=== PATIENT | female | born 1935 | race American Indian/Alaskan Native ===

== ENCOUNTER 2017-10-16 15:35 | Inpatient (IN) | payer BC, MEDICARE ==
[2017-10-16 15:46] VITALS: BMI 20.5
[2017-10-16] MEDS ORDERED: Sodium Chloride 0.9% 500 ML IV STA (16:02)
--- NOTE | 2017-10-16 16:08 | ED PDOC ---
Arrival/HPI - General Chief Complaint: GI Problem Time Seen by Provider: 10/16/17 16:02 Historian: Patient, Family (son at bedside) - History of Present Illness Narrative History of Present Illness (Text): 10/16/17 16:05 Pt p/w + 2-3 days onset of abd cramps/fullness, + intermittent nausea, one or 2 episodes of vomiting; pt states abd cramps/pain wax and wanes at most pain is 7/ 10, pt states symptoms actually started 3 weeks ago but the last few days has been the worse; pt states no fever/chills/sweats, no cp/sob/palpitations, no numbness/tingling, no urinary changes, + colostomy bag is filled and changed daily, non-bloody; pt was seen by Dr Guadalupe today and was directed to come to Emergency department for further eval; pt denied LOC, + lightheaded/dizzy, pt states she has no appetite. pt is here for further eval pt's without other complaints. PCP: Dr Rin Guadalupe other physician at [facility] Time/Duration: Other (3 weeks, worse over the last few days) Symptom Onset: Gradual Symptom Course: Worsening Quality: Cramping Severity Level: Moderate Activities at Onset: Rest Context: Home Past Medical History - Provider Review Nursing Documentation Reviewed: Yes - Travel History Have you recently traveled outside [place] w/in the past 3 mons?: No - Past History Past History: No Previous - Infectious Disease Hx of Infectious Diseases: None - Reproductive Menopause: Yes Currently : No - Cardiac Hx Hypertension: Yes - Musculoskeletal/Rheumatological Hx Gout: Yes - Gastrointestinal Other/Comment: Colon CA. H/O Colon resection - Psychiatric Hx Depression: No Hx Emotional Abuse: No Hx Physical Abuse: No Hx Substance Use: No - Surgical History Other/Comment: colon resection. ileostomy. ureteral stent - Anesthesia Hx Anesthesia: Yes Hx Anesthesia Reactions: No Hx Malignant Hyperthermia: No - Suicidal Assessment Feels Threatened In Home Enviroment: No Family/Social History - Physician Review Nursing Documentation Reviewed: Yes Family/Social History: No Known Family HX Smoking Status: Never Smoked Hx Alcohol Use: No Hx Substance Use: No Hx Substance Use Treatment: No Allergies/Home Meds Allergies/Adverse Reactions: Allergies No Known Allergies Allergy (Verified 01/01/12 18:12) Home Medications: Home Meds Medication Instructions Recorded Confirmed Gabapentin [Neurontin] 1 tab PO BID 10/16/17 10/16/17 Losartan/Hydrochlorothiazide 1 tab PO DAILY 10/16/17 10/16/17 [Hyzaar 100-25 Tablet] Metoprolol Tartrate [Lopressor] 1 tab PO DAILY 10/16/17 10/16/17 Rosuvastatin Calcium [Crestor] 10 mg PO DAILY 10/16/17 10/16/17 Warfarin [Coumadin] 6 mg PO DAILY 10/16/17 10/16/17 Review of Systems - Review of Systems Constitutional: Fatigue. absent: Fevers Eyes: Normal ENT: Normal Respiratory: absent: SOB Cardiovascular: absent: Chest Pain Gastrointestinal: Abdominal Pain, Nausea, Vomiting, Appetite Changes Genitourinary Female: Normal Musculoskeletal: Normal Skin: Normal Neurological: Dizziness. absent: Headache Endocrine: Normal Hemo/Lymphatic: Normal Psychiatric: Normal Physical Exam - Physical Exam Narrative Physical Exam (Text): 10/16/17 16:05 General: alert/awake, GCS = 15, oriented x 3, resting in bed, uncomfortable, cooperative, interactive; NAD Head: NC/AT; mild bi-temporal wasting EYE: PERRLA, EOMI, sclera anicteric, no nystagmus, no photophobia; visual field intact b/l Facial: WNL Oral: uvula/tongue are midline, no exudate/lesions, no drooling/stridor, no dysphonia; poor dentitions; mild dry oral mucosa NECK: intact ROM, no midline tenderness, no nuchal rigidity, no meningeal signs ; no step off Chest: CTA b/l, no w/r/r; no tachypenia, no accessory muscle use noted Chest Wall: no focal tenderness, no gross deformities, no crepitus, no lesions/ rashes noted Cardiac: +S1, +S2, no m/r/r, no tachycardia Abdominal: +BS, soft; + diffuse mild mid/lower abd distention, + diffuse mild abd tenderness, well nourished patient; no masses/rebound/guarding/rigidity; no solares's sign, no mcburney's point tenderness; noted mid/lower abd colostomy bag (full, with vanilla colored liquid; non-bloody) Extremities: intact ROM, strength 5/5 grossly intact in all limbs, neurovasc intact b/l; + ambulatory; reflex +2/2; no pitting edema noted, no gross swelling b/l BACK: no step off, no midline tenderness, NO crepitus, no gross deformities noted; Intact ROM SKIN: cap refill ~ 1 sec, no ulcerations, no petechiae, no rashes; no gross pallor, no lesions NEURO: CNII-XII WNL, no facial asymmetries, no slurr speech, oriented x 3 NIH stroke scale ~ 0 Psych: normal insight, normal affect; follows command with ease Vital Signs Reviewed: Yes Vital Signs Temp Pulse Resp BP Pulse Ox 10/16/17 19:54 88 18 112/72 99 10/16/17 18:00 81 18 111/72 97 10/16/17 16:06 98.7 F 100 H 20 103/64 99 Temperature: Afebrile Blood Pressure: Normal Pulse: Tachycardic Respiratory Rate: Normal Appearance: Positive for: Well-Appearing, Non-Toxic, Uncomfortable. No: Comfortable, Ill-Appearing Pain Distress: None Mental Status: Positive for: Alert and Oriented X 3 - Systems Exam Head: Present: Atraumatic, Normocephalic Medical Decision Making ED Course and Treatment: 10/16/17 16:08 Impression: weakness, abd cramps/lack of appetite i have consider all the differential diagnosis regarding pt's chief medical complaints/clinical findings, including but are not limited to: r/o blockage, dehydration, r/o infection A/P: weakness, abd pain/cramps, lack of appetite - labs - iv - xray - ct - ua - supportive care - observe/reevaluation 10/16/17 1830 pt is at baseline pt continues to have nausea pt is awaiting CT results given patients symptoms, will likely recommend patient for admission and continue IVF hydration [address] Guadalupe, Spoke to Dr Travis, made aware, agrees with admission; would like to consult Dr Mcmahan (surg)/Dr Lane (GI) 1909 pt is made aware of her medical results agrees with admission vital signs remained stable pt is endorsed to Dr Kelley Preciado, awaiting CT results, pt is admitted to Dr Guadalupe Re-evaluation Time: 19:00 Reassessment Condition: Improving,but remains with symptoms - Lab Interpretations Lab Results: 10/16/17 16:36 10/16/17 16:36 Lab Results 10/16/17 16:36: Sodium 148, Chloride 105, Potassium 3.3 L, Carbon Dioxide 25, Anion Gap 22 H, BUN 19, Creatinine 1.1, Est GFR ( Amer) 57, Est GFR (Non- Af Amer) 47, Random Glucose 116 H, Calcium 9.7, Magnesium 1.6 L, Total Bilirubin 0.6, AST 30, ALT 27, Alkaline Phosphatase 47, Troponin I 0.04, NT-Pro- B Natriuret Pep 915 H, Total Protein 7.6, Albumin 4.2, Globulin 3.4, Albumin/ Globulin Ratio 1.2, Lipase < 10 L 10/16/17 16:36: pO2 61 H, VBG pH 7.46 H, VBG pCO2 34.0 L, VBG HCO3 24.2, VBG Total CO2 25.2, VBG O2 Sat (Calc) 95.4 H, VBG Base Excess 0.8, VBG Potassium 2.9 L, Sodium 143.0, Chloride 109.0 H, Glucose 121 H, Lactate 1.9, FiO2 21.0, Venous Blood Potassium 2.9 L 10/16/17 16:36: PT 35.6 H, INR 3.05 H, APTT 37.7 H 10/16/17 16:36: WBC 3.7 L, RBC 4.55, Hgb 12.2, Hct 36.7, MCV 80.7, MCH 26.8, MCHC 33.2, RDW 14.7 H, Plt Count 196, MPV 12.0 H, Gran % 54.8, Lymph % (Auto) 36.1 H, [place] % (Auto) 7.7 H, Eos % (Auto) 1.4 L, Baso % (Auto) 0.0, Gran # 2.01 , Lymph # (Auto) 1.3, [place] # (Auto) 0.3, Eos # (Auto) 0.1, Baso # (Auto) 0.00 I have reviewed the lab results: Yes Interpretation: Abnormal lab values (decr K; otherwise WNL) - RAD Interpretation Narrative RAD Interpretations (Text): 10/16/17 19:50 CT Scan ABD PELVIS IV CONTRAST ONLY Exam Date: 10/16/17 This imaging exam was performed at EXAM: CT Abdomen and Pelvis With Intravenous Contrast EXAM DATE/TIME: 10/16/2017 4:03 PM CLINICAL HISTORY: The patient age is 82 years old and is female; Signs and symptoms; Nausea; Prior surgery; Additional info: Colon cancer, colostomy, + 2-3 days of pain, nause Facility exam id and description: Ct abdpelciv abd pelvis iv contrast only TECHNIQUE: Axial computed tomography images of the abdomen and pelvis with intravenous contrast. All CT scans at this facility use one or more dose reduction techniques, viz.: automated exposure control; ma/kV adjustment per patient size (including targeted exams where dose is matched to indication; i.e. head); or iterative reconstruction technique. Coronal and sagittal reformatted images were created and reviewed. CONTRAST: 100 mL of omni administered intravenously. COMPARISON: CT - ABD PELVIS PO CONTRAST ONLY 2015-06-16 12:42 FINDINGS: Limitations: Evaluation of was limited by the absence of oral contrast. Lung bases: Dependent groundglass density/atelectatic changes are identified bilaterally. Heart: There is mild enlargement of the left atrium of heart. ABDOMEN: Liver: No hepatic mass is identified. Gallbladder and bile ducts: No calcified stones. No ductal dilation. Pancreas: There is atrophy of the pancreas. Spleen: No splenomegaly. Adrenals: No mass. Kidneys and ureters: There is lobulation of the bilateral kidneys, with areas of parenchymal scarring. Bilateral extrarenal pelvis sees are identified. Stomach and bowel: Dilated small bowel loops are identified with air fluid levels, concerning for obstruction. There are small bowel loops within the pelvis appear to be normal in caliber. A colostomy is identified within the left ventral abdomen. Partial colectomy is visualized. Postoperative changes are identified involving bowel within the posterior pelvis. PELVIS: Appendix: The appendix is not visualized. Bladder: No mass. Reproductive: The uterus is absent. ABDOMEN and PELVIS: Intraperitoneal space: No free air. Bones/joints: There is grade 2 anterolisthesis of L4 on L5 again visualized. Severe narrowing of the thecal sac is identified at this level. There is swelling posterior to the sacrum with possible ulceration. Presacral swelling is also visualized. A laminectomy defect is identified at the L5 vertebral level. Hypertrophic degenerative changes are noted within the spine. Stable increased concavity of the superior L2 endplate. Mild retrolisthesis is noted of T12 on L1, with grade I anterolisthesis of L5 on S1. Vasculature: There is atherosclerotic calcification of the abdominal aorta and iliac arteries. An IVC filter is visualized. No abdominal aortic aneurysm. Lymph nodes: A few enlarged lymph nodes are identified within the right lower quadrant. One of these lymph nodes measures 1.5 x 1.3 cm. These lymph nodes are new compared to the prior study and therefore suspicious for malignancy. IMPRESSION: 1. Dilated small bowel loops are identified with air fluid levels, concerning for obstruction. 2. A few enlarged lymph nodes are identified within the right lower quadrant. These lymph nodes are new compared to the prior study and therefore suspicious for malignancy. PET/CT is suggested. 3. There is lobulation of the bilateral kidneys, with areas of parenchymal scarring. 4. There is grade 2 anterolisthesis of L4 on L5 again visualized. Severe narrowing of the thecal sac is identified at this level. 5. There is swelling posterior to the sacrum with possible ulceration. Presacral swelling is also visualized. Clinical correlation is recommended. 6. Additional CT findings described above. Dictated By: Fabien Carney MD, MD Dictated Date/Time: 10/16/172006 Signed By: Fabien De Jesus MD Date Signed: 2006 Transcribed By: EDWARD Transcribe Date/Time : 10/16/172006 KIRA/ANA prelim results: Chest X-ray - left port-a cath, NAD noted Radiology Orders: 10/16/17 16:02 CHEST PORTABLE [RAD] Stat 10/16/17 16:03 ABD & PELVIS IV CONTRAST ONLY [CT] Stat Financial Analysis Manager: Radiologist - Medication Orders Current Medication Orders: Atorvastatin Calcium (Lipitor) 10 mg PO DIN ADELINE Gabapentin (Neurontin) 300 mg PO BID ADELINE PRN Reason: Protocol Dextrose/Sodium Chloride (Dextrose 5%/0.9% Ns 1000 Ml) 1,000 mls @ 100 mls/hr IV .Q10H ADELINE Last Admin: 10/16/17 19:40 Dose: 100 mls/hr eMAR Start Stop Document 10/16/17 19:40 BRIDGET (Rec: 10/16/17 20:31 BRIDGET [id number]) Intravenous Solution Start Date 10/16/17 Start Time 19:40 Losartan Potassium (Cozaar) 100 mg PO DAILY ADELINE Metoprolol Tartrate (Lopressor) 25 mg PO DAILY ADELINE Warfarin Sodium (Coumadin) 3 mg PO 1800 ADELINE PRN Reason: Protocol Discontinued Medications Famotidine (Pepcid) 20 mg IVP STAT STA Stop: 10/16/17 16:03 Last Admin: 10/16/17 16:44 Dose: 20 mg IVP Administration Document 10/16/17 16:44 [email or web address] (Rec: 10/16/17 16:45 [email or web address] [id number]) Charges for Administration # of IVP Administrations 1 Sodium Chloride (Sodium Chloride 0.9%) 500 mls @ 1,000 mls/hr IV .Q30M STA Stop: 10/16/17 16:31 Last Admin: 10/16/17 16:45 Dose: 1,000 mls/hr eMAR Start Stop Document 10/16/17 16:45 [email or web address] (Rec: 10/16/17 16:45 [email or web address] [id number]) Intravenous Solution Start Date 10/16/17 Start Time 16:45 End Date 10/16/17 Ondansetron HCl (Zofran Inj) 4 mg IVP STAT STA Stop: 10/16/17 16:03 Last Admin: 10/16/17 16:44 Dose: 4 mg IVP Administration Document 10/16/17 16:44 [email or web address] (Rec: 10/16/17 16:44 [email or web address] [id number]) Charges for Administration # of IVP Administrations 1 Potassium Chloride (Klor-Con 10) 10 meq PO STAT STA Stop: 10/16/17 17:27 Last Admin: 10/16/17 18:23 Dose: 10 meq Disposition/Present on Arrival - Present on Arrival Any Indicators Present on Arrival: No History of DVT/PE: No History of Uncontrolled Diabetes: No Urinary Catheter: No History of Decub. Ulcer: No History Surgical Site Infection Following: None - Disposition Have Diagnosis and Disposition been Completed?: Yes Diagnosis: Bowel obstruction, Colon malignancy, Dehydration, Failure to thrive, Hypokalemia, Nausea Disposition: HOSPITALIZED Disposition Time: 19:00 Patient Plan: Admission, Telemetry Patient Problems: Current Active Problems Problem Status Onset Bowel obstruction Acute Colon malignancy Acute Dehydration Acute Condition: STABLE
[2017-10-16 16:44] LABS: VENOUS BLOOD GAS BASE EXCESS 0.8 mmol/L (0.0-2.0); VENOUS BLOOD GAS PO2 61 mm/Hg (30-55); VENOUS BLOOD PH 7.46 (7.32-7.43)
[2017-10-16 16:56] LABS: EOS # 0.1 (0.0-0.7); EOS % 1.4 % (1.5-5.0); GRAN # 2.01 (1.4-6.5); GRAN % 54.8 % (50.0-68.0); HEMOGLOBIN 12.2 g/dL (12.0-16.0); LYMPH # 1.3 (1.2-3.4); LYMPH % 36.1 % (22.0-35.0); MEAN CELL VOLUME 80.7 fl (80.0-105.0); MEAN CORPUSCULAR HEMOGLOBIN 26.8 pg (25.0-35.0); MEAN CORPUSCULAR HGB CONC 33.2 g/dl (31.0-37.0); MONO # 0.3 (0.1-0.6); MONO % 7.7 % (1.0-6.0); RBC 4.55 10^6/uL (3.5-6.1); RED CELL DISTRIBUTION WIDTH 14.7 % (11.5-14.5); WHITE BLOOD COUNT 3.7 10^3/ul (4.5-11.0)
[2017-10-16 17:03] LABS: ALB/GLOB RATIO 1.2 (1.1-1.8); ALBUMIN 4.2 g/dL (3.0-4.8); ALT/SGPT 27 U/L (7-56); AST/SGOT 30 U/L (14-36); BLOOD UREA NITROGEN 19 mg/dL (7-21); CALCIUM 9.7 mg/dL (8.4-10.5); GFR AFRICAN-AMERICAN 57; GFR NON-AFRICAN AMERICAN 47
[2017-10-16 17:05] LABS: INR 3.05 (0.93-1.08); PARTIAL THROMBOPLASTIN TIME 37.7 Seconds (25.1-36.5); PROTHROMBIN TIME 35.6 SECONDS (9.4-12.5)
[2017-10-16 17:08] LABS: LIPASE < 10 U/L (23-300)
[2017-10-16 17:12] LABS: B-TYPE NATRIURETIC PEPTIDE 915 pg/mL (0-450); TROPONIN I 0.04 ng/mL
[2017-10-16] MEDS ORDERED: Potassium Chloride 10 mEq ER Tab PO STA (17:26)
[2017-10-16] MEDS ORDERED: Iohexol 350 MG/100 ML VIAL ONE (17:30)
[2017-10-16] MEDS: Dextrose 5%/0.9% NS 1,000 ML IV SCH (19:40)
--- NOTE | 2017-10-16 19:45 | CP.PCM.CON ---
History of Present Illness - History of Present Illness History of Present Illness: General Surgery Consult for Dr. Mcmahan Reason for consult: suspected SBO/Obstruction on CT 82F with PMH that includes Colon Ca s/p chemo, radiation and resection with end colostomy [place] [facility] complaint of anorexia, nausea, and malaise for past 2 days. Patient was seen and evaluated in the ED. Patient states that she has not be able to eat much the last few days. She reports that she just has not been feeling well. She reports that she has been changing her colostomy appliance frequently due to loose BMs. She states that she went to her PMD's office today and he sent her into the hospital to be seen. She has had intermittent bouts of nausea. She reports that she has been unable to eat anything substantial but today forced herself to drink ensure which she tolerated but subsequently develop diarrhea. Patient currently denies abdominal pain. She also denies fever/chills and vomiting. Denies sick contacts or recent illness. She reports no aggravating or alleviating factors. Patient admits to bilateral lower leg/foot pain and numbness/tingling which has been present since radiation. Patient has no other complaints at this time. CT abdomen/ pelvis was completed and was read as possible obstruction. Patient is have solid naomi colored stool from colostomy. PMH: Colon Ca s/p chemo, radiation and resection with end colostomy, neuropathy , DVT on coumadin, HLD Meds: Losartan, HCTZ, Metoprolol, Coumadin, Gabapentin, Crestor Allergy: NKDA PSH: colon resection with end colostomy, IVC filter, Port placement FH: cannot recall Social: denies tobacco/EtOH/illicit drug use, son helps take care of her Review of Systems - Review of Systems All systems: reviewed and no additional remarkable complaints except (as per HPI ) Past Patient History - Infectious Disease Hx of Infectious Diseases: None - Past Social History Smoking Status: Never Smoked - CARDIAC Hx Hypertension: Yes - MUSCULOSKELETAL/RHEUMATOLOGICAL Hx Gout: Yes - GASTROINTESTINAL Other/Comment: Colon CA. H/O Colon resection - PSYCHIATRIC Hx Depression: No Hx Emotional Abuse: No Hx Physical Abuse: No Hx Substance Use: No - SURGICAL HISTORY Other/Comment: colon resection. ileostomy. ureteral stent - ANESTHESIA Hx Anesthesia: Yes Hx Anesthesia Reactions: No Hx Malignant Hyperthermia: No Meds Allergies/Adverse Reactions: Allergies Allergy/AdvReac Type Severity Reaction Status Date / Time No Known Allergies Allergy Verified 01/01/12 18:12 - Medications Medications: Current Medications Dextrose/Sodium Chloride (Dextrose 5%/0.9% Ns 1000 Ml) 1,000 mls @ 100 mls/hr IV .Q10H ADELINE Physical Exam - Constitutional Appears: Non-toxic, No Acute Distress - Head Exam Head Exam: ATRAUMATIC, NORMOCEPHALIC - Eye Exam Eye Exam: EOMI, Normal appearance Pupil Exam: PERRL - ENT Exam ENT Exam: Mucous Membranes Moist - Respiratory Exam Respiratory Exam: NORMAL BREATHING PATTERN - Cardiovascular Exam Cardiovascular Exam: REGULAR RHYTHM, +S1, +S2 - GI/Abdominal Exam GI & Abdominal Exam: Normal Bowel Sounds, Soft. absent: Distended, Firm, Guarding, Rebound, Rigid, Tenderness Additional comments: colostomy pink and patent, producing solid naomi colored stool - patient has changed it twice since being in ER - Extremities Exam Extremities exam: Positive for: normal capillary refill, tenderness (bilateral lower extremity), pedal pulses present - Back Exam Back exam: absent: CVA tenderness (L), CVA tenderness (R) Additional comments: scar from stage II sacral decubitus ulcer - Neurological Exam Neurological exam: Alert, CN II-XII Intact, Oriented x3 - Psychiatric Exam Psychiatric exam: Normal Affect, Normal Mood - Skin Skin Exam: Dry, Warm Results - Vital Signs Recent Vital Signs: Last Vital Signs Temp 98.7 F 10/16/17 16:06 Pulse 81 10/16/17 18:00 Resp 18 10/16/17 18:00 BP 111/72 10/16/17 18:00 Pulse Ox 97 10/16/17 18:00 - Labs Result Diagrams: 10/17/17 06:30 10/17/17 06:30 Assessment & Plan - Assessment and Plan (Free Text) Assessment: 82 F who presents with anorexia, nausea, and malaise Plan: -Obstruction unlikely due to patient producing stool and not having pain/nausea/ vomiting -IV fluids -Serial abd exams -Monitor bowel function -May try CLD if patient is willing -Further recommendations as per Dr. Martir Bernal PGY1 - Date & Time Date: 10/16/17 Time: 19:30
--- NOTE | 2017-10-16 20:07 | CT ---
EXAM: CT Abdomen and Pelvis With Intravenous Contrast EXAM DATE/TIME: 10/16/2017 4:03 PM CLINICAL HISTORY: The patient age is 82 years old and is female; Signs and symptoms; Nausea; Prior surgery; Additional info: Colon cancer, colostomy, + 2-3 days of pain, nause Facility exam id and description: Ct abdpelciv abd pelvis iv contrast only TECHNIQUE: Axial computed tomography images of the abdomen and pelvis with intravenous contrast. All CT scans at this facility use one or more dose reduction techniques, viz.: automated exposure control; ma/kV adjustment per patient size (including targeted exams where dose is matched to indication; i.e. head); or iterative reconstruction technique. Coronal and sagittal reformatted images were created and reviewed. CONTRAST: 100 mL of omni administered intravenously. COMPARISON: CT - ABD PELVIS PO CONTRAST ONLY 2015-06-16 12:42 FINDINGS: Limitations: Evaluation of was limited by the absence of oral contrast. Lung bases: Dependent groundglass density/atelectatic changes are identified bilaterally. Heart: There is mild enlargement of the left atrium of heart. ABDOMEN: Liver: No hepatic mass is identified. Gallbladder and bile ducts: No calcified stones. No ductal dilation. Pancreas: There is atrophy of the pancreas. Spleen: No splenomegaly. Adrenals: No mass. Kidneys and ureters: There is lobulation of the bilateral kidneys, with areas of parenchymal scarring. Bilateral extrarenal pelvis sees are identified. Stomach and bowel: Dilated small bowel loops are identified with air fluid levels, concerning for obstruction. There are small bowel loops within the pelvis appear to be normal in caliber. A colostomy is identified within the left ventral abdomen. Partial colectomy is visualized. Postoperative changes are identified involving bowel within the posterior pelvis. PELVIS: Appendix: The appendix is not visualized. Bladder: No mass. Reproductive: The uterus is absent. ABDOMEN and PELVIS: Intraperitoneal space: No free air. Bones/joints: There is grade 2 anterolisthesis of L4 on L5 again visualized. Severe narrowing of the thecal sac is identified at this level. There is swelling posterior to the sacrum with possible ulceration. Presacral swelling is also visualized. A laminectomy defect is identified at the L5 vertebral level. Hypertrophic degenerative changes are noted within the spine. Stable increased concavity of the superior L2 endplate. Mild retrolisthesis is noted of T12 on L1, with grade I anterolisthesis of L5 on S1. Vasculature: There is atherosclerotic calcification of the abdominal aorta and iliac arteries. An IVC filter is visualized. No abdominal aortic aneurysm. Lymph nodes: A few enlarged lymph nodes are identified within the right lower quadrant. One of these lymph nodes measures 1.5 x 1.3 cm. These lymph nodes are new compared to the prior study and therefore suspicious for malignancy. IMPRESSION: 1. Dilated small bowel loops are identified with air fluid levels, concerning for obstruction. 2. A few enlarged lymph nodes are identified within the right lower quadrant. These lymph nodes are new compared to the prior study and therefore suspicious for malignancy. PET/CT is suggested. 3. There is lobulation of the bilateral kidneys, with areas of parenchymal scarring. 4. There is grade 2 anterolisthesis of L4 on L5 again visualized. Severe narrowing of the thecal sac is identified at this level. 5. There is swelling posterior to the sacrum with possible ulceration. Presacral swelling is also visualized. Clinical correlation is recommended. 6. Additional CT findings described above.
[2017-10-17 06:49] LABS: URINE BILIRUBIN NEGATIVE (NEGATIVE); URINE BLOOD NEGATIVE (NEGATIVE); URINE GLUCOSE (UA) NEGATIVE (NEGATIVE); URINE LEUKOCYTE ESTERASE SMALL Leu/uL (NEGATIVE); URINE PROTEIN TRACE mg/dL (<30 mg/dL); URINE UROBILINOGEN 0.2 E.U./dL (<1 E.U./dL)
[2017-10-17 06:50] LABS: URINE APPEARANCE CLEAR (CLEAR); URINE COLOR YELLOW (YELLOW)
[2017-10-17 07:09] LABS: BASO # 0.02 K/mm3 (0.0-2.0); BASO % 0.6 % (0.0-3.0); EOS # 0.1 (0.0-0.7); EOS % 3.4 % (1.5-5.0); GRAN # 1.45 (1.4-6.5); GRAN % 44.9 % (50.0-68.0); HEMOGLOBIN 10.3 g/dL (12.0-16.0); LYMPH # 1.3 (1.2-3.4); LYMPH % 41.5 % (22.0-35.0); MEAN CELL VOLUME 80.2 fl (80.0-105.0); MEAN CORPUSCULAR HEMOGLOBIN 26.2 pg (25.0-35.0); MEAN CORPUSCULAR HGB CONC 32.7 g/dl (31.0-37.0); MEAN PLATELET VOLUME 11.5 fl (7.0-11.0); MONO # 0.3 (0.1-0.6); MONO % 9.6 % (1.0-6.0); RBC 3.93 10^6/uL (3.5-6.1); RED CELL DISTRIBUTION WIDTH 14.7 % (11.5-14.5); WHITE BLOOD COUNT 3.2 10^3/ul (4.5-11.0)
[2017-10-17 07:26] LABS: INR 3.28 (0.93-1.08); PROTHROMBIN TIME 38.6 SECONDS (9.4-12.5)
[2017-10-17 07:38] LABS: ALB/GLOB RATIO 1.1 (1.1-1.8); ALBUMIN 3.1 g/dL (3.0-4.8); ALT/SGPT 22 U/L (7-56); AST/SGOT 26 U/L (14-36); BLOOD UREA NITROGEN 14 mg/dL (7-21); CALCIUM 8.7 mg/dL (8.4-10.5); GFR AFRICAN-AMERICAN > 60; GFR NON-AFRICAN AMERICAN 60
[2017-10-17 07:52] LABS: URINE RBC 0 - 2 /hpf (0-2)
--- NOTE | 2017-10-17 08:12 | CP.PCM.PN ---
Subjective - Date & Time of Evaluation Date of Evaluation: 10/17/17 Time of Evaluation: 08:11 - Subjective Subjective: General surgery progress note for Dr. Meghan Nayak, PGY-1 Pt S & E at bedside at 0710 Pt reports some nausea overnight. Changed her ostomy bag last night due to output, no output as of this AM. No other complaints at this time. Denies F & C. Objective - Vital Signs/Intake and Output Vital Signs (last 24 hours): Temp Pulse Resp BP Pulse Ox 98.7 F 67 18 112/72 99 10/16/17 16:06 10/17/17 05:07 10/16/17 21:37 10/16/17 21:37 10/16/17 19:55 Intake and Output: 10/17/17 10/17/17 06:59 18:59 Intake Total 0 Balance 0 - Medications Medications: Current Medications Atorvastatin Calcium (Lipitor) 10 mg PO DIN [facility] Gabapentin (Neurontin) 300 mg PO BID [facility] PRN Reason: Protocol Dextrose/Sodium Chloride (Dextrose 5%/0.9% Ns 1000 Ml) 1,000 mls @ 100 mls/hr IV .Q10H [facility] Last Admin: 10/16/17 19:40 Dose: 100 mls/hr Losartan Potassium (Cozaar) 100 mg PO DAILY [facility] Metoprolol Tartrate (Lopressor) 25 mg PO DAILY [facility] Ondansetron HCl (Zofran Inj) 4 mg IVP Q6H PRN PRN Reason: Nausea/Vomiting Warfarin Sodium (Coumadin) 3 mg PO 1800 [facility] PRN Reason: Protocol - Labs Labs: 10/17/17 06:30 10/17/17 06:30 PT 38.6 SECONDS (9.4-12.5) H 10/17/17 06:30 INR 3.28 (0.93-1.08) H 10/17/17 06:30 APTT 37.7 Seconds (25.1-36.5) H 10/16/17 16:36 - Constitutional Appears: Non-toxic, No Acute Distress - Head Exam Head Exam: ATRAUMATIC, NORMAL INSPECTION, NORMOCEPHALIC - Eye Exam Eye Exam: EOMI, Normal appearance - ENT Exam ENT Exam: Mucous Membranes Moist, Normal Exam - Neck Exam Neck Exam: Full ROM, Normal Inspection - Respiratory Exam Respiratory Exam: NORMAL BREATHING PATTERN - Cardiovascular Exam Cardiovascular Exam: REGULAR RHYTHM, +S1, +S2 - GI/Abdominal Exam GI & Abdominal Exam: Soft. absent: Distended, Firm, Guarding, Tenderness Additional comments: ostomy pink, bag empty Well healed abdominal scar in RLQ - Extremities Exam Extremities Exam: Normal Inspection - Back Exam Back Exam: NORMAL INSPECTION Additional comments: Well healed scar over sacrum, no erythema noted - Neurological Exam Neurological Exam: Alert, Awake, CN II-XII Intact, Oriented x3 - Psychiatric Exam Psychiatric exam: Normal Affect, Normal Mood - Skin Skin Exam: Dry, Intact, Normal Color, Warm Assessment and Plan - Assessment and Plan (Free Text) Assessment: 82F w/anorexia, nausea, malaise- improving Plan: IVF until tolerating enough liquids Anti-emetic CLD w/supplements Monitor for diet tolerance Monitor bowel function Further mgmt as per primary team SHYANN attending Malini, PGY-1
--- NOTE | 2017-10-17 08:52 | RAD ---
HISTORY: weakness COMPARISON: 02/09/2013 FINDINGS: LUNGS: No active pulmonary disease. PLEURA: No significant pleural effusion identified, no pneumothorax apparent. CARDIOVASCULAR: Normal. OSSEOUS STRUCTURES: No significant abnormalities. VISUALIZED UPPER ABDOMEN: Normal. OTHER FINDINGS: Left internal jugular Port-A-Cath in satisfactory position IMPRESSION: No active disease.
[2017-10-17] MEDS: Dextrose 5%/0.9% NS 1,000 ML IV SCH (09:39)
[2017-10-18] MEDS: Dextrose 5%/0.9% NS 1,000 ML IV SCH (00:05)
[2017-10-18 07:32] LABS: HEMOGLOBIN 11.8 g/dL (12.0-16.0); MEAN CELL VOLUME 80.2 fl (80.0-105.0); MEAN CORPUSCULAR HEMOGLOBIN 26.9 pg (25.0-35.0); MEAN CORPUSCULAR HGB CONC 33.5 g/dl (31.0-37.0); MEAN PLATELET VOLUME 12.9 fl (7.0-11.0); RBC 4.39 10^6/uL (3.5-6.1); RED CELL DISTRIBUTION WIDTH 14.8 % (11.5-14.5); WHITE BLOOD COUNT 5.8 10^3/ul (4.5-11.0)
[2017-10-18 07:38] LABS: INR 2.89 (0.93-1.08)
[2017-10-18 07:39] LABS: PARTIAL THROMBOPLASTIN TIME 44.8 Seconds (25.1-36.5)
[2017-10-18 08:12] LABS: ALB/GLOB RATIO 1.2 (1.1-1.8); ALBUMIN 3.6 g/dL (3.0-4.8); ALT/SGPT 26 U/L (7-56); AST/SGOT 33 U/L (14-36); BLOOD UREA NITROGEN 11 mg/dL (7-21); GFR AFRICAN-AMERICAN > 60; GFR NON-AFRICAN AMERICAN > 60
[2017-10-18] MEDS ORDERED: NS IV SCH (08:24)
[2017-10-18] MEDS ORDERED: DEXTROSE IV SCH (08:24)
[2017-10-18] MEDS ORDERED: D5W IV SCH (08:24)
[2017-10-18] MEDS ORDERED: POTASSIUM CH IV SCH (08:24)
--- NOTE | 2017-10-18 10:01 | CP.PCM.PN ---
Subjective - Date & Time of Evaluation Date of Evaluation: 10/18/17 Time of Evaluation: 08:00 - Subjective Subjective: Patient seen and examined at bedside with Dr. Mcmahan. Patient reports episode of nausea and vomiting early this AM and no output in her ostomy. Objective - Vital Signs/Intake and Output Vital Signs (last 24 hours): Temp Pulse Resp BP Pulse Ox 98.2 F 69 18 153/94 H 96 10/18/17 06:00 10/18/17 06:00 10/18/17 06:00 10/18/17 06:00 10/18/17 06:00 Intake and Output: 10/18/17 10/18/17 06:59 18:59 Intake Total 1560 Balance 1560 - Medications Medications: Current Medications Atorvastatin Calcium (Lipitor) 10 mg PO DIN [facility] Last Admin: 10/17/17 17:51 Dose: 10 mg Gabapentin (Neurontin) 300 mg PO BID [facility] PRN Reason: Protocol Last Admin: 10/18/17 09:35 Dose: Not Given Potassium Chloride (Potassium Chloride 10 Meq/100 Ml) 10 meq in 100 mls @ 50 mls/hr IVPB Q2H [facility] Stop: 10/18/17 12:29 Last Admin: 10/18/17 08:42 Dose: 50 mls/hr Potassium Chloride 20 meq/ (Dextrose/Sodium Chloride) 1,010 mls @ 100 mls/hr IV .Q10H6M [facility] Losartan Potassium (Cozaar) 100 mg PO DAILY [facility] Last Admin: 10/18/17 09:35 Dose: Not Given Metoprolol Tartrate (Lopressor) 25 mg PO DAILY [facility] Last Admin: 10/18/17 09:35 Dose: Not Given Ondansetron HCl (Zofran Inj) 4 mg IVP Q6H PRN PRN Reason: Nausea/Vomiting Last Admin: 10/18/17 08:50 Dose: 4 mg Warfarin Sodium (Coumadin) 3 mg PO 1800 [facility] PRN Reason: Protocol - Labs Labs: 10/18/17 07:00 10/18/17 07:00 PT 34.0 SECONDS (9.4-12.5) H 10/18/17 07:00 INR 2.89 (0.93-1.08) H 10/18/17 07:00 APTT 44.8 Seconds (25.1-36.5) H 10/18/17 07:00 - Constitutional Appears: Well, Non-toxic, No Acute Distress - Head Exam Head Exam: ATRAUMATIC, NORMOCEPHALIC - Eye Exam Eye Exam: Normal appearance. absent: Conjunctival injection, Scleral icterus - ENT Exam ENT Exam: Mucous Membranes Moist, Normal Oropharynx - Respiratory Exam Respiratory Exam: NORMAL BREATHING PATTERN. absent: Accessory Muscle Use, Respiratory Distress - GI/Abdominal Exam GI & Abdominal Exam: Distended (mild), Soft, Tenderness (mild tenderness to palpation), Hernia (parastomal reducible hernia, non-tender) - Extremities Exam Extremities Exam: absent: Calf Tenderness, Tenderness - Neurological Exam Neurological Exam: Alert, Awake, Oriented x3 - Psychiatric Exam Psychiatric exam: Normal Affect, Normal Mood - Skin Skin Exam: Dry, Intact, Normal Color, Warm Assessment and Plan - Assessment and Plan (Free Text) Assessment: 82F with SBO Plan: flat plat abdominal xray--if concerning for persistent or worsening SBO will insert NGT and begin fleet enemas through the stoma NPO Monitor urine and bowel function closely PRN nausea medication and pain medication only as necessary out of bed to chair IVF PT incentive spirometer Seen and discussed with Dr. Martir Emmanuel, PGY2
[2017-10-18] MEDS: Potassium Chloride 20 MEQ in Dextrose 5%/0.9% NS 1,000 ML IV SCH ×2 (11:19→20:39)
--- NOTE | 2017-10-18 11:24 | RAD ---
HISTORY: SBO COMPARISON: 10/16/2017 FINDINGS: BOWEL: There is no significant change in the pattern of severe small bowel obstruction. Multiple dilated loops of small bowel are seen with air-fluid levels. BONES: Normal. OTHER FINDINGS: None. IMPRESSION: There is no significant change in the pattern of severe small bowel obstruction. Multiple dilated loops of small bowel are seen with air-fluid levels.
[2017-10-18] MEDS ORDERED: Lidocaine 2% Jelly (Uro-Jet) TOP ONE (11:44)
[2017-10-18] MEDS ORDERED: Magnesium Sulfate 1 gm in D5W 1 GM/100 ML BAG IVPB ONE (12:53)
--- NOTE | 2017-10-18 14:38 | RAD ---
HISTORY: NGT placement COMPARISON: 10/16/2017 FINDINGS: LUNGS: No active pulmonary disease. PLEURA: No significant pleural effusion identified, no pneumothorax apparent. CARDIOVASCULAR: Normal. OSSEOUS STRUCTURES: No significant abnormalities. VISUALIZED UPPER ABDOMEN: Nasogastric tube in satisfactory position OTHER FINDINGS: Left-sided Port-A-Cath IMPRESSION: NG tube in satisfactory position
--- NOTE | 2017-10-18 19:30 | CP.PCM.CON ---
History of Present Illness - History of Present Illness History of Present Illness: General Surgery consult note for Dr. Irizarry, who has been consulted for a 2nd opinion 82F with PMH that includes Colon Ca s/p resection x2 with end colostomy in 2010 and chemo, radiation, who was referred to [facility] by her PMD for complaint of anorexia, nausea, and malaise for 2 days prior to admission. She reports that she just has not been feeling well, with intermittent bouts of nausea and has been changing her colostomy appliance frequently due to loose BMs. CT abdomen/ pelvis was completed and was read as possible small bowel obstruction, though patient denied any nausea, vomiting, or abdominal pain at the time of admission , and was having naomi colored stool output in her ostomy at that time. Patient was admitted, put on liquid diet, with IVF and PRN nausea medication. Today patient remarks that she has had an intermittent, non-tender bulge around her ostomy for some time, which appears to be a parastomal hernia. She states that she has not had any output from her ostomy, including gas, since day of admission. Abdominal flat plate was ordered this AM and showed persistent air fluid levels in the small bowel and NGT was inserted with approximately 800cc's of dark brown feculent appearing fluid output for past 9 hours. Patient states that she has intermittent cramping abdominal pain, but denies any nausea. Patient has received 2 fleet enemas via her colostomy which has only produce small watery output. Patient reports sore, dry throat PMH: Colon Ca s/p chemo, radiation and resectionx2 with end colostomy, neuropathy, DVT on coumadin, HLD Meds: Losartan, HCTZ, Metoprolol, Coumadin, Gabapentin, Crestor Allergy: NKDA PSH: colon resection with end colostomy, IVC filter, Port placement FH: cannot recall Social: denies tobacco/EtOH/illicit drug use, son helps take care of her Review of Systems - Review of Systems All systems: reviewed and no additional remarkable complaints except (as per HPI ) Past Patient History - Infectious Disease Hx of Infectious Diseases: None - Past Medical History & Family History Past Medical History?: Yes Past Family History: Reviewed and not pertinent - Past Social History Smoking Status: Never Smoked Alcohol: None Drugs: Denies Home Situation {Lives}: With Family - CARDIAC Hx Hypertension: Yes - PULMONARY Hx Respiratory Disorders: No - NEUROLOGICAL Hx Neurological Disorder: No - HEENT Hx HEENT Problems: No - RENAL Hx Chronic Kidney Disease: No - ENDOCRINE/METABOLIC Hx Endocrine Disorders: No - HEMATOLOGICAL/ONCOLOGICAL Hx Blood Disorders: No - INTEGUMENTARY Hx Dermatological Problems: No - MUSCULOSKELETAL/RHEUMATOLOGICAL Hx Gout: Yes - GASTROINTESTINAL Other/Comment: Colon CA. H/O Colon resection - GENITOURINARY/GYNECOLOGICAL Hx Genitourinary Disorders: No - PSYCHIATRIC Hx Depression: No Hx Emotional Abuse: No Hx Physical Abuse: No Hx Substance Use: No - SURGICAL HISTORY Other/Comment: colon resection. ileostomy. ureteral stent - ANESTHESIA Hx Anesthesia: Yes Hx Anesthesia Reactions: No Hx Malignant Hyperthermia: No Meds Allergies/Adverse Reactions: Allergies Allergy/AdvReac Type Severity Reaction Status Date / Time No Known Allergies Allergy Verified 01/01/12 18:12 - Medications Medications: Current Medications Atorvastatin Calcium (Lipitor) 10 mg PO DIN [facility] Last Admin: 10/18/17 17:16 Dose: Not Given Gabapentin (Neurontin) 300 mg PO BID [facility] PRN Reason: Protocol Last Admin: 10/18/17 17:16 Dose: Not Given Potassium Chloride 20 meq/ (Dextrose/Sodium Chloride) 1,010 mls @ 100 mls/hr IV .Q10H6M [facility] Last Admin: 10/18/17 11:19 Dose: 100 mls/hr Losartan Potassium (Cozaar) 100 mg PO DAILY [facility] Last Admin: 10/18/17 09:35 Dose: Not Given Metoprolol Tartrate (Lopressor) 25 mg PO DAILY [facility] Last Admin: 10/18/17 09:35 Dose: Not Given Ondansetron HCl (Zofran Inj) 4 mg IVP Q6H PRN PRN Reason: Nausea/Vomiting Last Admin: 10/18/17 14:11 Dose: 4 mg Sodium Phosphate (Fleet Enema) 135 ml RC ONCE ONE Stop: 10/18/17 20:01 Warfarin Sodium (Coumadin) 3 mg PO 1800 [facility] PRN Reason: Protocol Physical Exam - Constitutional Appears: Well, Non-toxic, No Acute Distress - Head Exam Head Exam: ATRAUMATIC, NORMOCEPHALIC - Eye Exam Eye Exam: Normal appearance. absent: Conjunctival injection, Scleral icterus - ENT Exam ENT Exam: Mucous Membranes Moist, Normal Oropharynx Additional comments: NGT in place in the right nares - Respiratory Exam Respiratory Exam: NORMAL BREATHING PATTERN. absent: Accessory Muscle Use, Respiratory Distress - GI/Abdominal Exam GI & Abdominal Exam: Soft. absent: Distended, Tenderness Additional comments: colostomy pink, patent, and unproductive. Parastomal hernia apparent when patient sitting upright--easily reduced, non-tender, non-erythematous - Extremities Exam Extremities exam: Positive for: pedal pulses present. Negative for: calf tenderness, pedal edema - Neurological Exam Neurological exam: Alert, Oriented x3 - Psychiatric Exam Psychiatric exam: Normal Affect, Normal Mood - Skin Skin Exam: Dry, Intact, Normal Color, Warm Results - Vital Signs Recent Vital Signs: Last Vital Signs Temp 98.0 F 10/18/17 17:42 Pulse 84 10/18/17 17:42 Resp 20 10/18/17 17:42 BP 144/83 10/18/17 17:42 Pulse Ox 98 10/18/17 17:42 - Labs Result Diagrams: 10/18/17 07:00 10/18/17 07:00 Labs: Laboratory Results - last 24 hr 10/18/17 10/18/17 10/18/17 07:00 07:00 07:00 WBC 5.8 D RBC 4.39 Hgb 11.8 L Hct 35.2 L MCV 80.2 MCH 26.9 MCHC 33.5 RDW 14.8 H Plt Count 158 MPV 12.9 H PT 34.0 H INR 2.89 H APTT 44.8 H Sodium 149 H Potassium 2.8 L* Chloride 112 H Carbon Dioxide 24 Anion Gap 16 BUN 11 Creatinine 0.8 Est GFR ( Amer) > 60 Est GFR (Non-Af Amer) > 60 Random Glucose 146 H Calcium 9.0 Phosphorus Magnesium Total Bilirubin 0.5 AST 33 ALT 26 Alkaline Phosphatase 37 L Total Protein 6.6 Albumin 3.6 Globulin 3.1 Albumin/Globulin Ratio 1.2 10/18/17 07:30 WBC RBC Hgb Hct MCV MCH MCHC RDW Plt Count MPV PT INR APTT Sodium Potassium Chloride Carbon Dioxide Anion Gap BUN Creatinine Est GFR ( Amer) Est GFR (Non-Af Amer) Random Glucose Calcium Phosphorus 2.4 L Magnesium 1.5 L Total Bilirubin AST ALT Alkaline Phosphatase Total Protein Albumin Globulin Albumin/Globulin Ratio Assessment & Plan - Assessment and Plan (Free Text) Assessment: 82F with small bowel obstruction vs ileus and parastomal hernia Plan: No immediate surgical intervention necessary at this time. Patient is currently hemodynamically stable, abdomen has no signs of peritonitis, and NGT is draining abdomen effectively Continue regular abdominal exams, monitor NGT output, continue NGT on low intermittent wall suction strict urine output--follow up urine culture as patient's UA was indicative of possible UTI Monitor colostomy function closely PT, Out of bed to chair Discussed with Dr. Irizarry, further recs per him Shawn Emmanuel, PGY2
[2017-10-18] MEDS: Benzocaine/Menthol (Cepacol) Lozenge MT PRN (22:09)
--- NOTE | 2017-10-18 23:45 | PN ---
DATE: 10/18/2017 SUBJECTIVE: This patient was seen and evaluated earlier today. Patient was nauseous; has an abdominal discomfort. NG tube has been placed. significant drainage. Patient is feeling slightly better now. Patient's family was at bedside at the time of examination. PHYSICAL EXAMINATION: VITAL SIGNS: Temperature is 98, pulse 84, blood pressure 144/83, respirations 20, O2 saturation 98%. HEENT: Atraumatic, anicteric. NECK: Supple. HEART: S1 and S2 heard. LUNGS: Bilateral air entry present. ABDOMEN: Soft. Bowel sounds present. EXTREMITIES: No cyanosis. No clubbing. LABORATORY DATA: Hemoglobin 11.8, hematocrit 35.2, WBC is 5.8, platelets 158. Chemistry is essentially unremarkable. Alkaline phosphatase is normal. IMPRESSION: This 82-year-old patient with a history of rectal cancer status post radiation and chemotherapy, had colon resection status post colostomy. Patient is admitted with partial small bowel obstruction. Patient has a significant resection of the small bowel, nausea, and epigastric discomfort, had an nasogastric tube placed. Would recommend followup of the electrolytes and IV fluids. The initial CT scan was done without oral contrast. an abdominal x-ray and clinical followup. Thank you very much for allowing us to participate in the care of the patient. Patient is being followed by an oncologist, Dr. Liriano in [place]. We will discuss with the primary physician, with Dr. Guadalupe, and also with the oncologist in the a.m. Nader Lane MD
--- NOTE | 2017-10-19 07:02 | CP.PCM.PN ---
<Gege Cochran - Last Filed: 10/19/17 11:16> Subjective - Date & Time of Evaluation Date of Evaluation: 10/19/17 Time of Evaluation: 08:00 - Subjective Subjective: GI Progress Note for Karli Guzman PGY2 Patient seen and examined at bedside. As per nursing staff, there were no acute overnight events. Patient's NGT was removed today. She reports feeling better. She states she still has chemotherapy once per month with Dr. Sultana. Patient denies chest pain, shortness of breath, nausea/vomiting/diarrhea, abdominal pain , fever or chills. Objective - Vital Signs/Intake and Output Vital Signs (last 24 hours): Temp Pulse Resp BP Pulse Ox 98.0 F 79 20 144/83 98 10/18/17 17:42 10/19/17 02:00 10/18/17 17:42 10/18/17 17:42 10/18/17 17:42 Intake and Output: 10/19/17 10/19/17 06:59 18:59 Intake Total 0 Output Total 0 Balance 0 - Medications Medications: Current Medications Atorvastatin Calcium (Lipitor) 10 mg PO DIN [facility] Last Admin: 10/18/17 17:16 Dose: Not Given Benzocaine/Menthol (Cepacol Sore Throat) 1 echo MT Q2H PRN PRN Reason: Sore Throat Last Admin: 10/18/17 22:09 Dose: 1 echo Gabapentin (Neurontin) 300 mg PO BID [facility] PRN Reason: Protocol Last Admin: 10/18/17 17:16 Dose: Not Given Potassium Chloride 20 meq/ (Dextrose/Sodium Chloride) 1,010 mls @ 100 mls/hr IV .Q10H6M [facility] Last Admin: 10/18/17 20:39 Dose: 100 mls/hr Losartan Potassium (Cozaar) 100 mg PO DAILY [facility] Last Admin: 10/18/17 09:35 Dose: Not Given Metoprolol Tartrate (Lopressor) 25 mg PO DAILY [facility] Last Admin: 10/18/17 09:35 Dose: Not Given Ondansetron HCl (Zofran Inj) 4 mg IVP Q6H PRN PRN Reason: Nausea/Vomiting Last Admin: 10/18/17 14:11 Dose: 4 mg Warfarin Sodium (Coumadin) 3 mg PO 1800 [facility] PRN Reason: Protocol - Labs Labs: 10/18/17 07:00 10/18/17 07:00 PT 34.0 SECONDS (9.4-12.5) H 10/18/17 07:00 INR 2.89 (0.93-1.08) H 10/18/17 07:00 APTT 44.8 Seconds (25.1-36.5) H 10/18/17 07:00 - Constitutional Appears: No Acute Distress - Head Exam Head Exam: ATRAUMATIC, NORMAL INSPECTION, NORMOCEPHALIC - Eye Exam Eye Exam: Normal appearance Pupil Exam: NORMAL ACCOMODATION - ENT Exam ENT Exam: Mucous Membranes Dry - Respiratory Exam Respiratory Exam: Clear to Ausculation Bilateral, NORMAL BREATHING PATTERN. absent: Rales, Rhonchi, Wheezes - Cardiovascular Exam Cardiovascular Exam: REGULAR RHYTHM, +S1, +S2. absent: Gallop, Rubs, Murmur - GI/Abdominal Exam GI & Abdominal Exam: Soft, Normal Bowel Sounds. absent: Rigid, Tenderness, Mass , Rebound Additional comments: colostomy in place- some liquid in bag. - Extremities Exam Extremities Exam: Normal Inspection. absent: Calf Tenderness, Pedal Edema - Neurological Exam Neurological Exam: Alert, Awake, CN II-XII Intact - Skin Skin Exam: Dry, Warm Assessment and Plan - Assessment and Plan (Free Text) Assessment: This is an 82yo female with past medical history of rectal carcinoma s/p colon resection and colostomy, radiation, (still on chemo), hx of DVT who was admitted for 1. Abdominal pain - secondary to partial SBO 2. Hypokalemia 3. Hypernatremia 4. Hx of DVT on Coumadin Plan: Patient will be advanced to clear liquid diet. K was replaced. Will monitor electrolytes. Patient is on Coumadin. INR therapeutic. Continue IV fluids and Zofran. Case seen, discussed and reviewed with Dr. Lane. Karli Cochran PGY2 <Nader Lane V - Last Filed: 10/20/17 01:15> Objective - Vital Signs/Intake and Output Vital Signs (last 24 hours): Temp Pulse Resp BP Pulse Ox 98.3 F 70 18 130/91 H 95 10/19/17 18:00 10/19/17 18:00 10/19/17 18:00 10/19/17 18:00 10/19/17 18:00 Intake and Output: 10/19/17 10/20/17 18:59 06:59 Intake Total 120 Output Total 2100 Balance -1980 - Medications Medications: Current Medications Atorvastatin Calcium (Lipitor) 10 mg PO DIN [facility] Last Admin: 10/19/17 17:36 Dose: 10 mg Benzocaine/Menthol (Cepacol Sore Throat) 1 echo MT Q2H PRN PRN Reason: Sore Throat Last Admin: 10/19/17 17:37 Dose: 1 echo Gabapentin (Neurontin) 300 mg PO BID [facility] PRN Reason: Protocol Last Admin: 10/19/17 17:36 Dose: 300 mg Potassium Chloride 20 meq/ (Dextrose/Sodium Chloride) 1,010 mls @ 100 mls/hr IV .Q10H6M [facility] Last Admin: 10/19/17 15:50 Dose: 100 mls/hr Losartan Potassium (Cozaar) 100 mg PO DAILY [facility] Last Admin: 10/19/17 10:43 Dose: 100 mg Metoprolol Tartrate (Lopressor) 25 mg PO DAILY [facility] Last Admin: 10/19/17 10:43 Dose: 25 mg Ondansetron HCl (Zofran Inj) 4 mg IVP Q6H PRN PRN Reason: Nausea/Vomiting Last Admin: 10/19/17 17:37 Dose: 4 mg Warfarin Sodium (Coumadin) 3 mg PO 1800 [facility] PRN Reason: Protocol - Labs Labs: 10/19/17 08:49 10/19/17 08:40 PT 35.6 SECONDS (9.4-12.5) H 10/19/17 08:49 INR 3.03 (0.93-1.08) H 10/19/17 08:49 APTT 36.8 Seconds (25.1-36.5) H 10/19/17 08:49 Attending/Attestation - Attestation I have personally seen and examined this patient.: Yes I have fully participated in the care of the patient.: Yes I have reviewed all pertinent clinical information, including history, physical exam and plan: Yes Notes (Text): This is an addendum to GI progress report dictated by the [employer] Worker.The patient was seen and examined earlier. Medical records, lab studies, imagings were reviewed. Last 24 hours events reviewed. Agreed with the above treatment plan as outlined in [employer]er 's notes the with the addition of the following NG tube was removed and started on clear liquids eye surgery Partial small bowel obstruction, history of APR with end colostomy status post chemo RT patient is being closely followed by oncologist on chemotherapy discussed with the patient's son at length Will start advance diet slowly based on the clinical course 10/20/17 00:59
--- NOTE | 2017-10-19 08:43 | CON ---
DATE: 10/17/2017 REASON FOR CONSULTATION: Nausea and abdominal pain. HISTORY OF PRESENT ILLNESS: This is a 82-year-old patient with a past medical history of rectal carcinoma status post chemo and colostomy done in 2010 in [facility], being followed by the oncologist . She had been followed on a regular basis. She had a PET CT done about 6 months ago, and she was told the results were okay. Patient admitted with complaints of intermittent abdominal cramps and also episode of vomiting and complaints of nausea. The symptoms started gradually about 2 to 3 weeks ago, progressively became more intense. In the ER, patient had CT of the abdomen and pelvis done with only IV contrast, no p.o. contrast administered, and was found to have dilated loops of small bowel with air fluid levels. Also patient was found to have a few enlarged lymph nodes in the right lower quadrant area. They are measuring up to 1.5 cm. Patient did have some bowel movement yesterday, twice. No output today. Patient is now tolerating the liquid diet. No further vomiting. Patient had low potassium, getting supplemented. PAST MEDICAL HISTORY: Significant as above. Patient had ALLERGIES: NO KNOWN DRUG ALLERGY. REVIEW OF SYSTEMS: Positive as above. PHYSICAL EXAMINATION: GENERAL: Patient is lying on the bed, not in acute distress. VITAL SIGNS: Pulse 88 per minute, respirations 18, temperature 98.7, blood pressure is 103/54. HEENT: Atraumatic and anicteric. NECK: Supple. HEART: S1 and S2 heard. LUNGS: Bilateral air entry present. ABDOMEN: Soft. There is no mass palpable. There was iliac colostomy present in the left lower quadrant area. No significant output . EXTREMITIES: No cyanosis. No clubbing. NEUROLOGIC: Alert and oriented. Moves all the extremities. LABORATORY DATA: Hemoglobin , WBC 8.7, platelet 196. BUN 19, creatinine 1.1. CT of the abdomen and pelvis was reviewed. IMPRESSION: 1. Rectal carcinoma status post radiation and chemo, status post resection plus colostomy, now admitted with episodes of nausea, vomiting, had some air fluid level. The CT was limited because of the lack of oral contrast. Rule out differential diagnoses include rule out partial obstruction, rule out gastroenteritis. 2. Patient has some enlarged lymph nodes in the right lower quadrant. Patient is being followed by the oncologist on a regular basis in [place]. Had PET scan done about 6 months ago. Patient needs further followup regarding this. Patient does not remember having had any colonoscopy since the surgery. It is reasonable to get more information before embarking any other treatment. RECOMMENDATIONS: 1. Follow up of stool culture. 2. Probiotics. 3. Slowly advance diet. Patient may need oral contrast study if she remains symptomatic. The CT done was without oral contrast. Thank you very much for allowing us to participate in the care of the patient. We will continue to closely follow up with her care and suggest further management based on the clinical course. Nader Lane MD
[2017-10-19 08:55] LABS: HEMOGLOBIN 11.2 g/dL (12.0-16.0); MEAN CELL VOLUME 80.4 fl (80.0-105.0); MEAN CORPUSCULAR HEMOGLOBIN 26.8 pg (25.0-35.0); MEAN CORPUSCULAR HGB CONC 33.3 g/dl (31.0-37.0); MEAN PLATELET VOLUME 11.4 fl (7.0-11.0); RBC 4.18 10^6/uL (3.5-6.1); RED CELL DISTRIBUTION WIDTH 15.1 % (11.5-14.5); WHITE BLOOD COUNT 5.8 10^3/ul (4.5-11.0)
--- NOTE | 2017-10-19 09:09 | CP.PCM.PN ---
Subjective - Date & Time of Evaluation Date of Evaluation: 10/19/17 Time of Evaluation: 07:57 - Subjective Subjective: Win Ying PGY1 Surgery Progress Note for Dr. Mcmahan Patient was seen and examined at bedside. no acute overnight events. she denies nausea/vomiting, abdominal pain fevers/chills. Objective - Vital Signs/Intake and Output Vital Signs (last 24 hours): Temp Pulse Resp BP Pulse Ox 98.0 F 79 20 144/83 98 10/18/17 17:42 10/19/17 02:00 10/18/17 17:42 10/18/17 17:42 10/18/17 17:42 Intake and Output: 10/19/17 10/19/17 06:59 18:59 Intake Total 0 Output Total 0 Balance 0 - Medications Medications: Current Medications Atorvastatin Calcium (Lipitor) 10 mg PO DIN [facility] Last Admin: 10/18/17 17:16 Dose: Not Given Benzocaine/Menthol (Cepacol Sore Throat) 1 echo MT Q2H PRN PRN Reason: Sore Throat Last Admin: 10/18/17 22:09 Dose: 1 echo Gabapentin (Neurontin) 300 mg PO BID [facility] PRN Reason: Protocol Last Admin: 10/18/17 17:16 Dose: Not Given Potassium Chloride 20 meq/ (Dextrose/Sodium Chloride) 1,010 mls @ 100 mls/hr IV .Q10H6M [facility] Last Admin: 10/18/17 20:39 Dose: 100 mls/hr Losartan Potassium (Cozaar) 100 mg PO DAILY [facility] Last Admin: 10/18/17 09:35 Dose: Not Given Metoprolol Tartrate (Lopressor) 25 mg PO DAILY [facility] Last Admin: 10/18/17 09:35 Dose: Not Given Ondansetron HCl (Zofran Inj) 4 mg IVP Q6H PRN PRN Reason: Nausea/Vomiting Last Admin: 10/18/17 14:11 Dose: 4 mg Warfarin Sodium (Coumadin) 3 mg PO 1800 [facility] PRN Reason: Protocol - Labs Labs: 10/19/17 08:49 10/18/17 07:00 PT 34.0 SECONDS (9.4-12.5) H 10/18/17 07:00 INR 2.89 (0.93-1.08) H 10/18/17 07:00 APTT 44.8 Seconds (25.1-36.5) H 10/18/17 07:00 - Constitutional Appears: Well, Non-toxic, No Acute Distress - Head Exam Head Exam: NORMAL INSPECTION - Eye Exam Eye Exam: EOMI, Normal appearance - ENT Exam ENT Exam: Mucous Membranes Moist Additional comments: NGT in place - Neck Exam Neck Exam: Full ROM - Respiratory Exam Respiratory Exam: NORMAL BREATHING PATTERN. absent: Wheezes, Respiratory Distress - Cardiovascular Exam Cardiovascular Exam: RRR - GI/Abdominal Exam GI & Abdominal Exam: Soft. absent: Distended, Guarding, Tenderness Additional comments: colostomy tube draining fluid - Extremities Exam Extremities Exam: Full ROM - Back Exam Back Exam: NORMAL INSPECTION - Neurological Exam Neurological Exam: Alert, Awake - Psychiatric Exam Psychiatric exam: Normal Mood - Skin Skin Exam: Warm Assessment and Plan - Assessment and Plan (Free Text) Assessment: 82yo AAF with SBO vs ileus and parastomal hernia Plan: SBO vs ileus - no abdominal pain, n/v noted - advance patient to [facility] - not a candidate for surgery at this time Hypokalemia and hypomagnesemia noted - replete - f/u labs Case reviewed and discussed with attending Dr. Nation
[2017-10-19 09:14] LABS: INR 3.03 (0.93-1.08); PARTIAL THROMBOPLASTIN TIME 36.8 Seconds (25.1-36.5); PROTHROMBIN TIME 35.6 SECONDS (9.4-12.5)
[2017-10-19 09:25] LABS: ALB/GLOB RATIO 1.1 (1.1-1.8); ALBUMIN 3.2 g/dL (3.0-4.8); ALT/SGPT 29 U/L (7-56); AST/SGOT 22 U/L (14-36); BLOOD UREA NITROGEN 11 mg/dL (7-21); CALCIUM 8.8 mg/dL (8.4-10.5); GFR AFRICAN-AMERICAN > 60; GFR NON-AFRICAN AMERICAN > 60
[2017-10-19] MEDS ORDERED: Potassium Chloride 20 mEq/15 ml LIQ UD NG STA (09:54)
[2017-10-19] MEDS: Benzocaine/Menthol (Cepacol) Lozenge MT PRN ×2 (10:43→17:37)
--- NOTE | 2017-10-19 10:45 | PN ---
DATE: 10/18/2017 DAILY PROGRESS NOTE SUBJECTIVE: The patient is an 82-year-old female with a history of hypertension, colon carcinoma, status post deep vein thrombosis, ureteral stents placement, ileostomy, who is admitted with small bowel obstruction on x-ray. The patient had developed nausea and vomiting at home, was evaluated in the emergency room and admitted. When seen today, she is awake, alert and oriented. Her son is at bedside. The patient feels that the nausea and vomiting have apparently subsided. However, followup KUB shows persistent bowel obstruction with air-fluid levels. Her ostomy bag was recently changed and it is empty. This morning's white blood cell count is 5.8, hemoglobin and hematocrit are 11.8 and 35.2. Potassium is depressed at 2.8. PT/INR is 2.89. We are continuing to hold her Warfarin. BUN and creatinine are 11 and 0.6 respectively. Her blood pressure is 153/94 with a heart rate of 69. So we are supplementing her potassium. We are holding the warfarin because of the elevated INR. Discussion with the patient as well as with the son, if any surgery is to be performed, their wishes are to be transported to her original surgeons at [facility] in [place]. I explained to them this may be relatively mild procedure of simple adhesions to be lysed, at which case they requested another surgeon for a second opinion, therefore Dr. Irizarry is called in to consult for a second opinion at the family's request. We are continuing to follow the patient closely. Saurav Guadalupe MD
[2017-10-19] MEDS: Potassium Chloride 20 MEQ in Dextrose 5%/0.9% NS 1,000 ML IV SCH (15:50)
--- NOTE | 2017-10-19 16:42 | HP ---
HISTORY OF PRESENT ILLNESS: The patient is an 82-year-old female, who presents to the emergency room with 2 to 3-day history of intractable nausea and vomiting. She has abdominal cramps that were waxing and waning over the past few days. She also states that her colostomy bag had been showing nothing, but liquid over the past few days with no solid stools. She denies any change in diet. She does have decreased appetite. PAST MEDICAL HISTORY: The patient is known to have a history of status post colon resection for carcinoma. She also has ureteral stents, which are changed every 3 months. She has a history of DVT, hypertension, gout. SOCIAL HISTORY: She never smoked. She is a nonalcoholic drinker. ALLERGIES: HAS NO KNOWN MEDICAL ALLERGIES. MEDICATIONS: At the time of admission, her medications included Neurontin, Hyzaar, metoprolol, Crestor and warfarin. REVIEW OF SYSTEMS: Otherwise unremarkable. PHYSICAL EXAMINATION: GENERAL: The patient is awake, alert and oriented. HEENT: Examination of the head, eyes, ears, nose and throat and unremarkable. NECK: Supple with no lymphadenopathy. No goiter. LUNGS: Clear to auscultation and percussion. HEART: Regular. No murmurs are appreciated. ABDOMEN: Shows slightly increased bowel sounds. Her colostomy bag is empty. It had been changed approximately 12 hours ago. There is diffuse tenderness on palpation over the abdomen. EXTREMITIES: Free of cyanosis, clubbing or edema. NEUROLOGICAL: She is awake, alert and oriented with no focal neurological signs. VITAL SIGNS: Her blood pressure is 103/64, heart rate is 100 and she is afebrile at 98.7 degrees Fahrenheit. LABORATORY DATA: Abdominal films show severe small bowel obstruction with multiple air-fluid levels in the loops of the small bowel. Her white blood cell count is 3.7, hemoglobin and hematocrit are 12.2 and 36.7, platelet count is 196. Sodium is 148, potassium is mildly depressed at 3.3, blood urea nitrogen 19, creatinine 1.1, glucose is 116. BNP is 915. Liver enzymes are normal. Magnesium level is low at 1.6. IMPRESSION: So the patient is admitted with a small bowel obstruction AND consultation is requested from Dr. Lane, the walnut dehydrator operator as well as Dr. Mcmahan, the surgeon. The patient will be reevaluated in the morning. Saurav Guadalupe MD [facility] # [id number]
[2017-10-20 06:59] LABS: BLOOD UREA NITROGEN 14 mg/dL (7-21)
[2017-10-20 07:00] LABS: ALBUMIN 3.2 g/dL (3.0-4.8); CALCIUM 8.5 mg/dL (8.4-10.5); GFR AFRICAN-AMERICAN > 60; GFR NON-AFRICAN AMERICAN > 60
[2017-10-20 07:01] LABS: ALB/GLOB RATIO 1.1 (1.1-1.8); ALT/SGPT 22 U/L (7-56); AST/SGOT 25 U/L (14-36)
--- NOTE | 2017-10-20 07:03 | CP.PCM.PN ---
Subjective - Date & Time of Evaluation Date of Evaluation: 10/20/17 Time of Evaluation: 07:02 - Subjective Subjective: General surgery progress note for Dr. Meghan Nayak, PGY-1 Pt S & E at bedside at 0645 Pt reports large volume emesis overnight, continues with nausea this AM. Refused NGT placement last night. Denies abdominal pain, other complaints. Objective - Vital Signs/Intake and Output Vital Signs (last 24 hours): Temp Pulse Resp BP Pulse Ox 98.3 F 71 18 130/91 H 95 10/19/17 18:00 10/20/17 02:00 10/19/17 18:00 10/19/17 18:00 10/19/17 18:00 Intake and Output: 10/20/17 10/20/17 06:59 18:59 Intake Total 120 Output Total 2100 Balance -1979 - Medications Medications: Current Medications Atorvastatin Calcium (Lipitor) 10 mg PO DIN [facility] Last Admin: 10/19/17 17:36 Dose: 10 mg Benzocaine/Menthol (Cepacol Sore Throat) 1 echo MT Q2H PRN PRN Reason: Sore Throat Last Admin: 10/19/17 17:37 Dose: 1 echo Gabapentin (Neurontin) 300 mg PO BID [facility] PRN Reason: Protocol Last Admin: 10/19/17 17:36 Dose: 300 mg Potassium Chloride 20 meq/ (Dextrose/Sodium Chloride) 1,010 mls @ 100 mls/hr IV .Q10H6M [facility] Last Admin: 10/19/17 15:50 Dose: 100 mls/hr Losartan Potassium (Cozaar) 100 mg PO DAILY [facility] Last Admin: 10/19/17 10:43 Dose: 100 mg Metoprolol Tartrate (Lopressor) 25 mg PO DAILY [facility] Last Admin: 10/19/17 10:43 Dose: 25 mg Ondansetron HCl (Zofran Inj) 4 mg IVP Q6H PRN PRN Reason: Nausea/Vomiting Last Admin: 10/19/17 17:37 Dose: 4 mg Warfarin Sodium (Coumadin) 3 mg PO 1800 [facility] PRN Reason: Protocol - Labs Labs: 10/19/17 08:49 10/20/17 06:00 PT 35.6 SECONDS (9.4-12.5) H 10/19/17 08:49 INR 3.03 (0.93-1.08) H 10/19/17 08:49 APTT 36.8 Seconds (25.1-36.5) H 10/19/17 08:49 - Constitutional Appears: Non-toxic, No Acute Distress - Head Exam Head Exam: ATRAUMATIC, NORMAL INSPECTION, NORMOCEPHALIC - Eye Exam Eye Exam: EOMI, Normal appearance - ENT Exam ENT Exam: Mucous Membranes Moist, Normal Exam - Neck Exam Neck Exam: Full ROM, Normal Inspection - Respiratory Exam Respiratory Exam: NORMAL BREATHING PATTERN - Cardiovascular Exam Cardiovascular Exam: REGULAR RHYTHM - GI/Abdominal Exam GI & Abdominal Exam: Soft. absent: Distended (obese), Firm, Guarding, Tenderness, Rebound Additional comments: small amount of air and liquid stool output to ostomy - Neurological Exam Neurological Exam: Alert, Awake, CN II-XII Intact, Oriented x3 - Psychiatric Exam Psychiatric exam: Normal Affect, Normal Mood - Skin Skin Exam: Dry, Intact, Normal Color, Warm Assessment and Plan - Assessment and Plan (Free Text) Assessment: 82F w/SBO, parastomal hernia Plan: Monitor bowel function/ostomy output Anti-emetic Replace electrolytes PRN advance to [facility] Fleet enema through ostomy FU CT ab w/PO contrast Consider transfer to [facility] if pt requires surgical intervention- per pt/ family request SHYANN attending Malini, PGY-1
[2017-10-20] MEDS ORDERED: Magnesium Sulfate 1 gm in D5W 1 GM/100 ML BAG IVPB ONE (07:47)
--- NOTE | 2017-10-20 08:05 | CP.PCM.PN ---
<Gege Cochran - Last Filed: 10/20/17 11:23> Subjective - Date & Time of Evaluation Date of Evaluation: 10/20/17 Time of Evaluation: 07:00 - Subjective Subjective: GI Progress Note for Karli Guzman PGY2 Patient seen and examined at bedside. Overnight patient vomited about 1300mL of fluid. She refused to have NG tube put back him. This morning she reports her nausea has improved. She still refused the NG tube. She denies chest pain, shortness of breath, diarrhea, fever/chills, numbness/tingling. Objective - Vital Signs/Intake and Output Vital Signs (last 24 hours): Temp Pulse Resp BP Pulse Ox 98.3 F 71 18 130/91 H 95 10/19/17 18:00 10/20/17 02:00 10/19/17 18:00 10/19/17 18:00 10/19/17 18:00 Intake and Output: 10/20/17 10/20/17 06:59 18:59 Intake Total 120 Output Total 2100 Balance -1979 - Medications Medications: Current Medications Atorvastatin Calcium (Lipitor) 10 mg PO DIN [facility] Last Admin: 10/19/17 17:36 Dose: 10 mg Benzocaine/Menthol (Cepacol Sore Throat) 1 echo MT Q2H PRN PRN Reason: Sore Throat Last Admin: 10/19/17 17:37 Dose: 1 echo Gabapentin (Neurontin) 300 mg PO BID [facility] PRN Reason: Protocol Last Admin: 10/19/17 17:36 Dose: 300 mg Potassium Chloride 20 meq/ (Dextrose/Sodium Chloride) 1,010 mls @ 100 mls/hr IV .Q10H6M [facility] Last Admin: 10/19/17 15:50 Dose: 100 mls/hr Magnesium Sulfate/Dextrose (Magnesium Sulfate 1 Gm/100 Ml D5w) 1 gm in 100 mls @ 100 mls/hr IVPB ONCE ONE Stop: 10/20/17 08:46 Losartan Potassium (Cozaar) 100 mg PO DAILY [facility] Last Admin: 10/19/17 10:43 Dose: 100 mg Metoprolol Tartrate (Lopressor) 25 mg PO DAILY [facility] Last Admin: 10/19/17 10:43 Dose: 25 mg Ondansetron HCl (Zofran Inj) 4 mg IVP Q6H PRN PRN Reason: Nausea/Vomiting Last Admin: 10/19/17 17:37 Dose: 4 mg Warfarin Sodium (Coumadin) 3 mg PO 1800 [facility] PRN Reason: Protocol - Labs Labs: 10/19/17 08:49 10/20/17 06:00 PT 35.6 SECONDS (9.4-12.5) H 10/19/17 08:49 INR 3.03 (0.93-1.08) H 10/19/17 08:49 APTT 36.8 Seconds (25.1-36.5) H 10/19/17 08:49 - Constitutional Appears: No Acute Distress - Head Exam Head Exam: ATRAUMATIC, NORMAL INSPECTION, NORMOCEPHALIC - Eye Exam Eye Exam: Normal appearance, PERRL Pupil Exam: NORMAL ACCOMODATION Assessment and Plan - Assessment and Plan (Free Text) Assessment: This is an 82yo female with past medical history of rectal carcinoma s/p colon resection and colostomy, radiation, (still on chemo), hx of DVT who was admitted for 1. Abdominal pain - secondary to partial SBO 2. Hypernatremia 3. Hx of DVT on Coumadin 4. Hx of rectal carcinoma s/p resection/radiation and still on chemo Plan: Keep patient NPO. Continue anti-emetic and IV fluids. Monitor Input and output from ostomy bag. Surgery is on consult. Patient reports she would like to follow up with her doctors at [place] since she follow up with her oncologist and surgeon closely. Will continue to monitor electrolytes and replace as needed. Would recommend NG tube, but patient is refusing at this time. Patient can have PO meds with sip of water. If she does not tolerate medications, will change to prn IV meds. Case seen, discussed and reviewed with Dr. Lane. Karli Cochran PGY2 <Nader Lane V - Last Filed: 10/20/17 22:26> Objective - Vital Signs/Intake and Output Vital Signs (last 24 hours): Temp Pulse Resp BP Pulse Ox 98 F 78 18 142/80 98 10/20/17 18:00 18 18:00 10/20/17 18:00 10/20/17 18:00 10/20/17 18:00 Intake and Output: 06/12/18 06/13/18 18:59 06:59 Intake Total 60 0 Output Total 100 Balance 60 -100 - Medications Medications: Current Medications Atorvastatin Calcium (Lipitor) 10 mg PO DIN [facility] Last Admin: 10/20/17 17:30 Dose: 10 mg Benzocaine/Menthol (Cepacol Sore Throat) 1 echo MT Q2H PRN PRN Reason: Sore Throat Last Admin: 10/20/17 10:00 Dose: 1 echo Gabapentin (Neurontin) 300 mg PO BID [facility] PRN Reason: Protocol Last Admin: 10/20/17 17:30 Dose: 300 mg Potassium Chloride 20 meq/ (Dextrose/Sodium Chloride) 1,010 mls @ 100 mls/hr IV .Q10H6M [facility] Last Admin: 10/20/17 15:18 Dose: 100 mls/hr Losartan Potassium (Cozaar) 100 mg PO DAILY [facility] Last Admin: 10/20/17 10:01 Dose: 100 mg Metoprolol Tartrate (Lopressor) 25 mg PO DAILY [facility] Last Admin: 10/20/17 10:01 Dose: 25 mg Ondansetron HCl (Zofran Inj) 4 mg IVP Q6H PRN PRN Reason: Nausea/Vomiting Last Admin: 10/20/17 18:09 Dose: 4 mg Warfarin Sodium (Coumadin) 3 mg PO 1800 [facility] PRN Reason: Protocol - Labs Labs: 10/19/17 08:49 10/20/17 06:00 PT 35.6 SECONDS (9.4-12.5) H 10/19/17 08:49 INR 3.03 (0.93-1.08) H 10/19/17 08:49 APTT 36.8 Seconds (25.1-36.5) H 10/19/17 08:49 Attending/Attestation - Attestation I have personally seen and examined this patient.: Yes I have fully participated in the care of the patient.: Yes I have reviewed all pertinent clinical information, including history, physical exam and plan: Yes Notes (Text): This is an addendum to GI progress report dictated by the Whiting Machine Operator.The patient was seen and examined earlier. Medical records, lab studies, imagings were reviewed. Last 24 hours events reviewed. Agreed with the above treatment plan as outlined in Whiting Machine Operator 's notes the with the addition of the following he was also vomiting in the a.m. Patient refused to NG tube On examination abdomen soft bowel sounds active colostomy bag had solid stool Patient would need a NG tube History of rectal CA staost radiation and chem on maintenance chemo Patient's family wants her to be transferred to [place] if surgery is contemplated 10/20/17 22:19
[2017-10-20] MEDS ORDERED: Barium Sulfate Susp 2.1% w/v, 2.0% w/w 450 mL Bottle PO ONE (09:40)
[2017-10-20] MEDS: Benzocaine/Menthol (Cepacol) Lozenge MT PRN (10:00)
--- NOTE | 2017-10-20 11:38 | RAD ---
HISTORY: nausea/vomiting COMPARISON: 10/18/2017 FINDINGS: BOWEL: There is improvement in the pattern of small bowel obstruction BONES: Normal. OTHER FINDINGS: None. IMPRESSION: Improved small bowel obstruction
--- NOTE | 2017-10-20 12:48 | PN ---
DATE: 10/19/2017 DAILY PROGRESS NOTE The patient is an 82-year-old female with a history of hypertension, colon carcinoma, status post deep vein thrombosis, ureteral stent placement, ileostomy who was admitted with a small bowel obstruction. She is being followed by Surgery, Dr. Mcmahan. A second opinion surgical consult is requested at the family's request. This request is made for Dr. Irizarry. To date, the patient has been relatively comfortable. Two day ago, NG tube was passed after which she had a short burst of atrial fibrillation, but this returned to regular sinus rhythm. Decompression of the stomach did well. The NG tube was eventually discontinued and the patient was started on clear liquids. When seen today, the patient is happy to be able to partake clear liquids. Her blood pressure is 144/83, heart rate is 84 and regular. She remains afebrile. Morning labs are pending; however, in the past of concern was her potassium being depressed at 2.8, which was supplemented. Her PT/INR had been running on the high side of 2.89 yesterday. Her warfarin is, therefore, on hold. We are continuing to follow the patient closely. Hopefully, she is turning for the better as the NG tube is discontinued and the patient is taking clear liquids. Also in speaking with the patient as well as the patient's family, if any surgery is to be contemplated, the patient would want to be transferred to her surgeon at [facility] in [place]. She insists that only he can perform any further surgery on her. Saurav Guadalupe MD PAT
--- NOTE | 2017-10-20 13:34 | CT ---
PROCEDURE: CT Abdomen and Pelvis without intravenous contrast HISTORY: eval for SBO COMPARISON: 10/16/2017 CT TECHNIQUE: Without contrast. Contrast dose: Radiation dose: Total exam DLP = 328 mGy-cm. This CT exam was performed using one or more of the following dose reduction techniques: Automated exposure control, adjustment of the mA and/or kV according to patient size, and/or use of iterative reconstruction technique. FINDINGS: LOWER THORAX: Unremarkable. LIVER: Unremarkable. No gross lesion or ductal dilatation. GALLBLADDER AND BILE DUCTS: Unremarkable. PANCREAS: Unremarkable. No gross lesion or ductal dilatation. SPLEEN: Unremarkable. ADRENALS: Unremarkable. No mass. KIDNEYS AND URETERS: Unremarkable. No hydronephrosis. No solid mass. VASCULATURE: Unremarkable. No aortic aneurysm. BOWEL: There is a colostomy in the left lower quadrant. There is a pattern of severe small bowel obstruction with multiple fluid-filled dilated loops of small bowel throughout the abdomen. This has shown progression since the previous exam APPENDIX: Unremarkable. Normal appendix. PERITONEUM: Unremarkable. No free fluid. No free air. LYMPH NODES: Unremarkable. No enlarged lymph nodes. BLADDER: Unremarkable. REPRODUCTIVE: Unremarkable. BONES: No acute fracture. OTHER FINDINGS: None. IMPRESSION: Severe small bowel obstruction showing increase from earlier exam
--- NOTE | 2017-10-20 14:02 | PN ---
DATE: 10/20/2017 SUBJECTIVE: Nevaeh Mott was seen on the floor. She is having increasing nausea, having minimal function from the colostomy even after a Fleet enema. Her abdomen is soft and nontender. X-ray showed gas in the abdomen, not necessarily obstructed. The patient has a partial obstruction of very least. My feeling is if this keep continues, we will need an operation. She and her family are very clear that any operation should be done in [place] as the primary surgeon's institution and this is fine with me. I do not believe that she needs an operation urgently. My plan will be to evaluate her one more time with the CAT scan with oral contrast. If it looks like an operation is possible or planned, we will ask the patient to be transferred. We will discuss with Dr. Guadalupe. Guy Mcmaahn MD
[2017-10-20] MEDS: Potassium Chloride 20 MEQ in Dextrose 5%/0.9% NS 1,000 ML IV SCH (15:18)
--- NOTE | 2017-10-20 18:37 | RAD ---
HISTORY: check for NGT placement COMPARISON: Portable chest 10/18/2017 FINDINGS: LUNGS: No active pulmonary disease. PLEURA: No significant pleural effusion identified, no pneumothorax apparent. CARDIOVASCULAR: Normal. OSSEOUS STRUCTURES: No significant abnormalities. VISUALIZED UPPER ABDOMEN: Normal. OTHER FINDINGS: Left MediPort and nasogastric tube not significantly changed in deployment. Although the NG tube is replacement as is not present on prior abdomen and pelvis CT performed today 10/20/2017. IMPRESSION: No acute cardiopulmonary disease appreciable. NG tube terminates in left upper quadrant abdomen.
[2017-10-20] MEDS ORDERED: DiphenhydrAMINE 50 mg/ml Inj IVP ONE (21:00)
[2017-10-21] MEDS: Potassium Chloride 20 MEQ in Dextrose 5%/0.9% NS 1,000 ML IV SCH (04:36)
[2017-10-21 06:33] LABS: BASO # 0.01 K/mm3 (0.0-2.0); BASO % 0.3 % (0.0-3.0); EOS # 0.1 (0.0-0.7); EOS % 2.9 % (1.5-5.0); GRAN # 2.01 (1.4-6.5); GRAN % 59.4 % (50.0-68.0); HEMOGLOBIN 10.2 g/dL (12.0-16.0); LYMPH # 0.9 (1.2-3.4); LYMPH % 27.7 % (22.0-35.0); MEAN CELL VOLUME 82.1 fl (80.0-105.0); MEAN CORPUSCULAR HEMOGLOBIN 26.5 pg (25.0-35.0); MEAN CORPUSCULAR HGB CONC 32.3 g/dl (31.0-37.0); MEAN PLATELET VOLUME 11.6 fl (7.0-11.0); MONO # 0.3 (0.1-0.6); MONO % 9.7 % (1.0-6.0); RBC 3.85 10^6/uL (3.5-6.1); RED CELL DISTRIBUTION WIDTH 15.5 % (11.5-14.5); WHITE BLOOD COUNT 3.4 10^3/ul (4.5-11.0)
[2017-10-21 06:46] LABS: ALBUMIN 2.9 g/dL (3.0-4.8); ALT/SGPT 26 U/L (7-56); AST/SGOT 27 U/L (14-36); BLOOD UREA NITROGEN 16 mg/dL (7-21); CALCIUM 8.7 mg/dL (8.4-10.5); GFR AFRICAN-AMERICAN > 60; GFR NON-AFRICAN AMERICAN 60
[2017-10-21 07:17] LABS: PROTHROMBIN TIME 45.3 SECONDS (9.4-12.5)
[2017-10-21 07:18] LABS: INR 3.83 (0.93-1.08)
[2017-10-21] MEDS: Benzocaine/Menthol (Cepacol) Lozenge MT PRN (10:07)
--- NOTE | 2017-10-21 10:18 | CP.PCM.PN ---
Subjective - Date & Time of Evaluation Date of Evaluation: 10/21/17 Time of Evaluation: 09:00 - Subjective Subjective: General Surgery Note for Dr. Mcmahan Patient seen and examined at bedside. No acute event overnight. Patient still complains of nausea. Planning to transfer patient to [facility] today. Patient's NGT mysteriously came out this morning. She had 500 cc of output from NGT over last 12 hrs. Objective - Vital Signs/Intake and Output Vital Signs (last 24 hours): Temp Pulse Resp BP Pulse Ox 98.8 F 75 20 127/88 98 10/21/17 06:00 10/21/17 06:00 10/21/17 06:00 10/21/17 06:00 10/21/17 06:00 Intake and Output: 10/21/17 10/21/17 06:59 18:59 Intake Total 0 Output Total 100 Balance -100 - Medications Medications: Current Medications Atorvastatin Calcium (Lipitor) 10 mg PO DIN [facility] Last Admin: 10/20/17 17:30 Dose: 10 mg Benzocaine/Menthol (Cepacol Sore Throat) 1 echo MT Q2H PRN PRN Reason: Sore Throat Last Admin: 10/20/17 10:00 Dose: 1 echo Gabapentin (Neurontin) 300 mg PO BID ADELINE PRN Reason: Protocol Last Admin: 10/20/17 17:30 Dose: 300 mg Dextrose (Dextrose 5% In Water 1000 Ml) 1,000 mls @ 100 mls/hr IV .Q10H ADELINE Losartan Potassium (Cozaar) 100 mg PO DAILY [facility] Last Admin: 10/20/17 10:01 Dose: 100 mg Metoprolol Tartrate (Lopressor) 25 mg PO DAILY [facility] Last Admin: 10/20/17 10:01 Dose: 25 mg Ondansetron HCl (Zofran Inj) 4 mg IVP Q6H PRN PRN Reason: Nausea/Vomiting Last Admin: 10/21/17 04:36 Dose: 4 mg Warfarin Sodium (Coumadin) 3 mg PO 1800 ADELINE PRN Reason: Protocol - Labs Labs: 10/21/17 06:00 10/21/17 06:00 PT 45.3 SECONDS (9.4-12.5) H 10/21/17 06:00 INR 3.83 (0.93-1.08) H* 10/21/17 06:00 APTT 36.8 Seconds (25.1-36.5) H 10/19/17 08:49 - Additional Findings Additional findings: - Constitutional Appears: Non-toxic, No Acute Distress - Head Exam Head Exam: ATRAUMATIC, NORMAL INSPECTION, NORMOCEPHALIC - Eye Exam Eye Exam: EOMI, Normal appearance - ENT Exam ENT Exam: Mucous Membranes Moist, Normal Exam - Neck Exam Neck Exam: Full ROM, Normal Inspection - Respiratory Exam Respiratory Exam: NORMAL BREATHING PATTERN - Cardiovascular Exam Cardiovascular Exam: REGULAR RHYTHM - GI/Abdominal Exam GI & Abdominal Exam: Soft. absent: Distended, Firm, Guarding, Tenderness, Rebound Additional comments: soft stool output from colostomy - Neurological Exam Neurological Exam: Alert, Awake, CN II-XII Intact, Oriented x3 - Psychiatric Exam Psychiatric exam: Normal Affect, Normal Mood - Skin Skin Exam: Dry, Intact, Normal Color, Warm Assessment and Plan - Assessment and Plan (Free Text) Assessment: 82F with SBO, parastomal hernia Plan: Monitor bowel function/colostomy output Anti-emetic PRN Replace electrolytes PRN Will transfer to [facility] today Discussed with Dr. Martir Bernal PGY1
--- NOTE | 2017-10-21 11:11 | CP.PCM.PN ---
<Mable Damian - Last Filed: 10/21/17 11:07> Subjective - Date & Time of Evaluation Date of Evaluation: 10/21/17 Time of Evaluation: 10:40 - Subjective Subjective: Seen and examined at the bedside this morning, chart review. Patient now with NG tube that Tigist 500 cc, patient does report decreased nausea and now passing stool via colostomy it's pasty no blood noted. Patient reports feeling relief, awaiting transfer to [place], [place]. Repeat ct scan A&P noted, severe SBO, worse than before, see full report. Objective - Vital Signs/Intake and Output Vital Signs (last 24 hours): Temp Pulse Resp BP Pulse Ox 98.8 F 75 20 127/88 98 10/21/17 06:00 10/21/17 06:00 10/21/17 06:00 10/21/17 06:00 10/21/17 06:00 Intake and Output: 10/21/17 10/21/17 06:59 18:59 Intake Total 0 Output Total 100 Balance -100 - Medications Medications: Current Medications Atorvastatin Calcium (Lipitor) 10 mg PO DIN [facility] Last Admin: 10/20/17 17:30 Dose: 10 mg Benzocaine/Menthol (Cepacol Sore Throat) 1 echo MT Q2H PRN PRN Reason: Sore Throat Last Admin: 10/20/17 10:00 Dose: 1 echo Gabapentin (Neurontin) 300 mg PO BID ADELINE PRN Reason: Protocol Last Admin: 10/20/17 17:30 Dose: 300 mg Dextrose (Dextrose 5% In Water 1000 Ml) 1,000 mls @ 100 mls/hr IV .Q10H [facility] Losartan Potassium (Cozaar) 100 mg PO DAILY [facility] Last Admin: 10/20/17 10:01 Dose: 100 mg Metoprolol Tartrate (Lopressor) 25 mg PO DAILY [facility] Last Admin: 10/20/17 10:01 Dose: 25 mg Ondansetron HCl (Zofran Inj) 4 mg IVP Q6H PRN PRN Reason: Nausea/Vomiting Last Admin: 10/21/17 04:36 Dose: 4 mg Warfarin Sodium (Coumadin) 3 mg PO 1800 ADELINE PRN Reason: Protocol - Labs Labs: 10/21/17 06:00 10/21/17 06:00 PT 45.3 SECONDS (9.4-12.5) H 10/21/17 06:00 INR 3.83 (0.93-1.08) H* 10/21/17 06:00 APTT 36.8 Seconds (25.1-36.5) H 10/19/17 08:49 - Constitutional Appears: No Acute Distress - Eye Exam Eye Exam: Normal appearance. absent: Scleral icterus - ENT Exam ENT Exam: Mucous Membranes Moist - Respiratory Exam Respiratory Exam: NORMAL BREATHING PATTERN. absent: Respiratory Distress - Cardiovascular Exam Cardiovascular Exam: +S1, +S2 - GI/Abdominal Exam GI & Abdominal Exam: Soft. absent: Guarding, Tenderness, Rebound Additional comments: colostomy (+) pasty stool. No melena/BRBPR. - Extremities Exam Extremities Exam: absent: Calf Tenderness - Neurological Exam Neurological Exam: Alert, Awake, Oriented x3 - Skin Skin Exam: Dry, Warm Assessment and Plan - Assessment and Plan (Free Text) Assessment: Assessment: Abdominal pain,secondary to partial SBO Hypernatremia Hx of DVT on Coumadin Hx of rectal carcinoma s/p resection/radiation and still on chemo Plan: Keep patient NPO Continue anti-emetic and IV fluids Monitor Input and output from ostomy bag Surgical FU monitor electrolytes plans for transfer to [facility], awaiting bed Seen and discussed with Dr. Lane. <Nader Lane V - Last Filed: 10/23/17 01:40> Objective - Vital Signs/Intake and Output Vital Signs (last 24 hours): Temp Pulse Resp BP Pulse Ox 98 F 67 18 141/89 99 10/21/17 18:00 10/21/17 18:00 10/21/17 18:00 10/21/17 18:00 10/21/17 18:00 - Labs Labs: 10/21/17 06:00 10/21/17 06:00 PT 45.3 SECONDS (9.4-12.5) H 10/21/17 06:00 INR 3.83 (0.93-1.08) H* 10/21/17 06:00 APTT 36.8 Seconds (25.1-36.5) H 10/19/17 08:49
--- NOTE | 2017-10-21 11:31 | PN ---
DATE: 10/20/2017 DAILY PROGRESS NOTE SUBJECTIVE: The patient was seen this Thursday evening in room 377, bed 2 with her son, Luis Fernando. at the bedside. Case was discussed with Dr. Mcmahan earlier today as her repeat CT scan showed small bowel obstruction that seems to have worsened and therefore, NG tube was inserted. The patient is awake, alert, clear and appropriate. Mental status at baseline, able to engage in conversation with me in spite of the presence of the NG tube. PHYSICAL EXAMINATION: GENERAL: She is comfortable. ABDOMEN: Was a bit distended and tympanitic. LUNGS: With good breath sounds bilaterally. HEART: Regular, not tachycardic. LABORATORY DATA: Lab abnormalities showed elevated sodium at 153 and chloride of 116. She is currently on IV fluids at 100 mL an hour to correct these abnormalities. Lengthy conversations were had earlier today and since the time of admission by Dr. Xavier Guadalupe. Today, I spoke with this patient and Dr. Mcmahan. Today, I spoke with the patient's son, he has been making arrangements for her transfer to [facility] in [facility] where her surgeon and oncologist are located. They are more comfortable there for the continued care in her complex case. They had been in conversation with Dr. Chay Wells, telephone number [phone] as well as the oncologist Dr. Vanesa Liriano, . Dr. Wells will be the admitting physician physician at [facility] and tomorrow morning, reaching out to his office. Tomorrow morning, I will contact Dr. Wells's office and confirm our plans for transfer. In the meantime, NG tube and suction will stay in place, IV fluids will infuse. Morning labs were ordered and we will continue to follow. Of note, head CT scan was performed only few months ago showing no increased uptake anywhere in the abdomen and essentially unchanged from her prior head CTs. Guy Guadalupe MD
[2017-10-21 18:57] VITALS: BP 141/89; PULSE 67; RESP 18; TEMP 98; O2SAT 99
== END 2017-10-22 00:19 | disposition short-term general hospital (02) | DRG 389 ==
LOC: ED 15:35 → ERH 18:54 → 3RSO 20:27
PROVIDERS: ADMIT Internal Medicine; ATTEND Internal Medicine
PROC: 0D9670Z Drainage of Stomach with Drainage Device, Via Natural or Artificial Opening (ICD-10-PCS; principal; 2017-10-18)
DX: K56.600 Partial intestinal obstruction, unspecified as to cause (principal); E87.0 Hyperosmolality and hypernatremia; E86.0 Dehydration; R62.7 Adult failure to thrive; E87.6 Hypokalemia; K43.5 Parastomal hernia without obstruction or gangrene; I10 Essential (primary) hypertension; E78.5 Hyperlipidemia, unspecified; G62.9 Polyneuropathy, unspecified; L89.152 Pressure ulcer of sacral region, stage 2; I48.91 Unspecified atrial fibrillation; M43.16 Spondylolisthesis, lumbar region; E83.42 Hypomagnesemia; R79.1 Abnormal coagulation profile; Z85.048 Personal history of other malignant neoplasm of rectum, rectosigmoid junction, and anus; Z90.49 Acquired absence of other specified parts of digestive tract; Z79.01 Long term (current) use of anticoagulants; Z86.718 Personal history of other venous thrombosis and embolism; Z93.3 Colostomy status; Z92.21 Personal history of antineoplastic chemotherapy; Z92.3 Personal history of irradiation

== ENCOUNTER 2017-11-10 08:06 | Emergency (ER) | payer MEDICARE, BC ==
[2017-11-10] MEDS ORDERED: Sodium Chloride 0.9% 1,000 ML IV STA (08:34)
[2017-11-10 08:42] VITALS: BMI 21.4
[2017-11-10 09:59] LABS: EOS # 0.1 (0.0-0.7); EOS % 2.6 % (1.5-5.0); GRAN # 2.99 (1.4-6.5); GRAN % 69.8 % (50.0-68.0); HEMOGLOBIN 10.7 g/dL (12.0-16.0); LYMPH # 0.9 (1.2-3.4); LYMPH % 20.8 % (22.0-35.0); MEAN CELL VOLUME 76.3 fl (80.0-105.0); MEAN CORPUSCULAR HEMOGLOBIN 26.7 pg (25.0-35.0); MEAN PLATELET VOLUME 11.6 fl (7.0-11.0); MONO # 0.3 (0.1-0.6); MONO % 6.8 % (1.0-6.0); RBC 4.01 10^6/uL (3.5-6.1); RED CELL DISTRIBUTION WIDTH 15.4 % (11.5-14.5); VENOUS BLOOD GAS BASE EXCESS -1.7 mmol/L (0.0-2.0); VENOUS BLOOD GAS PO2 56 mm/Hg (30-55); VENOUS BLOOD PH 7.39 (7.32-7.43); WHITE BLOOD COUNT 4.3 10^3/ul (4.5-11.0)
[2017-11-10 10:12] LABS: INR 2.05 (0.93-1.08); PROTHROMBIN TIME 23.9 SECONDS (9.4-12.5)
[2017-11-10 10:18] LABS: ALBUMIN 2.8 g/dL (3.0-4.8); ALT/SGPT 90 U/L (7-56); AST/SGOT 65 U/L (14-36); BLOOD UREA NITROGEN 16 mg/dL (7-21); GFR AFRICAN-AMERICAN > 60; GFR NON-AFRICAN AMERICAN 60; LIPASE 25 U/L (23-300)
[2017-11-10] MEDS ORDERED: Iohexol 350 MG/100 ML VIAL ONE (10:24)
[2017-11-10 11:06] LABS: URINE BILIRUBIN NEGATIVE (NEGATIVE); URINE BLOOD NEGATIVE (NEGATIVE); URINE GLUCOSE (UA) NEGATIVE (NEGATIVE); URINE LEUKOCYTE ESTERASE SMALL Leu/uL (NEGATIVE); URINE PROTEIN NEGATIVE mg/dL (<30 mg/dL); URINE UROBILINOGEN 0.2 E.U./dL (<1 E.U./dL)
[2017-11-10 11:07] LABS: URINE APPEARANCE CLEAR (CLEAR); URINE COLOR YELLOW (YELLOW)
[2017-11-10 11:21] LABS: URINE BACTERIA MOD (NEG); URINE WBC 15 - 20 /hpf (0-6)
--- NOTE | 2017-11-10 11:22 | ED PDOC ---
Arrival/HPI - General Chief Complaint: Female Genitourinary Time Seen by Provider: 11/10/17 08:34 Historian: Patient - History of Present Illness Narrative History of Present Illness (Text): 11/10/17 11:19 A 82 year old female, whose past medical history includes colon cancer and multiple bowel obstructions, presents to the emergency department complaining of nausea and episodes of nonbilious nonbloody vomiting for 2 weeks. Patient note associated loss of appetite, but denies any fever, chills, hematochezia, chest pain, shortness of breath or any other complaints. Time/Duration: Other (2 weeks) Symptom Course: Unchanged Context: Home Past Medical History - Provider Review Nursing Documentation Reviewed: Yes - Past History Past History: No Previous - Infectious Disease Hx of Infectious Diseases: None - Reproductive Menopause: No - Cardiac Hx Cardiac Disorders: Yes Hx Hypertension: Yes Hx Peripheral Vascular Disease: Yes - Pulmonary Hx Respiratory Disorders: Yes Hx Asthma: Yes - Neurological Hx Neurological Disorder: No - HEENT Hx HEENT Disorder: No - Renal Hx Renal Disorder: No - Endocrine/Metabolic Hx Endocrine Disorders: No - Hematological/Oncological Hx Blood Disorders: Yes Hx Cancer: Yes (colorectal CA) - Integumentary Hx Dermatological Disorder: No - Musculoskeletal/Rheumatological Hx Gout: Yes Other/Comment: osteoporosis - Gastrointestinal Other/Comment: Colon CA. H/O Colon resection - Genitourinary/Gynecological Hx Genitourinary Disorders: No - Psychiatric Hx Depression: No Hx Emotional Abuse: No Hx Physical Abuse: No Hx Substance Use: No - Surgical History Other/Comment: colon resection. ileostomy. ureteral stent - Anesthesia Hx Anesthesia: Yes Hx Anesthesia Reactions: No Hx Malignant Hyperthermia: No - Suicidal Assessment Feels Threatened In Home Enviroment: No Family/Social History - Physician Review Nursing Documentation Reviewed: Yes Family/Social History: No Known Family HX Smoking Status: Never Smoked Hx Alcohol Use: No Hx Substance Use: No Hx Substance Use Treatment: No Allergies/Home Meds Allergies/Adverse Reactions: Allergies No Known Allergies Allergy (Verified 01/01/12 18:12) Home Medications: Home Meds Medication Instructions Recorded Confirmed Gabapentin [Neurontin] 1 tab PO BID 10/16/17 11/10/17 Losartan/Hydrochlorothiazide 1 tab PO DAILY 10/16/17 11/10/17 [Hyzaar 100-25 Tablet] Metoprolol Tartrate [Lopressor] 1 tab PO DAILY 10/16/17 11/10/17 Rosuvastatin Calcium [Crestor] 10 mg PO DAILY 10/16/17 11/10/17 Warfarin [Coumadin] 1 mg PO DAILY 10/16/17 11/10/17 Ferrous Sulfate [Feosol] 325 mg PO DAILY 11/10/17 11/10/17 Ondansetron [Zofran Inj] 4 mg IVP Q8H 11/10/17 11/10/17 Rosuvastatin Calcium [Crestor] 10 mg PO DAILY 11/10/17 11/10/17 Review of Systems - Physician Review All systems were reviewed & negative as marked: Yes - Review of Systems Constitutional: absent: Fevers, Night Sweats Respiratory: absent: SOB Cardiovascular: absent: Chest Pain Gastrointestinal: Nausea, Vomiting, Appetite Changes. absent: Hematochezia Physical Exam Vital Signs Reviewed: Yes Vital Signs Temp Pulse Resp BP Pulse Ox 11/10/17 19:42 98.2 F 78 17 100/71 99 11/10/17 17:29 70 16 104/76 98 11/10/17 15:20 98.6 F 76 16 99 11/10/17 13:02 76 18 99/69 L 98 11/10/17 09:30 82 17 100/74 99 11/10/17 08:15 98.0 F 92 H 18 100/73 98 Temperature: Afebrile Blood Pressure: Normal Pulse: Tachycardic Respiratory Rate: Normal Appearance: Positive for: Well-Appearing, Non-Toxic, Comfortable, Other (Thin female ) Pain Distress: None Mental Status: Positive for: Alert and Oriented X 3 - Systems Exam Head: Present: Atraumatic, Normocephalic Pupils: Present: PERRL Extroacular Muscles: Present: EOMI Conjunctiva: Present: Normal Mouth: Present: Moist Mucous Membranes Neck: Present: Normal Range of Motion Respiratory/Chest: Present: Clear to Auscultation, Good Air Exchange, Other ( port noted on left side of chest). No: Respiratory Distress, Accessory Muscle Use Cardiovascular: Present: Regular Rate and Rhythm, Normal S1, S2. No: Murmurs Abdomen: Present: Tenderness (minimal tenderness to left side of abdomen), Normal Bowel Sounds, Ostomy Tubes (on right side). No: Distention, Peritoneal Signs Back: Present: Normal Inspection Upper Extremity: Present: Normal Inspection. No: Cyanosis, Edema Lower Extremity: Present: Normal Inspection. No: Edema Neurological: Present: GCS=15, CN II-XII Intact, Speech Normal Skin: Present: Warm, Dry, Normal Color. No: Rashes Psychiatric: Present: Alert, Oriented x 3, Normal Insight, Normal Concentration Medical Decision Making ED Course and Treatment: 11/10/17 11:19 Impression: A 82 year old female with nausea and vomiting Plan: -- Abdomen and pelvis CT -- Labs -- Blood and Urine culture -- Urinalysis -- Zofran and IV fluids -- Reassess and disposition Progress Notes: Report Date : 11/10/2017 11:34:25 PROCEDURE: CT Abdomen and Pelvis with contrast Dictator : oMuna Whitt MD IMPRESSION: Acute small bowel obstruction with the transition zone likely in the right lower quadrant in the distal small bowel loops. The terminal ileum and colon are decompressed. Interval development of moderate left hydronephrosis and moderate to severe dilatation of the left proximal and mid ureter up to the level of the iliac vessel crossing. 11/10/17 13:36 Patient evaluated by PMD Dr. Chava Guadalupe, who is aware of CT showing small bowel obstruction. PMD spoke with patients surgeon Dr. Chay Wells at [facility], who is aware of and in agreement with plan. Patient to be transferred to [facility] for further treatment. Awaiting call back from transfer center at [facility]. - Lab Interpretations Lab Results: 11/10/17 09:00 11/10/17 09:00 Lab Results 11/10/17 10:30: Urine Color Yellow, Urine Appearance Clear, Urine pH 6.0, Ur Specific [place] 1.010, Urine Protein Negative, Urine Glucose (UA) Negative, Urine Ketones Negative, Urine Blood Negative, Urine Nitrate Negative, Urine Bilirubin Negative, Urine Urobilinogen 0.2, Ur Leukocyte Esterase Small H, Urine RBC 1 - 3, Urine WBC 15 - 20, Ur Epithelial Cells 4 - 5, Urine Bacteria Mod 11/10/17 09:00: pO2 56 H, VBG pH 7.39, VBG pCO2 38.0 L, VBG HCO3 23.0, VBG Total CO2 24.2, VBG O2 Sat (Calc) 91.9 H, VBG Base Excess -1.7 L, VBG Potassium 2.9 L, Sodium 139.0, Chloride 110.0 H, Glucose 91, Lactate 1.1, FiO2 21.0, Venous Blood Potassium 2.9 L 11/10/17 09:00: Sodium 140, Chloride 107, Potassium 3.0 L, Carbon Dioxide 22, Anion Gap 14, BUN 16, Creatinine 0.9, Est GFR ( Amer) > 60, Est GFR (Non- Af Amer) 60, Random Glucose 87, Calcium 8.0 L, Magnesium 1.4 L, Total Bilirubin 1.0, AST 65 H D, ALT 90 H, Alkaline Phosphatase 66, Total Protein 5.6 L, Albumin 2.8 L, Globulin 2.8, Albumin/Globulin Ratio 1.0 L, Lipase 25 11/10/17 09:00: PT 23.9 H, INR 2.05 H, APTT 33.0 11/10/17 09:00: WBC 4.3 L D, RBC 4.01, Hgb 10.7 L, Hct 30.6 L, MCV 76.3 L D, MCH 26.7, MCHC 35.0, RDW 15.4 H, Plt Count 236, MPV 11.6 H, Gran % 69.8 H, Lymph % (Auto) 20.8 L, [place] % (Auto) 6.8 H, Eos % (Auto) 2.6, Baso % (Auto) 0.0 , Gran # 2.99, Lymph # (Auto) 0.9 L, [place] # (Auto) 0.3, Eos # (Auto) 0.1, Baso # (Auto) 0.00 I have reviewed the lab results: Yes - RAD Interpretation Radiology Orders: 11/10/17 08:35 ABD & PELVIS IV CONTRAST ONLY [CT] Stat - Medication Orders Current Medication Orders: Discontinued Medications Sodium Chloride (Sodium Chloride 0.9%) 1,000 mls @ 100 mls/hr IV .Q10H STA Stop: 11/10/17 18:33 Last Admin: 11/10/17 09:06 Dose: 100 mls/hr eMAR Start Stop Document 11/10/17 09:06 TA (Rec: 11/10/17 09:06 TA [id number]) Intravenous Solution Start Date 11/10/17 Start Time 09:06 Potassium Chloride (Potassium Chloride 10 Meq/100 Ml) 10 meq in 100 mls @ 50 mls/hr IVPB Q2H ADELINE Stop: 11/10/17 15:44 Last Admin: 11/10/17 13:47 Dose: 50 mls/hr eMAR Start Stop Document 11/10/17 13:47 SF (Rec: 11/10/17 13:47 SF [id number]) Intravenous Solution Start Date 11/10/17 Start Time 13:47 End Date 11/10/17 End time 15:47 Total Infusion Time 120 Piperacillin Sod/Tazobactam Sod (Zosyn 4.5 Gm In Ns 100ml) 4.5 gm in 100 mls @ 200 mls/hr IVPB STAT STA PRN Reason: Protocol Stop: 11/10/17 12:15 Last Admin: 11/10/17 12:00 Dose: 200 mls/hr eMAR Start Stop Document 11/10/17 12:00 SF (Rec: 11/10/17 12:01 SF [id number]) Intravenous Solution Start Date 11/10/17 Start Time 12:00 End Date 11/10/17 End time 12:30 Total Infusion Time 30 Ondansetron HCl (Zofran Inj) 4 mg IVP STAT STA Stop: 11/10/17 08:35 Last Admin: 11/10/17 09:06 Dose: 4 mg IVP Administration Document 11/10/17 09:06 TA (Rec: 11/10/17 09:07 TA [id number]) Charges for Administration # of IVP Administrations 1 Ondansetron HCl (Zofran Inj) 4 mg IVP STAT STA Stop: 11/10/17 15:01 Last Admin: 11/10/17 15:48 Dose: 4 mg IVP Administration Document 11/10/17 15:48 SF (Rec: 11/10/17 15:48 SF [id number]) Charges for Administration # of IVP Administrations 1 - Scribe Statement The provider has reviewed the documentation as recorded by the Piperibmikaela Reyes Provider Scribe Attestation: All medical record entries made by the Scribe were at my direction and personally dictated by me. I have reviewed the chart and agree that the record accurately reflects my personal performance of the history, physical exam, medical decision making, and the department course for this patient. I have also personally directed, reviewed, and agree with the discharge instructions and disposition. Disposition/Present on Arrival - Present on Arrival Any Indicators Present on Arrival: No History of DVT/PE: No History of Uncontrolled Diabetes: No Urinary Catheter: No History of Decub. Ulcer: Yes History Surgical Site Infection Following: None - Disposition Have Diagnosis and Disposition been Completed?: Yes Diagnosis: Bowel obstruction Disposition: Trans to Other Acute Care Hosp Disposition Time: 11:40 Condition: GUARDED Discharge Instructions (ExitCare): Small Bowel Obstruction (DC) Additional Instructions: LORA MCLEOD, thank you for letting us take care of you today. The emergency medical care you received today was directed at your acute symptoms. If you were prescribed any medication, please fill it and take as directed. It may take several days for your symptoms to resolve. Return to the Emergency Department if your symptoms worsen, do not improve, or if you have any other problems. Please contact your doctor or call one of the physicians/clinics you have been referred to that are listed on the Patient Visit Information form that is included in your discharge packet. Bring any paperwork you were given at discharge with you along with any medications you are taking to your follow up visit. Our treatment cannot replace ongoing medical care by a primary care provider outside of the emergency department. Thank you for allowing the [facility] team to be part of your care today. Referrals: Guy Guadalupe MD [Family Provider] - Follow up with primary Forms: [employer] (Italian)
--- NOTE | 2017-11-10 11:36 | CT ---
PROCEDURE: CT Abdomen and Pelvis with contrast HISTORY: h/o colon CA SBO - left-sided abd tenderness COMPARISON: 10/20/2017. TECHNIQUE: CT scan of the abdomen and pelvis was performed after administration of intravenous contrast. Oral contrast was not administered. Coronal and sagittal reformatted images were obtained. Contrast dose: 100 mL Omnipaque 350 Radiation dose: Total exam DLP = 396.47 mGy-cm. This CT exam was performed using one or more of the following dose reduction techniques: Automated exposure control, adjustment of the mA and/or kV according to patient size, and/or use of iterative reconstruction technique. FINDINGS: LOWER THORAX: Unremarkable. LIVER: There is diffuse fatty infiltration in the liver. No gross lesion or ductal dilatation. GALLBLADDER AND BILE DUCTS: The gallbladder is contracted. PANCREAS: Normal in size with homogeneous enhancement. No gross lesion or ductal dilatation. SPLEEN: Normal in size and appearance. ADRENALS: No discrete nodule. KIDNEYS AND URETERS: Both kidneys are normal in size with homogeneous enhancement. There is moderate hydronephrosis in the left kidney with severe dilatation of the left proximal and mid ureter. VASCULATURE: An infrarenal IVC filter remains in place. No aortic aneurysm. BOWEL: The stomach is distended and fluid-filled. There is a left lower quadrant colostomy. There is redemonstration of severe dilatation of fluid-filled small bowel loops measuring up to 6.0 cm. There are postsurgical changes in the right lower quadrant small bowel. The terminal ileum is decompressed. The colon is decompressed. There are postsurgical changes in the rectum. APPENDIX: Normal appendix. PERITONEUM: No free fluid. No free air. LYMPH NODES: No enlarged lymph nodes. BLADDER: Well distended and normal in appearance. REPRODUCTIVE: Unremarkable. BONES: There is an old superior endplate compression fracture deformity in the L2 vertebral body. There is degenerative grade 1 anterior listhesis of L4 on L5. There is diffuse bone demineralization. OTHER FINDINGS: None. IMPRESSION: Acute small bowel obstruction with the transition zone likely in the right lower quadrant in the distal small bowel loops. The terminal ileum and colon are decompressed. Interval development of moderate left hydronephrosis and moderate to severe dilatation of the left proximal and mid ureter up to the level of the iliac vessel crossing.
[2017-11-10] MEDS ORDERED: Piperacill/Tazo 4.5gm in NS 4.5 GM/100 ML BAG IVPB STA (11:46)
[2017-11-10 19:52] VITALS: BP 100/71; PULSE 78; RESP 17; TEMP 98.2; O2SAT 99
== END 2017-11-10 19:48 | disposition short-term general hospital (02) ==
LOC: ED 08:06
DX: K56.609 Unspecified intestinal obstruction, unspecified as to partial versus complete obstruction (principal); I10 Essential (primary) hypertension; I73.9 Peripheral vascular disease, unspecified; Z85.038 Personal history of other malignant neoplasm of large intestine
CPT/HCPCS: 74177; 80053; 81001; 82803; 83690; 83735; 85025; 85610; 85730; 87040; 87086; 96361; 96365; 96375; 96376; 99285; J2405; J2543; J3480; J7030; Q9967

== ENCOUNTER 2017-12-06 11:41 | Inpatient (IN) | payer MEDICARE, BC ==
[2017-12-06 11:58] VITALS: BMI 22.1
--- NOTE | 2017-12-06 12:49 | ED PDOC ---
Arrival/HPI - General Chief Complaint: Abnormal Labs Time Seen by Provider: 12/06/17 11:54 Historian: Patient - History of Present Illness Narrative History of Present Illness (Text): 12/06/17 12:10 A 82 year old female, whose past medical history includes colon cancer and multiple bowel obstructions, who is accompanied by son, presents to the emergency department complaining of weakness and loss of appetite since bowel obstruction surgery and colostomy performed 11/19/17 at [facility]. Per son, patient has been leaking bright red blood into colostomy site recently since surgery. Also notes patient has been going to rehab for physical therapy. Patient reports she has difficulty standing up and is also experiencing lightheadedness and near-syncopal episodes when standing up for the past couple of days. Patient denies fever, calf pain, or any other complaints at this time. PMD: Dr. Tovar and Saurav Souza Past Medical History - Provider Review Nursing Documentation Reviewed: Yes - Past History Past History: No Previous - Infectious Disease Hx of Infectious Diseases: None - Cardiac Hx Cardiac Disorders: Yes Hx Hypertension: Yes Hx Peripheral Vascular Disease: Yes - Pulmonary Hx Respiratory Disorders: Yes Hx Asthma: Yes - Neurological Hx Neurological Disorder: No - HEENT Hx HEENT Disorder: No - Renal Hx Renal Disorder: No - Endocrine/Metabolic Hx Endocrine Disorders: No - Hematological/Oncological Hx Blood Disorders: Yes Hx Cancer: Yes (colorectal CA) - Integumentary Hx Dermatological Disorder: No - Musculoskeletal/Rheumatological Hx Gout: Yes Other/Comment: osteoporosis - Gastrointestinal Other/Comment: Colon CA. H/O Colon resection - Genitourinary/Gynecological Hx Genitourinary Disorders: No - Psychiatric Hx Depression: No Hx Emotional Abuse: No Hx Physical Abuse: No Hx Substance Use: No - Surgical History Other/Comment: colon resection. ileostomy. ureteral stent - Anesthesia Hx Anesthesia: Yes Hx Anesthesia Reactions: No Hx Malignant Hyperthermia: No - Suicidal Assessment Feels Threatened In Home Enviroment: No Family/Social History - Physician Review Nursing Documentation Reviewed: Yes Family/Social History: No Known Family HX Smoking Status: Never Smoked Hx Alcohol Use: No Hx Substance Use: No Hx Substance Use Treatment: No Allergies/Home Meds Allergies/Adverse Reactions: Allergies latex Allergy (Verified 12/06/17 19:16) skin breakdown Home Medications: Home Meds Medication Instructions Recorded Confirmed Losartan/Hydrochlorothiazide 1 tab PO DAILY 10/16/17 12/06/17 [Hyzaar 100-25 Tablet] Metoprolol Tartrate [Lopressor] 1 tab PO DAILY 10/16/17 12/06/17 Warfarin [Coumadin] 1 mg PO DAILY 10/16/17 12/06/17 Ferrous Sulfate [Feosol] 325 mg PO DAILY 11/10/17 12/06/17 Acetaminophen [Tylenol 325mg tab] 650 mg PO Q4 PRN 12/06/17 12/06/17 Acetaminophen [Tylenol 325mg tab] 650 mg PO Q4 PRN 12/06/17 12/06/17 Aluminum Hydroxide/Magnesium H 30 ml PO Q4 PRN 12/06/17 12/06/17 [Maalox 30 ml] Aspirin [Aspirin Chewable] 81 mg PO DAILY 12/06/17 12/06/17 Atorvastatin [Lipitor] 40 mg PO DAILY 12/06/17 12/06/17 Loperamide [Loperamide HCl] 2 mg PO Q6 PRN 12/06/17 12/06/17 Magnesium Hydroxide [Milk Of 30 ml PO PRN PRN 12/06/17 12/06/17 Magnesia] Polyethylene Glycol 3350 [Miralax] 17 gm PO BID PRN 12/06/17 12/06/17 Prochlorperazine [Compazine Rectal 25 mg RC BID PRN 12/06/17 12/06/17 Supp] Sod Phos,M-B/Na Phos,Di-Ba [Fleet 133 ml RC Q8 PRN 12/06/17 12/06/17 Enema] Review of Systems - Physician Review All systems were reviewed & negative as marked: Yes - Review of Systems Constitutional: Fatigue, Other (weakness). absent: Fevers Gastrointestinal: Appetite Changes (loss of appetite) Musculoskeletal: absent: Other (no calf pain) Physical Exam - Physical Exam Narrative Physical Exam (Text): Gen: VS reviewed, alert, well devloped, well nourished, nontoxic, mild distress ENT: normal pharynx, dry mucous membranes Eye: EOMI, PERRL Neck: no JVD, supple, no adenopathy CV: regular rate, regular rhythm, no rubs, no murmur, no gallops, S1, S2, pulses equal and strong, left-upper chest wall port site and central line to right subclavia Pulm: no distress, lear to auscultation, no wheeze, no rhonchi, breath sounds equal, no rales Abd: soft, nontender, no guarding, no rebound, no rigidity, normal bowel sounds , colostomy site appears clean, dry, and intact, surgical armando appear well- healing Ext: pitting edema bilaterally to lower extremities Skin: pale, no rash, no cyanosis Psych: responds appropriately to questions, normal affect Neuro: oriented x 3, CN2-12 intact grossly, motor intact, sensation intact Vital Signs Reviewed: Yes Vital Signs Temp Pulse Resp BP Pulse Ox 12/06/17 14:48 97.9 F 85 17 132/77 12/06/17 14:30 98.2 F 84 17 126/74 96 12/06/17 14:21 98.2 F 84 17 126/74 12/06/17 11:59 97.5 F L 81 17 136/54 L 100 12/06/17 11:50 97.5 F L 83 17 136/54 L 96 Temperature: Afebrile Blood Pressure: Normal Pulse: Regular Respiratory Rate: Normal Appearance: Positive for: Well-Appearing, Non-Toxic, Comfortable Pain Distress: None Mental Status: Positive for: Alert and Oriented X 3 Medical Decision Making ED Course and Treatment: 12/06/17 12:16 Impression: 82 year old female with weakness and loss of appetite. Physical exam shows skin is pale; dry mucous membranes; pitting edema bilaterally to lower extremities; colostomy site appears clean, dry, and intact; armando appear well-healing; left-upper chest wall port site, central line to right subclavia. Plan: -- EKG -- Chest X-ray -- Labs -- Urinalysis -- Reassess and disposition Prior Visits: Notes and results from previous visits were reviewed. Patient last seen here in the emergency room on 11/10/2017 for nausea and episodes of nonbilious/ nonbloody vomiting. Patient was transferred to another hospital. Progress Notes: EKG: Ordered, reviewed, and independently interpreted the EKG. Rate : 83 BPM Rhythm : NSR Interpretation : Normal access, non-specific T-wave abnormality, prolonged QT. Comparison : No previous EKG for comparison. 12/06/17 13:[address] Souza, who accepts to admit patient under service to telemetry, requesting to transfuse 2 units of blood and replete potassium. 12/06/17 13:42 Chest X-ray shows no focal infiltrate, no cardiomegaly, no active disease. 12/06/17 21:49 - Lab Interpretations Lab Results: 12/06/17 12:50 12/06/17 12:50 Lab Results 12/06/17 13:14: Blood Type Confirm O POSITIVE 12/06/17 12:50: PT 14.3 H, INR 1.25 H, APTT 28.7 12/06/17 12:50: Blood Type O POSITIVE, Antibody Screen Negative, Crossmatch See Detail, BBK History Checked No verified bt 12/06/17 12:50: Sodium 145, Potassium 2.7 L*, Chloride 114 H, Carbon Dioxide 21 , Anion Gap 13, BUN 17, Creatinine 0.8, Est GFR ( Amer) > 60, Est GFR ( Non-Af Amer) > 60, Random Glucose 90, Calcium 8.0 L, Magnesium 1.7, Total Bilirubin 0.9, AST 42 H D, ALT 53, Alkaline Phosphatase 178 H D, NT-Pro-B Natriuret Pep 3430 H, Total Protein 5.6 L, Albumin 2.5 L, Globulin 3.1, Albumin/ Globulin Ratio 0.8 L 12/06/17 12:50: WBC 8.1 D, RBC 2.74 L, Hgb 8.1 L D, Hct 24.2 L, MCV 88.3 D, MCH 29.6, MCHC 33.5, RDW 16.8 H, Plt Count 386, MPV 11.0, Gran % 86.7 H, Lymph % (Auto) 6.3 L, [place] % (Auto) 5.3, Eos % (Auto) 1.6, Baso % (Auto) 0.1, Gran # 7.05 H, Lymph # (Auto) 0.5 L, [place] # (Auto) 0.4, Eos # (Auto) 0.1, Baso # (Auto ) 0.01 I have reviewed the lab results: Yes - RAD Interpretation Radiology Orders: 12/06/17 12:15 CHEST PORTABLE [RAD] Stat - Medication Orders Current Medication Orders: Acetaminophen (Tylenol 325mg Tab) 650 mg PO Q4 PRN PRN Reason: Fever >100.4 F Al Hydrox/Mg Hydrox/Simethicone (Maalox Plus 30 Ml) 30 ml PO Q4 PRN PRN Reason: Heartburn Aspirin (Aspirin Chewable) 81 mg PO DAILY [facility] Atorvastatin Calcium (Lipitor) 40 mg PO HS [facility] Ferrous Sulfate (Feosol) 324 mg PO DAILY [facility] Hydrochlorothiazide (Hydrodiuril) 25 mg PO DAILY [facility] Losartan Potassium (Cozaar) 100 mg PO DAILY [facility] Metoprolol Tartrate (Lopressor) 25 mg PO DAILY [facility] Prochlorperazine (Compazine Rectal Supp) 25 mg RC BID PRN PRN Reason: Nausea/Vomiting Warfarin Sodium (Coumadin) 1 mg PO 1800 [facility] PRN Reason: Protocol Discontinued Medications Potassium Chloride (Potassium Chloride 10 Meq/100 Ml) 10 meq in 100 mls @ 50 mls/hr IVPB Q2H A[facility] Stop: 12/06/17 17:44 Last Admin: 12/06/17 18:40 Dose: 50 mls/hr eMAR Start Stop Document 12/06/17 18:40 KL (Rec: 12/06/17 18:40 KL [id number]) Intravenous Solution Start Date 12/06/17 Start Time 18:40 Potassium Chloride (K-Dur 20 Meq Er Tab) 40 meq PO STAT STA Stop: 12/06/17 13:34 Last Admin: 12/06/17 14:07 Dose: 40 meq - Scribe Statement The provider has reviewed the documentation as recorded by the Cookie Womack Provider Scribe Provider Scribe Attestation: All medical record entries made by the Cookie were at my direction and personally dictated by me. I have reviewed the chart and agree that the record accurately reflects my personal performance of the history, physical exam, medical decision making, and the department course for this patient. I have also personally directed, reviewed, and agree with the discharge instructions and disposition. Disposition/Present on Arrival - Present on Arrival Any Indicators Present on Arrival: No History of DVT/PE: No History of Uncontrolled Diabetes: No Urinary Catheter: No History of Decub. Ulcer: No History Surgical Site Infection Following: None - Disposition Have Diagnosis and Disposition been Completed?: Yes Diagnosis: Anemia, Hypokalemia Disposition: HOSPITALIZED Disposition Time: 21:12 Patient Plan: Admission Patient Problems: Current Active Problems Problem Status Onset Anemia Acute Hypokalemia Acute Condition: GOOD
[2017-12-06 12:59] LABS: BASO # 0.01 K/mm3 (0.0-2.0); BASO % 0.1 % (0.0-3.0); EOS # 0.1 (0.0-0.7); EOS % 1.6 % (1.5-5.0); GRAN # 7.05 (1.4-6.5); GRAN % 86.7 % (50.0-68.0); HEMOGLOBIN 8.1 g/dL (12.0-16.0); LYMPH # 0.5 (1.2-3.4); LYMPH % 6.3 % (22.0-35.0); MEAN CELL VOLUME 88.3 fl (80.0-105.0); MEAN CORPUSCULAR HEMOGLOBIN 29.6 pg (25.0-35.0); MEAN CORPUSCULAR HGB CONC 33.5 g/dl (31.0-37.0); MONO # 0.4 (0.1-0.6); MONO % 5.3 % (1.0-6.0); RBC 2.74 10^6/uL (3.5-6.1); RED CELL DISTRIBUTION WIDTH 16.8 % (11.5-14.5); WHITE BLOOD COUNT 8.1 10^3/ul (4.5-11.0)
[2017-12-06 13:14] LABS: INR 1.25 (0.93-1.08); PARTIAL THROMBOPLASTIN TIME 28.7 Seconds (25.1-36.5); PROTHROMBIN TIME 14.3 SECONDS (9.4-12.5)
[2017-12-06 13:22] LABS: B-TYPE NATRIURETIC PEPTIDE 3430 pg/mL (0-450)
[2017-12-06 13:27] LABS: ALB/GLOB RATIO 0.8 (1.1-1.8); ALBUMIN 2.5 g/dL (3.0-4.8); ALT/SGPT 53 U/L (7-56); AST/SGOT 42 U/L (14-36); BLOOD UREA NITROGEN 17 mg/dL (7-21); GFR AFRICAN-AMERICAN > 60; GFR NON-AFRICAN AMERICAN > 60
[2017-12-06] MEDS ORDERED: Potassium Chloride 20 mEq ER Tab PO STA (13:33)
--- NOTE | 2017-12-06 15:36 | RAD ---
Date of service: 12/06/2017 HISTORY: CHF COMPARISON: 10/20/2017. FINDINGS: LUNGS: No active pulmonary disease. PLEURA: No significant pleural effusion identified, no pneumothorax apparent. CARDIOVASCULAR: No radiographic findings to suggest acute or significant cardiovascular disease. [id number] catheter in stable, satisfactory position. Additional venous access catheter noted also in satisfactory position. OSSEOUS STRUCTURES: No significant abnormalities. VISUALIZED UPPER ABDOMEN: Normal. OTHER FINDINGS: None. IMPRESSION: No active disease.
[2017-12-06] MEDS ORDERED: Alum-Mag Hydrox-Simethicone Susp (30 mL) PO PRN (20:00)
--- NOTE | 2017-12-06 20:11 | CARD ---
APPROVED REPORT Date of service: 12/06/2017 EKG Measurement Heart [id number] <Conclusion> Normal sinus rhythm Nonspecific T wave abnormality Prolonged QT Abnormal ECG
[2017-12-07 06:39] LABS: MEAN CELL VOLUME 86.9 fl (80.0-105.0); MEAN CORPUSCULAR HEMOGLOBIN 29.5 pg (25.0-35.0); RBC 3.52 10^6/uL (3.5-6.1); RED CELL DISTRIBUTION WIDTH 16.6 % (11.5-14.5); WHITE BLOOD COUNT 8.1 10^3/ul (4.5-11.0)
[2017-12-07 07:22] LABS: HEMOGLOBIN 10.4 g/dL (12.0-16.0)
[2017-12-07 07:28] LABS: ALB/GLOB RATIO 0.8 (1.1-1.8); ALBUMIN 2.4 g/dL (3.0-4.8); ALT/SGPT 40 U/L (7-56); AST/SGOT 34 U/L (14-36); BLOOD UREA NITROGEN 15 mg/dL (7-21); CALCIUM 6.4 mg/dL (8.4-10.5); GFR AFRICAN-AMERICAN > 60; GFR NON-AFRICAN AMERICAN 60
[2017-12-07] MEDS: Calcium-Vit D 250 mg-125 Units Tab UD PO SCH (10:14)
--- NOTE | 2017-12-07 11:10 | CARD ---
APPROVED REPORT Date of service: 12/07/2017 EKG Measurement Heart [id number] <Conclusion> Normal sinus rhythm Nonspecific T wave abnormality Abnormal ECG
[2017-12-07 11:49] LABS: IRON 32 ug/dL (45-180)
[2017-12-07 11:58] LABS: % IRON SATURATION 17 % (20-55); TOTAL IRON BINDING CAPACITY 191 ug/dL (265-497)
[2017-12-07 12:08] LABS: FREE T4 1.44 ng/dL (0.78-2.19)
--- NOTE | 2017-12-07 15:24 | CP.PCM.CON ---
History of Present Illness - History of Present Illness History of Present Illness: General Surgery Consult Note for Dr. Mcmahan; Consulted for partial dehiscence of surgical wound 82 year old F with PMHx of colon cancer s/p colonic resection x2 with end colostomy in 2010 and chemo, radiation as well as multiple bowel obstructions admitted for weakness and loss of appetite in the setting of anemia and hypokalemia. Pt complained of weakness and loss of appetite since bowel obstruction surgery and colostomy performed at [place] on 11/19/17. As per patient, she has been leaking bright red blood near colostomy site intermittently since surgery last week. Patient does not complain of any pain at the surgical site, no nausea or vomiting, no spiked fevers. Patient also notes she has been bedridden since last admission and has developed bed sores that worsen s/p chemo treatment. PMHx: colon cancer s/p resection x2 with end colostomy in 2010, chemo and radiation, neuropathy, DVT on warfarin, HTN, HLD PSHx: colectomy with end colostomy, IVC filter, port placement Medications: Coumadin, HCTZ, Lipitor, Losartan, Metoprolol Allergies: NKDA Family Hx: unknown Social: No drug, alcohol, tobacco use. Son helps take care of her. Review of Systems - Review of Systems All systems: reviewed and no additional remarkable complaints except (as per HPI ) - Constitutional Constitutional: Fatigue, Weakness. absent: Chills, Fever, Increased Appetite - Respiratory Respiratory: absent: Cough, Dyspnea - Gastrointestinal Gastrointestinal: absent: Abdominal Pain, Nausea, Vomiting Additional comments: Loss of appetite - Musculoskeletal Musculoskeletal: Other Additional comments: no calf pain - Integumentary Integumentary: Skin Ulcer Additional comments: Stage 2 sacral ulcer noted, dressings changed. Pt has been bedridden since last admission and develops bedsores s/p chemo therapy. - Neurological Additional comments: Neuropathy noted to feet b/l Past Patient History - Infectious Disease Hx of Infectious Diseases: None - Past Medical History & Family History Past Medical History?: Yes - Past Social History Smoking Status: Never Smoked - CARDIAC Hx Cardiac Disorders: Yes Hx Hypertension: Yes Hx Peripheral Vascular Disease: Yes - PULMONARY Hx Respiratory Disorders: Yes Hx Asthma: Yes - NEUROLOGICAL Hx Neurological Disorder: No - HEENT Hx HEENT Problems: No - RENAL Hx Chronic Kidney Disease: No - ENDOCRINE/METABOLIC Hx Endocrine Disorders: No - HEMATOLOGICAL/ONCOLOGICAL Hx Blood Disorders: Yes Hx Cancer: Yes (colorectal CA) - INTEGUMENTARY Hx Dermatological Problems: No - MUSCULOSKELETAL/RHEUMATOLOGICAL Hx Gout: Yes Other/Comment: osteoporosis - GASTROINTESTINAL Other/Comment: Colon CA. H/O Colon resection - GENITOURINARY/GYNECOLOGICAL Hx Genitourinary Disorders: No - PSYCHIATRIC Hx Depression: No Hx Emotional Abuse: No Hx Physical Abuse: No Hx Substance Use: No - SURGICAL HISTORY Other/Comment: colon resection. ileostomy. ureteral stent - ANESTHESIA Hx Anesthesia: Yes Hx Anesthesia Reactions: No Hx Malignant Hyperthermia: No Meds Allergies/Adverse Reactions: Allergies Allergy/AdvReac Type Severity Reaction Status Date / Time latex Allergy skin Verified 12/06/17 19:16 breakdown - Medications Medications: Current Medications Acetaminophen (Tylenol 325mg Tab) 650 mg PO Q4 PRN PRN Reason: Fever >100.4 F Al Hydrox/Mg Hydrox/Simethicone (Maalox Plus 30 Ml) 30 ml PO Q4 PRN PRN Reason: Heartburn Aspirin (Aspirin Chewable) 81 mg PO DAILY [facility] Last Admin: 12/07/17 09:44 Dose: Not Given Atorvastatin Calcium (Lipitor) 40 mg PO [facility] Calcium/Vitamin D (Oscal-D 250 Mg-125 Units Tab) 2 tab PO DAILY [facility] Last Admin: 12/07/17 10:14 Dose: 2 tab Ferrous Sulfate (Feosol) 324 mg PO DAILY [facility] Last Admin: 12/07/17 09:41 Dose: 324 mg Hydrochlorothiazide (Hydrodiuril) 25 mg PO DAILY [facility] Last Admin: 12/07/17 09:40 Dose: 25 mg Ampicillin Sodium/Sulbactam Sodium (Unasyn) 1 gm in 100 mls @ 100 mls/hr IVPB Q6H [facility] PRN Reason: Protocol Ampicillin Sodium/Sulbactam (Sodium 3 gm/ Sodium Chloride) 100 mls @ 100 mls/ hr IVPB STAT STA PRN Reason: Protocol Stop: 12/07/17 15:09 Losartan Potassium (Cozaar) 100 mg PO DAILY [facility] Last Admin: 12/07/17 09:41 Dose: 100 mg Metoprolol Tartrate (Lopressor) 25 mg PO DAILY [facility] Last Admin: 12/07/17 09:40 Dose: 25 mg Prochlorperazine (Compazine Rectal Supp) 25 mg RC BID PRN PRN Reason: Nausea/Vomiting Silver Sulfadiazine (Silvadene 1% 25 Gm) 1 gm TP BID [facility] Warfarin Sodium (Coumadin) 1 mg PO 1800 [facility] PRN Reason: Protocol Physical Exam - Constitutional Appears: Non-toxic, Chronically Ill Additional comments: Mild distress - Head Exam Head Exam: ATRAUMATIC, NORMAL INSPECTION, NORMOCEPHALIC - Eye Exam Eye Exam: Normal appearance - ENT Exam ENT Exam: Mucous Membranes Moist - Neck Exam Neck exam: Positive for: Normal Inspection - Respiratory Exam Respiratory Exam: NORMAL BREATHING PATTERN - Cardiovascular Exam Cardiovascular Exam: REGULAR RHYTHM, +S1, +S2 - GI/Abdominal Exam GI & Abdominal Exam: Soft. absent: Distended, Guarding, Rebound, Tenderness Additional comments: surgical armando are apart at 3 sites, surgical site wound not approximated with ~30 cc of old hematoma expressed from the wound. - Extremities Exam Extremities exam: Negative for: calf tenderness - Back Exam Back exam: NORMAL INSPECTION - Neurological Exam Neurological exam: Alert, Altered, Oriented x3 Additional comments: peripheral neuropathy to feet b/l - Psychiatric Exam Psychiatric exam: Normal Affect, Normal Mood - Skin Skin Exam: Dry, Warm Additional comments: 3 Stage 2 sacral ulcers noted: ~2 cm, 1 cm, 0.5 cm in size; dressing changed Results - Vital Signs Recent Vital Signs: Last Vital Signs Temp 99.4 F 12/07/17 12:00 Pulse 74 12/07/17 12:00 Resp 20 12/07/17 12:00 BP 132/81 12/07/17 12:00 Pulse Ox 98 12/07/17 06:00 - Labs Result Diagrams: 12/07/17 06:00 12/07/17 06:00 Labs: Laboratory Results - last 24 hr 12/07/17 12/07/17 12/07/17 06:00 06:00 11:10 WBC 8.1 RBC 3.52 Hgb 10.4 L D Hct 30.6 L MCV 86.9 MCH 29.5 MCHC 34.0 RDW 16.6 H Plt Count 320 MPV 11.0 Sodium 147 Potassium 3.9 Chloride 115 H Carbon Dioxide 23 Anion Gap 12 BUN 15 Creatinine 0.9 Est GFR ( Amer) > 60 Est GFR (Non-Af Amer) 60 Random Glucose 88 Calcium 6.4 L* Iron 32 L TIBC 191 L % Saturation 17 L Total Bilirubin 1.2 AST 34 ALT 40 Alkaline Phosphatase 152 H Total Protein 5.4 L Albumin 2.4 L Globulin 3.0 Albumin/Globulin Ratio 0.8 L Free T4 TSH 3rd Generation 12/07/17 11:10 WBC RBC Hgb Hct MCV MCH MCHC RDW Plt Count MPV Sodium Potassium Chloride Carbon Dioxide Anion Gap BUN Creatinine Est GFR ( Amer) Est GFR (Non-Af Amer) Random Glucose Calcium Iron TIBC % Saturation Total Bilirubin AST ALT Alkaline Phosphatase Total Protein Albumin Globulin Albumin/Globulin Ratio Free T4 1.44 TSH 3rd Generation 4.56 Assessment & Plan - Assessment and Plan (Free Text) Assessment: 82 year old F with PMHx of colon cancer s/p colonic resection x2 with end colostomy in 2010 and chemo, POD#1 s/p surgery for bowel obstruction at [facility] with hematoma and partial dehiscence of abdominal surgical wound Plan: --No surgical intervention indicated at this time--appears to be a superficial skin dehiscence with hematoma --CT abd/pelvis with IV contrast to evaluate for fascial integrity --Trend CBC with differential --wound care: clean with peroxide, daily iodoform packing changes --f/u wound cx --empiric Abx therapy: unasyn 3g x1 STAT, then 1.5g q6h pending wound cultures --physician/nurse communication for silvadene and optifoam on sacral ulcers, wound care consult placed -- obtain and set up air mattress for pt, turn reposition order q2h Patient was seen and examined by Dr. Mcmahan, who agrees with management as per above Cr Buchanan PGY-1
[2017-12-07 16:58] LABS: FOLATE > 20.0 ng/mL
[2017-12-07] MEDS: Silver Sulfadiazine 1% Cream (25 gm) TP SCH (17:23)
[2017-12-07] MEDS ORDERED: Iohexol 350 MG/100 ML VIAL ONE (19:03)
[2017-12-07] MEDS ORDERED: AMPicillin/Sulbactam 1.5gm 1 GM/100 ML BAG IVPB SCH (20:00)
[2017-12-08] MEDS: AMPicillin/Sulbactam 1.5gm 1 GM/100 ML BAG IVPB SCH ×4 (00:45→18:50)
[2017-12-08 07:51] LABS: BASO # 0.04 K/mm3 (0.0-2.0); BASO % 0.5 % (0.0-3.0); EOS # 0.3 (0.0-0.7); EOS % 3.9 % (1.5-5.0); GRAN # 5.57 (1.4-6.5); GRAN % 75.4 % (50.0-68.0); HEMOGLOBIN 9.8 g/dL (12.0-16.0); LYMPH # 0.9 (1.2-3.4); MEAN CELL VOLUME 87.2 fl (80.0-105.0); MEAN CORPUSCULAR HEMOGLOBIN 29.2 pg (25.0-35.0); MEAN CORPUSCULAR HGB CONC 33.4 g/dl (31.0-37.0); MEAN PLATELET VOLUME 10.9 fl (7.0-11.0); MONO # 0.6 (0.1-0.6); MONO % 8.2 % (1.0-6.0); RBC 3.36 10^6/uL (3.5-6.1); RED CELL DISTRIBUTION WIDTH 16.8 % (11.5-14.5); WHITE BLOOD COUNT 7.4 10^3/ul (4.5-11.0)
--- NOTE | 2017-12-08 08:29 | CP.PCM.PN ---
Subjective - Date & Time of Evaluation Date of Evaluation: 12/08/17 Time of Evaluation: 07:30 - Subjective Subjective: General Surgery Progress Note for Dr. Mcmahan Pt was seen and examined at bedside this AM. No acute events reported overnight. Patient is producing adequate urine. Does not complain of any pain at the midline surgical site, no nausea or vomiting, no fevers. Midline surgical site incision cleaned with peroxide and repacked. Soft yellow stool leaking from the colostomy bag this AM was cleaned off and bag was changed. Objective - Vital Signs/Intake and Output Vital Signs (last 24 hours): Temp Pulse Resp BP Pulse Ox 98.6 F 77 19 114/64 99 12/08/17 05:44 12/08/17 05:44 12/08/17 05:44 12/08/17 05:44 12/08/17 05:44 Intake and Output: 12/08/17 12/08/17 06:59 18:59 Intake Total 1520 Output Total 1000 Balance 520 - Medications Medications: Current Medications Acetaminophen (Tylenol 325mg Tab) 650 mg PO Q4 PRN PRN Reason: Fever >100.4 F Al Hydrox/Mg Hydrox/Simethicone (Maalox Plus 30 Ml) 30 ml PO Q4 PRN PRN Reason: Heartburn Aspirin (Aspirin Chewable) 81 mg PO DAILY [facility] Last Admin: 12/07/17 09:44 Dose: Not Given Atorvastatin Calcium (Lipitor) 40 mg PO HS [facility] Last Admin: 12/07/17 22:21 Dose: 40 mg Calcium/Vitamin D (Oscal-D 250 Mg-125 Units Tab) 2 tab PO DAILY [facility] Last Admin: 12/07/17 10:14 Dose: 2 tab Ferrous Sulfate (Feosol) 324 mg PO DAILY [facility] Last Admin: 12/07/17 09:41 Dose: 324 mg Hydrochlorothiazide (Hydrodiuril) 25 mg PO DAILY [facility] Last Admin: 12/07/17 09:40 Dose: 25 mg Ampicillin Sodium/Sulbactam Sodium (Unasyn) 1 gm in 100 mls @ 100 mls/hr IVPB Q6 [facility] PRN Reason: Protocol Last Admin: 12/08/17 06:08 Dose: 100 mls/hr Losartan Potassium (Cozaar) 100 mg PO DAILY [facility] Last Admin: 12/07/17 09:41 Dose: 100 mg Metoprolol Tartrate (Lopressor) 25 mg PO DAILY [facility] Last Admin: 12/07/17 09:40 Dose: 25 mg Prochlorperazine (Compazine Rectal Supp) 25 mg RC BID PRN PRN Reason: Nausea/Vomiting Silver Sulfadiazine (Silvadene 1% 25 Gm) 1 gm TP BID [facility] Last Admin: 12/07/17 17:23 Dose: 1 gm Warfarin Sodium (Coumadin) 1 mg PO 1800 [facility] PRN Reason: Protocol Last Admin: 12/07/17 17:23 Dose: 1 mg - Labs Labs: 12/08/17 07:30 12/07/17 06:00 PT 14.3 SECONDS (9.4-12.5) H 12/06/17 12:50 INR 1.25 (0.93-1.08) H 12/06/17 12:50 APTT 28.7 Seconds (25.1-36.5) 12/06/17 12:50 - Constitutional Appears: No Acute Distress - Head Exam Head Exam: NORMAL INSPECTION - Respiratory Exam Respiratory Exam: NORMAL BREATHING PATTERN - Cardiovascular Exam Cardiovascular Exam: REGULAR RHYTHM - GI/Abdominal Exam GI & Abdominal Exam: Soft. absent: Distended, Guarding, Rebound Additional comments: Midline surgical site wound not approximated, partial dehiscence at 3 staple sites, no new hematomas expressed. - Extremities Exam Extremities Exam: Normal Inspection - Neurological Exam Neurological Exam: Alert, Awake, Oriented x3 - Psychiatric Exam Psychiatric exam: Normal Affect, Normal Mood - Skin Skin Exam: Dry, Normal Color, Warm Assessment and Plan - Assessment and Plan (Free Text) Assessment: 82 year old F POD#12 s/p surgery for bowel obstruction at [facility] with hematoma and partial dehiscence of midline abdominal surgical wound. Plan: --No surgical intervention indicated at this time--appears to be a superficial skin dehiscence with hematoma --Trend CBC with differential --CT abd/pelvis with IV contrast: wound dehiscence in the subQ tissues of the anterior abdominal wall adjacent to ostomy; fasial integrity intact; air and fluid collection from surgical packing measuring 11x 2.5 x 3 cm deep to the surgical clips. --wound care: clean with peroxide, daily iodoform packing changes --wound gram stain: (+) for moderate PMNs, moderate gram neg rods, few gram pos. cocci in pairs --prelim wound cx: heavy growth gram neg. evans, gram pos cocci --f/u wound care nursing re: alternate, more adhesive ostomy bag options --empiric Abx therapy: unasyn 3g x1 STAT, then 1.5g q6h pending wound cultures --f/u K in PM --f/u urology consult for hydronephrosis R > L Patient was seen and examined by Dr. Mcmahan, who agrees with management as per above Cr Buchanan, PGY-1
--- NOTE | 2017-12-08 09:06 | CT ---
Date of service: 12/07/2017 PROCEDURE: CT Abdomen and Pelvis with contrast HISTORY: possible wound dehiscence, hematoma COMPARISON: 11/10/2017 TECHNIQUE: Contrast dose: 100 cc of Omni 350 Radiation dose: Total exam DLP = 516 mGy-cm. This CT exam was performed using one or more of the following dose reduction techniques: Automated exposure control, adjustment of the mA and/or kV according to patient size, and/or use of iterative reconstruction technique. FINDINGS: LOWER THORAX: Unremarkable. LIVER: Severe fatty infiltration of the liver GALLBLADDER AND BILE DUCTS: Unremarkable. PANCREAS: Unremarkable. No gross lesion or ductal dilatation. SPLEEN: Unremarkable. ADRENALS: Unremarkable. No mass. KIDNEYS AND URETERS: Bilateral hydronephrosis VASCULATURE: Unremarkable. No aortic aneurysm. Caval filter BOWEL: There is an ostomy in the left lower quadrant. Fluid-filled loops of bowel are seen throughout the abdomen. There is mural thickening of small bowel loops on the left side of the abdomen. There is wound dehiscence in the subcutaneous tissues of the anterior abdominal wall adjacent to the ostomy. There is an air and fluid collection measuring 11 cm in length by 2.5 cm AP by 3 cm wide. This is deep to the surgical clips. APPENDIX: Normal appendix. PERITONEUM: Unremarkable. No free fluid. No free air. LYMPH NODES: Unremarkable. No enlarged lymph nodes. BLADDER: Unremarkable. REPRODUCTIVE: Unremarkable. BONES: No acute fracture. OTHER FINDINGS: None. IMPRESSION: There is wound dehiscence in the subcutaneous tissues of the anterior abdominal wall adjacent to the ostomy. There is an air and fluid collection measuring 11 cm in length by 2.5 cm AP by 3 cm wide. This is deep to the surgical clips.
[2017-12-08] MEDS: Calcium-Vit D 250 mg-125 Units Tab UD PO SCH (09:23)
[2017-12-08] MEDS: Silver Sulfadiazine 1% Cream (25 gm) TP SCH ×2 (09:33→17:30)
[2017-12-08 09:56] LABS: ALB/GLOB RATIO 0.8 (1.1-1.8); ALBUMIN 2.5 g/dL (3.0-4.8); ALT/SGPT 37 U/L (7-56); AST/SGOT 32 U/L (14-36); BLOOD UREA NITROGEN 13 mg/dL (7-21); CALCIUM 7.9 mg/dL (8.4-10.5); GFR AFRICAN-AMERICAN > 60; GFR NON-AFRICAN AMERICAN 60
[2017-12-08] MEDS ORDERED: Potassium Chloride 20 mEq ER Tab PO ONE ×2 (09:58→17:16)
[2017-12-08] MEDS: Magnesium Oxide 400 mg Tab UD PO SCH ×2 (10:20→17:29)
--- NOTE | 2017-12-08 19:02 | CP.PCM.CON ---
History of Present Illness - History of Present Illness History of Present Illness: General Surgery Consult Note for Dr. Mcmahan; Reason for Consult: dehiscence of surgical wound 82 F with PMHx of colon cancer, s/p colonic resection x2 with end colostomy in 2010 and chemorads, multiple bowel obstructions admitted for weakness and loss of appetite in the setting of anemia and hypokalemia. General Surgery was consulted for abdominal wound dehiscence. Patient has not been feeling well since her surgery at [place] on 11/19/17. She has had inadequate oral intake and general malaise. At [facility], they noticed her wound has some drainage and sent her to the ED. Patient is unsure for how long wound had been draining. She denies any pain. CT abd/pelvis with contrast was done which did not show any fitulas or violation of fascial integrity (see full report). Patient also notes she has been bedridden since last admission and has developed bed sores that worsen s/p chemo treatment. Patient has no other complaints at this time. PMH: colon cancer s/p resection x2 with end colostomy in 2010, chemo and radiation, neuropathy, DVT on warfarin, HTN, HLD PSH: colectomy with end colostomy, IVC filter, port placement Medications: Coumadin, HCTZ, Lipitor, Losartan, Metoprolol Allergies: NKDA Family Hx: unknown Social: denies tobacco/EtOH/illicit drug use. Son is her special agent. Review of Systems - Constitutional Constitutional: Weakness. absent: Chills, Fever, Increased Appetite - EENT Eyes: absent: Blurred Vision, Pain Ears: absent: Ear Pain, Dizziness Nose/Mouth/Throat: absent: Nasal Congestion, Nasal Discharge - Breasts Breasts: absent: Pain, Nipple Discharge - Cardiovascular Cardiovascular: absent: Chest Pain at Rest, Dyspnea - Respiratory Respiratory: absent: Wheezing, Chest Congestion - Gastrointestinal Gastrointestinal: absent: Abdominal Pain, Diarrhea, Nausea, Vomiting - Genitourinary Genitourinary: absent: Difficulty Urinating, Dysuria - Musculoskeletal Musculoskeletal: As Per HPI - Integumentary Integumentary: As Per HPI, Wounds - Neurological Neurological: Numbness, Tingling, Weakness. absent: Dizziness, Syncope - Psychiatric Psychiatric: absent: Anxiety, Depression - Endocrine Endocrine: absent: Polydipsia, Polyphagia, Polyuria - Hematologic/Lymphatic Hematologic: absent: Easy Bleeding, Easy Bruising, Lymphadenopathy Past Patient History - Infectious Disease Hx of Infectious Diseases: None - Past Medical History & Family History Past Medical History?: Yes - Past Social History Smoking Status: Never Smoked - CARDIAC Hx Cardiac Disorders: Yes Hx Hypertension: Yes Hx Peripheral Vascular Disease: Yes - PULMONARY Hx Respiratory Disorders: Yes Hx Asthma: Yes - NEUROLOGICAL Hx Neurological Disorder: No - HEENT Hx HEENT Problems: No - RENAL Hx Chronic Kidney Disease: No - ENDOCRINE/METABOLIC Hx Endocrine Disorders: No - HEMATOLOGICAL/ONCOLOGICAL Hx Blood Disorders: Yes Hx Cancer: Yes (colorectal CA) - INTEGUMENTARY Hx Dermatological Problems: No - MUSCULOSKELETAL/RHEUMATOLOGICAL Hx Gout: Yes Other/Comment: osteoporosis - GASTROINTESTINAL Other/Comment: Colon CA. H/O Colon resection - GENITOURINARY/GYNECOLOGICAL Hx Genitourinary Disorders: No - PSYCHIATRIC Hx Depression: No Hx Emotional Abuse: No Hx Physical Abuse: No Hx Substance Use: No - SURGICAL HISTORY Other/Comment: colon resection. ileostomy. ureteral stent - ANESTHESIA Hx Anesthesia: Yes Hx Anesthesia Reactions: No Hx Malignant Hyperthermia: No Meds Allergies/Adverse Reactions: Allergies Allergy/AdvReac Type Severity Reaction Status Date / Time latex Allergy skin Verified 12/06/17 19:16 breakdown - Medications Medications: Current Medications Acetaminophen (Tylenol 325mg Tab) 650 mg PO Q4 PRN PRN Reason: Fever >100.4 F Al Hydrox/Mg Hydrox/Simethicone (Maalox Plus 30 Ml) 30 ml PO Q4 PRN PRN Reason: Heartburn Aspirin (Aspirin Chewable) 81 mg PO DAILY [facility] Last Admin: 12/08/17 09:24 Dose: Not Given Atorvastatin Calcium (Lipitor) 40 mg PO HS [facility] Last Admin: 12/07/17 22:21 Dose: 40 mg Calcium/Vitamin D (Oscal-D 250 Mg-125 Units Tab) 2 tab PO DAILY [facility] Last Admin: 12/08/17 09:23 Dose: 2 tab Ferrous Sulfate (Feosol) 324 mg PO DAILY [facility] Last Admin: 12/08/17 09:24 Dose: 324 mg Hydrochlorothiazide (Hydrodiuril) 25 mg PO DAILY [facility] Last Admin: 12/08/17 09:23 Dose: 25 mg Ampicillin Sodium/Sulbactam Sodium (Unasyn) 1 gm in 100 mls @ 100 mls/hr IVPB Q6 [facility] PRN Reason: Protocol Last Admin: 12/08/17 18:50 Dose: 100 mls/hr Losartan Potassium (Cozaar) 100 mg PO DAILY [facility] Last Admin: 12/08/17 09:23 Dose: 100 mg Magnesium Oxide (Mag-Ox) 400 mg PO BID [facility] Last Admin: 12/08/17 17:29 Dose: 400 mg Metoprolol Tartrate (Lopressor) 25 mg PO DAILY [facility] Last Admin: 12/08/17 09:23 Dose: 25 mg Prochlorperazine (Compazine Rectal Supp) 25 mg RC BID PRN PRN Reason: Nausea/Vomiting Silver Sulfadiazine (Silvadene 1% 25 Gm) 1 gm TP BID [facility] Last Admin: 12/08/17 17:30 Dose: 1 gm Warfarin Sodium (Coumadin) 1 mg PO 1800 [facility] PRN Reason: Protocol Last Admin: 12/08/17 17:29 Dose: 1 mg Physical Exam - Constitutional Appears: Non-toxic, No Acute Distress - Head Exam Head Exam: ATRAUMATIC, NORMOCEPHALIC - Eye Exam Eye Exam: Normal appearance - ENT Exam ENT Exam: Mucous Membranes Moist - Respiratory Exam Respiratory Exam: NORMAL BREATHING PATTERN - Cardiovascular Exam Cardiovascular Exam: REGULAR RHYTHM - GI/Abdominal Exam GI & Abdominal Exam: Normal Bowel Sounds, Soft. absent: Distended, Firm, Guarding, Rebound, Tenderness Additional comments: colostomy pink and patent functioning properly surgical wound infraumbilical and midline, separation of wound at 3 locations, depth is ~1cm wound with packing and dressing in place - Extremities Exam Extremities exam: Positive for: normal capillary refill - Back Exam Back exam: absent: CVA tenderness (L), CVA tenderness (R) - Neurological Exam Neurological exam: Alert - Psychiatric Exam Psychiatric exam: Normal Affect, Normal Mood - Skin Skin Exam: Dry, Warm Additional comments: Three Stage 2 sacral ulcers noted: ~2 cm, 1 cm, 0.5 cm in size respectively midline surgical wound with dehiscence Results - Vital Signs Recent Vital Signs: Last Vital Signs Temp 98.4 F 12/08/17 18:00 Pulse 73 12/08/17 18:00 Resp 17 12/08/17 18:00 BP 134/82 12/08/17 18:00 Pulse Ox 99 12/08/17 05:44 - Labs Result Diagrams: 12/08/17 07:30 12/08/17 16:45 Labs: Laboratory Results - last 24 hr 12/07/17 12/08/17 12/08/17 11:10 07:30 09:30 WBC 7.4 RBC 3.36 L Hgb 9.8 L Hct 29.3 L MCV 87.2 MCH 29.2 MCHC 33.4 RDW 16.8 H Plt Count 276 MPV 10.9 Gran % 75.4 H Lymph % (Auto) 12.0 L Bradford % (Auto) 8.2 H Eos % (Auto) 3.9 Baso % (Auto) 0.5 Gran # 5.57 Lymph # (Auto) 0.9 L Bradford # (Auto) 0.6 Eos # (Auto) 0.3 Baso # (Auto) 0.04 Sodium 146 Potassium 2.8 L* D Chloride 114 H Carbon Dioxide 21 Anion Gap 13 BUN 13 Creatinine 0.9 Est GFR ( Amer) > 60 Est GFR (Non-Af Amer) 60 Random Glucose 86 Calcium 7.9 L Phosphorus 2.5 Magnesium 1.6 L Total Bilirubin 1.0 AST 32 ALT 37 Alkaline Phosphatase 146 H Total Protein 5.5 L Albumin 2.5 L Globulin 3.1 Albumin/Globulin Ratio 0.8 L PTH Intact Whole Molec 183 H 12/08/17 16:45 WBC RBC Hgb Hct MCV MCH MCHC RDW Plt Count MPV Gran % Lymph % (Auto) Bradford % (Auto) Eos % (Auto) Baso % (Auto) Gran # Lymph # (Auto) Bradford # (Auto) Eos # (Auto) Baso # (Auto) Sodium Potassium 3.2 L Chloride Carbon Dioxide Anion Gap BUN Creatinine Est GFR ( Amer) Est GFR (Non-Af Amer) Random Glucose Calcium Phosphorus Magnesium Total Bilirubin AST ALT Alkaline Phosphatase Total Protein Albumin Globulin Albumin/Globulin Ratio PTH Intact Whole Molec Assessment & Plan - Assessment and Plan (Free Text) Assessment: 82 F s/p procedure for bowel obstruction at [facility] on 11/19/17 now presents with dehiscence of surgical wound Plan: -Plan for wound vac application - clean with peroxide, daily iodoform packing until then -Drain colostomy frequently and Change appliance PRN, Wound care nurse will bring appliances -Continue IV antibiotics -silvadene and optiform on sacral ulcers -Wound care referral -air mattress, repositioning q2h -No surgical intervention indicated at this time -Discussed with Dr. Edie Bernal PGY2 - Date & Time Date: 12/08/17 Time: 19:00
[2017-12-08 23:33] LABS: PH,URINE 6.5 (4.7-8.0); URINE BILIRUBIN NEGATIVE (NEGATIVE); URINE BLOOD NEGATIVE (NEGATIVE); URINE GLUCOSE (UA) NEGATIVE (NEGATIVE); URINE LEUKOCYTE ESTERASE TRACE Leu/uL (NEGATIVE); URINE PROTEIN TRACE mg/dL (<30 mg/dL); URINE UROBILINOGEN 0.2 E.U./dL (<1 E.U./dL)
[2017-12-08 23:35] LABS: URINE APPEARANCE CLEAR (CLEAR); URINE COLOR YELLOW (YELLOW)
[2017-12-08 23:58] LABS: URINE BACTERIA RARE (NEG); URINE RBC 0 - 2 /hpf (0-2)
[2017-12-09] MEDS: AMPicillin/Sulbactam 1.5gm 1 GM/100 ML BAG IVPB SCH ×3 (00:19→12:33)
[2017-12-09 06:35] LABS: BASO # 0.03 K/mm3 (0.0-2.0); BASO % 0.4 % (0.0-3.0); EOS # 0.4 (0.0-0.7); EOS % 5.4 % (1.5-5.0); GRAN # 5.42 (1.4-6.5); GRAN % 74.5 % (50.0-68.0); HEMOGLOBIN 9.9 g/dL (12.0-16.0); LYMPH # 0.9 (1.2-3.4); LYMPH % 12.7 % (22.0-35.0); MEAN CELL VOLUME 87.1 fl (80.0-105.0); MEAN CORPUSCULAR HGB CONC 33.3 g/dl (31.0-37.0); MEAN PLATELET VOLUME 10.7 fl (7.0-11.0); MONO # 0.5 (0.1-0.6); RBC 3.41 10^6/uL (3.5-6.1); RED CELL DISTRIBUTION WIDTH 16.9 % (11.5-14.5); WHITE BLOOD COUNT 7.3 10^3/ul (4.5-11.0)
[2017-12-09 07:57] LABS: ALB/GLOB RATIO 0.7 (1.1-1.8); ALBUMIN 2.2 g/dL (3.0-4.8); ALT/SGPT 36 U/L (7-56); AST/SGOT 27 U/L (14-36); BLOOD UREA NITROGEN 10 mg/dL (7-21); CALCIUM 7.8 mg/dL (8.4-10.5); GFR AFRICAN-AMERICAN > 60; GFR NON-AFRICAN AMERICAN 60
--- NOTE | 2017-12-09 08:26 | PN ---
Copied To: Guy Guadalupe MD Attending MD: Guy Guadalupe MD. DATE: 12/08/2017 SUBJECTIVE: The patient was seen this Thursday morning in room 275, bed 1, who was sitting comfortably in bed with a visitor at her side. She is awake, alert, clear and in good spirits. Recognizes me, talking nicely. Mental status is sharp at baseline. PHYSICAL EXAMINATION: HEAD AND NECK: Unremarkable. LUNGS: Show good aeration, right and left. HEART: Regular. Not tachycardic. ABDOMEN: Abdominal wound is dressed and being managed by surgical team. ASSESSMENT AND PLAN: Apparently, there has been a mix up with the surgical consult. The family had requested Dr. Irizarry to see the patient. I will pass this word on to the nurse practitioner on the floor and make that correction. We will continue to follow postoperative and follow the lead of the surgical consultants. Guy Guadalupe MD
--- NOTE | 2017-12-09 08:58 | CON ---
Copied To: Romeo Mckeon MD Attending MD: Romeo Mckeon MD DATE: 12/08/2017 GENITOURINARY CONSULTATION CHIEF COMPLAINT: Abdominal pain. HISTORY OF PRESENT ILLNESS: This is an 82-year-old female who had recent surgery for apparent bowel obstruction in [facility]. The patient has had multiple surgeries abdominally and multiple bouts of bowel obstruction. Her underlying diagnosis was colon cancer. She had recent surgery in [place] and is now brought in by her son complaining of bright red blood leaking into the colostomy. There is also question of a wound infection. The patient was feeling lightheaded, had a near-syncopal episode. She was brought in by her family for evaluation and treatment. During the hospitalization, the patient was found to have hydronephrosis and a consultation was requested. The patient reports she has been voiding well. She denies any dysuria, urinary frequency, urgency or gross hematuria. She denies any flank pain or history of kidney stones. consultation was requested regarding hydronephrosis. PAST MEDICAL HISTORY: Significant for colon cancer, multiple small-bowel obstructions and multiple abdominal surgeries, history of asthma, anemia, osteoporosis. MEDICATIONS: Include aspirin, Compazine, Coumadin, Cozaar, iron, HydroDIURIL, Lipitor, Lopressor, Maalox, magnesium oxide, Os-Arron, Silvadene, Tylenol, and Unasyn. ALLERGIES: ALLERGIC TO LATEX. FAMILY HISTORY: Noncontributory for this admission. SOCIAL HISTORY: Denies smoking and denies EtOH use. REVIEW OF SYSTEMS: A 12-point review of systems was obtained. Positive as per the HPI. Other positives include weakness and dizziness, difficulty ambulating. Other systems are negative. PHYSICAL EXAMINATION: GENERAL: The patient is seen in her room. She is awake and alert. She is answering questions. She is in no acute distress. VITAL SIGNS: She is afebrile. Temp was 98.6, pulse of 77, blood pressure 114/64, respirations 19. NECK: Supple. There is no adenopathy. CHEST: Normal inspiratory effort. CARDIAC: Positive S1, S2. There is some trace peripheral edema. ABDOMEN: The patient has an open abdominal wound and has a colostomy which is viable and functioning. There is no apparent tenderness. There is no rebound or guarding. There is no CVA tenderness. EXTREMITIES: There is no cyanosis. There is trace peripheral edema noted. LABORATORY DATA: On laboratory exam, WBC count 7.4, BUN 13, creatinine 0.9 with a GFR of greater than 60. The patient did have a low calcium level yesterday, elevated BNP on 12/06. On radiologic exam, the patient had a CT scan of the abdomen and pelvis which showed there is mural thickening of the small bowel loops on the left side of the abdomen. There is a wound dehiscence and the subcutaneous tissues of the anterior abdominal wall adjacent to the ostomy. There is air fluid collection measuring 11 cm in length x 2.5 cm x 3 cm wide deep to the surgical clips. Bladder was unremarkable, but kidneys and ureters had bilateral hydronephrosis. IMPRESSION AND PLAN: This is an 82-year-old female with recent abdominal surgery for recurrent bowel obstruction. Urologically, the patient has no voiding complaints. Her kidney function is normal with a normal GFR. From the CAT scan report, the patient has bilateral hydronephrosis; however, there is no mention of any obstructing lesion. Although, there is a question of an abdominal abscess cavity noted. Plan for now would be wound care and treatment of any intra-abdominal abscess from General Surgery. It is possible if there is a large abscess cavity, this is pressing on the patient's ureters causing the hydronephrosis and if there is an abscess cavity present, this should be drained. Clinically, the patient is afebrile with normal white count. The wound culture did grow gram-negative rods and gram-positive cocci. I will review the CT results with Radiology regarding the hydronephrosis; however, at this time I would observe this as her kidney function is normal. If there is no obstructing lesion noted, I would plan on repeating a renal ultrasound in a few days to see if the hydronephrosis has resolved. I will discuss possible cystoscopy with retrograde pyelograms and stents if the hydronephrosis progresses or if her renal function is deteriorating. Thank you for allowing me to participate in the care of this patient. We will follow her with you. Romeo Mckeon MD [facility] # [id number]
[2017-12-09] MEDS ORDERED: Magnesium Sulfate 2 gm/50 ml 2 GM/50 ML BAG IVPB ONE (09:15)
[2017-12-09] MEDS: Calcium-Vit D 250 mg-125 Units Tab UD PO SCH (09:34)
[2017-12-09] MEDS: Silver Sulfadiazine 1% Cream (25 gm) TP SCH ×2 (09:36→17:53)
--- NOTE | 2017-12-09 11:03 | CP.PCM.PN ---
Subjective - Date & Time of Evaluation Date of Evaluation: 12/09/17 Time of Evaluation: 09:30 - Subjective Subjective: General Surgery Progress Note for Dr. Irizarry Pt was seen and examined at bedside this AM. No acute events reported overnight. Continues to deny any pain at the midline surgical site, no nausea or vomiting, no fevers. Objective - Vital Signs/Intake and Output Vital Signs (last 24 hours): Temp Pulse Resp BP Pulse Ox 98.5 F 84 18 124/78 100 12/09/17 06:00 12/09/17 09:35 12/09/17 06:00 12/09/17 09:35 12/09/17 00:01 Intake and Output: 12/09/17 12/09/17 06:59 18:59 Intake Total 1340 Output Total 500 Balance 840 - Medications Medications: Current Medications Acetaminophen (Tylenol 325mg Tab) 650 mg PO Q4 PRN PRN Reason: Fever >100.4 F Al Hydrox/Mg Hydrox/Simethicone (Maalox Plus 30 Ml) 30 ml PO Q4 PRN PRN Reason: Heartburn Aspirin (Aspirin Chewable) 81 mg PO DAILY [facility] Last Admin: 12/09/17 09:40 Dose: 81 mg Atorvastatin Calcium (Lipitor) 40 mg PO HS [facility] Last Admin: 12/08/17 22:26 Dose: 40 mg Calcium/Vitamin D (Oscal-D 250 Mg-125 Units Tab) 2 tab PO DAILY [facility] Last Admin: 12/09/17 09:34 Dose: 2 tab Ferrous Sulfate (Feosol) 324 mg PO DAILY [facility] Last Admin: 12/09/17 09:34 Dose: 324 mg Hydrochlorothiazide (Hydrodiuril) 25 mg PO DAILY [facility] Last Admin: 12/09/17 09:34 Dose: 25 mg Ampicillin Sodium/Sulbactam Sodium (Unasyn) 1 gm in 100 mls @ 100 mls/hr IVPB Q6 [facility] PRN Reason: Protocol Last Admin: 12/09/17 05:43 Dose: 100 mls/hr Losartan Potassium (Cozaar) 100 mg PO DAILY [facility] Last Admin: 12/09/17 09:35 Dose: 100 mg Metoprolol Tartrate (Lopressor) 25 mg PO DAILY [facility] Last Admin: 12/09/17 09:35 Dose: 25 mg Prochlorperazine (Compazine Rectal Supp) 25 mg RC BID PRN PRN Reason: Nausea/Vomiting Silver Sulfadiazine (Silvadene 1% 25 Gm) 1 gm TP BID [facility] Last Admin: 12/09/17 09:36 Dose: 1 gm Warfarin Sodium (Coumadin) 1 mg PO 1800 [facility] PRN Reason: Protocol Last Admin: 12/08/17 17:29 Dose: 1 mg - Labs Labs: 12/09/17 06:00 12/09/17 06:45 PT 14.3 SECONDS (9.4-12.5) H 12/06/17 12:50 INR 1.25 (0.93-1.08) H 12/06/17 12:50 APTT 28.7 Seconds (25.1-36.5) 12/06/17 12:50 - Constitutional Appears: Well, No Acute Distress - Head Exam Head Exam: NORMAL INSPECTION - Eye Exam Eye Exam: Normal appearance - Neck Exam Neck Exam: Normal Inspection - Respiratory Exam Respiratory Exam: NORMAL BREATHING PATTERN - Cardiovascular Exam Cardiovascular Exam: RRR - GI/Abdominal Exam GI & Abdominal Exam: Soft, Normal Bowel Sounds. absent: Distended, Firm, Guarding, Tenderness, Rebound Additional comments: colostomy pink and patent functioning properly surgical wound infraumbilical and midline, separation of wound at 3 locations, depth is ~1cm wound with packing and dressing in place; clean, dry, intact - Extremities Exam Extremities Exam: Normal Capillary Refill - Neurological Exam Neurological Exam: Alert, Awake, Oriented x3 - Psychiatric Exam Psychiatric exam: Normal Affect, Normal Mood - Skin Skin Exam: Dry, Warm Additional comments: Three Stage 2 sacral ulcers noted: ~2 cm, 1 cm, 0.5 cm in size respectively Assessment and Plan - Assessment and Plan (Free Text) Assessment: 82 F s/p procedure for bowel obstruction at [facility] on 11/19/17 presenting with dehiscence of midline abdominal surgical wound Plan: -Continue daily iodoform packing; plan for wound vac to midline wound once available -Continue IV antibiotics; ID on board. Will f/u recs -Continue with silvadene and optifoam application on sacral ulcers -Wound care nurse to provide different ostomy appliance for better adhesion to the skin and prevention of spillage into midline wound - d/w Dr. Irizarry, who agrees with management as per above Cr [place]anan, PGY-1
[2017-12-09] MEDS: Magnesium Oxide 400 mg Tab UD PO SCH ×2 (14:53→17:53)
[2017-12-09 17:19] VITALS: RESP 19
[2017-12-09] MEDS: Piperacillin/Tazobact 3.375 gm 100 ML IVPB SCH ×2 (17:54→23:44)
[2017-12-09] MEDS: Linezolid 600 mg in D5W 300 ml 600 MG/300 ML BAG IVPB SCH (21:47)
--- NOTE | 2017-12-09 23:43 | CON ---
Copied To: Jose Packer MD Attending MD: Jose Packer MD. DATE: 12/09/2017 LOCATION: Patient seen right now in 362, bed 1. Patient was in 275, bed 1 and moved to 362. CHIEF COMPLAINT: Abdominal wound infection. HISTORY OF PRESENT ILLNESS: This is an 82-year-old female with history of colon cancer for several years, peripheral vascular disease, and hypertension, multiple bowel obstructions, and coronary artery disease, who had surgery in [place] on 11/19/2017 and now she is presented with abdominal wall dehiscence and cultures were done. Patient has drainage. REVIEW OF SYSTEMS: Reveals patient denies any fevers, any chills, any headaches, or blurred vision. No nausea or vomiting. A 12-point review of systems is performed. PAST MEDICAL HISTORY: Significant for colon cancer, peripheral vascular disease, hypertension, coronary artery disease, bowel obstruction. PAST SURGICAL HISTORY: Significant for Port-A-Cath placement in the left chest. Patient had colon resection and ureteral stent placement, IVC filter placement. ALLERGIES: PATIENT IS ALLERGIC TO LATEX. MEDICATIONS: Reviewed. PHYSICAL EXAMINATION: VITAL SIGNS: Temperature is 98, blood pressure 112/70, respiratory rate 16. HEENT: Unremarkable. NECK: Supple. LUNGS: Decreased breath sounds. HEART: Normal S1, S2. ABDOMEN: Soft, nontender. No rebound or guarding. No masses. The abdominal wound has purulent discharge. It is erythematous and has erythema. LABORATORY DATA: Reveals the patient has white count of 7.3, hemoglobin of 9, platelets of . Coagulation is noted. Chemistries reveals BUN of 10, creatinine of 0.9. Urinalysis is noted. Microbiology is noted. CAT scan is reviewed. ASSESSMENT AND PLAN: This is an 82-year-old female with colon cancer, has had chemotherapy and radiation. Patient is #1 with abdominal wound infection with Escherichia coli and Enterococcus, which is resistant to ampicillin. We will discontinue Unasyn and treat the patient with Zyvox and Zosyn, and local wound care. We will discuss with you. Jose Packer MD
[2017-12-10] MEDS: Piperacillin/Tazobact 3.375 gm 100 ML IVPB SCH ×2 (05:19→11:48)
[2017-12-10 07:28] LABS: ALB/GLOB RATIO 0.7 (1.1-1.8); ALBUMIN 2.2 g/dL (3.0-4.8); ALT/SGPT 31 U/L (7-56); AST/SGOT 31 U/L (14-36); BLOOD UREA NITROGEN 9 mg/dL (7-21); CALCIUM 7.8 mg/dL (8.4-10.5); GFR AFRICAN-AMERICAN > 60; GFR NON-AFRICAN AMERICAN > 60
--- NOTE | 2017-12-10 07:43 | CP.PCM.PN ---
Subjective - Date & Time of Evaluation Date of Evaluation: 12/10/17 Time of Evaluation: 07:00 - Subjective Subjective: General Surgery Progress Note for Dr. Irizarry Patient was seen and examined at bedside this AM. No acute events reported overnight. Patient continues to deny any pain at midline surgical abdominal site , no nausea or vomiting, no fevers. Objective - Vital Signs/Intake and Output Vital Signs (last 24 hours): Temp Pulse Resp BP Pulse Ox 98.1 F 77 19 116/72 98 12/09/17 17:18 12/09/17 17:18 12/09/17 17:18 12/09/17 17:18 12/09/17 17:18 Intake and Output: 12/10/17 12/10/17 06:59 18:59 Intake Total 200 Output Total 300 Balance -100 - Medications Medications: Current Medications Acetaminophen (Tylenol 325mg Tab) 650 mg PO Q4 PRN PRN Reason: Fever >100.4 F Al Hydrox/Mg Hydrox/Simethicone (Maalox Plus 30 Ml) 30 ml PO Q4 PRN PRN Reason: Heartburn Aspirin (Aspirin Chewable) 81 mg PO DAILY [facility] Last Admin: 12/09/17 09:40 Dose: 81 mg Atorvastatin Calcium (Lipitor) 40 mg PO HS [facility] Last Admin: 12/09/17 21:46 Dose: 40 mg Calcium/Vitamin D (Oscal-D 250 Mg-125 Units Tab) 2 tab PO DAILY [facility] Last Admin: 12/09/17 09:34 Dose: 2 tab Ferrous Sulfate (Feosol) 324 mg PO DAILY [facility] Last Admin: 12/09/17 09:34 Dose: 324 mg Hydrochlorothiazide (Hydrodiuril) 25 mg PO DAILY [facility] Last Admin: 12/09/17 09:34 Dose: 25 mg Piperacillin Sod/Tazobactam Sod (Zosyn 3.375 In Ns 100ml) 100 mls @ 200 mls/hr IVPB Q6 ADELINE PRN Reason: Protocol Stop: 12/18/17 18:01 Last Admin: 12/10/17 05:19 Dose: 200 mls/hr Linezolid (Zyvox 600mg/300ml D5w) 600 mg in 300 mls @ 200 mls/hr IVPB Q12 ADELINE PRN Reason: Protocol Stop: 12/18/17 22:01 Last Admin: 12/09/17 21:47 Dose: 200 mls/hr Losartan Potassium (Cozaar) 100 mg PO DAILY [facility] Last Admin: 12/09/17 09:35 Dose: 100 mg Magnesium Oxide (Mag-Ox) 400 mg PO TID [facility] Last Admin: 12/09/17 17:53 Dose: 400 mg Metoprolol Tartrate (Lopressor) 25 mg PO DAILY [facility] Last Admin: 12/09/17 09:35 Dose: 25 mg Prochlorperazine (Compazine Rectal Supp) 25 mg RC BID PRN PRN Reason: Nausea/Vomiting Silver Sulfadiazine (Silvadene 1% 25 Gm) 1 gm TP BID [facility] Last Admin: 12/09/17 17:53 Dose: 1 gm Warfarin Sodium (Coumadin) 1 mg PO 1800 [facility] PRN Reason: Protocol Last Admin: 12/09/17 17:52 Dose: 1 mg - Labs Labs: 12/09/17 06:00 12/10/17 06:00 PT 14.3 SECONDS (9.4-12.5) H 12/06/17 12:50 INR 1.25 (0.93-1.08) H 12/06/17 12:50 APTT 28.7 Seconds (25.1-36.5) 12/06/17 12:50 - Constitutional Appears: Well, No Acute Distress - Head Exam Head Exam: NORMAL INSPECTION - Eye Exam Eye Exam: Normal appearance - Neck Exam Neck Exam: Normal Inspection - Respiratory Exam Respiratory Exam: NORMAL BREATHING PATTERN - Cardiovascular Exam Cardiovascular Exam: RRR - GI/Abdominal Exam GI & Abdominal Exam: Soft, Normal Bowel Sounds. absent: Distended, Firm, Guarding, Tenderness, Rebound Additional comments: colostomy pink and patent functioning properly surgical wound infraumbilical and midline, separation of wound at 3 locations, depth is ~1cm wound with packing and new dressing in place; clean, dry, intact - Extremities Exam Extremities Exam: Normal Capillary Refill - Neurological Exam Neurological Exam: Alert, Awake, Oriented x3 - Psychiatric Exam Psychiatric exam: Normal Affect, Normal Mood - Skin Skin Exam: Dry, Warm Additional comments: Three Stage 2 sacral ulcers noted: ~2 cm, 1 cm, 0.5 cm in size respectively Assessment and Plan - Assessment and Plan (Free Text) Assessment: 82 F s/p procedure for bowel obstruction at [facility] on 11/19/17 presenting with dehiscence of midline abdominal surgical wound Plan: -wound vac applied today - 2 openings 1.5cm x 1cm connected by a bridge adjacent to colostomy. -If changing out the colostomy/wafer, it is ok to place over the wound vac, however, if colostomy leaks or needs change, then wound vac must also be reapplied. -change wound vac in 3 days -f/u with PMD for further wound care -D/C unasyn, start on Zosyn 3.375 gm in NS 100 mL as per ID recs -Continue with silvadene and optifoam application on sacral ulcers -F/U w/ wound care nurse to provide different ostomy appliance for better adhesion to the skin and prevention of spillage into midline wound Case discussed with Dr. Irizarry, who agrees with management as per above Cr Buchanan, PGY-1
[2017-12-10] MEDS: Linezolid 600 mg in D5W 300 ml 600 MG/300 ML BAG IVPB SCH (10:07)
[2017-12-10] MEDS: Magnesium Oxide 400 mg Tab UD PO SCH ×3 (10:07→18:00)
[2017-12-10] MEDS: Calcium-Vit D 250 mg-125 Units Tab UD PO SCH (10:07)
[2017-12-10] MEDS: Silver Sulfadiazine 1% Cream (25 gm) TP SCH (10:10)
--- NOTE | 2017-12-10 10:35 | PN ---
Copied To: Jose Packer MD Attending MD: Jose Packer MD DATE: 12/10/2017 SUBJECTIVE: The patient is in bed in no acute distress, nontoxic. No fevers and chills. OBJECTIVE: VITAL SIGNS: On exam, temperature is 98, blood pressure is 130/70, respiratory rate of 18. HEENT: Examination is unremarkable. NECK: Supple. LUNGS: Have decreased breath sounds. HEART: Normal S1, S2. ABDOMEN: Soft, nontender. DATA: Laboratory examination reveals a white count of 7.3, hemoglobin of 9, platelets of 299. Chemistries are noted. Urinalysis is noted. Microbiology is noted. Abdominal culture is E. coli Enterococcus. Review of orders reveal the patient to be on the linezolid and Zosyn. ASSESSMENT AND PLAN: This is an 82-year-old female with colon cancer, on chemotherapy, radiation and abdominal surgery admitted with abdominal wound dehiscence secondary to Escherichia coli Enterococcus abdominal wall infection and cellulitis and status post debridement, currently on day #2 of Zyvox and Zosyn. Continue with wound care and we will follow with you. Jose Packer MD
--- NOTE | 2017-12-10 14:19 | PN ---
Copied To: Saurav Guadalupe MD Attending MD: Saurav Guadalupe MD DATE: 12/09/2017 DAILY PROGRESS NOTE SUBJECTIVE: The patient is an 82-year-old female with a history of small bowel obstruction. She also has a history of hypertension, colon carcinoma, DVT, ureteral stent placement and ileostomy who was transferred from [facility] in October to her surgeon in [facility] for release of the small bowel obstruction. Afterwards she was in a subacute care facility where she developed anemia, abdominal pain, blood was leaking from area of the ostomy and was transferred to [facility] for further treatment. Here in [facility], the patient underwent transfusion of 1 unit of packed red blood cells. She is O positive type blood and did well. She is being evaluated by Dr. Irizarry for wound care. There is dehiscence of the abdominal wound. She is receiving Unasyn intravenously. The wound culture today has grow out E. coli and enterococcus species. We will be asking Dr. Packer the Infectious Disease specialist keep consult on the case. She has some sacral ulcers that are being treated topically and air mattress has been ordered by the surgical team. Also, they are preparing to place a wound VAC over the abdominal wound. PHYSICAL EXAMINATION: GENERAL: When seen today, she is lying in bed. She is awake, alert and oriented. She is in good spirits. VITAL SIGNS: Her blood pressure is 124/78 and heart rate is 84. LUNGS: Clear anteriorly. HEART: Regular. LABORATORY DATA: Shows white blood cell count to be 7.3, hemoglobin and hematocrit were 9.9 and 29.7. Blood urea nitrogen is 10, creatinine is 0.9, sodium is 147, potassium is 4. Her PT/INR is 1.25. Magnesium is slightly depressed at 1.5 and that is being replaced. ASSESSMENT AND PLAN: So, we are continuing to follow the patient as per Surgery for wound care and IV antibiotics as per ID. Saurav Guadalupe MD
--- NOTE | 2017-12-10 17:48 | HP ---
Copied To: Saurav Guadalupe MD Attending MD: Saurav Guadalupe MD ADMITTING HISTORY AND PHYSICAL HISTORY OF PRESENT ILLNESS: The patient is an 86-year-old female, who was admitted to [facility] in 10/2017 with a small bowel obstruction. She is known to have a history of hypertension, colon carcinoma, status post deep vein thrombosis, ureteral stent placement, ileostomy. She required surgery, but preferred her physician at [facility] in [place], therefore was discharged from [facility], transported over there, underwent surgery. Postoperatively, she was transferred to a subacute rehab facility. At the rehab facility, the patient was informed that she was anemic and needed treatment, therefore the patient's son brought her to [facility] where she is evaluated and admitted. She had complained of weakness, loss of appetite since the surgery and complained of bright red blood leaking from around her ostomy site. ALLERGIES: THE PATIENT IS KNOWN TO HAVE AN ALLERGY TO LATEX. SOCIAL HISTORY: She never smoked. She is a nonalcoholic drinker. MEDICATIONS AT THE TIME OF ADMISSION: Included Hyzaar, metoprolol, warfarin, ferrous sulfate, aspirin, Lipitor, loperamide, MiraLax or milk of magnesia as needed, Compazine rectal suppository as needed, Fleet Enema as needed. Review of systems was otherwise unremarkable. PHYSICAL EXAMINATION: GENERAL: The patient is awake, alert and oriented and pleasant. HEENT: Examination of the Head, eyes, ears, nose and throat is unremarkable. NECK: Supple with no lymphadenopathy. No goiter. LUNGS: Clear to auscultation and percussion. HEART: Regular. ABDOMEN: Shows dehiscence of the abdominal surgical wound. There is bright red blood in the area of the ostomy. Bowel sounds are normal. EXTREMITIES: Free of cyanosis, clubbing or edema. NEUROLOGICAL: She is intact. IMPRESSION AND PLAN: So the patient is admitted, transfusion of packed red blood cells is ordered and evaluation of her wound care by the surgeon, Dr. Irizarry is requested. The patient will be reevaluated in the morning. This concludes the admitting history and physical for Nevaeh Mott. Saurav Guadalupe MD [facility] # [id number]
[2017-12-10] MEDS ORDERED: Piperacillin/Tazobact 3.375 gm 100 ML IVPB SCH (18:00)
[2017-12-10 18:40] VITALS: BP 126/77; PULSE 71; TEMP 98; O2SAT 97
[2017-12-10] MEDS ORDERED: Linezolid 600 mg in D5W 300 ml 600 MG/300 ML BAG IVPB SCH (22:00)
== END 2017-12-10 18:48 | DRG 863 ==
LOC: ED 11:41 → ERH 13:39 → 2RSO 15:39 → 3RNO 12-09 14:48
PROVIDERS: ADMIT Internal Medicine; ATTEND Internal Medicine
PROC: 30233N1 Transfusion of Nonautologous Red Blood Cells into Peripheral Vein, Percutaneous Approach (ICD-10-PCS; 2017-12-06)
PROC: 3E03328 Introduction of Oxazolidinones into Peripheral Vein, Percutaneous Approach (ICD-10-PCS; principal; 2017-12-09)
DX: T81.4XXA Infection following a procedure, initial encounter (principal); T81.31XA Disruption of external operation (surgical) wound, not elsewhere classified, initial encounter; L03.311 Cellulitis of abdominal wall; N13.30 Unspecified hydronephrosis; D64.9 Anemia, unspecified; Z85.048 Personal history of other malignant neoplasm of rectum, rectosigmoid junction, and anus; L89.152 Pressure ulcer of sacral region, stage 2; E87.6 Hypokalemia; B96.20 Unspecified Escherichia coli [E. coli] as the cause of diseases classified elsewhere; B95.2 Enterococcus as the cause of diseases classified elsewhere; I25.10 Atherosclerotic heart disease of native coronary artery without angina pectoris; E78.5 Hyperlipidemia, unspecified; I10 Essential (primary) hypertension; J45.909 Unspecified asthma, uncomplicated; I73.9 Peripheral vascular disease, unspecified; M81.0 Age-related osteoporosis without current pathological fracture; Y83.6 Removal of other organ (partial) (total) as the cause of abnormal reaction of the patient, or of later complication, without mention of misadventure at the time of the procedure; Z74.01 Bed confinement status; Z79.01 Long term (current) use of anticoagulants; Z16.11 Resistance to penicillins; Z93.3 Colostomy status; Z92.21 Personal history of antineoplastic chemotherapy; Z92.3 Personal history of irradiation; Z86.718 Personal history of other venous thrombosis and embolism

== ENCOUNTER 2018-05-06 14:48 | Inpatient (IN) | payer MEDICARE, BC ==
--- NOTE | 2018-05-06 15:24 | ED PDOC ---
Arrival/HPI - General Chief Complaint: Lower Extremity Problem/Injury Time Seen by Provider: 05/06/18 15:12 Historian: Patient - History of Present Illness Narrative History of Present Illness (Text): 05/06/18 15:21 82yo female with pmhx of Anemia, DVT present with complaint of right leg pain and swelling x 5days. Describes pain as soreness. States she was taken off Coumadin 7days ago because it was affecting her breathing. Denies trauma, chest pain, SOB, diaphoresis, focal weakness, recent travel, nausea, vomiting, abdominal pain, any other complaint. Past Medical History - Provider Review Nursing Documentation Reviewed: Yes - Past History Past History: No Previous - Infectious Disease Hx of Infectious Diseases: None - Reproductive Menopause: Yes - Cardiac Hx Cardiac Disorders: Yes Hx Hypertension: Yes Hx Peripheral Vascular Disease: Yes - Pulmonary Hx Respiratory Disorders: Yes Hx Asthma: Yes - Neurological Hx Neurological Disorder: No - HEENT Hx HEENT Disorder: No - Renal Hx Renal Disorder: No - Endocrine/Metabolic Hx Endocrine Disorders: No - Hematological/Oncological Hx Blood Disorders: Yes Hx Cancer: Yes (colorectal CA) - Integumentary Hx Dermatological Disorder: No - Musculoskeletal/Rheumatological Hx Gout: Yes Other/Comment: osteoporosis - Gastrointestinal Other/Comment: Colon CA. H/O Colon resection - Genitourinary/Gynecological Hx Genitourinary Disorders: No - Psychiatric Hx Depression: No Hx Emotional Abuse: No Hx Physical Abuse: No Hx Substance Use: No - Surgical History Other/Comment: colon resection. ileostomy. ureteral stent - Anesthesia Hx Anesthesia: Yes Hx Anesthesia Reactions: No Hx Malignant Hyperthermia: No - Suicidal Assessment Feels Threatened In Home Enviroment: No Family/Social History - Physician Review Nursing Documentation Reviewed: Yes Family/Social History: Unknown Family HX Smoking Status: Never Smoked Hx Alcohol Use: No Hx Substance Use: No Hx Substance Use Treatment: No Allergies/Home Meds Allergies/Adverse Reactions: Allergies latex Allergy (Verified 12/06/17 19:16) skin breakdown Home Medications: Home Meds Medication Instructions Recorded Confirmed Acetaminophen [Tylenol 325mg tab] 650 mg PO Q4 PRN 12/06/17 03/17/18 Losartan/Hydrochlorothiazide 1 tab PO DAILY 03/17/18 03/17/18 [Hyzaar 100-25 Tablet] Oxycodone HCl/Acetaminophen 1 tab PO Q4H PRN 03/17/18 03/17/18 [Percocet 10-325 mg Tablet] Pravastatin Sodium [Pravachol] 10 mg PO DAILY 03/17/18 03/17/18 RX: Fentanyl [Duragesic Patch] 100 mcg TD Q72H PRN 03/17/18 03/17/18 RX: Warfarin [Coumadin] 3 mg PO 1800 03/17/18 03/17/18 Warfarin Sodium [Jantoven] 6 mg PO SUN 03/17/18 03/17/18 Review of Systems - Physician Review All systems were reviewed & negative as marked: Yes - Review of Systems Constitutional: Normal Eyes: Normal ENT: Normal Respiratory: Normal Cardiovascular: Normal Gastrointestinal: Normal Genitourinary Female: Normal Skin: Normal, Other (Right leg pain/swelling) Neurological: Normal Endocrine: Normal Hemo/Lymphatic: Normal Psychiatric: Normal Physical Exam Vital Signs Reviewed: Yes Vital Signs Temp Pulse Resp BP Pulse Ox 05/06/18 15:08 99.3 F 81 18 110/70 98 Temperature: Afebrile Blood Pressure: Normal Pulse: Regular Respiratory Rate: Normal Appearance: Positive for: Well-Appearing, Non-Toxic, Comfortable Pain Distress: None Mental Status: Positive for: Alert and Oriented X 3 - Systems Exam Head: Present: Atraumatic, Normocephalic Pupils: Present: PERRL Extroacular Muscles: Present: EOMI Conjunctiva: Present: Normal Mouth: Present: Moist Mucous Membranes Neck: Present: Normal Range of Motion Respiratory/Chest: Present: Clear to Auscultation, Good Air Exchange. No: Respiratory Distress, Accessory Muscle Use Cardiovascular: Present: Regular Rate and Rhythm, Normal S1, S2. No: Murmurs Abdomen: No: Tenderness, Distention, Peritoneal Signs Back: Present: Normal Inspection Upper Extremity: Present: Normal Inspection. No: Cyanosis, Edema Lower Extremity: Present: Normal Inspection, Edema (3+ from mid thigh to foot), NORMAL PULSES, Normal ROM, Neurovascularly Intact. No: CALF TENDERNESS, Tenderness, Temperature Abnormalties Neurological: Present: GCS=15, CN II-XII Intact, Speech Normal Skin: Present: Warm, Dry, Normal Color, Other (Ulcer wound with clear margin noted on the sacrum). No: Rashes Psychiatric: Present: Alert, Oriented x 3, Normal Insight, Normal Concentration Medical Decision Making ED Course and Treatment: 05/06/18 18:34 82yo female present with complaint of right leg pain/swelling x 5days and nonhealing buttock ulcer. Lab EKG Doppler US Chest xray Reassess Lab was reviewed and INR of 1.26 noted. No leukocytosis. Elevated BUN/Cr was noted, which is new compared to her previous labs. She is anemic and at her baseline. Case was DW Dr. Hernandez and he states he will review pt's chart and order anticoagulant for the pt - RAD Interpretation Radiology Orders: 05/06/18 15:19 DUPLEX LOWER EXTRM VEIN BILAT [US] Stat Disposition/Present on Arrival - Present on Arrival Any Indicators Present on Arrival: No History of DVT/PE: No History of Uncontrolled Diabetes: No Urinary Catheter: No History of Decub. Ulcer: No History Surgical Site Infection Following: None - Disposition Have Diagnosis and Disposition been Completed?: Yes Diagnosis: DVT (deep venous thrombosis), Ulcer, Renal insufficiency, Dehydration Disposition: HOSPITALIZED Disposition Time: 17:20 Patient Plan: Admission Patient Problems: Current Active Problems Problem Status Onset DVT (deep venous thrombosis) Acute Dehydration Acute Renal insufficiency Acute Ulcer Acute Condition: FAIR
[2018-05-06 17:19] LABS: BASO # 0.03 K/mm3 (0.0-2.0); BASO % 0.3 % (0.0-3.0); EOS # 0.2 (0.0-0.7); EOS % 1.8 % (1.5-5.0); GRAN # 7.2 (1.4-6.5); GRAN % 79.1 % (50.0-68.0); HEMOGLOBIN 8.8 g/dL (12.0-16.0); LYMPH % 11.3 % (22.0-35.0); MEAN CELL VOLUME 82.3 fl (80.0-105.0); MEAN CORPUSCULAR HGB CONC 31.5 g/dl (31.0-37.0); MEAN PLATELET VOLUME 11.1 fl (7.0-11.0); MONO # 0.7 (0.1-0.6); MONO % 7.5 % (1.0-6.0); RBC 3.39 10^6/uL (3.5-6.1); RED CELL DISTRIBUTION WIDTH 15.9 % (11.5-14.5); WHITE BLOOD COUNT 9.1 10^3/uL (4.5-11.0)
[2018-05-06 17:28] LABS: INR 1.24; PARTIAL THROMBOPLASTIN TIME 31.3 Seconds (25.1-36.5); PROTHROMBIN TIME 14.2 SECONDS (9.4-12.5)
[2018-05-06 17:30] LABS: ALB/GLOB RATIO 0.8 (1.1-1.8); ALBUMIN 3.3 g/dL (3.0-4.8)
[2018-05-06] MEDS ORDERED: Sodium Chloride 0.9% 1,000 ML IV STA (17:38)
--- NOTE | 2018-05-06 18:30 | RAD ---
Date of service: 05/06/2018 HISTORY: admission COMPARISON: 12/06/2017 FINDINGS: LUNGS: No active pulmonary disease. PLEURA: No significant pleural effusion identified, no pneumothorax apparent. CARDIOVASCULAR: Atherosclerotic calcifications identified primarily aortic arch. Venous access catheter in stable, satisfactory position. No radiographic findings to suggest acute or significant cardiovascular disease. OSSEOUS STRUCTURES: No significant abnormalities. VISUALIZED UPPER ABDOMEN: Normal. OTHER FINDINGS: None. IMPRESSION: No active disease. No significant interval change compared to the prior examination(s).
--- NOTE | 2018-05-06 19:02 | CARD ---
APPROVED REPORT Date of service: 05/06/2018 EKG Measurement Heart [id number] <Conclusion> Normal sinus rhythm Possible lateral infarct, age undetermined Abnormal ECG
[2018-05-07 09:37] VITALS: BMI 19.5
[2018-05-07] MEDS: Oxycodone/Acetaminophen 10/325 mg Tab PO PRN ×2 (09:52→16:28)
[2018-05-07] MEDS: Sodium Chloride 0.9% 1,000 ML IV SCH (09:55)
--- NOTE | 2018-05-07 10:55 | CP.PCM.APN ---
Subjective - Date & Time of Evaluation Date of Evaluation: 05/07/18 Time of Evaluation: 09:55 - Subjective Subjective: Pt seen and examined at bedside. She is in no acute distress. C/O R leg pain. Objective - Vital Signs/Intake and Output Vital Signs (last 24 hours): Temp Pulse Resp BP Pulse Ox 98.6 F 68 20 169/56 H 97 05/07/18 06:00 05/07/18 09:54 05/07/18 06:00 05/07/18 09:54 05/07/18 06:00 - Medications Medications: Current Medications Acetaminophen (Tylenol 325mg Tab) 650 mg PO Q4 PRN PRN Reason: Pain, moderate (4-7) Atorvastatin Calcium (Lipitor) 10 mg PO DAILY [facility] Last Admin: 05/07/18 09:53 Dose: 10 mg Fentanyl (Duragesic) 1 patch TD Q72H [facility] Last Admin: 05/07/18 09:50 Dose: 1 patch Hydrochlorothiazide (Hydrodiuril) 25 mg PO DAILY [facility] Last Admin: 05/07/18 09:54 Dose: 25 mg Sodium Chloride (Sodium Chloride 0.9%) 1,000 mls @ 100 mls/hr IV .Q10H [facility] Last Admin: 05/07/18 09:55 Dose: 100 mls/hr Losartan Potassium (Cozaar) 100 mg PO DAILY [facility] Last Admin: 05/07/18 09:53 Dose: 100 mg Metoprolol Tartrate (Lopressor) 25 mg PO DAILY [facility] Last Admin: 05/07/18 09:54 Dose: 25 mg Oxycodone/Acetaminophen (Percocet 10/325 Mg Tab) 1 tab PO Q4H PRN PRN Reason: Pain, moderate (4-7) Last Admin: 05/07/18 09:52 Dose: 1 tab Warfarin Sodium (Coumadin) 3 mg PO 1800 ADELINE; Protocol Warfarin Sodium (Coumadin) 6 mg PO SUN@1800 ADELINE - Labs Labs: 05/06/18 17:12 05/06/18 17:12 PT 14.2 SECONDS (9.4-12.5) H 05/06/18 17:12 INR 1.24 05/06/18 17:12 APTT 31.3 Seconds (25.1-36.5) 05/06/18 17:12 - Constitutional Appears: Well, No Acute Distress - Head Exam Head Exam: ATRAUMATIC - Eye Exam Eye Exam: Normal appearance - ENT Exam ENT Exam: Normal Exam - Neck Exam Neck Exam: Full ROM - Respiratory Exam Respiratory Exam: Clear to Ausculation Bilateral, NORMAL BREATHING PATTERN - Cardiovascular Exam Cardiovascular Exam: REGULAR RHYTHM, +S1, +S2 - GI/Abdominal Exam GI & Abdominal Exam: Soft, Normal Bowel Sounds Additional comments: +ileostomy - Rectal Exam Rectal Exam: Deferred - Extremities Exam Additional comments: Right lower ext w/ swelling - Neurological Exam Neurological Exam: Alert, Awake, Oriented x3 Assessment and Plan - Assessment and Plan (Free Text) Assessment: pt is an 82 y.o. female with pmhx of Anemia, DVT presented to ED with c/o right leg pain and swelling x 5days. States that she has not been taking her Coumadin for about a week due to hematuria which resolved after she was taken off the Coumadin. She is currently admitted and being evaluated for R leg DVT. Her bun/cr was also found to be elevated compared to prior admission. Plan: On Coumadin Monitor INR Pending venous doppler of gilmar lower ext Started on IVF Trend bun/cr Monitor urine output - per RN, bladder scan is 600ml. Will insert mo and order UA/UCx. strict i/o Pending renal ultrasound Renal and Uro on consult Meds per MAR Physical therapy pending Will continue to follow
--- NOTE | 2018-05-07 12:30 | US ---
Date of service: 05/07/2018 PROCEDURE: Ultrasound of the Kidneys HISTORY: elevated bun/cr COMPARISON: 03/25/2018 CT abdomen and pelvis.. TECHNIQUE: Sonogram of the kidneys. FINDINGS: RIGHT KIDNEY: Measures: 6.4 x 6.5 x 10.9 cm. Normal in size, contour and echogenicity. Moderate-severe hydronephrosis. LEFT KIDNEY: Measures: 6.6 x 8 x 10.7 cm. Normal in size, contour and echogenicity. Severe hydronephrosis. Dilatation of the proximal left ureter also identified. OTHER FINDINGS: None. IMPRESSION: Bilateral hydronephrosis left greater than right (severe). Similar findings identified on recent CT scan.
--- NOTE | 2018-05-07 19:27 | CON ---
DATE OF CONSULTATION: 05/07/2018 The patient is admitted for Dr. Guy Guadalupe. REFERRING PHYSICIAN: Guy Guadalupe MD REASON FOR CONSULTATION: Evaluation of a patient unknown to me, who presents with acute renal failure in the setting of dehydration and possible obstructive uropathy. HISTORY OF PRESENT ILLNESS: The patient is an 82-year-old black female with a long history of hypertension, history of colon cancer, history of multiple small bowel obstructions, status post multiple small bowel surgeries. The patient has a right-sided colostomy, history of ASHD, history of a DVT, status post IVC filter, on chronic anticoagulation, history of anemia, history of left-sided hydronephrosis, evaluated by Dr. Mckeon in the past, status post a left ureteral stent. The patient presents to the emergency room with increasing pain and discomfort in her right leg and in the right buttock area over her developing sacral decubitus. The patient is also complaining of having gross hematuria. Her Coumadin had been stopped by her. The patient presented to the emergency room and the emergency room laboratory work showed a BUN of 75 with a creatinine of 6.7. The patient's baseline back in the summer of this year was a BUN of less than 20 with a creatinine of less than 1. The patient's potassium was 5.4 with a CO2 of 20. Her renal ultrasound showed a severe chronic left-sided hydronephrosis with right-sided hydronephrosis. We are asked to evaluate the patient for her acute renal failure. Pending consults at this time include that of a consult for Dr. Mckeon for her hydronephrosis. PAST MEDICAL HISTORY: Significant for hypertension, history of colon cancer, history of multiple bowel obstructions with abdominal surgery with abdominal wall infection secondary to surgery, history of colostomy. History of ASHD. Past history of atrial fibrillation. History of a DVT with chronic anticoagulation, status post IVC filter. History of anemia. History of right leg edema. History of severe left-sided hydronephrosis, status post left ureteral stent. History of hyperlipidemia. FAMILY HISTORY: Mother and father of reasons unknown to the patient. SOCIAL HISTORY: No history of cigarette smoking. No history of alcohol use. The patient lives at home with her son, who takes care of her. MEDICATIONS AT HOME: Coumadin, Pravachol, Percocet, Lopressor, Hyzaar, Duragesic patch, Tylenol, and Silvadene cream. CURRENT MEDICATIONS IN HOSPITAL: Coumadin, losartan is on hold, Duragesic, HydroDIURIL is on hold, Lipitor, Lopressor, Percocet, normal saline 100 mL an hour, Tylenol p.r.n. ALLERGIES: THE PATIENT IS ALLERGIC TO LATEX. REVIEW OF SYSTEMS: Ten plus systems reviewed with the patient. GENERAL: The patient states decreased appetite with continued weight loss. ENT: Denies any hearing or visual problems. PULMONARY: No shortness of breath. No COPD. No emphysema, bronchitis, or pneumonia. CARDIAC: Past history of atrial fibrillation, history of coronary artery disease remotely. GI: History of rectal pain in the area of her decubitus. No constipation, no diarrhea. No anterior abdominal pain. No nausea or vomiting. : History of hydronephrosis. History of hematuria. UNLOAD ASSOCIATE: Postmenopausal. ENDOCRINE: No history of diabetes. MUSCULOSKELETAL: No complaints. NEURO: No past history of CVA, TIA, seizures, or syncope. HEME/ONC: History of anemia. Onc positive for colon cancer. PSYCHIATRIC: History is negative. PHYSICAL EXAMINATION: GENERAL: The patient is currently seen on 5R. She is comfortable in bed and was complaining of rectal pain and discomfort in her right leg secondary to right leg edema. VITAL SIGNS: Blood pressure 169/56, earlier it was 109/56. Pulse rate 68 and regular. Temperature 98.6. Respiratory rate of 20 with an oxygen saturation of 97% on room air. HEENT: Exam shows her to be normocephalic and atraumatic. Conjunctivae are pale. Sclerae nonicteric. Pupils are equal and reactive to light and accommodation. Extraocular muscles are intact. Posterior pharynx is normal. NECK: Supple. No neck vein distention or thyromegaly. No lymphadenopathy. No bruits. CHEST: Clear to auscultation and percussion. No rales, rhonchi, or wheezing. CARDIOVASCULAR: Regular rate and rhythm with no audible murmurs, rubs, or gallops. ABDOMEN: Positive colostomy. No masses. No tenderness on palpation. No rebound or guarding. BACK: No CVAT. No spinal tenderness. EXTREMITIES: No cyanosis or clubbing. The patient has edema of her right lower extremity. Diminished lower extremity pulses bilaterally. NEURO: Alert and oriented x3 with no gross focal motor or sensory deficits. LABORATORY DATA AND IMAGING: Renal ultrasound done shows bilateral hydronephrosis, left side being severe. This appears to be chronic in nature and unchanged from her past CT scan. EKG shows normal sinus rhythm. Labs: CBC: White blood cell count is 9.1, hemoglobin is 8.8, platelet count is 189,000. Coags showed a PT of 14.2 with an INR of 1.24. Chemistries: On admission, sodium 145, potassium 5.4, chloride 114 with a CO2 of 20, BUN up to 75 with a creatinine of 6.7. Her baseline BUN in the summer was less than 20 with a baseline creatinine of less than 1. Glucose is 134 with a calcium of 9. Liver enzymes are normal. Albumin is 3.3. No urine is available for comment. Microbiology: Cultures of the buttock wound area showed a gram-negative evans. ASSESSMENT: 1. Acute renal failure in a patient with no past history of chronic kidney disease. This is in the setting of bilateral hydronephrosis, left being severe. The patient has a history of a left ureteral stent in the past placed by Dr. Mckeon. The patient, by history, has had decreased oral fluid intake over the last several days, so there is some component of dehydration. The patient is currently receiving IV fluid hydration. Diuretic therapy had been discontinued and her angiotensin receptor florencio had been discontinued. I will check a urine sodium, urine creatinine, urine Lio stain. We will obtain a urinalysis, urine C and S. I am awaiting evaluation by in light of her bilateral hydronephrosis. We will need to monitor urine output carefully. Presently, there is no urine output recorded. 2. History of hypertension. Monitor blood pressure closely. We should use calcium channel blockers if necessary for blood pressure control. The patient can remain on her beta-florencio therapy. We will avoid diuretic therapy and we will avoid angiotensin receptor florencio therapy. 3. History of colon cancer. 4. History of multiple bowel surgeries secondary to obstruction with abdominal wall infections and abscesses. The patient is status post colostomy. This appears to be stable at this point in time. 5. History of arteriosclerotic heart disease with history of paroxysmal atrial fibrillation. The patient is currently in normal sinus rhythm. 6. History of a deep vein thrombosis with an IVC filter, on chronic anticoagulation. Repeat Doppler study of the lower extremities report is pending. 7. History of anemia in part secondary to chronic kidney disease, in part secondary to malignancy. We will check her iron, TIBC, ferritin and supplement accordingly. The patient may be started on Aranesp once cleared by Oncology. 8. Sacral decubitus. Cultures are positive for gram-negative rods. Wound care evaluation and possible antibiotic therapy. PLAN: 1. As discussed with staff on 5R. We will need to restart her IV fluid hydration. 2. Urine sodium, urine creatinine, urine Lio stain, urinalysis, and urine C and S to be sent. 3. Await evaluation for her hydronephrosis. 4. Avoid all nephrotoxic agents. 5. We will temporarily discontinue angiotensin receptor florencio therapy and diuretic therapy. 6. Daily labs. 7. Check magnesium and phosphorus levels. 8. Renal diet until BUN and creatinine return to normal once the patient starts oral intake. Thank you for letting me partake and share in the care of your patient. Nikunj Soliman MD
--- NOTE | 2018-05-07 22:59 | CP.PCM.CON ---
History of Present Illness - History of Present Illness History of Present Illness: General surgery consult note for Dr. Mcmahan Consulted for Decubitus ulcer Patient is a 82 yrold female with PMH afib, HTN, HLD, DVT on Warfarin, Colon canc er s/p colectomy and end colostomy, sacral decubitus ulcer and neuropathy admitted to [facility] for RLE DVT. Surgery was consulted for evaluation of sacral decubitus ulcer. Patient and family states ulcer has been present for some time and has been better as well as worse in the past. Patient endorses pain with movement. Patient and family confirm that patient is largely bedbound due to neuropathy and generalized weakness in her legs. Patient otherwise denies any ALVAREZ, f/c, CP, SOB, abdominal pain, n/v, stool changes, ostomy pain/bleeding and dysuria. PMH: colon cancer s/p resection x2 with end colostomy in 2010, chemo and radiation, neuropathy, DVT on warfarin, HTN, HLD PSH: colectomy with end colostomy, IVC filter, port placement Medications: Coumadin, HCTZ, Lipitor, Losartan, Metoprolol Allergies: NKDA Family Hx: unknown Social: denies tobacco/EtOH/illicit drug use. Son is her tube sorter. Review of Systems - Review of Systems All systems: reviewed and no additional remarkable complaints except (as per HPI) Past Patient History - Infectious Disease Hx of Infectious Diseases: None - Past Medical History & Family History Past Medical History?: Yes - Past Social History Smoking Status: Never Smoked - CARDIAC Hx Cardiac Disorders: Yes Hx Hypertension: Yes Hx Peripheral Vascular Disease: Yes - PULMONARY Hx Respiratory Disorders: Yes Hx Asthma: Yes - NEUROLOGICAL Hx Neurological Disorder: No - HEENT Hx HEENT Problems: No - RENAL Hx Chronic Kidney Disease: No - ENDOCRINE/METABOLIC Hx Endocrine Disorders: No - HEMATOLOGICAL/ONCOLOGICAL Hx Blood Disorders: Yes Hx Cancer: Yes (colorectal CA) - INTEGUMENTARY Hx Dermatological Problems: No - MUSCULOSKELETAL/RHEUMATOLOGICAL Hx Falls: No Hx Gout: Yes Other/Comment: osteoporosis - GASTROINTESTINAL Other/Comment: Colon CA. H/O Colon resection - GENITOURINARY/GYNECOLOGICAL Hx Genitourinary Disorders: No - PSYCHIATRIC Hx Depression: No Hx Emotional Abuse: No Hx Physical Abuse: No Hx Substance Use: No - SURGICAL HISTORY Other/Comment: colon resection. ileostomy. ureteral stent - ANESTHESIA Hx Anesthesia: Yes Hx Anesthesia Reactions: No Hx Malignant Hyperthermia: No Meds Allergies/Adverse Reactions: Allergies Allergy/AdvReac Type Severity Reaction Status Date / Time latex Allergy skin Verified 12/06/17 19:16 breakdown - Medications Medications: Current Medications Acetaminophen (Tylenol 325mg Tab) 650 mg PO Q4 PRN PRN Reason: Pain, moderate (4-7) Atorvastatin Calcium (Lipitor) 10 mg PO DAILY [facility] Last Admin: 05/07/18 09:53 Dose: 10 mg Fentanyl (Duragesic) 1 patch TD Q72H [facility] Last Admin: 05/07/18 09:50 Dose: 1 patch Hydrochlorothiazide (Hydrodiuril) 25 mg PO DAILY [facility] Last Admin: 05/07/18 09:54 Dose: 25 mg Sodium Chloride (Sodium Chloride 0.9%) 1,000 mls @ 100 mls/hr IV .Q10H [facility] Last Admin: 05/07/18 09:55 Dose: 100 mls/hr Losartan Potassium (Cozaar) 100 mg PO DAILY [facility] Last Admin: 05/07/18 09:53 Dose: 100 mg Metoprolol Tartrate (Lopressor) 25 mg PO DAILY [facility] Last Admin: 05/07/18 09:54 Dose: 25 mg Oxycodone/Acetaminophen (Percocet 10/325 Mg Tab) 1 tab PO Q4H PRN PRN Reason: Pain, moderate (4-7) Last Admin: 05/07/18 16:28 Dose: 1 tab Silver Sulfadiazine (Silvadene 1% 25 Gm) 1 gm TP DAILY [facility] Warfarin Sodium (Coumadin) 3 mg PO 1800 [facility]; Protocol Last Admin: 05/07/18 17:39 Dose: 3 mg Warfarin Sodium (Coumadin) 6 mg PO SUN@1800 [facility] Physical Exam - Constitutional Appears: Well, Non-toxic, No Acute Distress, Cachectic, Chronically Ill - Head Exam Head Exam: ATRAUMATIC, NORMOCEPHALIC - Eye Exam Eye Exam: EOMI - ENT Exam ENT Exam: Mucous Membranes Moist - Respiratory Exam Respiratory Exam: NORMAL BREATHING PATTERN - Cardiovascular Exam Cardiovascular Exam: REGULAR RHYTHM - GI/Abdominal Exam GI & Abdominal Exam: Soft. absent: Distended, Guarding, Tenderness Additional comments: ostomy site pink patent and productive with no signs of ischemia, infection or bleeding. Ostomy appliance is in position without any leaks, large midline incisional scare noted, well healed. - Extremities Exam Extremities exam: Positive for: calf tenderness (right), pedal edema (right), tenderness (right), pedal pulses present - Neurological Exam Neurological exam: Alert, Oriented x3 - Psychiatric Exam Psychiatric exam: Normal Affect, Normal Mood - Skin Skin Exam: Warm Additional comments: stage 3 sacral ulcer measuring approximately 4 cm x3 cm with surrounding area of darkening skin changes 12 cm x 11cm, no purulent drainage foul smell or crepitus on exam Results - Vital Signs Recent Vital Signs: Last Vital Signs Temp 98.1 F 05/07/18 22:00 Pulse 60 05/07/18 22:00 Resp 15 05/07/18 22:00 BP 124/76 05/07/18 22:00 Pulse Ox 97 05/07/18 22:00 - Labs Result Diagrams: 05/06/18 17:12 05/06/18 17:12 Assessment & Plan - Assessment and Plan (Free Text) Assessment: 82 F with Chronic stage 3 sacral ulcer Plan: pain control per primary team air mattress to be obtained by nurse please optifoam dressing change daily silvidene cream BID turn patient q2 hours offloading wedge agree with wound care nurse consult DVT treatment per primary team MARINA and hydronephrosis treatment per nephrology and urology recs no surgical intervention at this time will discuss with Dr. Mcmahan, further recs per him Tamanna Salinas, PGY 1 - Date & Time Date: 05/07/18 Time: 21:10
--- NOTE | 2018-05-07 22:59 | US ---
HISTORY: Leg pain and swelling. Evaluate for DVT PHYSICIAN(S): Hilario Anand MD. TECHNIQUE: Duplex sonography and color-flow Doppler with graded compression were used to evaluate the deep venous systems of both lower extremities. FINDINGS: There is echogenic occlusive thrombus in the right mid to distal femoral vein. The right popliteal vein and right common femoral vein are patent and compressible. There is no sonographic evidence for deep venous thrombosis in the visualized segments of left lower extremity IMPRESSION: Subacute/chronic thrombus in the right mid to distal femoral vein
[2018-05-08 00:39] LABS: URINE BILIRUBIN NEGATIVE (NEGATIVE); URINE BLOOD LARGE (NEGATIVE); URINE GLUCOSE (UA) NEGATIVE (NEGATIVE); URINE LEUKOCYTE ESTERASE MODERATE Leu/uL (NEGATIVE); URINE PROTEIN 100 mg/dL (<30 mg/dL); URINE UROBILINOGEN 0.2 E.U./dL (<1 E.U./dL)
[2018-05-08 00:51] LABS: URINE APPEARANCE CLOUDY (CLEAR); URINE COLOR YELLOW (YELLOW)
[2018-05-08 00:53] LABS: URINE RBC 25 - 30 /hpf (0-2)
[2018-05-08 00:54] LABS: URINE AMORPHOUS SEDIMENT MANY /hpf; URINE BACTERIA MOD /hpf
--- NOTE | 2018-05-08 01:41 | CP.PCM.PN ---
Subjective - Date & Time of Evaluation Date of Evaluation: 05/08/18 Time of Evaluation: 01:40 - Subjective Subjective: It was requested to insert a heparn lock. # 22 angiocath was inserted in left forearm distal posterior aspect. Objective - Vital Signs/Intake and Output Vital Signs (last 24 hours): Temp Pulse Resp BP Pulse Ox 98.1 F 60 15 124/76 97 05/07/18 22:00 05/07/18 22:00 05/07/18 22:00 05/07/18 22:00 05/07/18 22:00 Intake and Output: 05/07/18 05/08/18 18:59 06:59 Output Total 0 Balance 0 - Medications Medications: Current Medications Acetaminophen (Tylenol 325mg Tab) 650 mg PO Q4 PRN PRN Reason: Pain, moderate (4-7) Atorvastatin Calcium (Lipitor) 10 mg PO DAILY [facility] Last Admin: 05/07/18 09:53 Dose: 10 mg Fentanyl (Duragesic) 1 patch TD Q72H [facility] Last Admin: 05/07/18 09:50 Dose: 1 patch Hydrochlorothiazide (Hydrodiuril) 25 mg PO DAILY [facility] Last Admin: 05/07/18 09:54 Dose: 25 mg Sodium Chloride (Sodium Chloride 0.9%) 1,000 mls @ 100 mls/hr IV .Q10H [facility] Last Admin: 05/07/18 09:55 Dose: 100 mls/hr Losartan Potassium (Cozaar) 100 mg PO DAILY [facility] Last Admin: 05/07/18 09:53 Dose: 100 mg Metoprolol Tartrate (Lopressor) 25 mg PO DAILY [facility] Last Admin: 05/07/18 09:54 Dose: 25 mg Oxycodone/Acetaminophen (Percocet 10/325 Mg Tab) 1 tab PO Q4H PRN PRN Reason: Pain, moderate (4-7) Last Admin: 05/07/18 16:28 Dose: 1 tab Silver Sulfadiazine (Silvadene 1% 25 Gm) 1 gm TP DAILY [facility] Warfarin Sodium (Coumadin) 3 mg PO 1800 [facility]; Protocol Last Admin: 05/07/18 17:39 Dose: 3 mg Warfarin Sodium (Coumadin) 6 mg PO SUN@1800 [facility] - Labs Labs: 05/06/18 17:12 05/06/18 17:12 PT 14.2 SECONDS (9.4-12.5) H 05/06/18 17:12 INR 1.24 05/06/18 17:12 APTT 31.3 Seconds (25.1-36.5) 05/06/18 17:12
[2018-05-08] MEDS: Silver Sulfadiazine 1% Cream (25 gm) TP SCH (10:00)
[2018-05-08 11:36] LABS: BASO # 0.03 K/mm3 (0.0-2.0); BASO % 0.3 % (0.0-3.0); EOS # 0.7 (0.0-0.7); EOS % 7.2 % (1.5-5.0); GRAN # 6.1 (1.4-6.5); GRAN % 66.8 % (50.0-68.0); HEMOGLOBIN 8.7 g/dL (12.0-16.0); LYMPH # 1.7 (1.2-3.4); MEAN CELL VOLUME 81.9 fl (80.0-105.0); MEAN CORPUSCULAR HEMOGLOBIN 26.2 pg (25.0-35.0); MEAN PLATELET VOLUME 11.1 fl (7.0-11.0); MONO # 0.6 (0.1-0.6); MONO % 6.7 % (1.0-6.0); RBC 3.32 10^6/uL (3.5-6.1); RED CELL DISTRIBUTION WIDTH 15.8 % (11.5-14.5); WHITE BLOOD COUNT 9.1 10^3/uL (4.5-11.0)
[2018-05-08 11:37] LABS: IRON 63 ug/dL (45-180)
[2018-05-08 11:47] LABS: % IRON SATURATION 33 % (20-55); TOTAL IRON BINDING CAPACITY 191 ug/dL (265-497)
[2018-05-08 11:58] LABS: ALB/GLOB RATIO 0.8 (1.1-1.8); ALBUMIN 3.1 g/dL (3.0-4.8); CALCIUM 8.1 mg/dL (8.4-10.5)
--- NOTE | 2018-05-08 13:46 | PN ---
DATE: 05/08/2018 SUBJECTIVE: Patient was seen this Thursday morning in 578, bed 1. She was getting washed , so she was turned and I was able to see her sacral decubitus, which is an opened inverted U shaped wound area with a flap in her tract with some surrounding erythema. Wound care management was discussed with Dr. Mcmahan, covering for Dr. Irizarry. PHYSICAL EXAMINATION GENERAL: Patient is awake, alert, clear. LUNGS: Shows good aeration right and left. HEART: Regular, not tachycardiac. EXTREMITIES: Right leg was markedly edematous. IMPRESSION: 1. Deep venous thrombosis. 2. Elevated BUN and creatinine (chronic) with a history of dilated hydroureter and some urinary retention followed by local urologist as well as her main physicians in [place]. PLAN: Labs are still pending. His morning labs were not drawn yesterday and today because of difficulty with ruby-puncture. I asked the nurses to call the surgical coder or surgeons on the case to better access venous route for phlebotomy and testing. Patient remains on p.o. Coumadin. We will follow closely and will talk with her son later today. Guy Guadalupe MD MTDD
--- NOTE | 2018-05-08 14:37 | HP ---
DATE OF EXAM: 05/08/2018 HISTORY OF PRESENT ILLNESS: The patient is an 82-year-old female who presents to the emergency room with swelling of the right lower extremity. There she was found to have a DVT in the right lower extremity. She is therefore admitted. The patient is known to have a history of DVT, was supposed to have been taking Coumadin; however, on her own discontinued this medications several days ago. She felt that it was causing some adverse side effect. Few days after doing that she noticed the leg to begin to swell. She also has a history of hypertension, colon carcinoma, she had a ureteral stent placement for hydronephrosis. She is status post ileostomy placement for her colon carcinoma. She is a nonsmoker, nonalcoholic drinker and KNOWN TO BE ALLERGIC TO LATEX. MEDICATIONS: At the time of admission included warfarin 3 mg daily, but 6 mg to be taken on Thursday with which the patient has been noncompliant as mentioned above. She is also on Pravachol 10 mg daily, Percocet 10/325 every 4 hours as needed, metoprolol 25 mg daily, losartan/hydrochlorothiazide 100/25 daily and Duragesic patches 100 mcg every 3 days. She also has Silvadene dressing on a sacral decubitus. PHYSICAL EXAMINATION: GENERAL: The patient is awake, alert and oriented and she is in good spirits. HEAD, EYES, EARS, NOSE AND THROAT: Unremarkable. NECK: Supple with no lymphadenopathy. No goiter. LUNGS: Clear to auscultation and percussion. HEART: Regular. No murmurs appreciated. ABDOMEN: Soft and nontender. Ileostomy is in place. EXTREMITIES: Show swelling of the right lower extremity as described above. NEUROLOGICALLY: She is awake, alert and oriented with no focal neurological signs. LABORATORY DATA: Show the white blood cell count to be normal at 9.1, hemoglobin and hematocrit are 8.8 and 27.9 respectively and platelet count is 189. Sodium is 145, potassium 5.4, chloride is 114, blood urea nitrogen is elevated at 75, and creatinine is 6.7. This is higher than usual baseline for this patient. Glucose is 134. The patient is admitted with acute renal failure, hydronephrosis, decubitus ulcer and deep vein thrombosis. Consultation is requested of Dr. Soliman, the vaccines solutions specialist; Dr. Mckeon, the urologist; Dr. Irizarry, the surgeon for her decubitus ulcer. The patient will be reevaluated in the morning. Saurav Guadalupe MD
--- NOTE | 2018-05-08 21:19 | CP.PCM.PN ---
Subjective - Date & Time of Evaluation Date of Evaluation: 05/08/18 Time of Evaluation: 11:00 - Subjective Subjective: Patient w/ pmh of afib, HTN, HLD, DVT on Warfarin, Colon canc er s/p colectomy and end colostomy, sacral decubitus ulcer, chronic L hydronephrosis s/p stent, admitted w/ R DVT and acute renal failure; Patient refusing labs earlier today; counseled at length about urgency to assess her renal function and electrolytes; nursing staff having difficulty placing mo despite multiple attempts; Objective - Vital Signs/Intake and Output Vital Signs (last 24 hours): Temp Pulse Resp BP Pulse Ox 98.2 F 65 16 108/61 100 05/08/18 17:01 05/08/18 17:01 05/08/18 17:01 05/08/18 17:01 05/08/18 17:01 Intake and Output: 05/08/18 05/09/18 18:59 06:59 Intake Total 480 Output Total 400 Balance 80 - Medications Medications: Current Medications Acetaminophen (Tylenol 325mg Tab) 650 mg PO Q4 PRN PRN Reason: Pain, moderate (4-7) Atorvastatin Calcium (Lipitor) 10 mg PO DAILY [facility] Last Admin: 05/08/18 10:20 Dose: 10 mg Fentanyl (Duragesic) 1 patch TD Q72H [facility] Last Admin: 05/07/18 09:50 Dose: 1 patch Hydrochlorothiazide (Hydrodiuril) 25 mg PO DAILY [facility] Last Admin: 05/07/18 09:54 Dose: 25 mg Sodium Chloride (Sodium Chloride 0.9%) 1,000 mls @ 100 mls/hr IV .Q10H [facility] Last Admin: 05/07/18 09:55 Dose: 100 mls/hr Losartan Potassium (Cozaar) 100 mg PO DAILY [facility] Last Admin: 05/07/18 09:53 Dose: 100 mg Metoprolol Tartrate (Lopressor) 25 mg PO DAILY [facility] Last Admin: 05/08/18 10:20 Dose: 25 mg Oxycodone/Acetaminophen (Percocet 10/325 Mg Tab) 1 tab PO Q4H PRN PRN Reason: Pain, moderate (4-7) Last Admin: 05/07/18 16:28 Dose: 1 tab Silver Sulfadiazine (Silvadene 1% 25 Gm) 1 gm TP DAILY [facility] Last Admin: 12/29/18 10:00 Dose: 1 gm Warfarin Sodium (Coumadin) 3 mg PO 1800 [facility]; Protocol Last Admin: 05/08/18 17:53 Dose: 3 mg Warfarin Sodium (Coumadin) 6 mg PO SUN@1800 [facility] - Labs Labs: 05/08/18 11:00 05/08/18 11:00 PT 14.2 SECONDS (9.4-12.5) H 05/06/18 17:12 INR 1.24 05/06/18 17:12 APTT 31.3 Seconds (25.1-36.5) 05/06/18 17:12 - Constitutional Appears: Non-toxic, No Acute Distress - Eye Exam Eye Exam: Normal appearance - Respiratory Exam Respiratory Exam: Clear to Ausculation Bilateral. absent: Respiratory Distress - Cardiovascular Exam Cardiovascular Exam: RRR, +S1, +S2. absent: Gallop, Rubs - GI/Abdominal Exam GI & Abdominal Exam: Soft. absent: Distended, Tenderness - Extremities Exam Additional comments: mild lower leg edema; - Neurological Exam Neurological Exam: Alert, Awake - Psychiatric Exam Psychiatric exam: Normal Mood. absent: Agitated - Skin Skin Exam: Warm. absent: Cyanosis Assessment and Plan (1) Acute renal failure Assessment & Plan: With bilateral severe hydronephrosis; L hydronephrosis/hyroureter chronic at this point; now appears to have bladder outlet obstruction; mo finally placed this evening, will monitor urine output closely; otherwise, repeat labs today shows hyperkalemia resolved; still moderate metabolic acidosis; stable volume/respiratory status; no urgent indication for initiating dialysis at this time; -starting IVF w/ NS at 100 cc/hr; -avoid nephrotoxic agents; -low K diet; -labs in am; -will discuss with urology if no improvement in renal function; Status: Acute (2) HTN (hypertension) Assessment & Plan: Currently normotensive; agree with holding diuretics and ARB; Status: Chronic (3) Bilateral hydronephrosis Status: Acute (4) Hyperkalemia Status: Acute
[2018-05-09] MEDS ORDERED: Lidocaine/Prilocaine 2.5%-2.5% Cream (5 gm) TOP ONE (03:22)
[2018-05-09] MEDS: Sodium Chloride 0.9% 1,000 ML IV SCH (03:25)
[2018-05-09] MEDS: Oxycodone/Acetaminophen 10/325 mg Tab PO PRN ×2 (05:22→13:47)
--- NOTE | 2018-05-09 08:01 | CP.PCM.PN ---
Subjective - Date & Time of Evaluation Date of Evaluation: 05/09/18 Time of Evaluation: 06:30 - Subjective Subjective: Patient seen and examined. No acute events over night. Denies fever/chills. Objective - Vital Signs/Intake and Output Vital Signs (last 24 hours): Temp Pulse Resp BP Pulse Ox 98.3 F 76 20 116/68 93 L 05/08/18 22:53 05/08/18 22:53 05/08/18 22:53 05/08/18 22:53 05/08/18 22:53 Intake and Output: 05/09/18 05/09/18 06:59 18:59 Output Total 400 Balance -400 - Medications Medications: Current Medications Acetaminophen (Tylenol 325mg Tab) 650 mg PO Q4 PRN PRN Reason: Pain, moderate (4-7) Atorvastatin Calcium (Lipitor) 10 mg PO DAILY [facility] Last Admin: 05/08/18 10:20 Dose: 10 mg Fentanyl (Duragesic) 1 patch TD Q72H [facility] Last Admin: 05/07/18 09:50 Dose: 1 patch Hydrochlorothiazide (Hydrodiuril) 25 mg PO DAILY [facility] Last Admin: 05/07/18 09:54 Dose: 25 mg Sodium Chloride (Sodium Chloride 0.9%) 1,000 mls @ 100 mls/hr IV .Q10H [facility] Last Admin: 05/09/18 03:25 Dose: 100 mls/hr Losartan Potassium (Cozaar) 100 mg PO DAILY [facility] Last Admin: 05/07/18 09:53 Dose: 100 mg Metoprolol Tartrate (Lopressor) 25 mg PO DAILY [facility] Last Admin: 05/08/18 10:20 Dose: 25 mg Oxycodone/Acetaminophen (Percocet 10/325 Mg Tab) 1 tab PO Q4H PRN PRN Reason: Pain, moderate (4-7) Last Admin: 05/09/18 05:22 Dose: 1 tab Silver Sulfadiazine (Silvadene 1% 25 Gm) 1 gm TP DAILY [facility] Last Admin: 05/08/18 10:00 Dose: 1 gm Warfarin Sodium (Coumadin) 3 mg PO 1800 [facility]; Protocol Last Admin: 05/08/18 17:53 Dose: 3 mg Warfarin Sodium (Coumadin) 6 mg PO SUN@1800 [facility] - Labs Labs: 05/08/18 11:00 05/08/18 11:00 PT 14.2 SECONDS (9.4-12.5) H 05/06/18 17:12 INR 1.24 05/06/18 17:12 APTT 31.3 Seconds (25.1-36.5) 05/06/18 17:12 - Constitutional Appears: No Acute Distress - Head Exam Head Exam: NORMOCEPHALIC - Eye Exam Eye Exam: EOMI, Normal appearance - ENT Exam ENT Exam: Mucous Membranes Moist - Respiratory Exam Respiratory Exam: NORMAL BREATHING PATTERN - GI/Abdominal Exam GI & Abdominal Exam: Soft Additional comments: Working ostomy - Neurological Exam Neurological Exam: Alert, Awake, Oriented x3 - Psychiatric Exam Psychiatric exam: Normal Mood - Skin Skin Exam: Dry, Intact, Warm Assessment and Plan - Assessment and Plan (Free Text) Assessment: 82F with sacral decubitus ulcer Plan: -C/w local wound care, daily dressing changes -F/u CT Abd & Pelvis for evaluation of ulcer -Further recs based on imaging findings D/w Dr. Martir Corral PGY3
[2018-05-09 09:02] LABS: HEMOGLOBIN 8.2 g/dL (12.0-16.0); MEAN CORPUSCULAR HEMOGLOBIN 26.8 pg (25.0-35.0); MEAN CORPUSCULAR HGB CONC 32.7 g/dl (31.0-37.0); MEAN PLATELET VOLUME 11.3 fl (7.0-11.0); RBC 3.06 10^6/uL (3.5-6.1); RED CELL DISTRIBUTION WIDTH 15.8 % (11.5-14.5); WHITE BLOOD COUNT 8.3 10^3/uL (4.5-11.0)
[2018-05-09 09:44] LABS: ALB/GLOB RATIO 0.7 (1.1-1.8); ALBUMIN 2.8 g/dL (3.0-4.8); CALCIUM 7.8 mg/dL (8.4-10.5)
[2018-05-09] MEDS: Silver Sulfadiazine 1% Cream (25 gm) TP SCH (10:27)
[2018-05-09] MEDS ORDERED: Iohexol 240 (50 ml) ONE (11:06)
[2018-05-09] MEDS ORDERED: Iohexol 350 MG/100 ML VIAL ONE (11:06)
[2018-05-09 11:40] LABS: INR 1.67; PROTHROMBIN TIME 19.4 SECONDS (9.4-12.5)
--- NOTE | 2018-05-09 14:42 | CT ---
Date of service: 05/09/2018 PROCEDURE: CT Abdomen and Pelvis without intravenous contrast HISTORY: sacral decubitus assessment COMPARISON: CT scan of the abdomen pelvis dated 03/25/2018. TECHNIQUE: Contiguous images were obtained from the domes of the diaphragms to the upper thighs without the administration of intravenous contrast. Oral contrast was administered. Radiation dose: Total exam DLP = 529.79 mGy-cm. This CT exam was performed using one or more of the following dose reduction techniques: Automated exposure control, adjustment of the mA and/or kV according to patient size, and/or use of iterative reconstruction technique. FINDINGS: LOWER THORAX: Cardiomegaly. Coronary arterial and valvular calcifications. No focal consolidation or pleural effusion. LIVER: Unremarkable. No gross lesion or ductal dilatation. GALLBLADDER AND BILE DUCTS: Unremarkable. PANCREAS: Unremarkable. No gross lesion or ductal dilatation. SPLEEN: Unremarkable. ADRENALS: Unremarkable. No mass. KIDNEYS AND URETERS: Severe bilateral hydroureteronephrosis. No solid mass. VASCULATURE: Aortic atherosclerotic calcifications. Inferior vena cava filter present. BOWEL: Left lower quadrant colostomy. No obstruction. No gross mural thickening. APPENDIX: No findings to suggest acute appendicitis. PERITONEUM: Unremarkable. No free fluid. No free air. LYMPH NODES: Unremarkable. No enlarged lymph nodes. BLADDER: Distended with air around a [facility] catheter. REPRODUCTIVE: Limited assessment. BONES: Heterogeneous bones. Chronic compression deformity of L2. Grade 2 anterolisthesis of L4 on L5. OTHER FINDINGS: Small sacral decubitus ulcer without extension to underlying bone. Anasarca. IMPRESSION: Markedly limited examination in the absence of intravenous contrast. Severe bilateral hydroureteronephrosis, new on the right. No obstructive uropathy identified. Small sacral decubitus ulcer without extension turned line bone. Anasarca. Additional stable findings as above.
[2018-05-09] MEDS ORDERED: Magnesium Sulfate 1 gm in D5W 1 GM/100 ML BAG IVPB ONE (15:44)
--- NOTE | 2018-05-09 19:54 | PN ---
DATE: 05/09/2018 SUBJECTIVE: The patient was seen this Thursday morning in room 578, bed 1. Resting comfortably in bed. She is in good spirits. Awake, alert and clear. PHYSICAL EXAMINATION HEAD AND NECK: Essentially unremarkable except for chronic changes related to advanced age with some temporal muscle wasting. Mucous membranes are moist. NECK: Supple without masses. LUNGS: Showed good aeration, right and left. HEART: Regular. Not tachycardic. ABDOMEN: Soft. Colostomy in place. EXTREMITIES: Right leg was still edematous, but has decreased substantially. Portion of the blood was able to been drawn today through the port. LABORATORY DATA: Her INR was approaching therapeutic range at 1.67. Chemistry showed a BUN and creatinine of 77 and 7.2 respectively. H and H had dropped a little bit to 8.2 and 25.1. IMPRESSION AND PLAN: Later on the day, I spoke with the sewer maintenance supervisor. The patient is being considered for stent placement in the ureter tomorrow with an urologist, Dr. Mckeon and view the bilateral hydronephrosis. I will talk to the patient's son later today and we will go from there. We will continue Coumadin in the meantime for deep venous thrombosis. Monitor her H and H and she has a history of anemia in the past. Guy Guadalupe MD
--- NOTE | 2018-05-09 22:29 | CP.PCM.PN ---
Subjective - Date & Time of Evaluation Date of Evaluation: 05/09/18 Time of Evaluation: 10:00 - Subjective Subjective: Providing nephrology coverage for Dr. Soliman: Patient w/ pmh of afib, HTN, HLD, DVT on Warfarin, Colon canc er s/p colectomy and end colostomy, sacral decubitus ulcer, chronic L hydronephrosis s/p stent, admitted w/ R DVT and acute renal failure; Tolerating diet; denies any shortness of breath; no vomiting/diarrhea; port-a-cath now being accessed, IVF only started early this morning; mo placed yesterday evening by urology, some blood clots present; Objective - Vital Signs/Intake and Output Vital Signs (last 24 hours): Temp Pulse Resp BP Pulse Ox 98.5 F 64 20 90/52 L 100 05/09/18 21:39 05/09/18 21:39 05/09/18 21:39 05/09/18 21:39 05/09/18 21:39 Intake and Output: 05/09/18 05/10/18 18:59 06:59 Intake Total 540 Output Total 600 Balance -60 - Medications Medications: Current Medications Acetaminophen (Tylenol 325mg Tab) 650 mg PO Q4 PRN PRN Reason: Pain, moderate (4-7) Atorvastatin Calcium (Lipitor) 10 mg PO DAILY [facility] Last Admin: 05/09/18 10:28 Dose: 10 mg Calcium Acetate (Phoslo) 1,334 mg PO WM [facility] Last Admin: 05/09/18 18:23 Dose: 1,334 mg Fentanyl (Duragesic) 1 patch TD Q72H [facility] Last Admin: 05/07/18 09:50 Dose: 1 patch Hydrochlorothiazide (Hydrodiuril) 25 mg PO DAILY [facility] Last Admin: 05/07/18 09:54 Dose: 25 mg Sodium Bicarbonate 50 meq/ (Sodium Chloride) 1,050 mls @ 60 mls/hr IV .[id number] [facility] Last Admin: 05/09/18 19:00 Dose: 60 mls/hr Losartan Potassium (Cozaar) 100 mg PO DAILY [facility] Last Admin: 05/07/18 09:53 Dose: 100 mg Metoprolol Tartrate (Lopressor) 25 mg PO DAILY [facility] Last Admin: 05/09/18 10:28 Dose: 25 mg Oxycodone/Acetaminophen (Percocet 10/325 Mg Tab) 1 tab PO Q4H PRN PRN Reason: Pain, moderate (4-7) Last Admin: 05/09/18 13:47 Dose: 1 tab Silver Sulfadiazine (Silvadene 1% 25 Gm) 1 gm TP DAILY [facility] Last Admin: 05/09/18 10:27 Dose: 1 gm Warfarin Sodium (Coumadin) 3 mg PO 1800 [facility]; Protocol Last Admin: 05/08/18 17:53 Dose: 3 mg - Labs Labs: 05/09/18 08:30 05/09/18 08:30 PT 19.4 SECONDS (9.4-12.5) H 05/09/18 11:25 INR 1.67 05/09/18 11:25 APTT 31.3 Seconds (25.1-36.5) 05/06/18 17:12 - Constitutional Appears: Non-toxic, No Acute Distress - Eye Exam Eye Exam: Normal appearance. absent: Scleral icterus - ENT Exam ENT Exam: Mucous Membranes Moist - Respiratory Exam Respiratory Exam: Clear to Ausculation Bilateral. absent: Respiratory Distress - Cardiovascular Exam Cardiovascular Exam: RRR, +S1, +S2 - GI/Abdominal Exam GI & Abdominal Exam: Soft. absent: Distended, Tenderness - Exam Exam: absent: Bladder Distension - Extremities Exam Additional comments: 1+ bilateral lower leg edema; - Neurological Exam Neurological Exam: Alert, Awake - Psychiatric Exam Psychiatric exam: Normal Affect, Normal Mood. absent: Agitated - Skin Skin Exam: Warm. absent: Cyanosis Assessment and Plan (1) Acute renal failure Assessment & Plan: Renal function continues to worsen with serum creat 7.2 today despite having placed mo last night; CT abd/pelvis confirms mo in place, still with severe bilateral hydronephrosis; oliguric renal failure with ~200 cc UO during day today; moderate metabolic acidosis noted, hyperkalemia resolved; Discussed with covering urologist, will attempt cystoscopy/ureteral stenting tomorrow with IR backup for percutaneous nephrostomy if needed; No urgent indication for initiating dialysis at this time but will need to follow closely; -changing IVF to 1/2NS w/ 50 meq sodium bicarb at 60 cc/hr; -low K diet; -avoid nephrotoxic agents (NSAIDS, etc); Status: Acute (2) HTN (hypertension) Assessment & Plan: Normotensive on metoprolol only; continuing to hold rest of meds; Status: Chronic (3) Bilateral hydronephrosis Status: Acute (4) Hyperkalemia Status: Acute (5) Metabolic acidosis Status: Acute
[2018-05-10 06:45] LABS: INR 1.83; PROTHROMBIN TIME 21.3 SECONDS (9.4-12.5)
[2018-05-10 06:46] LABS: MEAN CELL VOLUME 81.9 fl (80.0-105.0); MEAN CORPUSCULAR HEMOGLOBIN 26.5 pg (25.0-35.0); MEAN CORPUSCULAR HGB CONC 32.4 g/dl (31.0-37.0); MEAN PLATELET VOLUME 11.2 fl (7.0-11.0); RBC 2.6 10^6/uL (3.5-6.1); RED CELL DISTRIBUTION WIDTH 15.9 % (11.5-14.5); WHITE BLOOD COUNT 7.5 10^3/uL (4.5-11.0)
[2018-05-10 07:05] LABS: HEMOGLOBIN 6.9 g/dL (12.0-16.0)
[2018-05-10] MEDS ORDERED: cefTRIAXone (Rocephin) 1 gm Inj ONE (07:15)
[2018-05-10] MEDS ORDERED: Iohexol 240 (50 ml) ONE (07:15)
[2018-05-10 07:32] LABS: ALB/GLOB RATIO 0.7 (1.1-1.8); ALBUMIN 2.3 g/dL (3.0-4.8); CALCIUM 6.9 mg/dL (8.4-10.5)
--- NOTE | 2018-05-10 07:51 | CP.PCM.PN ---
Subjective - Date & Time of Evaluation Date of Evaluation: 05/10/18 Time of Evaluation: 07:47 - Subjective Subjective: Surgery Progress note- Dr. Mcmahan Patient seen and examined at bedside. No acute events. Continue with local wound care dressing. Afebrile overnight. Objective - Vital Signs/Intake and Output Vital Signs (last 24 hours): Temp Pulse Resp BP Pulse Ox 98.5 F 64 20 90/52 L 100 05/09/18 21:39 05/09/18 21:39 05/09/18 21:39 05/09/18 21:39 05/09/18 21:39 Intake and Output: 05/10/18 05/10/18 06:59 18:59 Output Total 200 Balance -200 - Medications Medications: Current Medications Acetaminophen (Tylenol 325mg Tab) 650 mg PO Q4 PRN PRN Reason: Pain, moderate (4-7) Atorvastatin Calcium (Lipitor) 10 mg PO DAILY [facility] Last Admin: 05/09/18 10:28 Dose: 10 mg Calcium Acetate (Phoslo) 1,334 mg PO WM [facility] Last Admin: 05/09/18 18:23 Dose: 1,334 mg Fentanyl (Duragesic) 1 patch TD Q72H [facility] Last Admin: 05/07/18 09:50 Dose: 1 patch Hydrochlorothiazide (Hydrodiuril) 25 mg PO DAILY [facility] Last Admin: 05/07/18 09:54 Dose: 25 mg Sodium Bicarbonate 50 meq/ (Sodium Chloride) 1,050 mls @ 60 mls/hr IV .[id number] [facility] Last Admin: 05/09/18 19:00 Dose: 60 mls/hr Losartan Potassium (Cozaar) 100 mg PO DAILY [facility] Last Admin: 05/07/18 09:53 Dose: 100 mg Metoprolol Tartrate (Lopressor) 25 mg PO DAILY [facility] Last Admin: 05/09/18 10:28 Dose: 25 mg Oxycodone/Acetaminophen (Percocet 10/325 Mg Tab) 1 tab PO Q4H PRN PRN Reason: Pain, moderate (4-7) Last Admin: 05/09/18 13:47 Dose: 1 tab Silver Sulfadiazine (Silvadene 1% 25 Gm) 1 gm TP DAILY [facility] Last Admin: 05/09/18 10:27 Dose: 1 gm Warfarin Sodium (Coumadin) 3 mg PO 1800 [facility]; Protocol Last Admin: 05/08/18 17:53 Dose: 3 mg - Labs Labs: 05/10/18 06:15 05/10/18 06:15 PT 21.3 SECONDS (9.4-12.5) H 05/10/18 06:15 INR 1.83 05/10/18 06:15 APTT 31.3 Seconds (25.1-36.5) 05/06/18 17:12 - Constitutional Appears: Non-toxic, No Acute Distress - Head Exam Head Exam: ATRAUMATIC - ENT Exam ENT Exam: Mucous Membranes Moist - Respiratory Exam Respiratory Exam: NORMAL BREATHING PATTERN. absent: Accessory Muscle Use, Re spiratory Distress - Cardiovascular Exam Cardiovascular Exam: +S1, +S2. absent: Bradycardia, Tachycardia - GI/Abdominal Exam GI & Abdominal Exam: Soft. absent: Distended, Firm, Guarding, Rigid, Tenderness - Extremities Exam Extremities Exam: absent: Calf Tenderness - Skin Skin Exam: Warm Additional comments: Stage 3 sacral ulcer Assessment and Plan - Assessment and Plan (Free Text) Assessment: 82F w/ Stage 3 sacral decub ulcer Plan: - consulted service wound care - local wound care with silvadene and optifoam - no acute surgical intervention at this time - further recs per Dr[facility] Mcmahan [facility]
[2018-05-10] MEDS: Oxycodone/Acetaminophen 10/325 mg Tab PO PRN (09:03)
[2018-05-10] MEDS ORDERED: Magnesium Sulfate 1 gm in D5W 1 GM/100 ML BAG IVPB ONE (10:12)
--- NOTE | 2018-05-10 10:25 | CP.PCM.APN ---
Subjective - Date & Time of Evaluation Date of Evaluation: 05/10/18 Time of Evaluation: 10:00 - Subjective Subjective: Pt seen and examined at bedside. In no acute distress. Denies chest pain or shortness of breath. Objective - Vital Signs/Intake and Output Vital Signs (last 24 hours): Temp Pulse Resp BP Pulse Ox 99.2 F 55 L 18 111/71 95 05/10/18 07:49 05/10/18 09:08 05/10/18 07:49 05/10/18 09:08 05/10/18 07:49 Intake and Output: 05/10/18 05/10/18 06:59 18:59 Output Total 200 Balance -200 - Medications Medications: Current Medications Acetaminophen (Tylenol 325mg Tab) 650 mg PO Q4 PRN PRN Reason: Pain, moderate (4-7) Atorvastatin Calcium (Lipitor) 10 mg PO DAILY [facility] Last Admin: 05/10/18 09:08 Dose: 10 mg Calcium Acetate (Phoslo) 1,334 mg PO WM [facility] Last Admin: 05/10/18 09:03 Dose: 1,334 mg Fentanyl (Duragesic) 1 patch TD Q72H [facility] Last Admin: 05/10/18 09:07 Dose: 1 patch Hydrochlorothiazide (Hydrodiuril) 25 mg PO DAILY [facility] Last Admin: 05/07/18 09:54 Dose: 25 mg Sodium Bicarbonate 50 meq/ (Sodium Chloride) 1,050 mls @ 60 mls/hr IV .[id number] [facility] Last Admin: 05/09/18 19:00 Dose: 60 mls/hr Magnesium Sulfate/Dextrose (Magnesium Sulfate 1 Gm/100 Ml D5w) 1 gm in 100 mls @ 100 mls/hr IVPB ONCE ONE Stop: 05/10/18 11:11 Losartan Potassium (Cozaar) 100 mg PO DAILY [facility] Last Admin: 05/07/18 09:53 Dose: 100 mg Metoprolol Tartrate (Lopressor) 25 mg PO DAILY [facility] Last Admin: 05/10/18 09:08 Dose: 25 mg Oxycodone/Acetaminophen (Percocet 10/325 Mg Tab) 1 tab PO Q4H PRN PRN Reason: Pain, moderate (4-7) Last Admin: 05/10/18 09:03 Dose: 1 tab Silver Sulfadiazine (Silvadene 1% 25 Gm) 1 gm TP DAILY [facility] Last Admin: 05/09/18 10:27 Dose: 1 gm Warfarin Sodium (Coumadin) 3 mg PO 1800 [facility]; Protocol Last Admin: 05/08/18 17:53 Dose: 3 mg - Labs Labs: 05/10/18 06:15 05/10/18 06:15 PT 21.3 SECONDS (9.4-12.5) H 05/10/18 06:15 INR 1.83 05/10/18 06:15 APTT 31.3 Seconds (25.1-36.5) 05/06/18 17:12 - Constitutional Appears: Well, No Acute Distress - Head Exam Head Exam: ATRAUMATIC - Eye Exam Eye Exam: Normal appearance - ENT Exam ENT Exam: Normal Exam - Neck Exam Neck Exam: Full ROM - Respiratory Exam Respiratory Exam: Clear to Ausculation Bilateral, NORMAL BREATHING PATTERN - Cardiovascular Exam Cardiovascular Exam: REGULAR RHYTHM, +S1, +S2 - GI/Abdominal Exam GI & Abdominal Exam: Soft, Normal Bowel Sounds Additional comments: +colostomy w/ brown stool - Rectal Exam Rectal Exam: Deferred - Exam Additional comments: blood tinged urine output from mo - Neurological Exam Neurological Exam: Alert, Awake, Oriented x3 - Skin Additional comments: +sacral decubitus ulcer Assessment and Plan - Assessment and Plan (Free Text) Assessment: Pt is an 82 y.o. female who is admitted for R leg DVT. She was found to be on acute renal failure w/ severe b/l hydroureteronephrosis. Pt was supposed to go for ureteral stent placement today but was cancelled 2/2 Hgb of 6.9. D/W PMD and will need to transfuse 2 units of PRBCs today. Impressions Abdomen/Pelvis CT 05/09/18 09:00 IMPRESSION: Markedly limited examination in the absence of intravenous contrast. Severe bilateral hydroureteronephrosis, new on the right. No obstructive uropathy identified. Small sacral decubitus ulcer without extension turned line bone. Anasarca. Additional stable findings as above. Plan: Transfuse 2 units of PRBCs, consent obtained Monitor H/H Continue w/ IVFs per Renal recs Monitor urine output and bun/cr Replaced Magnesium Renal, Uro, and Surgery on consult Meds per MAR Will continue to follow
[2018-05-10] MEDS ORDERED: Magnesium Sulfate 2 gm/50 ml 2 GM/50 ML BAG IV ONE (13:23)
--- NOTE | 2018-05-10 18:54 | PN ---
DATE: 05/10/2018 SUBJECTIVE: The patient is currently seen lying comfortable in bed. She continues on IV fluid hydration with sodium bicarbonate. She is scheduled for transfusion of 2 units of packed red blood cells, her hemoglobin had dropped down to 6.9. She did go down for stent placement for her bilateral hydronephrosis, but this was canceled because of the drop in her hemoglobin. The plan is for the patient to be transfused back to an acceptable hemoglobin and then to return for the stent placement. MEDICATIONS: Medication list reviewed. The patient is currently on Coumadin on hold, losartan on hold, Duragesic, hydrochlorothiazide on hold, Lipitor, Lopressor, Percocet, PhosLo, Silvadene cream, IV fluid with sodium bicarbonate, Tylenol p.r.n. OBJECTIVE: INTAKE/OUTPUT: Intake is 540, output is 800. VITAL SIGNS: Blood pressure is 111/71, temperature 99.2, respiratory rate is 18, with a pulse of 55. HEENT: Shows her to be normocephalic, atraumatic. Conjunctivae are pale. Sclerae are nonicteric. NECK: Supple. No neck vein distention. CHEST: Clear to auscultation and percussion. No rales, no rhonchi. No wheezing. CARDIOVASCULAR: Regular rate and rhythm without audible murmurs, rubs, or gallops. ABDOMEN: Positive colostomy. No masses. No tenderness on palpation. No rebound or guarding. EXTREMITIES: Show trace to 1+ pitting edema bilaterally. Diminished lower extremity pulses. No cyanosis or clubbing. LABORATORY DATA AND IMAGING STUDIES: CBC today, white blood cell count 7.5, stable. Hemoglobin is down from the mid 8 range to 6.9. Platelet count is 174,000. Coags: PT of 21.3, with an INR of 1.83. Coumadin is on hold. Chemistries: Sodium 140, potassium 4.1, chloride 114, with a CO2 of 18. BUN is 75, with a creatinine of 6.8 which remains elevated, but stable. Calcium is 6.9 with an albumin of 2.3, corrects to normal. Phosphorus was mildly elevated at 6.3, but falling. Magnesium level was low at 1.2. Microbiology: Sacral decubitus cultures are positive for Citrobacter, Pseudomonas, Enterococcus, Klebsiella. Urine culture showed multiple species. Blood cultures are negative at [address] scan done on 05/09/2018 showed severe bilateral hydronephrosis, new on the right, chronic on the left. Small sacral decubitus ulcer. Anasarca. ASSESSMENT: 1. Acute renal failure in a patient with no significant past history of chronic kidney disease. This is in the setting of bilateral hydronephrosis. The patient was scheduled for ureteral stent placement today with Dr. Johnson covering for Dr. Mckeon. However, this was canceled because of the hemoglobin of 6.9. Agree with transfusing the patient up to a hemoglobin of 8 to 9 and trying to repeat the procedure. The patient does remain on intravenous fluid hydration with increasing edema. 2. History of hypertension. Blood pressure control is acceptable. The patient will continue on beta-florencio therapy. She will remain off hydrochlorothiazide and angiotensin receptor florencio therapy. 3. Past history of colon cancer. 4. History of multiple bowel surgeries secondary to obstruction with abdominal wall infections and abscess. The patient is status post a colostomy. This appears to be stable. 5. History of arteriosclerotic heart disease with a history of paroxysmal atrial fibrillation. The patient appears to be in normal sinus rhythm. 6. 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 Repeat Doppler study of her lower extremity done on admission showed subacute thrombus in the right mid to distal femoral vein. 7. History of anemia. No evidence for any bleeding. The patient's iron saturations were 33%. Agree with transfusing the patient. We will hold on Aranesp in light of her past history of colon cancer until cleared by Oncology. 8. History of sacral decubitus with positive cultures. The patient is receiving local wound care at this point in time. Silvadene is being applied to the wound site. 9. Mild hypomagnesemia. We will give the patient magnesium supplements today. 10. History of secondary hyperparathyroidism, this is secondary to acute renal failure. The patient will be started on binder therapy in light of her elevated phosphorus level of 6.3. Her calcium corrects to normal. PLAN: 1. Agree with plan to transfuse the patient prior to placement of stents. 2. Perhaps try and repeat a urine C and S and get a clean catch. 3. Await evaluation for placement of stents in light of her bilateral hydronephrosis. Stent on the right side is likely more important as she has had chronic left-sided hydronephrosis with normal BUN and creatinine in the past. 4. Continue to keep the patient off angiotensin receptor florencio therapy and diuretic therapy. 5. Supplement magnesium. 6. Start binder therapy in light of her elevated phosphorus level. 7. In light of her [id number] metabolic acidosis, we will continue sodium bicarbonate therapy until stents were placed and her renal function returns back to baseline. 8. Try and minimize IV fluid hydration in light of her progressive edema. Nikunj Soliman MD
[2018-05-11 06:51] LABS: ALB/GLOB RATIO 0.7 (1.1-1.8); ALBUMIN 2.3 g/dL (3.0-4.8); CALCIUM 7.7 mg/dL (8.4-10.5)
[2018-05-11 06:56] LABS: HEMOGLOBIN 9.1 g/dL (12.0-16.0); MEAN CORPUSCULAR HGB CONC 33.3 g/dl (31.0-37.0); MEAN PLATELET VOLUME 12.2 fl (7.0-11.0); RBC 3.37 10^6/uL (3.5-6.1); RED CELL DISTRIBUTION WIDTH 15.2 % (11.5-14.5); WHITE BLOOD COUNT 8.4 10^3/uL (4.5-11.0)
[2018-05-11 07:10] LABS: INR 1.88; PROTHROMBIN TIME 21.9 SECONDS (9.4-12.5)
[2018-05-11] MEDS ORDERED: Dextrose 50% SYRINGE Inj (50 ml) ONE (07:53)
[2018-05-11] MEDS ORDERED: Magnesium Sulfate 1 gm in D5W 1 GM/100 ML BAG IVPB ONE (10:21)
--- NOTE | 2018-05-11 10:44 | PN ---
DATE: 05/11/2018 SUBJECTIVE The patient remains comfortable lying in bed. She remains on maintenance IV fluid hydration. The patient received 2 units of packed red blood cells and her hemoglobin is now 9.1. The patient is now medically able to have her cystoscopy with possible stent placement. Hopefully, this will take place tomorrow. MEDICATIONS: Medication list reviewed. The patient is currently on Coumadin, losartan is on hold, Duragesic, hydrochlorothiazide is on hold, Lipitor, Lopressor, Percocet, PhosLo, Silvadene, IV fluid with sodium bicarbonate, and Tylenol p.r.n. OBJECTIVE: INTAKE/OUTPUT: Intake is 657, output is charted as 100 mL of urine only. VITAL SIGNS: Blood pressure 90/50, temperature 97.8, respiratory rate 18, pulse of 60. Pulse ox is 98%. HEENT: Normocephalic, atraumatic. Conjunctivae pale. Sclerae nonicteric. NECK: Supple. No neck vein distention. CHEST: Clear to auscultation and percussion. No rales, rhonchi or wheezing. CARDIOVASCULAR: Regular rate and rhythm without audible murmurs, rubs or gallops. ABDOMEN: Positive colostomy. No masses. No tenderness on palpation. No rebound or guarding. EXTREMITIES: Show 1+ pitting edema of her legs bilaterally. Diminished lower extremity pulses. No cyanosis or clubbing noted. LABORATORY DATA AND IMAGING STUDIES: CBC today, white blood cell count stable 8.4, hemoglobin is up to 9.1 post transfusions. Platelet count is 165,000. Coags, INR 1.88 with a PT of 21.9. Chemistries show a CO2 of 18. The patient does remain on sodium bicarbonate and her IV fluids. BUN is 78, stable. Creatinine 7.0, stable. Glucose is 7.7, corrects to normal for an albumin of 2.3. Phosphorus is 6.7. The patient remains on a renal diet and binder therapy. Magnesium level is improved to 1.5 post mag rider, it is up from 1.2. Microbiology; urine showed multiple specimens, was contaminated specimen. Sacral wound decubitus showed Citrobacter, Pseudomonas, Enterococcus and Klebsiella. Blood cultures are negative in 4 days. Abdominal and pelvic CT scan showed severe bilateral hydronephrosis noted on the right and chronic on the left and a small sacral decubitus ulcer. ASSESSMENT: 1. Acute renal failure in a patient with no significant past history of chronic kidney disease. This is in the setting of bilateral hydronephrosis. The patient will likely go for a stent placement tomorrow with Dr. Johnson. This was canceled previously because of a low hemoglobin of 6.9. Now, that patient has been transfused, she has a medically acceptable risk for the cystoscopy with the stent placement. 2. History of hypertension. Blood pressure remains in the low normal range. She remains on beta-florencio therapy with parameters. She is off hydrochlorothiazide and off angiotensin receptor florencio therapy. 3. History of colon cancer, stable. 4. History of multiple bowel surgeries secondary to obstruction with abdominal wall infections and naps disease. The patient is status post colostomy. This appears to be stable. 5. History of atherosclerotic heart disease with paroxysmal atrial fibrillation. The patient is currently in sinus rhythm. 6. 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 The patient remains on chronic anticoagulation. Repeat Doppler study of her lower extremity on admission showed a subacute thrombus of the right mid to distal femoral vein. 7. History of anemia. No bleeding. Iron saturations were acceptable at 33%. The patient received 2 units of packed red blood cells yesterday with a rise in hemoglobin from 6.9-9.1. 8. History of sacral decubitus with positive cultures. The patient is receiving local antibiotic therapy only. No systemic antibiotics. 9. Mild hypomagnesemia. I will place the patient on magnesium supplements orally. The patient received a mag rider yesterday. Magnesium is up to 1.5. 10. History of secondary hyperparathyroidism secondary to acute renal failure. Phosphorus level remains elevated, it is 6.7. She will continue binder therapy and a renal diet. Her calcium does correct to normal. PLAN: 1. Agree with tentative plans for cysto with stent placement for tomorrow. 2. Consider antibiotic therapy for sacral decubitus other than topical Silvadene cream. 3. The patient should remain off angiotensin receptor florencio therapy and diuretic therapy. 4. Supplement magnesium orally. 5. Continue all dietary restrictions. 6. I will start the patient on oral sodium bicarbonate therapy and discontinue IV fluid hydration as her BUN and creatinine remain stable and she is developing more lower extremity edema. Nikunj Soliman MD
--- NOTE | 2018-05-11 10:54 | PN ---
DATE: 05/10/2018 SUBJECTIVE: The patient was seen this Thursday morning, , in room 578, bed 1. She was scheduled for a cystoscopy and ureteral stent placement with Dr. Johnson. Unfortunately, this morning, lab shows a drop in hemoglobin from 8 to 6.9 and the case was canceled. We will transfuse her with two units of packed red cells and reschedule a cystoscopy at some point in the near future. Of course, of concern, with this drop in hemoglobin and a history of anemia and colon cancer, angiodysplasia and suspected GI bleed, concern about anticoagulation in presence of DVT is real. Fortunately, the patient has IVC filter in place. Nonetheless, this will not help with the DVT and we would like to anticoagulant, but recurrent anemia would be an issue. Perhaps, we will check her stools to see if there is any heme positive, although the stools were quite brown color. Guy Guadalupe MD
[2018-05-11] MEDS: Silver Sulfadiazine 1% Cream (25 gm) TP SCH (11:34)
[2018-05-11] MEDS: Oxycodone/Acetaminophen 10/325 mg Tab PO PRN (15:20)
[2018-05-11] MEDS: Magnesium Oxide 400 mg Tab UD PO SCH (18:08)
[2018-05-11] MEDS ORDERED: Dextrose 5%/0.45% NS 1,000 ML IV SCH (18:30)
--- NOTE | 2018-05-11 23:52 | PN ---
DATE: 05/11/2018 SUBJECTIVE: The patient was seen this Thursday, , in room 570, bed 1. She was resting comfortably in bed, having received 2 units of packed red cells yesterday. Her hemoglobin is up to 9.1. PHYSICAL EXAMINATION GENERAL: She is awake and alert but complaining of feeling cold. VITAL SIGNS: Her blood pressure is a bit low today. She had received some fluids as well. LABORATORY DATA: Remainder of labs are holding steady. PLAN: Hopefully within the next day or so, we will proceed with bilateral ureteral stent placement by Dr. Johnson. Guy Guadalupe MD
[2018-05-12] MEDS ORDERED: Dextrose 5%/0.45% NS 1,000 ML IV SCH (06:00)
[2018-05-12] MEDS: Oxycodone/Acetaminophen 10/325 mg Tab PO PRN ×2 (06:12→17:10)
[2018-05-12] MEDS ORDERED: Iohexol 240 (50 ml) ONE ×2 (07:47→08:56)
[2018-05-12] MEDS ORDERED: cefTRIAXone (Rocephin) 1 gm Inj ONE (07:47)
[2018-05-12] MEDS ORDERED: Etomidate 20 mg/10ml Inj IV ONE (08:11)
[2018-05-12] MEDS ORDERED: cefTRIAXone (Rocephin) 1 gm Inj IVPB ONE (08:30)
[2018-05-12] MEDS ORDERED: Sodium Chloride 0.9% 1,000 ML IV SCH (09:30)
--- NOTE | 2018-05-12 11:52 | RAD ---
Date of service: 05/12/2018 PROCEDURE: Fluoroscopy up to 1 hr. HISTORY: RT STENT PLACEMENT ATTPT ON LT COMPARISON: None TECHNIQUE: Standard protocol for this study/examination. FINDINGS: Total fluoroscopic time (continuous mode) utilized during the procedure 62.4 seconds. Total exam DLP: 12.39 (mGy). IMPRESSION: Less than 1 hr fluoroscopic assistance provided during performance of the procedure.
[2018-05-12] MEDS: Magnesium Oxide 400 mg Tab UD PO SCH ×2 (12:00→17:11)
[2018-05-12] MEDS: Silver Sulfadiazine 1% Cream (25 gm) TP SCH (13:35)
--- NOTE | 2018-05-12 14:13 | PN ---
DATE: 05/12/2018 PERIOPERATIVE NOTE: We did a cysto-retrograde and stent on the right side and on the left. Vital signs remain stable. DIAGNOSES: Hydronephrosis, renal failure, anemia and advanced cancer. The patient remains stable. PLAN: As follows: 1. [facility] to straight drainage. 2. Follow the BUN and creatinine. Follow the CBC and then further plans will follow. The patient is stable. We discussed our results with the patient's family . Radames Johnson MD
[2018-05-12 14:16] LABS: HEMOGLOBIN 10.1 g/dL (12.0-16.0); MEAN CELL VOLUME 81.9 fl (80.0-105.0); MEAN CORPUSCULAR HEMOGLOBIN 27.2 pg (25.0-35.0); MEAN CORPUSCULAR HGB CONC 33.2 g/dl (31.0-37.0); RBC 3.71 10^6/uL (3.5-6.1); RED CELL DISTRIBUTION WIDTH 15.7 % (11.5-14.5); WHITE BLOOD COUNT 10.7 10^3/uL (4.5-11.0)
[2018-05-12 14:22] LABS: INR 2.01; PROTHROMBIN TIME 23.4 SECONDS (9.4-12.5)
[2018-05-12 14:25] LABS: ALB/GLOB RATIO 0.7 (1.1-1.8); ALBUMIN 2.5 g/dL (3.0-4.8); CALCIUM 8.4 mg/dL (8.4-10.5)
--- NOTE | 2018-05-12 15:06 | PN ---
DATE: 05/12/2018 SUBJECTIVE: The patient has just come back from having a cystoscopy with placement of a right ureteral stent. She has a Duke bag in place draining blood-tinged urine. Her last creatinine was 7. MEDICATIONS Medication list reviewed. The patient is currently on Coumadin, valsartan and hydrochlorothiazide are on hold, D5 half-normal saline 50 mL an hour, Duragesic, Lipitor, Lopressor, mag oxide, Percocet, PhosLo, Silvadene, sodium bicarbonate and Tylenol p.r.n. OBJECTIVE Intake/output. Intake is 480, output is 275. PHYSICAL EXAMINATION: VITAL SIGNS: Blood pressure 134/77, temperature 98.1, respiratory rate of 12 with a pulse of 67, pulse ox 98%. HEENT: Normocephalic, atraumatic. Conjunctivae are pale. Sclerae are nonicteric. NECK: Supple. No neck vein distention. CHEST: Clear to auscultation and percussion. No rales, rhonchi or wheezing. CARDIOVASCULAR: Regular rate and rhythm without audible murmurs, rubs or gallops. ABDOMEN: Positive colostomy. No masses. No tenderness on palpation. No rebound or guarding. EXTREMITIES: Show 1+ pitting edema of her legs bilaterally with diminished lower extremity pulses. No cyanosis or clubbing. LABORATORY DATA AND IMAGING: CBC from yesterday, hemoglobin 9.1 with a white blood cell count of 8.4, platelet count is 165,000. Chemistries from yesterday, BUN 78 with a creatinine of 7. Elevated phosphorus is 6.7. Magnesium borderline low at 1.5. Albumin was 2.3 with a calcium of 7.7. Microbiology, wound cultures from the sacral decubitus were positive for Citrobacter, Pseudomonas, Enterococcus, and Klebsiella. ASSESSMENT: 1. Acute renal failure in a patient with no significant past history of chronic kidney disease. This is in the setting of bilateral hydronephrosis. The patient is status post placement of a right ureteral stent. The patient does have longstanding left-sided hydronephrosis. 2. History of hypertension. Blood pressure remains in the normal range. The patient remains on beta-florencio therapy alone. She is currently off ARB therapy and hydrochlorothiazide. 3. History of colon cancer, stable. 4. History of multiple bowel surgeries secondary to obstruction with abdominal wall infections status post colostomy. This appears to be stable. 5. 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 The patient is currently in sinus rhythm. 6. 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 The patient is on chronic anticoagulation. Repeat Doppler study of the lower extremity on admission showed a subacute thrombus of the right mid to distal femoral vein. 7. History of anemia. Hemoglobin is stable presently at 9.1. She is status post transfusion of 2 units of packed red blood cells. No evidence for any bleeding. 8. History of sacral decubitus with positive cultures. The patient was receiving topical antibiotic therapy. No systemic antibiotics. 9. Mild hypomagnesemia. The patient remains on magnesium supplements. 10. History of secondary hyperparathyroidism. This likely secondary to acute renal failure. The hope is that her BUN and creatinine improve with resolution of her obstructive uropathy. For right now, the patient will remain on binder therapy. PLAN: 1. Discussed with the patient and her family. Hoping that she has a significant improvement in her BUN and creatinine and develops a postobstructive diuresis. We will adjust her IV fluids pending her urine output. 2. Continue to follow labs on a daily basis at least for the next several days. 3. Continue D5 half-normal saline at 50 mL an hour with the possibility of increasing the IV fluid flow rate significantly if she starts making a large amount of urine. 4. Close renal followup. Nikunj Soliman MD
--- NOTE | 2018-05-12 16:04 | PN ---
DATE: 05/10/2018 See the consult note dictated from 05/08/2018 and the procedure note from 05/08/2018. The patient is now resting comfortably reasonable state. So at this point, we are not going to do any further procedure today. We are going to transfuse the patient. I discussed these findings with the patient and the family at this time, particularly and the patient. I do want to state that the patient looks much better, then when I initially saw her at more alert, oriented, etc. So initially we are going to delay the procedure today. Today we are going to postponed it until further plan. We are going to plan for doing it for 05/12/2018 and we are going to watch the patient. We discussed with the Renal in terms of dialysis, etc. Radames Johnson MD
[2018-05-13 07:06] LABS: INR 2.45; PROTHROMBIN TIME 28.7 SECONDS (9.4-12.5)
[2018-05-13 07:08] LABS: HEMOGLOBIN 9.8 g/dL (12.0-16.0); MEAN CELL VOLUME 81.7 fl (80.0-105.0); MEAN CORPUSCULAR HEMOGLOBIN 26.7 pg (25.0-35.0); MEAN CORPUSCULAR HGB CONC 32.7 g/dl (31.0-37.0); MEAN PLATELET VOLUME 11.6 fl (7.0-11.0); RBC 3.67 10^6/uL (3.5-6.1); RED CELL DISTRIBUTION WIDTH 15.8 % (11.5-14.5); WHITE BLOOD COUNT 11.1 10^3/uL (4.5-11.0)
[2018-05-13 07:24] LABS: ALB/GLOB RATIO 0.7 (1.1-1.8); ALBUMIN 2.5 g/dL (3.0-4.8); CALCIUM 8.3 mg/dL (8.4-10.5)
--- NOTE | 2018-05-13 08:57 | OP ---
PROCEDURE DATE: 05/12/2018 Please see previously dictated consultation note from 05/08/2018 and see separately dictated note on 05/08/2018. Also see the progress note dated 05/10/2018. PREOPERATIVE DIAGNOSES: 1. Bilateral hydronephrosis, renal failure with worsening creatinine, creatinine is now up to 7. 2. Anemia. The hemoglobin is now 9.5, previously it was down to 7 or even lower than 7. 3. Bilateral hydronephrosis, advanced stage underlying gastrointestinal malignancy. POSTOPERATIVE DIAGNOSES: 1. Bilateral hydronephrosis, renal failure with worsening creatinine, creatinine is now up to 7. 2. Anemia. The hemoglobin is now 9.5, previously it was down to 7 or even lower than 7. 3. Bilateral hydronephrosis, advanced stage underlying gastrointestinal malignancy. 4. Bladder cancer. Whether this represents a separate primary or whether or not this represents a metastatic disease is difficult to know; biopsies were taken today. TODAY'S PROCEDURES: Cystoscopy, bilateral retrograde pyelograms, insertion of a right double J-stent, and attempted insertion of a left double J-stent. On left retrograde pyelogram, on exam under anesthesia, there were no complications. BLOOD LOSS: Less than 10 mL. FINDINGS: 1. There is no direct pelvic mass but definitely the bladder is not as mobile as we would expect. The whole area feels a little bit abnormal. 2. Within the urinary bladder, the ureteral orifices were seen. On the left side, we cannot get a . The procedure continued with a cystoscope introduced via the urethra. 3. There are at least 2 or 3 separate lesions, I took pictures. There is one along the right lateral posterior wall. It does not look like a classic papillary transitional cell carcinoma. It looks either like a more aggressive cancer. Whether it is invading from behind is difficult to tell in these pictures or whether it is a separate primary in the bladder, but no biopsy was taken. 4. Both ureters are obstructed. We were able to on the right side get a wire up and then put it open-ended over that wire but each time we could feel the pull as we went through that area, both putting the open ended through it, putting the wire through it, putting, see my report and then on the left side we even could not do it. At the termination of procedure, the patient has a new double-J stent on the right side and a new Duke catheter. There were no complications of procedure itself. INDICATIONS: See history and physical for the details and consultation note. The patient with advanced cancer, bilateral hydronephrosis and worsening renal failure. We had to come in on Thursday night to put in a Duke. We then arranged for a bilateral stent insertion, Both were carried out at [place] in [facility] but they have met with the urologist, they are planning something in May. At this point, the patient is either going to get dialyzed or get the above listed procedure after discussing options with the patient. We also discussed the possibility for an immediate transfer, but the patient's family, the son, the daughter and the patient preferred to stay here. So, we are going to do this part and then after this procedure through the addendum we are going to recommend followup there. DESCRIPTION OF PROCEDURE: After obtaining informed consent, the patient was placed on the table. Routine monitor was placed. Time-out was called to confirm the patient and positioning. We removed the old Duke catheter. Under sterile technique, we prepped the patient in sterile fashion. We introduced the cystoscope via urethra. I do want to mention that there is just a foul odor and most likely it is secondary to the decubitus, but it is noteworthy that when everybody walked in the room it was noteworthy. Anyway the procedure continued with the cystoscope via urethra. We identified the ureteral orifice. Pictures were taken and saved. On inspecting the bladder further, there were multiple bladder lesions. There were no other complications. The procedure continued. Cystoscope introduced via urethra. We identified the ureteral orifices. The bladder lesions were noted. Pictures were taken, but no biopsies today. I now started working on the right side, contrast barely goes up. I continued DVT filter. At this point, I put a wire, but the wire with some difficulty was able to go up. Then we put in open-ended, right where it keeps getting stuck is right around the iliac vessel level. I do not know whether this represents lymph nodes or whether there are any other nonvisible clips or something. But either way, at this point, we were able to get an open-ended through there, put the wire up to the kidney. We confirmed our positioning with a contrast study, put the wire back in and put a double J-stent in. We used a 5 [place]. I would have liked to have put a little larger, but I was not sure I would be able to get it through and I just wanted to be able to drain the kidney. We now attempted the same thing on the left side. Again the contrast does not go up. We tried a wire; it did not go up. I tried the open-ended technique. Nothing would go up. We tried gently, carefully. But at this point I have a good working right double J-stent. I put a Duke catheter via the urethra. I just want to mention on examination under anesthesia is just not normal. The patient tolerated the procedure without complication. ADDENDUM TO THIS NOTE: My recommendations to the family, I spoke to them afterwards is to see what happens with the BUN and creatinine at this point with the Duke and a drain from the right kidney. We will see how the patient does before we recommend anything like a perc on the left side, and then the other issue will be the chemotherapy and the like from the other doctors. But most likely most of her care should followup once we have stabilized the patient in terms of BUN and creatinine and not needing dialysis. If we are able to stabilize the patient, then she will return to [facility]. Radames Johnson MD
[2018-05-13] MEDS: Magnesium Oxide 400 mg Tab UD PO SCH (10:02)
[2018-05-13] MEDS: Oxycodone/Acetaminophen 10/325 mg Tab PO PRN (10:03)
--- NOTE | 2018-05-13 10:50 | CP.PCM.APN ---
Subjective - Date & Time of Evaluation Date of Evaluation: 05/13/18 Time of Evaluation: 10:30 - Subjective Subjective: Pt seen and examined at bedside. In no acute distress. Objective - Vital Signs/Intake and Output Vital Signs (last 24 hours): Temp Pulse Resp BP Pulse Ox 98.4 F 67 18 105/65 96 05/13/18 06:00 05/13/18 06:00 05/13/18 06:00 05/13/18 06:00 05/13/18 06:00 Intake and Output: 05/13/18 05/13/18 06:59 18:59 Intake Total 300 Output Total 500 Balance -200 - Medications Medications: Current Medications Acetaminophen (Tylenol 325mg Tab) 650 mg PO Q4 PRN PRN Reason: Pain, moderate (4-7) Last Admin: 05/11/18 11:33 Dose: 650 mg Atorvastatin Calcium (Lipitor) 10 mg PO DAILY [facility] Last Admin: 05/13/18 10:02 Dose: 10 mg Calcium Acetate (Phoslo) 667 mg PO WM [facility] Last Admin: 05/13/18 10:02 Dose: 667 mg Fentanyl (Duragesic) 1 patch TD Q72H [facility] Last Admin: 05/10/18 09:07 Dose: 1 patch Hydrochlorothiazide (Hydrodiuril) 25 mg PO DAILY [facility] Last Admin: 05/07/18 09:54 Dose: 25 mg Losartan Potassium (Cozaar) 100 mg PO DAILY [facility] Last Admin: 05/07/18 09:53 Dose: 100 mg Magnesium Oxide (Mag-Ox) 400 mg PO DAILY [facility] Metoprolol Tartrate (Lopressor) 12.5 mg PO DAILY [facility] Last Admin: 05/13/18 10:02 Dose: 12.5 mg Oxycodone/Acetaminophen (Percocet 10/325 Mg Tab) 1 tab PO Q4H PRN PRN Reason: Pain, moderate (4-7) Last Admin: 05/13/18 10:03 Dose: 1 tab Silver Sulfadiazine (Silvadene 1% 25 Gm) 1 gm TP DAILY [facility] Last Admin: 05/12/18 13:35 Dose: 1 gm Sodium Bicarbonate (Sodium Bicarbonate Tab) 650 mg PO BID [facility] Last Admin: 05/13/18 10:01 Dose: 650 mg Warfarin Sodium (Coumadin) 2 mg PO 1800 [facility]; Protocol Last Admin: 05/12/18 18:11 Dose: 2 mg - Labs Labs: 05/13/18 06:30 05/13/18 06:30 PT 28.7 SECONDS (9.4-12.5) H 05/13/18 06:30 INR 2.45 05/13/18 06:30 APTT 31.3 Seconds (25.1-36.5) 05/06/18 17:12 - Constitutional Appears: Well, No Acute Distress - Head Exam Head Exam: ATRAUMATIC - Eye Exam Eye Exam: Normal appearance - ENT Exam ENT Exam: Normal Exam - Neck Exam Neck Exam: Full ROM - Respiratory Exam Respiratory Exam: Clear to Ausculation Bilateral, NORMAL BREATHING PATTERN - Cardiovascular Exam Cardiovascular Exam: REGULAR RHYTHM, +S1, +S2 - GI/Abdominal Exam GI & Abdominal Exam: Soft, Normal Bowel Sounds Additional comments: +colostomy w/ brown stool - Rectal Exam Rectal Exam: Deferred - Exam Additional comments: +mo draining yellow urine - Extremities Exam Additional comments: +swelling on gilmar lower ext, R>L - Neurological Exam Neurological Exam: Alert, Awake, Oriented x3 Assessment and Plan - Assessment and Plan (Free Text) Assessment: Pt is an 82 y.o. female admitted for R leg DVT and severe bilateral hy dronephrosis with acute renal failure. She was s/p cysto, gilmar retrograde pyelogram, b/l ureteroscopy and insertion of R ureteral JJ stent yesterday by Dr. Johnson. D/W PMD, will get pt oob and continue with physical therapy. D/W Renal, stated will wait for further recs from Uro regarding L hydronephrosis & possible dialysis was discussed w/ pt and family. D/W Uro, will monitor pt for one more day, if needed will consult w/ Dr. Anand for possible L percutaneous drainage. Plan: On coumadin - monitor inr Monitor urine output Monitor bun/cr Started on Magnesium Oxide & sodium bicarb by renal Renal, Uro on consult Surgery on consult for sacral ulcer - no surgical intervention, continue local wound care Meds per MAR Will continue to follow
[2018-05-13] MEDS: Silver Sulfadiazine 1% Cream (25 gm) TP SCH (12:00)
--- NOTE | 2018-05-13 12:57 | PN ---
DATE: 05/13/2018 SUBJECTIVE: The patient is currently seen in 5R. She is lying comfortable in bed. She is developing more lower extremity edema as she remains in positive fluid balance on IV fluid hydration. Her creatinine unfortunately is 6.9 with no post-obstructive diuresis. It appears that she might have irreversible kidney disease. I did have a discussion with her daughter and I will discuss with her son along with a discussion together with the patient about the possibility of doing renal replacement therapy. She will not do well with a creatinine of 7. MEDICATIONS: Medication list reviewed. The patient is on Coumadin, D5 half-normal saline to be discontinued, Duragesic, Lipitor, Lopressor, mag oxide, Percocet, PhosLo, Silvadene, sodium bicarbonate, and Tylenol p.r.n. OBJECTIVE: INTAKE/OUTPUT: Intake 300 plus IV fluid hydration, output 500 mL. VITAL SIGNS: Blood pressure is 105/65, temperature is 98.4, pulse of 67 with a respiratory rate of 18 and oxygen saturation of 96%. HEENT: Exam shows her be normocephalic, atraumatic. Conjunctivae are pale. Sclerae nonicteric. NECK: Supple. No neck vein distention. CHEST: Clear to auscultation and percussion. No rales, rhonchi, or wheezing. CARDIOVASCULAR: Shows a regular rate and rhythm without audible murmurs, rubs, or gallops. ABDOMEN: Positive colostomy. No masses. No tenderness on palpation. No rebound or guarding. BACK: Positive sacral decubitus with dressing in place. EXTREMITIES: Show 1+ pitting edema of her legs bilaterally with diminished lower extremity pulses. LABORATORY DATA AND IMAGING STUDIES: CBC, white blood cell count 11.1, hemoglobin 9.8 with a platelet count of 180,000. Coags, INR is 2.45 with a PT of 28.7. Chemistries show a CO2 of 18. Sodium and potassium levels are normal. BUN 76 with a creatinine of 6.9. Glucose is 115. Calcium is 8.3 with a phosphorus of 6.8. Magnesium is now improved at 1.8. Albumin is 2.5. Microbiology; sacral wound cultures were positive for Citrobacter, Pseudomonas, Enterococcus. Klebsiella. ASSESSMENT: 1. Acute renal failure in the patient with no significant past medical history of chronic kidney disease. The patient was found to have bilateral hydronephrosis. The right side appear to be new, the left side has been chronic in nature. The patient had a right ureteral stent placed yesterday with no significant post-obstructive diuresis. Her BUN and creatinine remained stable despite hydration. The patient is developing more edema. IV fluids to be discontinued. The patient will discuss with Dr. Johnson as to the possible etiology of the colonic bilateral hydronephrosis and obstructive uropathy. I did explain to the patient's daughter and the patient in detail that she is likely approaching end-stage renal disease with no reversible etiology found. The patient would be a candidate for renal replacement therapy if agreeable to everybody. Family will make a decision in the next 24 hours. 2. History of hypertension. Blood pressure remains in an acceptable range. She remains on beta-florencio therapy alone, angiotensin receptor florencio therapy and diuretic therapy were discontinued. 3. History of colon cancer, stable. 4. History of multiple bowel surgeries secondary to obstruction with abdominal wall infections status post colostomy. This appears to be stable. 5. 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 The patient rhythm appears to be stable today. 6. 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 The patient remains on chronic anticoagulation. Repeat Doppler study of the lower extremity on admission showed a subacute thrombus of the right middle mid to distal femoral vein. The patient's daughter is asking whether or not she could go on Eliquis in place of Coumadin which requires monitoring. 7. History of anemia. Hemoglobin is stable at 9.8. She is status post transfusion of 2 units of packed red blood cells. No evidence for any bleeding. 8. History of sacral decubitus and a buttock wound. The patient is receiving topical antibiotic therapy. No systemic antibiotics. 9. Status post hypomagnesemia. Magnesium level is now normal on supplements. 10. History of secondary hyperparathyroidism. The patient's phosphorus level is 6.8. She continues on a renal diet along with binder therapy. PLAN: 1. Discussed with the patient's family in detail the possibility of dialysis. 2. Explain to them that there is likely no reversible etiology here. She probably has reduction of a GFR secondary to hydronephrosis and obstructive uropathy. 3. We will discontinue IV fluid hydration as she does not have a post-obstructive diuresis and she is developing more edema. 4. Continue to monitor labs on a daily basis. 5. Await family's decision about the possibility of initiating dialysis. 6. Discussed with the patient's daughter in detail. Also I discussed with Dr. Guy Guadalupe. Nikunj Soliman MD
--- NOTE | 2018-05-13 14:29 | PN ---
DATE: 05/13/2018 IMMEDIATE POSTOP NOTE SUBJECTIVE: The patient had Duke Catheter insert. FINAL DIAGNOSES: Hematuria, bilateral hydronephrosis, renal failure and urinary retention. The patient is stable. Has been dwelling Duke catheter. Plans to follow. This is an immediate postop note. Radames Johnson MD
--- NOTE | 2018-05-13 18:41 | CON ---
UROLOGY CONSULTATION DATE: 05/08/2018 REASON FOR CONSULTATION: Urinary retention and renal failure. HISTORY OF PRESENT ILLNESS: Ms. Nevaeh Mott is a very pleasant lady. She is admitted to this service by Dr. Guadalupe. She has advanced malignancy. It says on her admission diagnosis that history is obtained from the chart and also from her son who provided most of the Urology information. She is a very pleasant 82-year-old lady. Admitted to Dr. Guadalupe. The admitting diagnosis says, right leg DVT. She has advanced malignancy. She is being treated at [facility]. She has a elevated BUN and creatinine and that is now rising. She is scheduled at [facility] sometime in the middle of May for a cysto and a stent. Upon presentation, she has bilateral hydronephrosis. I over to the patient this afternoon about 2 o'clock, it is now about 5 p.m. on Thursday evening. patient on 05/08/2018 at about 2 p.m. when the nurses were not able to insert a Duke catheter (see separately dictated procedure note I was able to get one in [facility]) and then see the plan at the end. The patient is now currently in the hospital. Urology is consulted for further evaluation. See the plans below. PAST MEDICAL AND SURGICAL HISTORY: As listed in the chart, otherwise unremarkable from Urology standpoint. As I mentioned, she is scheduled for cysto and a stent. We are going to do here actually. See the plans below. PHYSICAL EXAMINATION: GENERAL: Well-nourished female, she is currently resting comfortably. Her son is at the bedside. See separately dictated procedure note. We were able dilate the meatus a little bit and then we were able to insert the Duke catheter and drain out urine. DIAGNOSES: 1. Anemia. 2. Renal failure. 3. Urinary retention. 4. Meatal stenosis. 5. Hidden meatus. ASSESSMENT, PLAN AND SUMMARY: At this point, the patient now has a Duke. We will see what happens to BUN and creatinine. If this does not improve on rapid basis, we will plan for a cysto and stent insertion. I did explained to the patient that another option is to go back to [facility] and just ask them if they can move out their procedure, but the patient and the son at this point, I think they want to stay here enough that she will be able to get back to her main doctors back in [place] and then the followup will be with urologist as well. So for ha, the plan is Duke to straight drainage and then we are going to make arrangements for Thursday for cysto and stent insertion. Further plans will follow. See the procedure note. We did a bedside small meatal dilation and insertion of a Duke, but this may not solve the problem. Hydronephrosis maybe above the level of kidney, it may be from bilateral adenopathy from her advanced cancer. Thank you for the Urology consult. Radames Johnson MD
--- NOTE | 2018-05-13 21:15 | OP ---
PROCEDURE DATE: 05/08/2018 PREOPERATIVE DIAGNOSES: Urinary retention, anemia, renal failure, bilateral hydronephrosis, advanced malignancy. POSTOPERATIVE DIAGNOSES: Urinary retention, anemia, renal failure, bilateral hydronephrosis, advanced malignancy, meatal stenosis, and hidden urethra. PROCEDURE: Meatal dilation at the bedside and insertion of Duke catheter. BLOOD LOSS: None. COMPLICATIONS: None. This was all done at the bedside. At the termination of the procedure, we have a working Duke catheter in place. INDICATIONS: See history and physical for the details. Very pleasant lady. She is under the care of Dr. Guadalupe and some covering physicians. Dr. oSliman is the renal doctor, but on the weekend it is Dr. Del Valle. We discussed the options. I became aware of the patient this afternoon at about 2 p.m. I got a phone call regarding the patient, that the nurses were not able to insert a Duke catheter. So, we came to the patient now at about 5 p.m. Under sterile technique, we tried inserting a Duke catheter. Because the nurse had difficulty, we were already prepared to have this found at the bedside and we were able to feel the urethra. It was actually also very hidden. I did not want to overdilate and cause bleeding and pain. So, afterwards, we were able to insert a coude tip catheter, 14 Portuguese. The patient tolerated this well. At the termination of the procedure, the patient had an indwelling Duke catheter. Draining well. From a urology standpoint as well: 1. We will monitor the patient's BUN and creatinine. 2. We will also monitor hematuria. Most likely, the patient will require a cysto stent insertion and I explained to the son in details that this may be difficult. I do not know all her previous history, but the hydronephrosis may be above the level of the bladder. We will see how she responds. But it may be bilateral adenopathy or the like. From her previous treatment and her ongoing malignancy, she has active disease and in fact deciding what next is the chemotherapy agent. From urology standpoint, the patient tolerated the procedure well without any complication. ADDENDUM: So, we have a Duke, but we are going to plan for a cysto if there is no improvement in BUN and creatinine. Further plans will follow. Radames Johnson MD [facility] # [id number]
[2018-05-14 07:36] LABS: HEMOGLOBIN 9.8 g/dL (12.0-16.0); MEAN CELL VOLUME 82.6 fl (80.0-105.0); MEAN CORPUSCULAR HEMOGLOBIN 26.6 pg (25.0-35.0); MEAN CORPUSCULAR HGB CONC 32.2 g/dl (31.0-37.0); MEAN PLATELET VOLUME 11.4 fl (7.0-11.0); RBC 3.68 10^6/uL (3.5-6.1); WHITE BLOOD COUNT 11.7 10^3/uL (4.5-11.0)
[2018-05-14 07:41] LABS: INR 2.8; PROTHROMBIN TIME 32.9 SECONDS (9.4-12.5)
[2018-05-14 07:51] LABS: ALB/GLOB RATIO 0.7 (1.1-1.8); ALBUMIN 2.5 g/dL (3.0-4.8); CALCIUM 8.1 mg/dL (8.4-10.5)
--- NOTE | 2018-05-14 07:54 | PCM.URO ---
Urology Progress Note - Objective Lab Studies: Reviewed (see previous dictated notes gu plans: check bun / creatinine and consider percutaneous drain on the left will discuss) Lab Results Last 24 Hours: Laboratory Results - last 24 hr 05/14/18 05/14/18 05/14/18 06:30 06:30 06:30 WBC 11.7 H RBC 3.68 Hgb 9.8 L Hct 30.4 L MCV 82.6 MCH 26.6 MCHC 32.2 RDW 16.0 H Plt Count 179 MPV 11.4 H PT 32.9 H INR 2.80 Sodium 139 Potassium 4.5 Chloride 110 H Carbon Dioxide 20 L Anion Gap 13 BUN 78 H Creatinine 6.8 H Est GFR ( Amer) 7 Est GFR (Non-Af Amer) 6 Random Glucose 126 H Calcium 8.1 L Total Bilirubin 0.3 AST 15 ALT 17 Alkaline Phosphatase 75 Total Protein 6.0 Albumin 2.5 L Globulin 3.6 Albumin/Globulin Ratio 0.7 L Intake & Output: Intake & Output 05/13/18 05/14/18 05/14/18 18:59 06:59 18:59 Intake Total 270 Output Total 400 400 Balance -130 -400 Intake: Oral 270 Output: Urine 400 400 Urine, Voided 400 400
[2018-05-14] MEDS: Silver Sulfadiazine 1% Cream (25 gm) TP SCH (10:00)
[2018-05-14] MEDS: Magnesium Oxide 400 mg Tab UD PO SCH (10:15)
--- NOTE | 2018-05-14 10:47 | PN ---
DATE: 05/13/2018 SUBJECTIVE: The patient was seen this morning in room 578, bed 2. She is comfortable in bed in no acute distress with ureteral stents having been placed on one side yesterday by Dr. Johnson. Case was also discussed with renal care consultant, Dr. Soliman this morning. PHYSICAL EXAMINATION: GENERAL: The patient is awake, alert and clear. LUNGS: Good aeration in both right and left lungs. EXTREMITIES: Showed some persistent small edema of the right leg from recent DVT. PLAN: With stents in place, we will resume Coumadin, check PT/INR for DVT, and follow for anemia. Discharge planning will need to be addressed in greater detail with the patient's son. Guy Guadalupe MD
--- NOTE | 2018-05-14 11:38 | PN ---
DATE: 05/14/2018 Please see many previously dictated notes starting with 05/08/2018. From Urology standpoint, the patient is currently resting. Duke catheter is in place draining. No other interim complaints. Today's BUN and creatinine is pending. See all the other notes. DIAGNOSES: Renal failure, hematuria, bilateral hydronephrosis. The patient is now status post a cysto, right retrograde, stent insertion with previous one on the left side. We will check today's BUN and creatinine and if there is no improvement, we are going to consult with Dr. Hilario Anand and may be he would consider inserting a nephrostomy tube in the left kidney and see how the patient does clinically, So, further plans will follow depending on how the patient does, but at this point if the creatinine is not getting better, we will need to reevaluate and consider the possibility of a left nephrostomy tube. Radames Johnson MD
[2018-05-14] MEDS: Iron Complex Polysacch 150mg Cap PO SCH (15:32)
[2018-05-14] MEDS ORDERED: Lidocaine 2% Inj (20ml) ONE (16:11)
[2018-05-14] MEDS ORDERED: Iodixanol 320 mg/ml 150 ml Bottle IV ONE (16:11)
--- NOTE | 2018-05-14 16:52 | PN ---
DATE: 05/14/2018 SUBJECTIVE: The patient is an 82-year-old female who was admitted to the [facility] on 05/06/2018 with a DVT of the right lower extremity. She self-discontinued her Coumadin at home and DVT developed, she noted swelling and tenderness in the leg, therefore, presented to the emergency room and is admitted. She is known to have a past medical history positive for hypertension, colon carcinoma, ureteral stent placement for hydronephrosis, and status post ileostomy placement for colon carcinoma. During this hospital stay, she was evaluated by Dr. Soliman, the anime artist, because of markedly elevated creatinine. It was seen that within the past month or two, her creatinine went from 1.06 to 6.8. They were unsure as to the etiology of this acute renal failure. She was evaluated by Dr. Radames Johnson, taken to the operating room, and bilateral ureteral stents were placed. At this point, we are concerned that there is no post obstruction diuresis noted and the patient may be requiring hemodialysis as per Dr. Soliman. When seen today, she was resting comfortably. She voices no complaints. Her PT/INR is 2.80. White blood cell count is 11.7, hemoglobin and hematocrit are 9.8 and 30.4 respectively. Sodium is 139, potassium 4.5, BUN is 78, creatinine is 6.8. Her blood pressure is 126/81, heart rate of [address] Hilario Anand is requested to consult as suggested by Dr. Johnson, the urologist for possible left-sided percutaneous nephrostomy drain. The order was written and the patient will be reevaluated in the morning. Saurav Guadalupe MD PAT
[2018-05-14] MEDS ORDERED: Midazolam 2 MG/2 ML VIAL ONE (17:17)
--- NOTE | 2018-05-14 17:26 | PN ---
DATE: 05/14/2018 SUBJECTIVE: The patient is currently seen on 5R with family in the room. There had been a decision regarding possibility of dialysis for this patient. She does not appear to be improving post placement of a right ureteral stent. Her family and the patient do not want to pursue dialysis. The note from Dr. Johnson was read, there is a possibility of placing a percutaneous nephrostomy tube on the left side. MEDICATIONS: Medication list reviewed. The patient is currently on Coumadin, Cozaar and hydrochlorothiazide are on hold, Lipitor, Lopressor, mag oxide, PhosLo, Silvadene cream, sodium bicarbonate, and Tylenol p.r.n. OBJECTIVE: Intake/output, intake is 270, output is 400. PHYSICAL EXAMINATION: VITAL SIGNS: Blood pressure is 126/81, temperature 97.8, respiratory rate 18 with a pulse of 74. HEENT: Exam shows her to be normocephalic, atraumatic. Conjunctivae are pale. Sclerae nonicteric. NECK: Supple. No neck vein distention. CHEST: Clear to auscultation and percussion. No rales, rhonchi or wheezing. CARDIOVASCULAR: Shows a regular rate and rhythm without audible murmurs, rubs or gallops. ABDOMEN: Positive for colostomy. No masses. No tenderness on palpation. No rebound or guarding. BACK: Positive sacral decubitus with a dressing in place. EXTREMITIES: Show trace to 1+ pitting edema of her legs bilaterally. Decreased lower extremity pulses. No cyanosis or clubbing. LABORATORY DATA AND IMAGING: CBC, white blood cell count today 11.7, hemoglobin stable 9.8, platelet count is 179,000. Coags show an INR of 2.8 with a PT of 32.9. Chemistries show a CO2 which is improved at 20. Sodium 139, potassium 4.5, chloride 110. BUN 70 with a creatinine of 6.8. Glucose is 126. Calcium is 8.1. Phosphorus is slightly improved at 6.8. Magnesium is stable at 1.8. Liver enzymes are normal. Albumin is 2.5. Microbiology, sacral decubitus cultures are positive for Citrobacter, Pseudomonas, Enterococcus and Klebsiella. ASSESSMENT: 1. Acute renal failure in a patient who has obstructive uropathy. No prior history of chronic kidney disease to speak of. The patient was found to have bilateral hydronephrosis. She had a stent placed in the right ureter with no significant improvement in her BUN and creatinine and no postobstructive diuresis. Of note, the patient has a longstanding left hydronephrosis with a likely poorly functioning left kidney secondary to longstanding obstructive uropathy. The patient is being evaluated by Dr. Johnson for the possibility of placing a left percutaneous nephrostomy tube. I am not certain that this is going to make a significant difference in her BUN and creatinine. Discussed with the patient's family yesterday and with the patient the possibility of renal replacement therapy, their decision right now is not to do renal replacement therapy. The patient will not be a dialysis candidate. 2. Hypertension. Blood pressure is controlled on present medication. The patient will remain off angiotensin receptor florencio therapy and diuretic therapy. Her blood pressure is well controlled on low-dose beta-florencio therapy. 3. History of colon cancer, stable. 4. History of multiple bowel surgeries secondary to obstruction with abdominal wall infection status post colostomy. This appears to be stable. 5. 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 The patient appears to be in a regular rhythm today. 6. 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 The patient remains on chronic anticoagulation with an INR in an acceptable range. Repeat Doppler study done on admission showed a subacute thrombus of her right mid to distal femoral vein. 7. History of anemia. Hemoglobin remains stable at 9.8. She is status post transfusion of 2 units of packed red blood cells. No evidence for bleeding. 8. History of sacral decubitus and buttock wound. The patient is receiving topical antibiotic therapy. 9. Status post mild hypomagnesemia, on low-dose magnesium supplement. Magnesium level remains normal at 1.8. 10. History of secondary hyperparathyroidism. The patient is on a renal diet and she continues on binder therapy with calcium acetate. PLAN: 1. Discussed with the patient again. It appears that she is comfortable with the decision not to do dialysis. 2. Continue local wound care for her sacral decubitus and buttock wound. 3. Discontinued IV fluid hydration as she was developing significant increased edema of her lower extremity and she was not having a post-obstructive diuresis. 4. Await final decision of interventional radiology and Dr. Johnson regarding the possibility of placing a percutaneous nephrostomy tube. 5. Iron saturations were 33%. The patient may receive Aranesp on a weekly basis. I will also start the patient on oral iron therapy. Nikunj Soliman MD
[2018-05-14 18:02] LABS: HEPATITIS B SURFACE AG Negative (NEGATIVE)
[2018-05-14 18:08] LABS: HEPATITIS B CORE AB NEGATIVE (NEGATIVE)
[2018-05-14] MEDS: Sodium Chloride 0.45% 1,000 ML IV SCH (19:36)
--- NOTE | 2018-05-14 19:48 | VASCULAR ---
PROCEDURE: 1. Left antegrade pyelogram. 2. Left percutaneous nephrostomy tube placement. HISTORY: Stage IV colon CA. Bilateral hydronephrosis with acute renal failure. Previous right internal ureteral stent. Needs nephrostomy tube. PHYSICIAN(S): Hilario Anand MD. TECHNIQUE: The relative risks and indications of the procedure were explained to the patient and her family and consent obtained. The patient was placed prone on the arteriogram table and the left back and flank prepped and draped in the usual sterile fashion. Conscious sedation and monitoring were provided throughout the procedure by a nurse. A single pass with a 21-gauge needle was performed and the left renal pelvis was entered. Chocolate colored urine was aspirated. Contrast was injected and an antegrade pyelogram performed. A second puncture site involving a left lower polecalyx was selected for tube placement. 1% Xylocaine was used to anesthetize the skin and soft tissues. An 18-gauge needle was advanced under fluoroscopy into a right lower polecalyx. A 0.035 angled guidewire was coiled within the renal pelvis. Sequential dilatation was performed with subsequent placement of a 12French nephrostomy tube. The tube was secured and placed to gravity drainage. The patient tolerated the procedure well. FINDINGS: There is severe left hydronephrosis. The point of obstruction appears to be at the superior aspect of the left SI joint. Tortuosity is noted. No contrast enters the bladder. Incidental note is made of a right internal ureteral stent. IMPRESSION: 1.Severe left hydronephrosis. Point of obstruction is at the level of the upper left SI joint 2. Successful placement of a 12 Lithuanian left nephrostomy tube.
[2018-05-14] MEDS: Oxycodone/Acetaminophen 10/325 mg Tab PO PRN (21:14)
[2018-05-15 07:39] LABS: HEMOGLOBIN 9.4 g/dL (12.0-16.0); MEAN CELL VOLUME 83.3 fl (80.0-105.0); MEAN CORPUSCULAR HEMOGLOBIN 26.6 pg (25.0-35.0); RBC 3.53 10^6/uL (3.5-6.1); RED CELL DISTRIBUTION WIDTH 16.2 % (11.5-14.5); WHITE BLOOD COUNT 11.1 10^3/uL (4.5-11.0)
[2018-05-15 08:10] LABS: ALB/GLOB RATIO 0.7 (1.1-1.8); ALBUMIN 2.3 g/dL (3.0-4.8); CALCIUM 8.1 mg/dL (8.4-10.5)
--- NOTE | 2018-05-15 09:04 | PN ---
DATE: 05/15/2018 SUBJECTIVE: The patient is currently seen lying supine in bed on 5R. She is complaining of discomfort from peripheral neuropathy on her lower extremity. She is also complaining of pain over her sacral decubitus area. It appears that the patient and her family will not pursue dialysis. She is working with Dr. Johnson to figure out a possible alternative way to relieve for obstructive uropathy. Placement of a right ureteral stent has not resulted in a reduction in any reduction in her BUN and creatinine despite a increase in urine output. MEDICATIONS: Medication list reviewed. The patient is currently on Aranesp, Coumadin, Duragesic, Ferrex, Lipitor, Lopressor, mag oxide, Percocet, PhosLo, Silvadene, sodium bicarbonate, half-normal saline 60 mL an hour, Tylenol p.r.n. and Zofran p.r.n. OBJECTIVE: INTAKE/OUTPUT: Intake 75 plus, output 1330. VITAL SIGNS: Blood pressure 110/65, temperature 97.6, respiratory rate 18, with a pulse of 67. HEENT: Shows her be normocephalic, atraumatic. Conjunctivae pale. Sclerae nonicteric. NECK: Supple. No neck vein distention. CHEST: Clear to auscultation and percussion with no rales, rhonchi or wheezing. CARDIOVASCULAR: Shows a regular rate and rhythm without audible murmurs, rubs or gallops. ABDOMEN: Positive for colostomy. No masses. No tenderness on palpation. No rebound or guarding. BACK: Positive sacral decubitus dressing in place. EXTREMITIES: Show trace to 1+ pitting edema of her legs bilaterally. Decreased lower extremity pulses. LABORATORY DATA AND IMAGING STUDIES: CBC; white blood cell count 11.1, hemoglobin 9.4 with a platelet count of 185,000. Chemistries from today are pending, yesterday's BUN was 78 with a creatinine of 6.8. CO2 level was improved to 20. Electrolytes are otherwise normal. Calcium was 8.1 with an albumin of 2.5, corrects to normal. Last phosphorus level was 6.8 with a magnesium level now normal at 1.8. Microbiology; sacral decubitus and buttock cultures were positive for Citrobacter, Pseudomonas, Enterococcus, Klebsiella. ASSESSMENT: 1. Acute renal failure in a patient with obstructive uropathy. Prior to this admission, the patient has had no significant chronic kidney disease. She was found on imaging studies to have bilateral hydronephrosis. The patient appears to have chronic left-sided hydronephrosis with a new-onset right-sided hydronephrosis. She had a stent placed in the right ureter with no significant proven in her BUN and creatinine despite a slight increase in her urine output. In all likelihood, the patient has a poorly functioning left kidney in light of her longstanding left-sided hydronephrosis. She is being evaluated by Dr. Johnson for the possibility of placement of a left percutaneous nephrostomy tube. If this goes into the left side, I am not certain this is going to make much of a difference of her left kidney is not working. Family's decision was not to pursue renal replacement therapy. She was deemed not to be a dialysis candidate by her family. 2. Hypertension. Blood pressure is controlled on present medication. The patient will remain off of angiotensin receptor florencio therapy and diuretic therapy. Her blood pressure is being controlled on low-dose beta-florencio therapy. 3. History of colon cancer, stable. 4. History of multiple bowel surgeries secondary to obstruction with abdominal wall infections status post colostomy. This appears to be stable. 5. 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 The patient appears to be in a regular rhythm today. 6. 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 The patient remains on chronic anticoagulation on Coumadin therapy. Repeat Doppler study done on admission showed a subacute thrombus of her right mid to distal femoral vein. Her last PT was 32.9 with an INR of 2.80. 7. History of anemia. Hemoglobin remains stable at 9.4. She is status post transfusion 2 units packed red blood cells. 8. History of sacral decubitus and buttock wound. The patient is symptomatic and is in pain from this. She is receiving topical antibiotic therapy and local wound care. 9. Status post mild hypomagnesemia, corrected with low-dose magnesium supplements. 10. History of secondary hyperparathyroidism. The patient remains on a renal diet. She continues binder therapy. Repeat phosphorus level is pending. PLAN: 1. Discussed with the patient again. She is comfortable with the decision not to do dialysis. 2. Continue local wound care for sacral decubitus and buttock wound. 3. P.r.n. pain medications. 4. From a renal standpoint, IV fluids may be discontinued. 5. For her anemia, the patient may continue on a weekly Aranesp and oral iron therapy. Her iron saturations were 33%. 6. Await final decision with Dr. Johnson and Dr. Hilario Anand regarding possible placement of her percutaneous nephrostomy tube. Nikunj Soliman MD
[2018-05-15] MEDS ORDERED: Darbepoetin Alfa 60 mcg/ml Inj SC ONE (10:00)
[2018-05-15] MEDS: Magnesium Oxide 400 mg Tab UD PO SCH (11:28)
[2018-05-15] MEDS: Iron Complex Polysacch 150mg Cap PO SCH (11:28)
[2018-05-15] MEDS: Oxycodone/Acetaminophen 10/325 mg Tab PO PRN ×3 (11:45→20:03)
[2018-05-15] MEDS ORDERED: Alum-Mag Hydrox-Simethicone Susp (30 mL) PO ONE (12:00)
[2018-05-15] MEDS: Silver Sulfadiazine 1% Cream (25 gm) TP SCH (15:33)
[2018-05-15] MEDS: Sodium Chloride 0.45% 1,000 ML IV SCH (18:08)
[2018-05-16] MEDS: Oxycodone/Acetaminophen 10/325 mg Tab PO PRN ×3 (06:43→15:45)
[2018-05-16 08:00] LABS: HEMOGLOBIN 9.4 g/dL (12.0-16.0); MEAN CELL VOLUME 84.1 fl (80.0-105.0); MEAN CORPUSCULAR HEMOGLOBIN 26.6 pg (25.0-35.0); MEAN CORPUSCULAR HGB CONC 31.6 g/dl (31.0-37.0); MEAN PLATELET VOLUME 11.8 fl (7.0-11.0); RBC 3.53 10^6/uL (3.5-6.1); RED CELL DISTRIBUTION WIDTH 16.3 % (11.5-14.5)
[2018-05-16 08:11] LABS: ALB/GLOB RATIO 0.7 (1.1-1.8); ALBUMIN 2.4 g/dL (3.0-4.8); CALCIUM 8.3 mg/dL (8.4-10.5)
--- NOTE | 2018-05-16 10:57 | PN ---
DATE: 05/16/2018 SUBJECTIVE: The patient is currently seen in 5R. She remains on IV fluid hydration. Oral intake has been minimal. The patient is complaining of mild discomfort over her sacral decubitus area over her buttock area. Family's decision was not to pursue dialysis. The patient has bilateral obstructive uropathy. She had a right ureteral stent placed during this present hospitalization. She has longstanding left-sided obstructive uropathy. She has had an increase in her urine output, but no significant decrease yet in her creatinine as of yet, today's creatinine is down to 6.0 from a high of 7.2. The patient is s/p placement of a Left sided percutaneous nephrostomy tube. MEDICATIONS: Medication list reviewed. The patient is currently on Coumadin, Duragesic, iron, Lipitor, Lopressor, mag oxide, Percocet, PhosLo, Silvadene, sodium bicarbonate, half-normal saline 60 mL an hour, Tylenol p.r.n. and Zofran p.r.n. OBJECTIVE: INTAKE AND OUTPUT: Not charted. VITAL SIGNS: Blood pressure 107/64, temperature 98.2, pulse of 91, respiratory rate of 80 with a pulse ox of 96%. HEENT: Shows her be normocephalic, atraumatic. Conjunctivae remain pale. Sclerae nonicteric. NECK: Supple. No neck vein distention. CHEST: Clear to auscultation and percussion with no rales, rhonchi, or wheezing. CARDIOVASCULAR: Shows a regular rate and rhythm without audible murmurs, rubs or gallops. ABDOMEN: Positive colostomy. No masses. No tenderness on palpation. No rebound or guarding. BACK: Dressing over her sacral decubitus. No drainage. L PCN. EXTREMITIES: Show trace pitting edema of her feet bilaterally. Decreased lower extremity pulses. LABORATORY DATA AND IMAGING STUDIES: CBC; white blood cell count today 13.0, hemoglobin 9.4, platelet count of 195,000. Chemistries show a sodium of 138, potassium 4.5, chloride 110 with a CO2 of 20, stable. BUN slightly better at 74, creatinine lower at 6.0. Glucose 113 with a calcium of 8.3. Iron saturations were 33%. Liver enzymes were normal. Albumin is 2.4. Microbiology; sacral and buttock wound cultures are positive for Citrobacter, Pseudomonas, Enterococcus and Klebsiella. ASSESSMENT: 1. Acute renal failure in a patient with obstructive uropathy. The patient has no significant past history of chronic kidney disease. Her imaging studies done during the early part of the hospitalization showed bilateral hydronephrosis. She appears to have chronic left-sided hydronephrosis with new-onset right-sided hydronephrosis despite stent placement on the right ureter. There was no real significant decline in her BUN and creatinine though she has trended downward in the last 24 hours. The patient's family are not interested in dialysis. The patient is not interested in dialysis. The patient is s/p L PCN in the side where she had longstanding hydronephrosis. 2. History of hypertension. Blood pressure is controlled on present medication. The patient will remain off of angiotensin receptor florencio therapy and diuretic therapy. Her blood pressure is being controlled on low-dose beta-florencio therapy. 3. History of colon cancer, stable. 4. History of multiple bowel surgeries secondary to obstruction with abdominal wall infections status post colostomy. This appears to be stable. 5. 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 The patient's rhythm appears to be stable today. 6. 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 The patient remains on chronic anticoagulation with Coumadin. Her last INR was 2.8 with a PT of 32.9. Doppler study done during the early part of this admission showed subacute thrombus of the right mid and distal femoral vein. 7. History of anemia. Hemoglobin remains stable in the 9-10 range. She is status post transfusion of 2 units of packed red blood cells. The patient remains on weekly Aranesp and oral iron therapy. 8. History of sacral decubitus and buttock wound cultures are positive as noted above. She is receiving topical antibiotics with no systemic antibiotics. 9. Status post mild hypomagnesemia. This is been corrected with magnesium supplements. Last magnesium level was 1.8. 10. History of secondary hyperparathyroidism with elevated phosphorus levels. This is likely secondary to acute renal failure and the patient will continue a renal diet and phosphorus binder therapy with calcium acetate. PLAN: 1. I again discussed with the patient. There are no plans for dialysis. The patient is comfortable with this decision. 2. Continue local antibiotic topical therapy for her sacral decubitus and buttock wound. 3. Once the patient's oral intake improves, we can discontinue IV fluid hydration. 4. Continue Aranesp and oral iron therapy for her anemia. Transfuse on a p.r.n. basis. 5. Monitor urine output L PCN tube. Nikunj Soliman MD PAT
[2018-05-16] MEDS: Iron Complex Polysacch 150mg Cap PO SCH (11:29)
[2018-05-16] MEDS: Magnesium Oxide 400 mg Tab UD PO SCH (11:35)
[2018-05-16] MEDS: Silver Sulfadiazine 1% Cream (25 gm) TP SCH (15:49)
[2018-05-17 07:18] LABS: HEMOGLOBIN 8.7 g/dL (12.0-16.0); MEAN CELL VOLUME 84.5 fl (80.0-105.0); MEAN CORPUSCULAR HEMOGLOBIN 27.4 pg (25.0-35.0); MEAN CORPUSCULAR HGB CONC 32.5 g/dl (31.0-37.0); MEAN PLATELET VOLUME 10.4 fl (7.0-11.0); RBC 3.17 10^6/uL (3.5-6.1); RED CELL DISTRIBUTION WIDTH 16.3 % (11.5-14.5); WHITE BLOOD COUNT 14.3 10^3/uL (4.5-11.0)
[2018-05-17 09:17] LABS: ALB/GLOB RATIO 0.6 (1.1-1.8); ALBUMIN 2.1 g/dL (3.0-4.8); CALCIUM 7.9 mg/dL (8.4-10.5)
[2018-05-17] MEDS: Magnesium Oxide 400 mg Tab UD PO SCH (10:47)
[2018-05-17] MEDS: Iron Complex Polysacch 150mg Cap PO SCH (10:47)
[2018-05-17] MEDS: Oxycodone/Acetaminophen 10/325 mg Tab PO PRN (11:01)
[2018-05-17] MEDS: Sodium Chloride 0.45% 1,000 ML IV SCH (12:25)
--- NOTE | 2018-05-17 12:51 | PN ---
DATE: 05/15/2018 SUBJECTIVE: The patient is an 82-year-old female who was admitted to [facility] on 05/06 with a deep vein thrombosis of the right lower extremity. She had discontinued her Coumadin while at home, the DVT developed therefore and the leg swelling was noted. So the patient was brought in for treatment. PAST MEDICAL HISTORY: Positive for hypertension, colon carcinoma, ureteral stent placement for hydronephrosis status post ileostomy placement for colon carcinoma. She had a markedly elevated creatinine which is unusual for the patient just 1 or 2 months ago, the creatinine was 1.6; however, on admission was 6.8. CT scan was performed and showed hydronephrosis. Dr. Johnson was asked to consult. The patient was taken to the operating room for bilateral stenting. Apparently, one stent could not be placed. Therefore, the patient was taken to the operating room with Dr. Hilario Anand and a left nephrostomy tube was placed. The patient also has a sacral decubitus for which Dr. Mcmahan, the surgeon was asked to evaluate, he did not feel that it needed any debridement or surgical intervention, but we will continue treating the patient topically. Dr. Soliman is following the patient from the renal point of view. The patient and her family is refusing hemodialysis up to this point. When seen, the patient is resting comfortably. She voices no complaints. LABORATORY STUDIES: Show the BUN and creatinine still to be 76 and 6.4 respectively. Potassium is 4.5. Sodium is 138, white blood cell count is 11.1, hemoglobin is 9.4. Her blood pressure is 115/73 and heart rate of 70. We are continuing with the current regimen. The case was discussed with Dr. Soliman. Saurav Guadalupe MD
--- NOTE | 2018-05-17 12:57 | PN ---
DATE: 05/16/2018 HISTORY OF PRESENT ILLNESS: The patient is an 82-year-old female with a past medical history positive for hypertension, colon carcinoma, ureteral stent placement for hydronephrosis status post ileostomy placement for colon carcinoma. She presented to the emergency room on 05/06 with a swollen leg, found to be positive for DVT. Her Coumadin was resumed, but also of note, the patient had acute renal failure with a creatinine of 6.8. Renal functions were normal 1 or 2 months prior to presentation. She was evaluated by Dr. Soliman, the painter and decorator apprentice, Dr. Johnson the urologist. She was taken to the operating room for bilateral ureteral stents to be placed. The patient tolerated the procedure well. However, Dr. Johnson was still requesting nephrostomy tube to be placed, so once again the patient underwent left nephrostomy tube placement with Dr. Hilario Anand. When seen, the patient is resting comfortably, voices no complaints. Her lab results are unremarkable. Blood urea nitrogen is 74, creatinine 6.0. Her blood pressure is 107/64. PT/INR is 2.8. We are continuing to follow the patient closely. Saurav Guadalupe MD
[2018-05-17] MEDS: Silver Sulfadiazine 1% Cream (25 gm) TP SCH (13:00)
[2018-05-17] MEDS: Oxycodone/Acetaminophen 5/325 mg Tab PO PRN (15:23)
[2018-05-18] MEDS: Sodium Chloride 0.45% 1,000 ML IV SCH ×2 (05:48→22:13)
--- NOTE | 2018-05-18 08:18 | PN ---
DATE: 05/17/2018 SUBJECTIVE: The patient is seen lying in bed. She complains of generalized body ache. She denies any chest tightness. PHYSICAL EXAMINATION: GENERAL: Elderly lady lying in bed. VITAL SIGNS: Blood pressure 93/57, heart rate 67, respiratory rate 18, temperature 98.4. HEENT: Normocephalic, atraumatic, positive pallor. NECK: Supple, no JVD. LUNGS: Bilateral equal air entry, no rales, no rhonchi. CARDIAC: S1, S2, regular rate and rhythm, no murmur, no rub. ABDOMEN: Soft, nondistended, nontender, bowel sounds present. EXTREMITIES: No lower extremity edema. LABORATORY DATA: WBC 14, hemoglobin 8.7, hematocrit 27, platelets 162. Sodium 138, potassium 4.5, chloride 111, CO2 of 21, BUN 71, creatinine 5.7, glucose 123, calcium 7.9, phosphorus 5.1, magnesium 1.7. Sacral wound cultures, Citrobacter freundii, Pseudomonas and enterococcus, buttocks for Klebsiella and Pseudomonas. CURRENT MEDICATIONS: Coumadin, losartan 100, Duragesic, Ferrex, hydrochlorothiazide 25 daily, Lipitor 20, Lopressor 12.5 daily, mag oxide, Percocet, PhosLo, Silvadene, sodium bicarbonate 650 b.i.d., half-normal saline discontinued, Tylenol, Zofran. ASSESSMENT AND PLAN: 1. Acute renal failure in a patient with obstructive uropathy. Underlying chronic kidney disease? renal parameters unchanged. No plans for dialysis as per the patient and family decision. 2. History of hypertension, currently low blood pressure. 3. History of colon cancer. 4. History of multiple bowel surgeries secondary to obstruction. 5. Coronary artery disease, paroxysmal atrial fibrillation. 6. History of anemia. 7. Infected sacral decubitus and buttock wound. 8. Secondary hyperparathyroidism, hyperphosphatemia. PLAN: 1. No plans for dialysis as per the patient and family wishes. 2. Continue wound care and local antibiotic therapy. 3. Discontinue hydrochlorothiazide. 4. Push p.o. fluids. 5. Continue to hold ARB. 6.. Avoid nephrotoxins. Corrie Yee MD [facility] # [id number]
[2018-05-18] MEDS: Iron Complex Polysacch 150mg Cap PO SCH (10:07)
[2018-05-18] MEDS: Magnesium Oxide 400 mg Tab UD PO SCH (10:07)
[2018-05-18] MEDS: Oxycodone/Acetaminophen 5/325 mg Tab PO PRN (10:07)
[2018-05-18] MEDS: Silver Sulfadiazine 1% Cream (25 gm) TP SCH (10:07)
--- NOTE | 2018-05-18 10:41 | CP.PCM.APN ---
Subjective - Date & Time of Evaluation Date of Evaluation: 05/18/18 Time of Evaluation: 10:30 - Subjective Subjective: Pt seen and examined at bedside. C/O abdominal tenderness around colostomy. Denies nausea or vomiting. Colostomy draining brown stool. Objective - Vital Signs/Intake and Output Vital Signs (last 24 hours): Temp Pulse Resp BP Pulse Ox 98.4 F 90 19 99/65 L 96 05/18/18 08:18 05/18/18 08:18 05/18/18 08:18 05/18/18 08:18 05/18/18 08:18 Intake and Output: 05/18/18 05/18/18 06:59 18:59 Intake Total 360 Output Total 700 Balance -340 - Medications Medications: Current Medications Acetaminophen (Tylenol 325mg Tab) 650 mg PO Q4 PRN PRN Reason: Pain, moderate (4-7) Last Admin: 05/11/18 11:33 Dose: 650 mg Atorvastatin Calcium (Lipitor) 10 mg PO DAILY [facility] Last Admin: 05/17/18 10:47 Dose: 10 mg Calcium Acetate (Phoslo) 667 mg PO WM [facility] Last Admin: 05/18/18 08:06 Dose: 667 mg Fentanyl (Duragesic) 1 patch TD Q72H [facility] Last Admin: 05/16/18 11:30 Dose: 1 patch Hydrochlorothiazide (Hydrodiuril) 25 mg PO DAILY [facility] Last Admin: 05/07/18 09:54 Dose: 25 mg Sodium Chloride (Sodium Chloride 0.45%) 1,000 mls @ 60 mls/hr IV .[id number] [facility] Last Admin: 05/18/18 05:48 Dose: Not Given Losartan Potassium (Cozaar) 100 mg PO DAILY [facility] Last Admin: 05/07/18 09:53 Dose: 100 mg Magnesium Oxide (Mag-Ox) 400 mg PO DAILY [facility] Last Admin: 05/17/18 10:47 Dose: 400 mg Metoprolol Tartrate (Lopressor) 12.5 mg PO DAILY [facility] Last Admin: 05/17/18 10:47 Dose: 12.5 mg Ondansetron HCl (Zofran Inj) 4 mg IVP Q6H PRN PRN Reason: Nausea/Vomiting Oxycodone/Acetaminophen (Percocet 5/325 Mg Tab) 1 tab PO Q4H PRN PRN Reason: Pain, severe (8-10) Stop: 05/20/18 15:13 Last Admin: 05/17/18 15:23 Dose: 1 tab Polysaccharide Iron Complex (Ferrex-150) 150 mg PO DAILY [facility] Last Admin: 05/17/18 10:47 Dose: 150 mg Silver Sulfadiazine (Silvadene 1% 25 Gm) 1 gm TP DAILY [facility] Last Admin: 05/17/18 13:00 Dose: 1 gm Sodium Bicarbonate (Sodium Bicarbonate Tab) 650 mg PO BID [facility] Last Admin: 05/17/18 17:20 Dose: 650 mg Warfarin Sodium (Coumadin) 2 mg PO 1800 [facility]; Protocol Last Admin: 05/17/18 17:20 Dose: 2 mg - Labs Labs: 05/17/18 06:55 05/17/18 06:55 PT 32.9 SECONDS (9.4-12.5) H 05/14/18 06:30 INR 2.80 05/14/18 06:30 APTT 31.3 Seconds (25.1-36.5) 05/06/18 17:12 - Constitutional Appears: Well, No Acute Distress - Head Exam Head Exam: ATRAUMATIC, NORMOCEPHALIC - Eye Exam Eye Exam: Normal appearance - ENT Exam ENT Exam: Normal Exam - Neck Exam Neck Exam: Full ROM - Respiratory Exam Respiratory Exam: Clear to Ausculation Bilateral, NORMAL BREATHING PATTERN - Cardiovascular Exam Cardiovascular Exam: REGULAR RHYTHM, +S1, +S2 - GI/Abdominal Exam GI & Abdominal Exam: Tenderness Additional comments: + colostomy - Rectal Exam Rectal Exam: Deferred - Exam Additional comments: +L nephrostomy tube draining bloody fluid, no clots noted Mo draining bloody urine, no clots noted - Neurological Exam Neurological Exam: Alert, Awake, Oriented x3 - Skin Additional comments: sacral ulcer Assessment and Plan - Assessment and Plan (Free Text) Assessment: Pt is an 82 y.o. female admitted for R leg DVT and severe bilateral hydronephrosis with acute renal failure. She was s/p cysto, gilmar retrograde pyelogram, b/l ureteroscopy and insertion of R ureteral JJ stent. On 05/14, she was s/p L percutaneous nephrostomy tube placement by Dr. Hilario Anand. D/W Dr. Guadalupe, pt has leukocytosis but has been afebrile will consult infectious disease. Will also reconsult surgery for sacral ulcer & for tenderness around colostomy site. Plan: Monitor mo and nephrostomy tube output Monitor bun/cr Meds per MAR , Renal, Surgery, ID and IR on consult Will continue to follow
[2018-05-18 10:47] LABS: HEMOGLOBIN 9.6 g/dL (12.0-16.0); MEAN CELL VOLUME 84.3 fl (80.0-105.0); MEAN PLATELET VOLUME 10.1 fl (7.0-11.0); RBC 3.56 10^6/uL (3.5-6.1); WHITE BLOOD COUNT 15.5 10^3/uL (4.5-11.0)
[2018-05-18 10:57] LABS: CALCIUM 8.5 mg/dL (8.4-10.5)
[2018-05-18 11:28] LABS: PROTHROMBIN TIME 47.2 SECONDS (9.4-12.5)
[2018-05-18 11:34] LABS: INR 3.99
--- NOTE | 2018-05-18 13:15 | PN ---
DATE: 05/18/2018 SUBJECTIVE: The patient is currently seen lying in bed. She has a [facility] catheter in place draining small amounts of red tinged urine and she has a nephrostomy tube left side also draining blood-tinged urine. The patient has had a slight decrease in her BUN and creatinine. She has not had the expected post-obstructive diuresis. She does remain on IV fluid hydration. She has renal failure in the setting of bilateral obstructive uropathy. Again is noted in multiple previous notes, there are no plans for any dialytic therapy as per family and the patient's wishes. MEDICATIONS: Medication list reviewed. The patient is currently on Coumadin which is on hold, losartan on hold, Duragesic, iron, hydrochlorothiazide on hold, Lipitor, Lopressor, mag oxide, Percocet, PhosLo, Silvadene cream, oral sodium bicarbonate, half-normal saline 60 mL an hour, Tylenol p.r.n. and Zofran p.r.n. OBJECTIVE: INTAKE/OUTPUT: Intake is 360, output is 700. Difficult to tell how much is coming from the nephrostomy tube and how much is coming from the [facility] catheter. VITAL SIGNS: Blood pressure 99/65, temperature 98.4, pulse of 90 with a respiratory rate of 19. HEENT: Normocephalic, atraumatic. Conjunctivae are pale. Sclerae nonicteric. NECK: Supple. No neck vein distention. CHEST: Clear to auscultation and percussion with no rales, rhonchi, or wheezing. CARDIOVASCULAR: Shows a regular rate and rhythm without audible murmurs, rubs, or gallops. ABDOMEN: Soft. Bowel sounds normal. Positive colostomy. No rebound, guarding, or masses. BACK: Dressing over her sacral decubitus. No drainage. Positive left percutaneous nephrostomy. EXTREMITIES: Show trace pitting edema of her feet bilaterally. With decreased lower extremity pulses. LABORATORY DATA AND IMAGING STUDIES: CBC; white blood cell count 15.5, slightly higher; hemoglobin 9.6, stable; platelet count is 201,000. Coags showed an INR of 3.99. Coumadin is on hold. Chemistry showed normal electrolytes. CO2 is improved to 22 on bicarbonate supplements. BUN and creatinine remain elevated, but slightly improved. BUN is 69 with a creatinine of 5.1. Her maximum creatinine during the hospitalization was 7.2. Glucose is 119. Calcium is 8.5. Last phosphorus 5.1, the magnesium level of 1.7. Albumin remains low at 2.1. Microbiology; wound cultures of the sacral decubitus and buttock wound were positive for Citrobacter, Pseudomonas, Enterococcus, and Klebsiella. ASSESSMENT: 1. Acute renal failure in the setting of bilateral obstructive uropathy. The patient has a right ureteral stent and left percutaneous nephrostomy tube. It is difficult to assess the origins of her urine output as these are not being charted separately. I have asked the staff on 5R to chart separately for nephrostomy tube output and for a [facility] output. The patient has had a slight reduction in her BUN and creatinine, but she has not had the expected post-obstructive diuresis. In all likelihood she might have slight further improvement in her BUN and creatinine, but she will not go down to her baseline levels. 2. History of hypertension. Blood pressure is in the low normal range, off medication. She does continue on low-dose beta-florencio therapy for her history of paroxysmal atrial fibrillation. 3. History of colon cancer, stable. 4. History of multiple bowel surgeries secondary to obstruction with abdominal wall infections status post colostomy. This appears to be stable. 5. 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 The patient's rhythm appears to be normal today. She does remain on chronic anticoagulation with beta-florencio therapy. 6. 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 The patient remains on chronic anticoagulation. This was stopped for the elevated INR and blood in her urine. Doppler study done on admission showed subacute thrombus of the right mid and distal femoral vein. 7. History of anemia. The patient has received a total of 2 units of packed red blood cells. She does continue on Aranesp and oral iron therapy. 8. History of sacral decubitus and buttock wound cultures are as noted above. The patient was receiving topical antibiotics only. 9. Status post mild hypomagnesemia. Her last magnesium level was excellent at 1.7 on low-dose supplements. 10. History of secondary hyperparathyroidism. The patient's phosphorus level was 5.1. The patient should remain on a renal diet. The patient will continue binder therapy with PhosLo. PLAN: 1. Plan as outlined above. 2. Continue to monitor laboratory work on a frequent basis. 3. Continue to monitor daily PT/INR as her level are elevated. 4. To make Urology aware of her hematuria. 5. Continue Aranesp and oral iron. 6. Discussed with the staff the need to monitor urine output from the [facility] and urine output from the left percutaneous nephrostomy tube separately. Nikunj Soliman MD
--- NOTE | 2018-05-18 17:12 | CON ---
DATE: 05/18/2018 The patient is seen in room 571, bed 1. CHIEF COMPLAINT: Elevated WBC count x1 day duration. HISTORY OF PRESENT ILLNESS: This is an 82-year-old female with history of DVT, history of colon cancer, peripheral vascular disease, hypertension, small bowel obstruction, coronary artery disease, who was admitted, who was found to have obstructive nephropathy, had a left-sided nephrostomy tube and had a cystoscopy and now has an increase in WBC count. The patient has mild shortness of breath and low-grade fevers, no chest pain. There is mild cough. REVIEW OF SYSTEMS: Review of system reveals a 12-point review systems. PAST MEDICAL HISTORY: Significant for colon cancer, hypertension, coronary artery disease, DVT, peripheral vascular disease and small bowel obstruction. PAST SURGICAL HISTORY: Significant for a left-sided Port-A-Cath. The patient also had a ureteral stent, IVC filter placement and a colon resection and ostomy. ALLERGIES: THE PATIENT IS ALLERGIC TO LATEX. MEDICATIONS AT HOME: Include Coumadin, oxycodone, metoprolol. PHYSICAL EXAMINATION: GENERAL: The patient is in bed, appearing chronically ill, debilitated, end-stage, cachectic with a temperature of 98, heart rate of 72 up to 91. BMI is 19, respiratory rate of 20, blood pressure is 94/60. HEENT: Examination of HEENT is unremarkable. NECK: Supple. LUNGS: Have decreased breath sounds. HEART: Normal S1, S2. ABDOMEN: Soft, nontender. No organomegaly. No rebound or guarding. MUSCULOSKELETAL: Examination of sacrum reveals a stage IV decubitus ulcer and necrotic tissue. LABORATORY DATA: Laboratory examination reveals the patient's white count is 15,500, hemoglobin of 9, platelets of 201. Coagulation is noted. Chemistries reveals a BUN of 69, creatinine of 5.1. Urinalysis is noted. Serology is noted. Microbiology is reviewed with Citrobacter Pseudomonas Enterobacter from sacrum and the patient's CT scan is also noted of the abdomen pelvis from 05/09/2018. ASSESSMENT AND PLAN: This is an 82-year-old female, colon cancer, peripheral vascular disease, hypertension and coronary artery disease, now with a heart rate of 91 and white count elevation. 1. Sepsis, sacral decubitus ulcer and cellulitis, must rule out a healthcare-associated pneumonia versus urine as the source of infection. We will start the patient on meropenem and doxycycline pending blood cultures, urine cultures, sputum cultures, urinalysis and we will order a procalcitonin and nasal MRSA screen and chest x-ray portable one, and we will make further recommendations upon the availability of initial results, and will follow with you. Jose Packer MD
[2018-05-19 07:54] LABS: BASO # 0.01 K/mm3 (0.0-2.0); BASO % 0.1 % (0.0-3.0); EOS # 0.3 (0.0-0.7); EOS % 2.1 % (1.5-5.0); GRAN # 12.02 (1.4-6.5); GRAN % 88.6 % (50.0-68.0); HEMOGLOBIN 8.5 g/dL (12.0-16.0); LYMPH # 0.8 (1.2-3.4); LYMPH % 6.2 % (22.0-35.0); MEAN CELL VOLUME 84.1 fl (80.0-105.0); MEAN CORPUSCULAR HGB CONC 32.1 g/dl (31.0-37.0); MEAN PLATELET VOLUME 10.6 fl (7.0-11.0); MONO # 0.4 (0.1-0.6); RBC 3.15 10^6/uL (3.5-6.1); RED CELL DISTRIBUTION WIDTH 16.1 % (11.5-14.5); WHITE BLOOD COUNT 13.6 10^3/uL (4.5-11.0)
[2018-05-19 08:00] LABS: CALCIUM 8.1 mg/dL (8.4-10.5); INR 3.34; PROTHROMBIN TIME 39.4 SECONDS (9.4-12.5)
[2018-05-19] MEDS: Magnesium Oxide 400 mg Tab UD PO SCH (10:39)
[2018-05-19] MEDS: Iron Complex Polysacch 150mg Cap PO SCH (10:40)
--- NOTE | 2018-05-19 11:05 | CP.PCM.CON ---
History of Present Illness - History of Present Illness History of Present Illness: Jeremi Arriaza, PGY1 Surgery Consult Note for Dr. Mcmahan cc: worsening sacral ulcer Patient is a 82 y/o F with PMH afib, HTN, HLD, DVT on Warfarin, Colon canc er s/p colectomy and end colostomy, sacral decubitus ulcer and neuropathy admitted to [facility] [place], [place] for RLE DVT. Patient is largely bedbound due to neuropathy and generalized weakness in her legs. Initially, surgery was consulted for evaluation of sacral decubitus ulcer. Patient was evaluated appropriately and her sacral ulcer was categorized as stage III. At the time, conservative ma nagement was recommended for air mattress, frequent turns, and local wound care with silvadene and optifoam dressing. During hospital course, surgery was re- consulted for worsening sacral decubitus ulcer. Patient seen and examined at bedside. She endorses pain at her left flank, where her nephrostomy tube is in place. Otherwise, no fevers, chills, abdominal pain, nausea, vomiting, cp, sob. PMH: colon cancer s/p resection x2 with end colostomy in 2010, chemo and radiation, neuropathy, DVT on warfarin, HTN, HLD PSH: colectomy with end colostomy, IVC filter, port placement Medications: Coumadin, HCTZ, Lipitor, Losartan, Metoprolol Allergies: NKDA Family Hx: unknown Social: denies tobacco/EtOH/illicit drug use. Son is her csw. Review of Systems - Review of Systems All systems: reviewed and no additional remarkable complaints except (as per HPI) Past Patient History - Infectious Disease Hx of Infectious Diseases: None - Past Medical History & Family History Past Medical History?: Yes - Past Social History Smoking Status: Never Smoked - CARDIAC Hx Cardiac Disorders: Yes Hx Hypertension: Yes - PULMONARY Hx Respiratory Disorders: Yes Hx Asthma: Yes - NEUROLOGICAL Hx Neurological Disorder: No - HEENT Hx HEENT Problems: No - RENAL Hx Chronic Kidney Disease: No - ENDOCRINE/METABOLIC Hx Endocrine Disorders: No - HEMATOLOGICAL/ONCOLOGICAL Hx Blood Transfusions: Yes Hx Blood Transfusion Reaction: No - INTEGUMENTARY Hx Dermatological Problems: No - MUSCULOSKELETAL/RHEUMATOLOGICAL Hx Falls: No Hx Gout: Yes Other/Comment: osteoporosis - GASTROINTESTINAL Other/Comment: Colon CA. H/O Colon resection - GENITOURINARY/GYNECOLOGICAL Hx Genitourinary Disorders: No - PSYCHIATRIC Hx Depression: No Hx Emotional Abuse: No Hx Physical Abuse: No Hx Substance Use: No - SURGICAL HISTORY Hx Surgeries: Yes - ANESTHESIA Hx Anesthesia Reactions: No Hx Malignant Hyperthermia: No Meds Allergies/Adverse Reactions: Allergies Allergy/AdvReac Type Severity Reaction Status Date / Time latex Allergy skin Verified 12/06/17 19:16 breakdown - Medications Medications: Current Medications Acetaminophen (Tylenol 325mg Tab) 650 mg PO Q4 PRN PRN Reason: Pain, moderate (4-7) Last Admin: 05/11/18 11:33 Dose: 650 mg Atorvastatin Calcium (Lipitor) 10 mg PO DAILY [facility] Last Admin: 05/19/18 10:39 Dose: 10 mg Calcium Acetate (Phoslo) 667 mg PO WM [facility] Last Admin: 05/19/18 10:39 Dose: 667 mg Fentanyl (Duragesic) 1 patch TD Q72H [facility] Last Admin: 05/19/18 10:40 Dose: 1 patch Hydrochlorothiazide (Hydrodiuril) 25 mg PO DAILY [facility] Last Admin: 05/07/18 09:54 Dose: 25 mg Sodium Chloride (Sodium Chloride 0.45%) 1,000 mls @ 60 mls/hr IV .[id number] [facility] Last Admin: 05/18/18 22:13 Dose: 60 mls/hr Meropenem 250 mg/ Sodium (Chloride) 100 mls @ 100 mls/hr IVPB Q12H [facility]; Protocol Stop: 05/27/18 16:31 Last Admin: 05/19/18 05:50 Dose: 100 mls/hr Doxycycline Hyclate 100 mg/ (Sodium Chloride) 100 mls @ 100 mls/hr IVPB Q12 [facility]; Protocol Last Admin: 05/18/18 22:12 Dose: 100 mls/hr Losartan Potassium (Cozaar) 100 mg PO DAILY [facility] Last Admin: 05/07/18 09:53 Dose: 100 mg Magnesium Oxide (Mag-Ox) 400 mg PO DAILY [facility] Last Admin: 05/19/18 10:39 Dose: 400 mg Metoprolol Tartrate (Lopressor) 12.5 mg PO DAILY [facility] Last Admin: 05/19/18 10:40 Dose: 12.5 mg Ondansetron HCl (Zofran Inj) 4 mg IVP Q6H PRN PRN Reason: Nausea/Vomiting Oxycodone/Acetaminophen (Percocet 5/325 Mg Tab) 1 tab PO Q4H PRN PRN Reason: Pain, severe (8-10) Stop: 05/20/18 15:13 Last Admin: 05/18/18 10:07 Dose: 1 tab Polysaccharide Iron Complex (Ferrex-150) 150 mg PO DAILY [facility] Last Admin: 05/19/18 10:40 Dose: 150 mg Silver Sulfadiazine (Silvadene 1% 25 Gm) 1 gm TP DAILY [facility] Last Admin: 05/18/18 10:07 Dose: 1 gm Sodium Bicarbonate (Sodium Bicarbonate Tab) 650 mg PO BID [facility] Last Admin: 05/19/18 10:40 Dose: 650 mg Warfarin Sodium (Coumadin) 2 mg PO 1800 [facility]; Protocol Last Admin: 05/17/18 17:20 Dose: 2 mg Physical Exam - Constitutional Appears: No Acute Distress - Head Exam Head Exam: ATRAUMATIC, NORMAL INSPECTION, NORMOCEPHALIC - Eye Exam Eye Exam: Normal appearance - ENT Exam ENT Exam: Mucous Membranes Moist - Respiratory Exam Respiratory Exam: Clear to Auscultation Bilateral. absent: Rales, Rhonchi, Wheezes, Respiratory Distress - Cardiovascular Exam Cardiovascular Exam: RRR, +S1, +S2 - GI/Abdominal Exam GI & Abdominal Exam: Normal Bowel Sounds, Soft. absent: Guarding, Rigid, Tenderness Additional comments: ostomy site pink patent and productive with no signs of ischemia, infection or bleeding. Ostomy appliance is in position without any leaks, large midline incisional scare noted, well healed. - Exam Additional comments: Stage V sacral decubitus ulcer. Worsened from previous encounter. Betadine with optifoam dressing applied. Nephrostomy tube in place. - Extremities Exam Extremities exam: Positive for: pedal pulses present. Negative for: calf tenderness - Neurological Exam Neurological exam: Alert, Oriented x3 - Skin Skin Exam: Dry, Intact, Normal Color, Warm Results - Vital Signs Recent Vital Signs: Last Vital Signs Temp 98.7 F 05/19/18 06:00 Pulse 81 05/19/18 06:00 Resp 18 05/19/18 06:00 BP 107/65 05/19/18 06:00 Pulse Ox 100 05/19/18 06:00 - Labs Result Diagrams: 05/19/18 07:30 05/19/18 07:30 Labs: Laboratory Results - last 24 hr 05/18/18 05/19/18 05/19/18 10:30 07:30 07:30 WBC 13.6 H RBC 3.15 L Hgb 8.5 L Hct 26.5 L MCV 84.1 MCH 27.0 MCHC 32.1 RDW 16.1 H Plt Count 206 MPV 10.6 Gran % 88.6 H Lymph % (Auto) 6.2 L Ward % (Auto) 3.0 Eos % (Auto) 2.1 Baso % (Auto) 0.1 Gran # 12.02 H Lymph # (Auto) 0.8 L Ward # (Auto) 0.4 Eos # (Auto) 0.3 Baso # (Auto) 0.01 PT 47.2 H 39.4 H INR 3.99 H* 3.34 Sodium Potassium Chloride Carbon Dioxide Anion Gap BUN Creatinine Est GFR ( Amer) Est GFR (Non-Af Amer) Random Glucose Calcium Phosphorus Magnesium 05/19/18 07:30 WBC RBC Hgb Hct MCV MCH MCHC RDW Plt Count MPV Gran % Lymph % (Auto) Ward % (Auto) Eos % (Auto) Baso % (Auto) Gran # Lymph # (Auto) Ward # (Auto) Eos # (Auto) Baso # (Auto) PT INR Sodium 137 Potassium 4.5 Chloride 109 H Carbon Dioxide 21 Anion Gap 12 BUN 65 H Creatinine 5.0 H Est GFR ( Amer) 10 Est GFR (Non-Af Amer) 8 Random Glucose 81 Calcium 8.1 L Phosphorus 4.8 H Magnesium 1.7 Assessment & Plan - Assessment and Plan (Free Text) Assessment: 82 y/o F with Stage 5 Sacral Decubitus Ulcer Plan: - Re-consulted for worsening sacral ulcer; will plan for eventual debridement, possibly tomorrow - Warfarin is held - c/w antibiotics as per ID recs - c/w local wound care - Further recs as per Dr. Mcmahan
--- NOTE | 2018-05-19 11:42 | CP.PCM.APN ---
Subjective - Date & Time of Evaluation Date of Evaluation: 05/19/18 Time of Evaluation: 10:00 - Subjective Subjective: Pt seen and examined at bedside. In no respiratory distress. Pt c/o pain on sacral area. Objective - Vital Signs/Intake and Output Vital Signs (last 24 hours): Temp Pulse Resp BP Pulse Ox 98.7 F 81 18 107/65 100 05/19/18 06:00 05/19/18 06:00 05/19/18 06:00 05/19/18 06:00 05/19/18 06:00 Intake and Output: 05/19/18 05/19/18 06:59 18:59 Intake Total 370 Output Total 550 Balance -180 - Medications Medications: Current Medications Acetaminophen (Tylenol 325mg Tab) 650 mg PO Q4 PRN PRN Reason: Pain, moderate (4-7) Last Admin: 05/11/18 11:33 Dose: 650 mg Atorvastatin Calcium (Lipitor) 10 mg PO DAILY [facility] Last Admin: 05/19/18 10:39 Dose: 10 mg Calcium Acetate (Phoslo) 667 mg PO WM [facility] Last Admin: 05/19/18 10:39 Dose: 667 mg Fentanyl (Duragesic) 1 patch TD Q72H [facility] Last Admin: 05/19/18 10:40 Dose: 1 patch Hydrochlorothiazide (Hydrodiuril) 25 mg PO DAILY [facility] Last Admin: 05/07/18 09:54 Dose: 25 mg Sodium Chloride (Sodium Chloride 0.45%) 1,000 mls @ 60 mls/hr IV .[id number] [facility] Last Admin: 05/18/18 22:13 Dose: 60 mls/hr Meropenem 250 mg/ Sodium (Chloride) 100 mls @ 100 mls/hr IVPB Q12H [facility]; Protocol Stop: 05/27/18 16:31 Last Admin: 05/19/18 05:50 Dose: 100 mls/hr Doxycycline Hyclate 100 mg/ (Sodium Chloride) 100 mls @ 100 mls/hr IVPB Q12 [facility]; Protocol Last Admin: 05/18/18 22:12 Dose: 100 mls/hr Losartan Potassium (Cozaar) 100 mg PO DAILY [facility] Last Admin: 05/07/18 09:53 Dose: 100 mg Magnesium Oxide (Mag-Ox) 400 mg PO DAILY [facility] Last Admin: 05/19/18 10:39 Dose: 400 mg Metoprolol Tartrate (Lopressor) 12.5 mg PO DAILY [facility] Last Admin: 05/19/18 10:40 Dose: 12.5 mg Ondansetron HCl (Zofran Inj) 4 mg IVP Q6H PRN PRN Reason: Nausea/Vomiting Oxycodone/Acetaminophen (Percocet 5/325 Mg Tab) 1 tab PO Q4H PRN PRN Reason: Pain, severe (8-10) Stop: 05/20/18 15:13 Last Admin: 05/18/18 10:07 Dose: 1 tab Polysaccharide Iron Complex (Ferrex-150) 150 mg PO DAILY [facility] Last Admin: 05/19/18 10:40 Dose: 150 mg Silver Sulfadiazine (Silvadene 1% 25 Gm) 1 gm TP DAILY [facility] Last Admin: 05/18/18 10:07 Dose: 1 gm Sodium Bicarbonate (Sodium Bicarbonate Tab) 650 mg PO BID [facility] Last Admin: 05/19/18 10:40 Dose: 650 mg Warfarin Sodium (Coumadin) 2 mg PO 1800 [facility]; Protocol Last Admin: 05/17/18 17:20 Dose: 2 mg - Labs Labs: 05/19/18 07:30 05/19/18 07:30 PT 39.4 SECONDS (9.4-12.5) H 05/19/18 07:30 INR 3.34 05/19/18 07:30 APTT 31.3 Seconds (25.1-36.5) 05/06/18 17:12 - Constitutional Appears: No Acute Distress - Head Exam Head Exam: ATRAUMATIC - Eye Exam Eye Exam: Normal appearance - ENT Exam ENT Exam: Normal Exam - Neck Exam Neck Exam: Full ROM - Respiratory Exam Respiratory Exam: Decreased Breath Sounds - Cardiovascular Exam Cardiovascular Exam: REGULAR RHYTHM, +S1, +S2 - GI/Abdominal Exam GI & Abdominal Exam: Soft, Normal Bowel Sounds Additional comments: +colostomy w/ brown stool - Rectal Exam Rectal Exam: Deferred - Exam Additional comments: + mo draining yellow urine + L nephrostomy tube draining dark elisha fluid - Skin Additional comments: + sacral wound w/ foul odor, no drainage noted Assessment and Plan - Assessment and Plan (Free Text) Assessment: Pt is an 82 y.o. female admitted for R leg DVT and severe bilateral hydron ephrosis with acute renal failure. She was s/p cysto, gilmar retrograde pyelogram, b/l ureteroscopy and insertion of R ureteral JJ stent. On 05/14, she was s/p L percutaneous nephrostomy tube placement by Dr. Hilario Anand. ID was consulted d/t leukocytosis, she was started on Doxy/Merrem IV abx pending blood, urine, wound and sputum cx. Re-consulted sx d/t worsening sacral ulcer. Plan: Per Sx, possible sacral wound debridement tomorrow on Doxy/Merrem IV per ID recs Pending sacral, urine, and blood cultures ID, Renal, Uro, and Sx on consult Meds per MAR Will continue to follow
--- NOTE | 2018-05-19 12:13 | RAD ---
Date of service: 05/18/2018 HISTORY: Pneumonia? COMPARISON: 05/06/2018 FINDINGS: LUNGS: No active pulmonary disease. PLEURA: No significant pleural effusion identified, no pneumothorax apparent. CARDIOVASCULAR: No atherosclerotic calcification present Venous access catheter in stable, satisfactory position. OSSEOUS STRUCTURES: No significant abnormalities. VISUALIZED UPPER ABDOMEN: Normal. OTHER FINDINGS: None. IMPRESSION: No active disease. No significant interval change compared to the prior examination(s).
[2018-05-19] MEDS: Silver Sulfadiazine 1% Cream (25 gm) TP SCH (13:17)
--- NOTE | 2018-05-19 14:18 | CP.PCM.PN ---
Subjective - Date & Time of Evaluation Date of Evaluation: 05/19/18 Time of Evaluation: 14:17 - Subjective Subjective: ID progress note PGY-[address] Packer Pt tolerated lunch, taking nap, easily awaken. complained of back pain, chronic. denies f/c, cp, sob, n/v/d/c, dysuira Objective - Vital Signs/Intake and Output Vital Signs (last 24 hours): Temp Pulse Resp BP Pulse Ox 98.7 F 81 18 107/65 100 05/19/18 06:00 05/19/18 06:00 05/19/18 06:00 05/19/18 06:00 05/19/18 06:00 Intake and Output: 05/19/18 05/19/18 06:59 18:59 Intake Total 370 Output Total 550 Balance -180 - Medications Medications: Current Medications Acetaminophen (Tylenol 325mg Tab) 650 mg PO Q4 PRN PRN Reason: Pain, moderate (4-7) Last Admin: 05/11/18 11:33 Dose: 650 mg Atorvastatin Calcium (Lipitor) 10 mg PO DAILY [facility] Last Admin: 05/19/18 10:39 Dose: 10 mg Calcium Acetate (Phoslo) 667 mg PO WM [facility] Last Admin: 05/19/18 13:17 Dose: Not Given Fentanyl (Duragesic) 1 patch TD Q72H [facility] Last Admin: 05/19/18 10:40 Dose: 1 patch Hydrochlorothiazide (Hydrodiuril) 25 mg PO DAILY [facility] Last Admin: 05/07/18 09:54 Dose: 25 mg Sodium Chloride (Sodium Chloride 0.45%) 1,000 mls @ 60 mls/hr IV .[id number] [facility] Last Admin: 05/18/18 22:13 Dose: 60 mls/hr Meropenem 250 mg/ Sodium (Chloride) 100 mls @ 100 mls/hr IVPB Q12H [facility]; Protocol Stop: 05/27/18 16:31 Last Admin: 05/19/18 05:50 Dose: 100 mls/hr Doxycycline Hyclate 100 mg/ (Sodium Chloride) 100 mls @ 100 mls/hr IVPB Q12 [facility]; Protocol Last Admin: 05/19/18 13:45 Dose: 100 mls/hr Losartan Potassium (Cozaar) 100 mg PO DAILY [facility] Last Admin: 05/07/18 09:53 Dose: 100 mg Magnesium Oxide (Mag-Ox) 400 mg PO DAILY [facility] Last Admin: 05/19/18 10:39 Dose: 400 mg Metoprolol Tartrate (Lopressor) 12.5 mg PO DAILY [facility] Last Admin: 05/19/18 10:40 Dose: 12.5 mg Ondansetron HCl (Zofran Inj) 4 mg IVP Q6H PRN PRN Reason: Nausea/Vomiting Oxycodone/Acetaminophen (Percocet 5/325 Mg Tab) 1 tab PO Q4H PRN PRN Reason: Pain, severe (8-10) Stop: 05/20/18 15:13 Last Admin: 05/18/18 10:07 Dose: 1 tab Polysaccharide Iron Complex (Ferrex-150) 150 mg PO DAILY [facility] Last Admin: 05/19/18 10:40 Dose: 150 mg Silver Sulfadiazine (Silvadene 1% 25 Gm) 1 gm TP DAILY [facility] Last Admin: 05/19/18 13:17 Dose: Not Given Sodium Bicarbonate (Sodium Bicarbonate Tab) 650 mg PO BID [facility] Last Admin: 05/19/18 10:40 Dose: 650 mg Warfarin Sodium (Coumadin) 2 mg PO 1800 [facility]; Protocol Last Admin: 05/17/18 17:20 Dose: 2 mg - Labs Labs: 05/19/18 07:30 05/19/18 07:30 PT 39.4 SECONDS (9.4-12.5) H 05/19/18 07:30 INR 3.34 05/19/18 07:30 APTT 31.3 Seconds (25.1-36.5) 05/06/18 17:12 - Constitutional Appears: No Acute Distress - Head Exam Head Exam: ATRAUMATIC, NORMAL INSPECTION, NORMOCEPHALIC - Eye Exam Eye Exam: EOMI, Normal appearance, PERRL. absent: Scleral icterus Pupil Exam: NORMAL ACCOMODATION - ENT Exam ENT Exam: Mucous Membranes Moist - Neck Exam Additional comments: supple - Respiratory Exam Respiratory Exam: Clear to Ausculation Bilateral. absent: Rales, Rhonchi, Wheezes - Cardiovascular Exam Cardiovascular Exam: REGULAR RHYTHM, +S1, +S2 - GI/Abdominal Exam GI & Abdominal Exam: Soft, Normal Bowel Sounds. absent: Guarding, Rigid, Tenderness Additional comments: ostomy site pink. Ostomy appliance is in position without any leaks, large midline incisional scare noted, well healed. - Extremities Exam Extremities Exam: Pedal Edema Additional comments: pain on palpation, chronic - Neurological Exam Neurological Exam: Alert, Awake - Psychiatric Exam Psychiatric exam: Normal Affect, Normal Mood - Skin Skin Exam: Dry, Warm Assessment and Plan - Assessment and Plan (Free Text) Plan: Ms Mott, 82F, with Hx DVT with IVC filter, colon ca s/p resection with end colostomy, chemo, radiation (2010), CAD/PVD, SBO, was found to have obstructive nephropathy, had a L-sided nephrostomy tube and cystoscopy, now increase WBC. A: Sepsis, likely due to sacral debubitus ulcer with cellulitis, R/O HCAP, R/O Urinary tract infection Leukocytosis 13.6 Unstagable pressure ulcer - worsen ESRD on nephrostomy tube L port-a-cath Ostomy in place P: Merem and doxy (day 2) f/u surgery re: plan for debridement Lab/imaging: BCx: UCx: Sputum Cx: Wound Cx: gram neg evans U/A: Procalcitonin 1.43 CXR - no active disease. no change compared to 05/06/18 s/r/d/w Dr Packer
--- NOTE | 2018-05-19 17:47 | PN ---
DATE: 05/19/2018 SUBJECTIVE: The patient is in bed, in no acute distress, chronically ill, debilitated, low-grade fevers. PHYSICAL EXAMINATION: VITAL SIGNS: Temperature of 99.7, respiratory rate of 18, heart rate of 97. HEENT: Examination of HEENT is unremarkable. NECK: Supple. LUNGS: Have decreased breath sounds. HEART: Normal S1 and S2. ABDOMEN: Soft. LABORATORY EXAMINATION: Reveals a white count of 13,600. Chemistry is reviewed with a BUN of 65, creatinine of 5.0. Procalcitonin is 1.43. Urinalysis is noted. Serology is reviewed. Microbiology reveals a gram-negative rods from the sacrum and Citrobacter and pseudomonas and Enterobacter. ASSESSMENT AND PLAN: This is an 82-year-old who is admitted with sepsis, sacral decubitus ulcer and cellulitis. healthcare-associated pneumonia, on doxycycline, meropenem on day #2. Review of orders reveals the meropenem and doxycycline to be active. Overall prognosis is quite poor. Jose Packer MD
[2018-05-19] MEDS: Sodium Chloride 0.45% 1,000 ML IV SCH (17:49)
--- NOTE | 2018-05-20 01:38 | PN ---
DATE: 05/19/2018 SUBJECTIVE: The patient is seen lying in bed. She is arousable. She is groggy. She complains of pain all over. PHYSICAL EXAMINATION: GENERAL: Elderly lady lying in bed. VITAL SIGNS: Blood pressure 98/67, heart rate 66, respiratory rate 16, and temperature 98.5. HEENT: Normocephalic and atraumatic, positive pallor. NECK: Supple. No JVD. LUNGS: Bilateral equal air entry, bilateral equal expansion. CARDIAC: S1 and S2, regular rate and rhythm. No murmurs. No rubs. ABDOMEN: Obese, distended, soft, and nontender. Bowel sounds present. EXTREMITIES: No lower extremity edema. LABORATORY DATA: WBC 13.6, hemoglobin 8.5, hematocrit 26.5, and platelets 206. Sodium 137, potassium 4.5, chloride 109, CO2 of 21, BUN 65, creatinine 5, glucose 81, calcium 8.1, phosphorus 4.8, and magnesium 1.7. Blood culture no growth. Wound culture Gram-negative evans. CURRENT MEDICATIONS: Coumadin, losartan 100 on hold, doxycycline 100 every 12 hours, Duragesic, iron, Lipitor 10, Lopressor 12.5 b.i.d., magnesium oxide 400, meropenem 250 every 12 hours, PhosLo, sodium bicarbonate 650 b.i.d., half-normal saline at 60, Tylenol, and Zofran. ASSESSMENT: 1. 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 2. Obstructive uropathy, right ureteral stent, and left percutaneous nephrostomy. 3. History of hypertension, currently blood pressure is low. 4. History of colon cancer. 5. History of multiple bowel surgeries. 6. Coronary artery disease, paroxysmal atrial fibrillation. 7. Deep venous thrombosis, history of inferior vena cava filter. 8. History of anemia. 9. Infected sacral decubitus. 10. Secondary hyperparathyroidism. PLAN: 1. The patient does not want dialysis. 2. Continue [facility], monitor urine output. 3. Monitor electrolytes. 4. Avoid nephrotoxins. 5. Continue antibiotics. 6. Continue wound care. Corrie Yee MD [facility] # [id number]
[2018-05-20 08:13] LABS: BASO # 0.01 K/mm3 (0.0-2.0); BASO % 0.1 % (0.0-3.0); EOS # 0.3 (0.0-0.7); EOS % 2.2 % (1.5-5.0); GRAN # 12.69 (1.4-6.5); HEMOGLOBIN 8.6 g/dL (12.0-16.0); LYMPH # 0.7 (1.2-3.4); LYMPH % 4.6 % (22.0-35.0); MEAN CELL VOLUME 84.5 fl (80.0-105.0); MEAN CORPUSCULAR HEMOGLOBIN 26.6 pg (25.0-35.0); MEAN CORPUSCULAR HGB CONC 31.5 g/dl (31.0-37.0); MEAN PLATELET VOLUME 10.1 fl (7.0-11.0); MONO # 0.6 (0.1-0.6); MONO % 4.1 % (1.0-6.0); PLATELET COUNT 228 10^3/uL (120.0-450.0); RBC 3.23 10^6/uL (3.5-6.1); RED CELL DISTRIBUTION WIDTH 16.4 % (11.5-14.5); WHITE BLOOD COUNT 14.2 10^3/uL (4.5-11.0)
[2018-05-20 08:19] LABS: INR 2.6; PARTIAL THROMBOPLASTIN TIME 36.3 Seconds (25.1-36.5); PROTHROMBIN TIME 30.5 SECONDS (9.4-12.5)
[2018-05-20 09:26] LABS: EOSINOPHIL 4 % (0.0-3.0); LYMPHOCYTE 1 % (22.0-35.0); MONOCYTE 2 % (1.0-6.0); NEUTROPHIL 93 % (50.0-70.0)
[2018-05-20] MEDS: Silver Sulfadiazine 1% Cream (25 gm) TP SCH (09:59)
[2018-05-20] MEDS ORDERED: Morphine 2 mg/ml ISec IVP ONE (10:12)
--- NOTE | 2018-05-20 10:19 | CP.PCM.APN ---
Subjective - Date & Time of Evaluation Date of Evaluation: 05/20/18 Time of Evaluation: 10:00 - Subjective Subjective: Pt seen and examined. She is sleeping but easily arousable. Pt is c/o pain on sacral area where the sacral wound is. Objective - Vital Signs/Intake and Output Vital Signs (last 24 hours): Temp Pulse Resp BP Pulse Ox 98.5 F 90 20 110/61 96 05/19/18 23:13 05/19/18 23:13 05/19/18 23:13 05/19/18 23:13 05/19/18 23:13 Intake and Output: 05/20/18 05/20/18 06:59 18:59 Output Total 100 Balance -100 - Medications Medications: Current Medications Acetaminophen (Tylenol 325mg Tab) 650 mg PO Q4 PRN PRN Reason: Pain, moderate (4-7) Last Admin: 05/11/18 11:33 Dose: 650 mg Atorvastatin Calcium (Lipitor) 10 mg PO DAILY [facility] Last Admin: 05/19/18 10:39 Dose: 10 mg Calcium Acetate (Phoslo) 667 mg PO WM [facility] Last Admin: 05/19/18 17:45 Dose: 667 mg Hydrochlorothiazide (Hydrodiuril) 25 mg PO DAILY [facility] Last Admin: 05/07/18 09:54 Dose: 25 mg Sodium Chloride (Sodium Chloride 0.45%) 1,000 mls @ 60 mls/hr IV .[id number] [facility] Last Admin: 05/19/18 17:49 Dose: 60 mls/hr Meropenem 250 mg/ Sodium (Chloride) 100 mls @ 100 mls/hr IVPB Q12H [facility]; Protocol Stop: 05/27/18 16:31 Last Admin: 05/20/18 05:22 Dose: 100 mls/hr Doxycycline Hyclate 100 mg/ (Sodium Chloride) 100 mls @ 100 mls/hr IVPB Q12 [facility]; Protocol Last Admin: 05/19/18 21:27 Dose: 100 mls/hr Losartan Potassium (Cozaar) 100 mg PO DAILY [facility] Last Admin: 05/07/18 09:53 Dose: 100 mg Magnesium Oxide (Mag-Ox) 400 mg PO DAILY [facility] Last Admin: 05/19/18 10:39 Dose: 400 mg Metoprolol Tartrate (Lopressor) 12.5 mg PO DAILY [facility] Last Admin: 05/19/18 10:40 Dose: 12.5 mg Ondansetron HCl (Zofran Inj) 4 mg IVP Q6H PRN PRN Reason: Nausea/Vomiting Oxycodone/Acetaminophen (Percocet 5/325 Mg Tab) 1 tab PO Q4H PRN PRN Reason: Pain, severe (8-10) Stop: 05/20/18 15:13 Last Admin: 05/18/18 10:07 Dose: 1 tab Polysaccharide Iron Complex (Ferrex-150) 150 mg PO DAILY [facility] Last Admin: 05/19/18 10:40 Dose: 150 mg Silver Sulfadiazine (Silvadene 1% 25 Gm) 1 gm TP DAILY [facility] Last Admin: 05/19/18 13:17 Dose: Not Given Sodium Bicarbonate (Sodium Bicarbonate Tab) 650 mg PO BID [facility] Last Admin: 05/19/18 17:45 Dose: 650 mg Warfarin Sodium (Coumadin) 2 mg PO 1800 [facility]; Protocol Last Admin: 05/17/18 17:20 Dose: 2 mg - Labs Labs: 05/20/18 07:00 05/19/18 07:30 PT 30.5 SECONDS (9.4-12.5) H 05/20/18 07:00 INR 2.60 05/20/18 07:00 APTT 36.3 Seconds (25.1-36.5) 05/20/18 07:00 - Constitutional Appears: No Acute Distress - Head Exam Head Exam: ATRAUMATIC - Eye Exam Eye Exam: Normal appearance - ENT Exam ENT Exam: Normal Exam - Neck Exam Neck Exam: Full ROM - Respiratory Exam Respiratory Exam: Decreased Breath Sounds - Cardiovascular Exam Cardiovascular Exam: REGULAR RHYTHM, +S1, +S2 - GI/Abdominal Exam Additional comments: +colostomy - Rectal Exam Rectal Exam: Deferred - Exam Additional comments: + mo draining elisha urine + L nephrostomy tube draining dark elisha fluid - Extremities Exam Additional comments: b/l leg swelling, R>L - Neurological Exam Neurological Exam: Alert, Awake, Oriented x3 - Skin Additional comments: +sacral wound Assessment and Plan - Assessment and Plan (Free Text) Assessment: Pt is an 82 y.o. female initially admitted for R leg DVT and severe bilateral hydronephrosis with acute renal failure. She was s/p cysto, gilmar retrograde pyelogram, b/l ureteroscopy and insertion of R ureteral JJ stent. She was s/p L percutaneous nephrostomy tube placement. Laboratory Results - last 24 hr 05/18/18 05/20/18 05/20/18 18:00 07:00 07:00 WBC 14.2 H RBC 3.23 L Hgb 8.6 L Hct 27.3 L MCV 84.5 MCH 26.6 MCHC 31.5 RDW 16.4 H Plt Count 228 MPV 10.1 Gran % 89.0 H Lymph % (Auto) 4.6 L Moca % (Auto) 4.1 Eos % (Auto) 2.2 Baso % (Auto) 0.1 Gran # 12.69 H Lymph # (Auto) 0.7 L Moca # (Auto) 0.6 Eos # (Auto) 0.3 Baso # (Auto) 0.01 Neutrophils % (Manual) 93 H Lymphocytes % (Manual) 1 L Monocytes % (Manual) 2 Eosinophils % (Manual) 4 H PT 30.5 H INR 2.60 APTT 36.3 Procalcitonin 1.43 H Impressions Chest X-Ray 05/18/18 16:30 IMPRESSION: No active disease. No significant interval change compared to the prior examination(s). Plan: For possible sacral wound debridement today On Doxy/Merrem IV per ID recs ID, Renal, Uro and Surgery on consult Meds per MAR Will continue to follow
[2018-05-20] MEDS: Magnesium Oxide 400 mg Tab UD PO SCH ×2 (10:43→17:29)
[2018-05-20] MEDS: Iron Complex Polysacch 150mg Cap PO SCH ×2 (10:44→17:29)
[2018-05-20] MEDS ORDERED: Bupivacaine 0.5% 50 ML IJ ONE (11:35)
[2018-05-20] MEDS ORDERED: Etomidate 20 mg/10ml Inj IV ONE (11:52)
[2018-05-20] MEDS ORDERED: Sevoflurane - Inhalation Anesthetic Liq (250 ml) ONE (11:55)
[2018-05-20] MEDS ORDERED: Bupivacaine 0.5% Inj(30mL) IJ ONE (12:10)
[2018-05-20] MEDS ORDERED: Oxychlorosene Topical 2 gm Packet TOP ONE ×2 (12:15→12:25)
--- NOTE | 2018-05-20 12:47 | PCM.SURG1 ---
Surgeon's Initial Post Op Note - Surgeon's Notes Surgeon: Dr. Mcmahan Carbider: Ivonne PGY4, PGY2 Type of Anesthesia: General IV, IV Sedation Pre-Operative Diagnosis: Unstagable Sacral Decubitus Ulcer Operative Findings: see op note Post-Operative Diagnosis: Necrotic Stage 4 sacral Decubitus ulcer Operation Performed: Sharp Debridement of skin, soft tissue, and muscle sacral decubitus ulcer w/ VerseJet Specimen/Specimens Removed: 1. Culture of sacral wound Estimated Blood Loss: EBL {In ML}: 5 Drains Used: No Drains Post-Op Condition: Fair Date of Surgery/Procedure: 05/20/18 Time of Surgery/Procedure: 12:47 (Dictation #: [id number])
[2018-05-20] MEDS ORDERED: Morphine 4 mg/ml ISec IVP ONE (13:07)
[2018-05-20] MEDS: Morphine 2 mg/ml ISec IVP PRN ×2 (13:07→18:25)
[2018-05-20] MEDS ORDERED: Morphine 4 mg/ml ISec ONE (13:08)
[2018-05-20] MEDS ORDERED: Collagenase 250 Units/gm Ointment(30 gm) TOP SCH (13:30)
[2018-05-20] MEDS: Oxycodone/Acetaminophen 5/325 mg Tab PO PRN (13:58)
--- NOTE | 2018-05-20 14:38 | OP ---
PROCEDURE DATE: 05/20/2018 PREOPERATIVE DIAGNOSIS: Necrotic stage IV sacral decubitus ulcer. POSTOPERATIVE DIAGNOSIS: Necrotic stage IV sacral decubitus ulcer. OPERATION PERFORMED: Sharp debridement of stage IV necrotic sacral decubitus ulcer of skin, soft tissue, and muscle. SURGEON: Guy Mcmahan MD ASSISTANTS: 1. . 2. Aram Marshall DO. INDICATIONS: This is an 82-year-old female with past medical history significant for AFib, hypertension, hyperlipidemia, history of DVT, currently on warfarin, who presented with the stage IV sacral decubitus ulcer. The patient had leukocytosis as the decubitus is source of infection. A decision was made to go to the operating room for sacral debridement. All risks were conversed over with the patient's son and patient. ESTIMATED BLOOD LOSS: Less than 5 mL. DESCRIPTION OF PROCEDURE: The patient was brought into the operating room, left lateral recumbent. At this time, a time-out was taken verifying correct patient and procedure. Local and IV sedation was then undertaken; 0.25% Marcaine was injected circumferentially around the necrotic decubitus ulcer. Wide excision and debridement of the necrotic decubitus was taken down to the presacral fascia and all necrotic tissue was electrocauterized and removed with sharp scalpel and heavy Sam. Skin was required to be taken due to depth of decubitus ulcer. This was taken with electrocautery. Decubitus ulcer extended 4 cm superiorly and 2 cm laterally outside of the initial opening which measured approximately 4 x 4 cm. All bleeding was electrocauterized and Kerlix with Dakin solution was stocked and placed. Pressure dressing was subsequently applied. The patient was sent to the Postanesthesia Care Unit in stable condition. All counts were correct at the end of the procedure. Dr. Mcmahan was present for the entire case. Aram Marshall DO Guy Mcmahan MD
[2018-05-20] MEDS: Dakin's Topical 0.25%-Half Strength (480 ml) TOP SCH (14:47)
--- NOTE | 2018-05-20 15:11 | PN ---
DATE: 05/20/2018 SUBJECTIVE: The patient is in bed, in no acute distress, nontoxic, and appears chronically ill and weak. PHYSICAL EXAMINATION: VITAL SIGNS: Temperature of 98, blood pressure is 110/60, and respiratory rate of 16. HEENT: Unremarkable. NECK: Supple. LUNGS: Decreased breath sounds. HEART: Normal S1 and S2. ABDOMEN: Soft and nontender. LABORATORY DATA: Laboratory examination reveals a white count of 14,000 and hemoglobin of 8. Chemistry; creatinine is 5 and procalcitonin is elevated. Her urinalysis is reviewed, hepatitis profile is noted. The blood cultures have no growth. Sacral cultures have E. coli. The urine culture has no growth. The MRSA is negative. REVIEW OF ORDERS: Reveals the patient will be on doxycycline and meropenem. The patient is scheduled for OR today for debridement of the decubitus ulcer. ASSESSMENT AND PLAN: An 82-year-old female admitted with sepsis, sacral decubitus ulcer and cellulitis and healthcare-associated pneumonia. Doxycycline and meropenem day #3. Today, is her debridement of the sacrum. We will check on the cultures and make further recommendations. Jose Packer MD
--- NOTE | 2018-05-20 18:54 | PN ---
DATE: 05/20/2018 SUBJECTIVE: The patient is seen lying in bed. She denies any pain at this time. She seems to be resting comfortably. PHYSICAL EXAMINATION: GENERAL: Elderly lady lying in bed. VITAL SIGNS: Blood pressure 127/65, heart rate 70, respiratory rate 20, and temperature 97.4. HEENT: Normocephalic and atraumatic. Positive pallor. NECK: Supple. No JVD. LUNGS: Bilateral equal air entry, bilateral equal expansion. CARDIAC: S1 and S2, regular rate and rhythm. No murmur. No rub. ABDOMEN: Obese, distended, soft, and nontender. Bowel sounds present. EXTREMITIES: 1+ pitting edema of the lower extremities. INTAKE AND OUTPUT: Not charted. LABORATORY DATA: WBC 14, hemoglobin 8.6, hematocrit 27, and platelets 228. Sodium 137, potassium 4.5, chloride 109, CO2 of 21, BUN 65, creatinine 5, glucose 81, calcium 8.1, phosphorus 4.8, magnesium 1.7, albumin 2.1, and corrected calcium is 9.5. Urine culture, no growth from 05/18/2018. Blood culture, no growth. Wound culture, E. coli. CURRENT MEDICATIONS: Coumadin on hold, Cozaar on hold, doxycycline 100 every 12 hours, iron 150 daily, hydrochlorothiazide on hold, Lipitor 10 mg daily, Lopressor 12.5 daily, mag oxide 400, meropenem 250 every 12 hours, morphine 2 mg, Percocet, PhosLo, sodium bicarbonate 650 b.i.d., half-normal saline at 60, Tylenol, and Zofran. ASSESSMENT: 1. Acute kidney injury superimposed on chronic kidney disease stage III/IV? 2. Obstructive uropathy, right ureteral stent, and left percutaneous nephrostomy. 3. Hypertension. 4. History of colon cancer. 5. History of multiple bowel surgeries for obstruction. 6. Coronary artery disease, paroxysmal atrial fibrillation. 7. 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 8. Chronic anemia. 9. Infected sacral decubitus. 10. Secondary hyperparathyroidism. PLAN: 1. No plans for renal replacement therapy since the patient and family do not want dialysis. 2. Renal parameters slowly improving. 3. Continue hypotonic IV fluids. 4. Continue antibiotics as per ID recommendations. 5. Continue wound care. 6. Monitor H and H. Corrie Yee MD
[2018-05-20] MEDS: Sodium Chloride 0.45% 1,000 ML IV SCH ×2 (21:32→21:33)
--- NOTE | 2018-05-21 02:32 | PN ---
DATE: 05/20/2018 The patient was seen this morning, in room 571, bed 2. She is resting comfortably in bed and curled up on her side with near her face. She is more tired and lethargic than in the past. I was able to speak with her, and she answered simple questions. I asked her if she is getting tired while getting up, and she nodded "yes." She had no specific complaints of pain but feels generalized weakness to be worsening. Case was discussed with the nurse practitioner. The patient was good to go for debridement of the sacral wound. Continue on antibiotics. I will need to speak with her son about our plan and as well as clarify her status Guy Guadalupe MD
[2018-05-21] MEDS: Morphine 2 mg/ml ISec IVP PRN (04:31)
[2018-05-21 05:53] LABS: BASO # 0.01 K/mm3 (0.0-2.0); BASO % 0.1 % (0.0-3.0); EOS # 0.5 (0.0-0.7); EOS % 4.1 % (1.5-5.0); GRAN # 10.15 (1.4-6.5); HEMOGLOBIN 8.7 g/dL (12.0-16.0); LYMPH % 8.2 % (22.0-35.0); MEAN CORPUSCULAR HEMOGLOBIN 27.3 pg (25.0-35.0); MEAN CORPUSCULAR HGB CONC 32.1 g/dl (31.0-37.0); MEAN PLATELET VOLUME 9.9 fl (7.0-11.0); MONO # 0.4 (0.1-0.6); MONO % 3.6 % (1.0-6.0); RBC 3.19 10^6/uL (3.5-6.1); RED CELL DISTRIBUTION WIDTH 16.3 % (11.5-14.5); WHITE BLOOD COUNT 12.1 10^3/uL (4.5-11.0)
[2018-05-21 06:01] LABS: INR 2.14
[2018-05-21 06:19] LABS: ALB/GLOB RATIO 0.6 (1.1-1.8); ALBUMIN 2.2 g/dL (3.0-4.8); CALCIUM 8.2 mg/dL (8.4-10.5)
--- NOTE | 2018-05-21 07:48 | CP.PCM.PN ---
Subjective - Date & Time of Evaluation Date of Evaluation: 05/21/18 Time of Evaluation: 07:37 - Subjective Subjective: Surgery Progress note- Dr. Mcmahan Patient seen and examined at bedside. patient states continued pain in the scaral pain however moderately improved from yesterday. Dressing changed at bedside and packed w/ dakins solution. Denies, nausea, vomiting. Objective - Vital Signs/Intake and Output Vital Signs (last 24 hours): Temp Pulse Resp BP Pulse Ox 97.4 F L 64 20 110/67 100 05/20/18 13:26 05/20/18 17:35 05/20/18 14:00 05/20/18 17:35 05/20/18 14:00 Intake and Output: 05/21/18 05/21/18 06:59 18:59 Intake Total 960 Output Total 480 Balance 480 - Medications Medications: Current Medications Acetaminophen (Tylenol 325mg Tab) 650 mg PO Q4 PRN PRN Reason: Pain, moderate (4-7) Last Admin: 05/11/18 11:33 Dose: 650 mg Atorvastatin Calcium (Lipitor) 10 mg PO DAILY [facility] Last Admin: 05/20/18 17:29 Dose: 10 mg Calcium Acetate (Phoslo) 667 mg PO WM [facility] Last Admin: 05/20/18 17:28 Dose: 667 mg Hydrochlorothiazide (Hydrodiuril) 25 mg PO DAILY [facility] Last Admin: 05/20/18 17:31 Dose: 25 mg Sodium Chloride (Sodium Chloride 0.45%) 1,000 mls @ 60 mls/hr IV .[id number] [facility] Last Admin: 05/20/18 21:33 Dose: 60 mls/hr Meropenem 250 mg/ Sodium (Chloride) 100 mls @ 100 mls/hr IVPB Q12H [facility]; Protocol Stop: 05/27/18 16:31 Last Admin: 05/21/18 04:47 Dose: 100 mls/hr Doxycycline Hyclate 100 mg/ (Sodium Chloride) 100 mls @ 100 mls/hr IVPB Q12 [facility]; Protocol Last Admin: 05/20/18 21:34 Dose: 100 mls/hr Losartan Potassium (Cozaar) 100 mg PO DAILY [facility] Last Admin: 05/07/18 09:53 Dose: 100 mg Magnesium Oxide (Mag-Ox) 400 mg PO DAILY [facility] Last Admin: 05/20/18 17:29 Dose: 400 mg Metoprolol Tartrate (Lopressor) 12.5 mg PO DAILY [facility] Last Admin: 05/20/18 17:35 Dose: 12.5 mg Morphine Sulfate (Morphine) 2 mg IVP Q8H PRN PRN Reason: Pain, severe (8-10) Last Admin: 05/21/18 04:31 Dose: 2 mg Ondansetron HCl (Zofran Inj) 4 mg IVP Q6H PRN PRN Reason: Nausea/Vomiting Polysaccharide Iron Complex (Ferrex-150) 150 mg PO DAILY [facility] Last Admin: 05/20/18 17:29 Dose: 150 mg Sodium Bicarbonate (Sodium Bicarbonate Tab) 650 mg PO BID [facility] Last Admin: 05/20/18 17:31 Dose: 650 mg Sodium Hypochlorite (Dakins Solution 0.25%) 0 ml TOP DAILY [facility] Last Admin: 05/20/18 14:47 Dose: Not Given Warfarin Sodium (Coumadin) 2 mg PO 1800 [facility]; Protocol Last Admin: 05/17/18 17:20 Dose: 2 mg - Labs Labs: 05/21/18 05:45 05/21/18 05:45 PT 25.0 SECONDS (9.4-12.5) H 05/21/18 05:45 INR 2.14 05/21/18 05:45 APTT 36.3 Seconds (25.1-36.5) 05/20/18 07:00 - Constitutional Appears: Non-toxic, No Acute Distress, Chronically Ill - Head Exam Head Exam: ATRAUMATIC - Eye Exam Eye Exam: EOMI - ENT Exam ENT Exam: Mucous Membranes Moist - Respiratory Exam Respiratory Exam: NORMAL BREATHING PATTERN. absent: Accessory Muscle Use, Re spiratory Distress - Cardiovascular Exam Cardiovascular Exam: REGULAR RHYTHM. absent: Bradycardia, Tachycardia - GI/Abdominal Exam GI & Abdominal Exam: Soft. absent: Distended, Firm, Guarding, Rigid, Tenderness - Extremities Exam Extremities Exam: absent: Calf Tenderness - Neurological Exam Neurological Exam: Alert, Awake - Skin Additional comments: Sacral deub s/p debridement changed w/ Dakins solution Assessment and Plan - Assessment and Plan (Free Text) Assessment: 82F s/p Sacral debridement in OR POD#1 Plan: - pain control PRN - diet as tolerated - turn Q2 - Air Matress - Daily dressing changes w/ Dakins solution - further recs per Dr. Mcmahan surgical attending [facility] PGY2
--- NOTE | 2018-05-21 09:31 | CP.PCM.APN ---
Subjective - Date & Time of Evaluation Date of Evaluation: 05/21/18 Time of Evaluation: 09:00 - Subjective Subjective: Pt seen and examined at bedside. She is sleeping but easily arousable. Pt is not interested in answering any questions and is requesting to leave her alone so she can sleep. Objective - Vital Signs/Intake and Output Vital Signs (last 24 hours): Temp Pulse Resp BP Pulse Ox 98.5 F 77 18 105/53 L 98 05/21/18 06:00 05/21/18 06:00 05/21/18 06:00 05/21/18 06:00 05/21/18 06:00 Intake and Output: 05/21/18 05/21/18 06:59 18:59 Intake Total 960 Output Total 480 Balance 480 - Medications Medications: Current Medications Acetaminophen (Tylenol 325mg Tab) 650 mg PO Q4 PRN PRN Reason: Pain, moderate (4-7) Last Admin: 05/11/18 11:33 Dose: 650 mg Atorvastatin Calcium (Lipitor) 10 mg PO DAILY [facility] Last Admin: 05/20/18 17:29 Dose: 10 mg Calcium Acetate (Phoslo) 667 mg PO WM [facility] Last Admin: 05/20/18 17:28 Dose: 667 mg Hydrochlorothiazide (Hydrodiuril) 25 mg PO DAILY [facility] Last Admin: 05/20/18 17:31 Dose: 25 mg Sodium Chloride (Sodium Chloride 0.45%) 1,000 mls @ 60 mls/hr IV .[id number] [facility] Last Admin: 05/20/18 21:33 Dose: 60 mls/hr Meropenem 250 mg/ Sodium (Chloride) 100 mls @ 100 mls/hr IVPB Q12H [facility]; Protocol Stop: 05/27/18 16:31 Last Admin: 05/21/18 04:47 Dose: 100 mls/hr Doxycycline Hyclate 100 mg/ (Sodium Chloride) 100 mls @ 100 mls/hr IVPB Q12 [facility]; Protocol Last Admin: 05/20/18 21:34 Dose: 100 mls/hr Losartan Potassium (Cozaar) 100 mg PO DAILY [facility] Last Admin: 05/07/18 09:53 Dose: 100 mg Magnesium Oxide (Mag-Ox) 400 mg PO DAILY [facility] Last Admin: 05/20/18 17:29 Dose: 400 mg Metoprolol Tartrate (Lopressor) 12.5 mg PO DAILY [facility] Last Admin: 05/20/18 17:35 Dose: 12.5 mg Morphine Sulfate (Morphine) 2 mg IVP Q8H PRN PRN Reason: Pain, severe (8-10) Last Admin: 05/21/18 04:31 Dose: 2 mg Ondansetron HCl (Zofran Inj) 4 mg IVP Q6H PRN PRN Reason: Nausea/Vomiting Polysaccharide Iron Complex (Ferrex-150) 150 mg PO DAILY [facility] Last Admin: 05/20/18 17:29 Dose: 150 mg Sodium Bicarbonate (Sodium Bicarbonate Tab) 650 mg PO BID [facility] Last Admin: 05/20/18 17:31 Dose: 650 mg Sodium Hypochlorite (Dakins Solution 0.25%) 0 ml TOP DAILY [facility] Last Admin: 05/20/18 14:47 Dose: Not Given Warfarin Sodium (Coumadin) 2 mg PO 1800 [facility]; Protocol Last Admin: 05/17/18 17:20 Dose: 2 mg - Labs Labs: 05/21/18 05:45 05/21/18 05:45 PT 25.0 SECONDS (9.4-12.5) H 05/21/18 05:45 INR 2.14 05/21/18 05:45 APTT 36.3 Seconds (25.1-36.5) 05/20/18 07:00 - Constitutional Appears: No Acute Distress, Chronically Ill - Head Exam Head Exam: ATRAUMATIC, NORMOCEPHALIC - Eye Exam Eye Exam: Normal appearance - ENT Exam ENT Exam: Normal Exam - Neck Exam Neck Exam: Normal Inspection - Respiratory Exam Respiratory Exam: Decreased Breath Sounds - Cardiovascular Exam Cardiovascular Exam: REGULAR RHYTHM, +S1, +S2 - GI/Abdominal Exam GI & Abdominal Exam: Normal Bowel Sounds Additional comments: + colostomy with liquid dark green/brown stool - Rectal Exam Rectal Exam: Deferred - Exam Additional comments: + mo draining clear elisha urine + L nephrostomy tube draining elisha fluid - Neurological Exam Neurological Exam: Alert, Awake Assessment and Plan - Assessment and Plan (Free Text) Assessment: Pt is an 82 y.o. female initially admitted for R leg DVT and severe bilateral hydronephrosis with acute renal failure. She was s/p cysto, gilmar retrograde pyelogram, b/l ureteroscopy and insertion of R ureteral JJ stent, and s/p L percutaneous nephrostomy tube placement. Pt underwent sacral wound debridement yesterday. Per surgery, pt is for possible wound vac placement on Thursday. Plan: Pain management Per Surgery, possible wound vac placement on Wednesday 05/24 Sacral wound care dressing per surgery recs On Doxy IV/Merrem IV per ID recs ID, Renal, Surgery, and Uro on consult Meds per JUL SW/CM for dc planning Will continue to follow
[2018-05-21] MEDS: Magnesium Oxide 400 mg Tab UD PO SCH (11:26)
[2018-05-21] MEDS: Iron Complex Polysacch 150mg Cap PO SCH (11:26)
--- NOTE | 2018-05-21 12:04 | PN ---
DATE: 05/21/2018 SUBJECTIVE: The patient is seen lying in bed. She appears to be comfortable. She is lethargic. Opens eyes when you wake her up. PHYSICAL EXAMINATION: GENERAL: Elderly lady lying in bed. VITAL SIGNS: Blood pressure 105/53, heart rate 77, respiratory rate 18, temperature 98.5. HEENT: Normocephalic, atraumatic, positive pallor. NECK: Supple, no JVD. LUNGS: Bilateral equal air entry, bilateral equal expansion. CARDIAC: S1 AND S2, regular rate and rhythm, no murmur, no rub. ABDOMEN: Obese, distended, soft, nontender, bowel sounds present. EXTREMITIES: No lower extremity edema. INTAKE AND OUTPUT: 960/480. LABORATORY DATA: WBC 12, hemoglobin 8.7, hematocrit 27, platelets 245. Sodium 136, potassium 4.5, chloride 110, CO2 of 18, BUN 64, creatinine 4.6, glucose 67, calcium 8.2, albumin 2.2, corrected calcium is 9.2. CURRENT MEDICATIONS: Coumadin on hold. Cozaar 100, on hold. Doxycycline 100 every 12 hours, iron, hydrochlorothiazide 25 mg daily, Lipitor 10, Lopressor 12.5 daily, mag oxide, meropenem 100 every 12 hours, morphine, PhosLo 667 t.i.d., sodium bicarbonate, half-normal saline at 60, Tylenol, and Zofran. ASSESSMENT: 1. Acute kidney injury superimposed on chronic kidney disease stage III. 2. Obstructive uropathy, bilateral hydronephrosis, right ureteral stent, left percutaneous nephrostomy. 3. Severe anemia. 4. Infected sacral decubitus. 5. History of colon cancer. 6. History of hypertension, currently low blood pressure. 7. History of multiple bowel surgeries for obstruction. 8. Coronary artery disease, paroxysmal atrial fibrillation. 9. Deep vein thrombosis with inferior vena cava filter. PLAN: 1. Renal parameters slowly improving, no plans for renal replacement therapy. 2. Continue half-normal saline. 3. Continue antibiotics as per ID recommendations. 4. Continue wound care. 5. Monitor H and H. Corrie Yee MD
[2018-05-21] MEDS: Oxycodone/Acetaminophen 5/325 mg Tab PO PRN ×2 (15:09→21:58)
--- NOTE | 2018-05-21 17:23 | CP.PCM.PN ---
<Norma Carey - Last Filed: 05/21/18 17:19> Subjective - Date & Time of Evaluation Date of Evaluation: 05/21/18 Time of Evaluation: 17:20 - Subjective Subjective: ID Progress Note PGY-[address] Garcia Pt states that her back still hurt, slightly better. No acute complaint per 12 point ROS Objective - Vital Signs/Intake and Output Vital Signs (last 24 hours): Temp Pulse Resp BP Pulse Ox 98.8 F 66 18 113/67 100 05/21/18 14:00 05/21/18 14:00 05/21/18 14:00 05/21/18 14:00 05/21/18 14:00 Intake and Output: 05/21/18 05/21/18 06:59 18:59 Intake Total 960 Output Total 480 Balance 480 - Medications Medications: Current Medications Acetaminophen (Tylenol 325mg Tab) 650 mg PO Q4 PRN PRN Reason: Pain, moderate (4-7) Last Admin: 05/11/18 11:33 Dose: 650 mg Atorvastatin Calcium (Lipitor) 10 mg PO DAILY [facility] Last Admin: 05/21/18 11:25 Dose: 10 mg Calcium Acetate (Phoslo) 667 mg PO WM [facility] Last Admin: 05/21/18 11:26 Dose: 667 mg Hydrochlorothiazide (Hydrodiuril) 25 mg PO DAILY [facility] Last Admin: 05/21/18 11:26 Dose: 25 mg Sodium Chloride (Sodium Chloride 0.45%) 1,000 mls @ 60 mls/hr IV .[id number] [facility] Last Admin: 05/20/18 21:33 Dose: 60 mls/hr Meropenem 250 mg/ Sodium (Chloride) 100 mls @ 100 mls/hr IVPB Q12H [facility]; Protocol Stop: 05/27/18 16:31 Last Admin: 05/21/18 04:47 Dose: 100 mls/hr Doxycycline Hyclate 100 mg/ (Sodium Chloride) 100 mls @ 100 mls/hr IVPB Q12 [facility]; Protocol Last Admin: 05/21/18 11:19 Dose: 100 mls/hr Losartan Potassium (Cozaar) 100 mg PO DAILY [facility] Last Admin: 05/07/18 09:53 Dose: 100 mg Magnesium Oxide (Mag-Ox) 400 mg PO DAILY [facility] Last Admin: 05/21/18 11:26 Dose: 400 mg Metoprolol Tartrate (Lopressor) 12.5 mg PO DAILY [facility] Last Admin: 05/21/18 11:25 Dose: 12.5 mg Morphine Sulfate (Morphine) 2 mg IVP Q8H PRN PRN Reason: Pain, severe (8-10) Last Admin: 05/21/18 04:31 Dose: 2 mg Ondansetron HCl (Zofran Inj) 4 mg IVP Q6H PRN PRN Reason: Nausea/Vomiting Oxycodone/Acetaminophen (Percocet 5/325 Mg Tab) 1 tab PO Q4H PRN PRN Reason: Pain, severe (8-10) Stop: 05/24/18 14:59 Last Admin: 05/21/18 15:09 Dose: 1 tab Polysaccharide Iron Complex (Ferrex-150) 150 mg PO DAILY [facility] Last Admin: 05/21/18 11:26 Dose: 150 mg Sodium Bicarbonate (Sodium Bicarbonate Tab) 650 mg PO BID [facility] Last Admin: 05/21/18 11:25 Dose: 650 mg Sodium Hypochlorite (Dakins Solution 0.25%) 0 ml TOP DAILY [facility] Last Admin: 05/20/18 14:47 Dose: Not Given Warfarin Sodium (Coumadin) 2 mg PO 1800 [facility]; Protocol Last Admin: 05/17/18 17:20 Dose: 2 mg - Labs Labs: 05/21/18 05:45 05/21/18 05:45 PT 25.0 SECONDS (9.4-12.5) H 05/21/18 05:45 INR 2.14 05/21/18 05:45 APTT 36.3 Seconds (25.1-36.5) 05/20/18 07:00 - Constitutional Appears: No Acute Distress - Head Exam Head Exam: ATRAUMATIC, NORMAL INSPECTION, NORMOCEPHALIC - Eye Exam Eye Exam: EOMI, Normal appearance, PERRL. absent: Scleral icterus Pupil Exam: NORMAL ACCOMODATION - ENT Exam ENT Exam: Mucous Membranes Moist - Neck Exam Additional comments: supple - Respiratory Exam Respiratory Exam: Decreased Breath Sounds (all lung patterson), Clear to Auscu lation Bilateral. absent: Rales, Rhonchi, Wheezes - Cardiovascular Exam Cardiovascular Exam: REGULAR RHYTHM, +S1, +S2. absent: Murmur Additional comments: Port-a-cath in place, no erythema - GI/Abdominal Exam GI & Abdominal Exam: Soft, Normal Bowel Sounds. absent: Tenderness Additional comments: no suprapubic tenderness Stool in ostomy bag - Extremities Exam Extremities Exam: Pedal Edema. absent: Calf Tenderness - Neurological Exam Neurological Exam: Alert, Awake - Psychiatric Exam Psychiatric exam: Normal Affect, Normal Mood - Skin Skin Exam: Dry, Warm Assessment and Plan - Assessment and Plan (Free Text) Plan: Ms Mott, 82F, with Hx DVT with IVC filter, colon ca s/p resection with end colostomy, chemo, radiation (2010), CAD/PVD, SBO, was found to have obstructive nephropathy, had a L-sided nephrostomy tube and cystoscopy, now increase WBC. A: Sepsis, likely due to sacral debubitus ulcer with cellulitis, R/O HCAP, Had ruled out Urinary tract infection Leukocytosis - trending down to 12.1 Unstagable pressure ulcer, s/p debridement POD#1 ESRD on nephrostomy tube L port-a-cath Ostomy in place P: Merem and doxy (day 4) pending surgical wound culture Lab/imaging: BCx: neg x 3d UCx: neg Sputum Cx: Wound Cx (bedside): E-coli Wound Cx (Surgery): Procalcitonin 1.43 CXR - no active disease. no change compared to 05/06/18 s/r/d/w Dr Garcia <Raúl Garcia S - Last Filed: 05/21/18 23:09> Objective - Vital Signs/Intake and Output Vital Signs (last 24 hours): Temp Pulse Resp BP Pulse Ox 98.8 F 66 18 113/67 100 05/21/18 14:00 05/21/18 14:00 05/21/18 14:00 05/21/18 14:00 05/21/18 14:00 Intake and Output: 05/21/18 05/22/18 18:59 06:59 Intake Total 1050 120 Output Total 400 300 Balance 650 -180 - Medications Medications: Current Medications Acetaminophen (Tylenol 325mg Tab) 650 mg PO Q4 PRN PRN Reason: Pain, moderate (4-7) Last Admin: 05/11/18 11:33 Dose: 650 mg Atorvastatin Calcium (Lipitor) 10 mg PO DAILY [facility] Last Admin: 05/21/18 11:25 Dose: 10 mg Calcium Acetate (Phoslo) 667 mg PO WM [facility] Last Admin: 05/21/18 17:14 Dose: 667 mg Hydrochlorothiazide (Hydrodiuril) 25 mg PO DAILY [facility] Last Admin: 05/21/18 11:26 Dose: 25 mg Sodium Chloride (Sodium Chloride 0.45%) 1,000 mls @ 60 mls/hr IV .[id number] [facility] Last Admin: 05/20/18 21:33 Dose: 60 mls/hr Meropenem 250 mg/ Sodium (Chloride) 100 mls @ 100 mls/hr IVPB Q12H [facility]; Protocol Stop: 05/27/18 16:31 Last Admin: 05/21/18 17:14 Dose: 100 mls/hr Doxycycline Hyclate 100 mg/ (Sodium Chloride) 100 mls @ 100 mls/hr IVPB Q12 [facility]; Protocol Last Admin: 05/21/18 21:58 Dose: 100 mls/hr Losartan Potassium (Cozaar) 100 mg PO DAILY [facility] Last Admin: 05/21/18 12:00 Dose: 100 mg Magnesium Oxide (Mag-Ox) 400 mg PO DAILY [facility] Last Admin: 05/21/18 11:26 Dose: 400 mg Metoprolol Tartrate (Lopressor) 12.5 mg PO DAILY [facility] Last Admin: 05/21/18 11:25 Dose: 12.5 mg Morphine Sulfate (Morphine) 2 mg IVP Q8H PRN PRN Reason: Pain, severe (8-10) Last Admin: 05/21/18 04:31 Dose: 2 mg Ondansetron HCl (Zofran Inj) 4 mg IVP Q6H PRN PRN Reason: Nausea/Vomiting Last Admin: 05/21/18 17:54 Dose: 4 mg Oxycodone/Acetaminophen (Percocet 5/325 Mg Tab) 1 tab PO Q4H PRN PRN Reason: Pain, severe (8-10) Stop: 05/24/18 14:59 Last Admin: 05/21/18 21:58 Dose: 1 tab Polysaccharide Iron Complex (Ferrex-150) 150 mg PO DAILY [facility] Last Admin: 05/21/18 11:26 Dose: 150 mg Sodium Bicarbonate (Sodium Bicarbonate Tab) 650 mg PO BID [facility] Last Admin: 05/21/18 17:51 Dose: 650 mg Sodium Hypochlorite (Dakins Solution 0.25%) 0 ml TOP DAILY [facility] Last Admin: 05/20/18 14:47 Dose: Not Given Warfarin Sodium (Coumadin) 2 mg PO 1800 [facility]; Protocol Last Admin: 05/17/18 17:20 Dose: 2 mg - Labs Labs: 05/21/18 05:45 05/21/18 05:45 PT 25.0 SECONDS (9.4-12.5) H 05/21/18 05:45 INR 2.14 05/21/18 05:45 APTT 36.3 Seconds (25.1-36.5) 05/20/18 07:00 Assessment and Plan - Assessment and Plan (Free Text) Plan: Infectious diseases Attending Physician Attestation Patient seen and examined, discussed with director of medical services. I have reviewed the patient's history of present illness, past medical, social, personal and family histories, pertinent physical exam findings, course so far in this hospital admission, pertinent laboratory and imaging results. I agree with the above findings, assessment and plan. In addition, continue Merrem and Doxycycline for this patient with sepsis due to HCAP and sacral decubitus ulcer infection S/P debridement. Follow up wound cx results.
[2018-05-22 07:49] LABS: BASO # 0.01 K/mm3 (0.0-2.0); BASO % 0.1 % (0.0-3.0); EOS # 0.4 (0.0-0.7); EOS % 3.4 % (1.5-5.0); GRAN # 9.44 (1.4-6.5); GRAN % 84.2 % (50.0-68.0); HEMOGLOBIN 8.3 g/dL (12.0-16.0); LYMPH % 8.7 % (22.0-35.0); MEAN CELL VOLUME 85.2 fl (80.0-105.0); MEAN CORPUSCULAR HEMOGLOBIN 26.8 pg (25.0-35.0); MEAN CORPUSCULAR HGB CONC 31.4 g/dl (31.0-37.0); MEAN PLATELET VOLUME 10.4 fl (7.0-11.0); MONO # 0.4 (0.1-0.6); MONO % 3.6 % (1.0-6.0); RBC 3.1 10^6/uL (3.5-6.1); RED CELL DISTRIBUTION WIDTH 16.4 % (11.5-14.5); WHITE BLOOD COUNT 11.2 10^3/uL (4.5-11.0)
[2018-05-22 07:50] LABS: INR 1.93; PROTHROMBIN TIME 22.5 SECONDS (9.4-12.5)
[2018-05-22 08:03] LABS: ALB/GLOB RATIO 0.7 (1.1-1.8); ALBUMIN 2.1 g/dL (3.0-4.8); CALCIUM 8.1 mg/dL (8.4-10.5)
[2018-05-22] MEDS: Iron Complex Polysacch 150mg Cap PO SCH (09:19)
[2018-05-22] MEDS: Oxycodone/Acetaminophen 5/325 mg Tab PO PRN ×2 (09:20→17:50)
[2018-05-22] MEDS: Magnesium Oxide 400 mg Tab UD PO SCH (09:20)
--- NOTE | 2018-05-22 11:48 | PN ---
DATE: 05/21/2018 SUBJECTIVE: The patient was seen this Thursday morning in room 571, bed 2, resting in bed but sleepy, groggy, withdrawn, not wanting to get out of bed, not wanting to talk much. PHYSICAL EXAMINATION: LUNGS: Good aeration, right and left. HEART: Regular, not tachycardic. EXTREMITIES: Swelling in the right leg from the DVT. IMPRESSION: 1. Deep venous thrombosis of the right leg. 2. Urinary tract infection. 3. Infiltrate on the chest x-ray. 4. Decubitus. PLAN: Continue on IV antibiotics. We will assess grogginess with medications and try to discontinue sedation and analgesics and follow up closely. Guy Guadalupe MD
[2018-05-22] MEDS: Dakin's Topical 0.25%-Half Strength (480 ml) TOP SCH (11:49)
--- NOTE | 2018-05-22 14:05 | PN ---
DATE: 05/22/2018 SUBJECTIVE: The patient was seen this Thursday morning in room 571, bed 2. She is much more awake, alert, clear this Thursday morning. She seems to have made a remarkable turnaround in just last 24 hours. She is more awake, alert, and clear and actually looking forward to getting another bed and increasing physical therapy today, which is a big improvement from yesterday when she just was lethargic and groggy and the day before when I was concerned she was getting up. PHYSICAL EXAMINATION: LUNGS: Show good aeration in right and left. ABDOMEN: Soft. Colostomy is present. EXTREMITIES: The right leg remains chronically edematous. LABORATORY DATA: Her PT/INR is slightly elevated due to the Coumadin. BUN and creatinine are coming down nicely with creatinine now significantly improved. ASSESSMENT AND PLAN: We will work on out of bed physical therapy. Continue course of antibiotics. Discuss with surgery regarding sacral wound care, which had been debrided at the bedside yesterday and we will continue to follow. Guy Guadalupe MD
--- NOTE | 2018-05-22 16:07 | PN ---
DATE: 05/22/2018 SUBJECTIVE: The patient is seen lying in bed. Son is at bedside. She is awake. She is alert. She is comfortable. She denies any pain. PHYSICAL EXAMINATION: GENERAL: Elderly lady lying in bed. VITAL SIGNS: Blood pressure 135/77, heart rate 81, respiratory rate 18 and temperature 99. HEENT: Normocephalic, atraumatic, positive pallor. NECK: Supple, no JVD. LUNGS: Bilateral equal entry, bilateral equal expansion. CARDIAC: S1 and S2, regular rate and rhythm, no murmur, no rub. ABDOMEN: Soft, nondistended, nontender, positive colostomy. EXTREMITIES: Trace lower extremity edema. INTAKE AND OUTPUT: 1290/900. LABORATORY DATA: WBC 11, hemoglobin 8.3, hematocrit 26 and platelets 222. Sodium 137, potassium 4.4, chloride 110, CO2 of 20, BUN 63, creatinine 4.3, glucose 75, calcium 8.1, AST 28 and ALT 28. Wound culture from the sacral area, no anaerobes. Urine culture from 05/18/2018 no growth. CURRENT MEDICATIONS: Coumadin 2 mg, losartan 100, doxycycline 100 every 12 hours, Lasix 25 daily, Lipitor, metoprolol 12.5 daily, mag oxide, meropenem 250 every 12 hours, Percocet, PhosLo, sodium bicarbonate 650 b.i.d., half-normal saline at 60, Tylenol and Zofran. ASSESSMENT: 1. Acute kidney injury, slowly resolving. 2. Obstructive uropathy, right ureteral stent, left percutaneous nephrostomy. 3. History of colon cancer. 4. Colostomy. 5. Hyperphosphatemia. 6. Secondary hyperparathyroidism. 7. History of hypertension, currently low blood pressure. PLAN: 1. No plans for renal replacement therapy. 2. Renal parameters slowly improving. 3. Continue half-normal saline. 4. Continue phosphate binders. 5. Hold ARB and hold hydrochlorothiazide. 6. Avoid nephrotoxins. Corrie Yee MD
--- NOTE | 2018-05-22 19:36 | PN ---
DATE: 05/22/2018 SUBJECTIVE: The patient is in bed, in no acute distress. OBJECTIVE: VITAL SIGNS: On exam, temperature is 98, blood pressure is 107/50, respiratory rate of 18, heart rate of 63. HEENT: Unremarkable. NECK: Supple. LUNGS: Have decreased breath sounds. HEART: Normal S1, S2. ABDOMEN: Soft. LABORATORY EXAMINATION: Reveals a white count 11,000, hemoglobin of 8. BUN of 63, creatinine of 4.3. Urinalysis is noted. Microbiology reveals cultures are noted. 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 Leukocytosis appears to be improving. We will follow with you. Jose Packer MD
[2018-05-23] MEDS: Oxycodone/Acetaminophen 5/325 mg Tab PO PRN (06:58)
[2018-05-23 07:11] LABS: INR 1.91; PROTHROMBIN TIME 22.3 SECONDS (9.4-12.5)
[2018-05-23 07:12] LABS: BASO # 0.02 K/mm3 (0.0-2.0); BASO % 0.2 % (0.0-3.0); EOS # 0.3 (0.0-0.7); GRAN # 11.14 (1.4-6.5); GRAN % 87.3 % (50.0-68.0); HEMOGLOBIN 8.8 g/dL (12.0-16.0); LYMPH % 7.4 % (22.0-35.0); MEAN CELL VOLUME 84.5 fl (80.0-105.0); MEAN CORPUSCULAR HEMOGLOBIN 26.7 pg (25.0-35.0); MEAN CORPUSCULAR HGB CONC 31.7 g/dl (31.0-37.0); MEAN PLATELET VOLUME 9.8 fl (7.0-11.0); MONO # 0.4 (0.1-0.6); MONO % 3.1 % (1.0-6.0); RBC 3.29 10^6/uL (3.5-6.1); RED CELL DISTRIBUTION WIDTH 16.1 % (11.5-14.5); WHITE BLOOD COUNT 12.8 10^3/uL (4.5-11.0)
[2018-05-23 07:58] LABS: ALB/GLOB RATIO 0.7 (1.1-1.8); ALBUMIN 2.4 g/dL (3.0-4.8); CALCIUM 8.3 mg/dL (8.4-10.5)
[2018-05-23] MEDS: Iron Complex Polysacch 150mg Cap PO SCH (10:41)
[2018-05-23] MEDS: Magnesium Oxide 400 mg Tab UD PO SCH (10:43)
[2018-05-23] MEDS: Dakin's Topical 0.25%-Half Strength (480 ml) TOP SCH (10:49)
--- NOTE | 2018-05-23 13:16 | PN ---
DATE: 05/23/2018 SUBJECTIVE: The patient is in bed, seen earlier today. No fevers and no chills. Had an uneventful night. PHYSICAL EXAMINATION: VITAL SIGNS: Temperature is 98, blood pressure is 113/60, respiratory rate of 18. HEENT: Unremarkable. NECK: Supple. LUNGS: Have decreased breath sounds. HEART: Normal S1, S2. ABDOMEN: Soft. LABORATORY DATA: White count of 12,800, hemoglobin is 8. BUN of 61, creatinine of 3.8. Procalcitonin is 1.43. Urinalysis is noted. Serology is noted. Microbiology noted. Review of orders reveals the patient to be on doxycycline and meropenem. 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 Overall prognosis is poor for this patient with poor quality of life. We will follow with you. Jose Packer MD
--- NOTE | 2018-05-23 14:51 | PN ---
DATE: 05/23/2018 SUBJECTIVE: The patient is seen this Thursday morning in room 571, bed 2. She is much more awake, alert, sharp and clear, helping herself with her own breakfast, in good spirits. She is a bit confused thinking that she got stuck in the chair downstairs and apparently earlier today, she was my office. PHYSICAL EXAMINATION GENERAL: The patient was awake and alert. HEENT: Head and neck both are unremarkable. Conjunctivae are pink. Mucous membranes are moist. NECK: Supple. There is no JVD. Thyroid is not palpable. LUNGS: Show good aeration right and left. HEART: Not tachycardic. EXTREMITIES: Show still some edema of the right lower extremity. IMPRESSION: 1. Deep vein thrombosis. 2. Decubitus. 3. Cellulitis infection from decubitus, now markedly improved. PLAN: Continue antibiotics, local surgical wound care, out of bed, physical therapy. We will need to talk the patient's son, Luis Fernando, later today regarding discharge planning in the near future. Guy Guadalupe MD
[2018-05-24] MEDS: Oxycodone/Acetaminophen 5/325 mg Tab PO PRN ×2 (05:33→14:16)
[2018-05-24 07:03] LABS: BASO # 0.02 K/mm3 (0.0-2.0); BASO % 0.2 % (0.0-3.0); EOS # 0.7 (0.0-0.7); EOS % 5.5 % (1.5-5.0); GRAN # 9.26 (1.4-6.5); GRAN % 78.6 % (50.0-68.0); HEMOGLOBIN 7.9 g/dL (12.0-16.0); LYMPH # 1.3 (1.2-3.4); MEAN CELL VOLUME 83.6 fl (80.0-105.0); MEAN CORPUSCULAR HEMOGLOBIN 26.4 pg (25.0-35.0); MEAN CORPUSCULAR HGB CONC 31.6 g/dl (31.0-37.0); MEAN PLATELET VOLUME 10.2 fl (7.0-11.0); MONO # 0.6 (0.1-0.6); MONO % 4.7 % (1.0-6.0); RBC 2.99 10^6/uL (3.5-6.1); RED CELL DISTRIBUTION WIDTH 16.3 % (11.5-14.5); WHITE BLOOD COUNT 11.8 10^3/uL (4.5-11.0)
[2018-05-24] MEDS ORDERED: Morphine 4 mg/ml ISec IM STA (08:22)
--- NOTE | 2018-05-24 08:56 | CP.PCM.PN ---
Subjective - Date & Time of Evaluation Date of Evaluation: 05/24/18 Time of Evaluation: 08:54 - Subjective Subjective: Surgery PT seen and examined. No acute events. Wound vac placed on bedside this AM. Toleated it well. Objective - Vital Signs/Intake and Output Vital Signs (last 24 hours): Temp Pulse Resp BP Pulse Ox 99 F 80 70 H 107/70 96 05/24/18 06:00 05/24/18 06:00 05/24/18 06:00 05/24/18 06:00 05/24/18 06:00 - Medications Medications: Current Medications Acetaminophen (Tylenol 325mg Tab) 650 mg PO Q4 PRN PRN Reason: Pain, moderate (4-7) Last Admin: 05/11/18 11:33 Dose: 650 mg Atorvastatin Calcium (Lipitor) 10 mg PO DAILY [facility] Last Admin: 05/23/18 10:41 Dose: 10 mg Calcium Acetate (Phoslo) 667 mg PO WM [facility] Last Admin: 05/24/18 08:14 Dose: Not Given Hydrochlorothiazide (Hydrodiuril) 25 mg PO DAILY [facility] Last Admin: 05/22/18 09:19 Dose: 25 mg Sodium Chloride (Sodium Chloride 0.45%) 1,000 mls @ 60 mls/hr IV .[id number] [facility] Last Admin: 05/20/18 21:33 Dose: 60 mls/hr Meropenem 250 mg/ Sodium (Chloride) 100 mls @ 100 mls/hr IVPB Q12H [facility]; Protocol Stop: 05/27/18 16:31 Last Admin: 05/24/18 05:20 Dose: 100 mls/hr Doxycycline Hyclate 100 mg/ (Sodium Chloride) 100 mls @ 100 mls/hr IVPB Q12 [facility]; Protocol Last Admin: 05/23/18 22:36 Dose: 100 mls/hr Losartan Potassium (Cozaar) 100 mg PO DAILY [facility] Last Admin: 05/22/18 09:19 Dose: 100 mg Magnesium Oxide (Mag-Ox) 400 mg PO DAILY [facility] Last Admin: 05/23/18 10:43 Dose: 400 mg Metoprolol Tartrate (Lopressor) 12.5 mg PO DAILY [facility] Last Admin: 05/23/18 10:41 Dose: 12.5 mg Ondansetron HCl (Zofran Inj) 4 mg IVP Q6H PRN PRN Reason: Nausea/Vomiting Last Admin: 05/22/18 18:28 Dose: 4 mg Oxycodone/Acetaminophen (Percocet 5/325 Mg Tab) 1 tab PO Q4H PRN PRN Reason: Pain, severe (8-10) Stop: 05/24/18 14:59 Last Admin: 05/24/18 05:33 Dose: 1 tab Polysaccharide Iron Complex (Ferrex-150) 150 mg PO DAILY [facility] Last Admin: 05/23/18 10:41 Dose: 150 mg Sodium Bicarbonate (Sodium Bicarbonate Tab) 650 mg PO BID [facility] Last Admin: 05/23/18 17:04 Dose: 650 mg Sodium Hypochlorite (Dakins Solution 0.25%) 0 ml TOP DAILY [facility] Last Admin: 05/23/18 10:49 Dose: 0.25 % Warfarin Sodium (Coumadin) 2 mg PO 1800 [facility]; Protocol Last Admin: 05/23/18 17:04 Dose: 2 mg - Labs Labs: 05/24/18 06:35 05/23/18 06:30 PT 22.3 SECONDS (9.4-12.5) H 05/23/18 06:30 INR 1.91 05/23/18 06:30 APTT 36.3 Seconds (25.1-36.5) 05/20/18 07:00 - Constitutional Appears: No Acute Distress - Head Exam Head Exam: ATRAUMATIC, NORMAL INSPECTION, NORMOCEPHALIC - Eye Exam Eye Exam: EOMI, Normal appearance, PERRL Pupil Exam: NORMAL ACCOMODATION, PERRL - ENT Exam ENT Exam: Mucous Membranes Moist - Neck Exam Neck Exam: Normal Inspection - Respiratory Exam Respiratory Exam: NORMAL BREATHING PATTERN - Cardiovascular Exam Cardiovascular Exam: REGULAR RHYTHM - GI/Abdominal Exam GI & Abdominal Exam: Soft. absent: Tenderness - Extremities Exam Extremities Exam: Normal Inspection - Back Exam Additional comments: [id number] sacral wound. - Neurological Exam Neurological Exam: Alert, Awake, Oriented x3 - Psychiatric Exam Psychiatric exam: Normal Affect, Normal Mood - Skin Skin Exam: Erythema, Warm. absent: Dry, Intact Assessment and Plan - Assessment and Plan (Free Text) Assessment: 82F s/p Sacral debridement in OR POD#4 Plan: - pain control PRN - diet as tolerated - turn Q2 - Air [employer] - Wound vac change q3 day. Home wound vac set up. - further recs per Dr. Mcmahan surgical attending
[2018-05-24] MEDS: Magnesium Oxide 400 mg Tab UD PO SCH (10:10)
[2018-05-24] MEDS: Dakin's Topical 0.25%-Half Strength (480 ml) TOP SCH (10:11)
[2018-05-24] MEDS: Iron Complex Polysacch 150mg Cap PO SCH (10:11)
--- NOTE | 2018-05-24 12:02 | CP.PCM.APN ---
Subjective - Date & Time of Evaluation Date of Evaluation: 05/24/18 Time of Evaluation: 09:00 - Subjective Subjective: Pt seen and examined at bedside. She is more awake and alert. In no acute distress. Objective - Vital Signs/Intake and Output Vital Signs (last 24 hours): Temp Pulse Resp BP Pulse Ox 99 F 76 70 H 140/81 96 05/24/18 06:00 05/24/18 10:11 05/24/18 06:00 05/24/18 10:11 05/24/18 06:00 - Medications Medications: Current Medications Acetaminophen (Tylenol 325mg Tab) 650 mg PO Q4 PRN PRN Reason: Pain, moderate (4-7) Last Admin: 05/11/18 11:33 Dose: 650 mg Atorvastatin Calcium (Lipitor) 10 mg PO DAILY [facility] Last Admin: 05/24/18 10:11 Dose: 10 mg Calcium Acetate (Phoslo) 667 mg PO WM [facility] Last Admin: 05/24/18 08:14 Dose: Not Given Hydrochlorothiazide (Hydrodiuril) 25 mg PO DAILY [facility] Last Admin: 05/22/18 09:19 Dose: 25 mg Sodium Chloride (Sodium Chloride 0.45%) 1,000 mls @ 60 mls/hr IV .[id number] [facility] Last Admin: 05/20/18 21:33 Dose: 60 mls/hr Meropenem 250 mg/ Sodium (Chloride) 100 mls @ 100 mls/hr IVPB Q12H [facility]; Protocol Stop: 05/27/18 16:31 Last Admin: 05/24/18 05:20 Dose: 100 mls/hr Doxycycline Hyclate 100 mg/ (Sodium Chloride) 100 mls @ 100 mls/hr IVPB Q12 [facility]; Protocol Last Admin: 05/23/18 22:36 Dose: 100 mls/hr Losartan Potassium (Cozaar) 100 mg PO DAILY [facility] Last Admin: 05/22/18 09:19 Dose: 100 mg Magnesium Oxide (Mag-Ox) 400 mg PO DAILY [facility] Last Admin: 05/24/18 10:10 Dose: 400 mg Metoprolol Tartrate (Lopressor) 12.5 mg PO DAILY [facility] Last Admin: 05/24/18 10:11 Dose: 12.5 mg Ondansetron HCl (Zofran Inj) 4 mg IVP Q6H PRN PRN Reason: Nausea/Vomiting Last Admin: 05/22/18 18:28 Dose: 4 mg Oxycodone/Acetaminophen (Percocet 5/325 Mg Tab) 1 tab PO Q4H PRN PRN Reason: Pain, severe (8-10) Stop: 05/24/18 14:59 Last Admin: 05/24/18 05:33 Dose: 1 tab Polysaccharide Iron Complex (Ferrex-150) 150 mg PO DAILY [facility] Last Admin: 05/24/18 10:11 Dose: 150 mg Sodium Bicarbonate (Sodium Bicarbonate Tab) 650 mg PO BID [facility] Last Admin: 05/24/18 10:11 Dose: 650 mg Sodium Hypochlorite (Dakins Solution 0.25%) 0 ml TOP DAILY [facility] Last Admin: 05/24/18 10:11 Dose: Not Given Warfarin Sodium (Coumadin) 2 mg PO 1800 [facility]; Protocol Last Admin: 05/23/18 17:04 Dose: 2 mg - Labs Labs: 05/24/18 06:35 05/23/18 06:30 PT 22.3 SECONDS (9.4-12.5) H 05/23/18 06:30 INR 1.91 05/23/18 06:30 APTT 36.3 Seconds (25.1-36.5) 05/20/18 07:00 - Constitutional Appears: Well, No Acute Distress - Head Exam Head Exam: NORMAL INSPECTION - Eye Exam Eye Exam: Normal appearance - Neck Exam Neck Exam: Full ROM - Respiratory Exam Respiratory Exam: Decreased Breath Sounds - Cardiovascular Exam Cardiovascular Exam: REGULAR RHYTHM, +S1, +S2 - Rectal Exam Rectal Exam: Deferred - Neurological Exam Neurological Exam: Alert, Awake Assessment and Plan - Assessment and Plan (Free Text) Assessment: Pt is an 82 y.o. female initially admitted for R leg DVT and severe bilateral hydronephrosis with acute renal failure. She was s/p cysto, gilmar retrograde pyelogram, b/l ureteroscopy and insertion of R ureteral JJ stent, and s/p L percutaneous nephrostomy tube placement. Pt underwent sacral wound debridement on thursday. She is s/p wound vac placement today. Per Surgery, will need wound vac to be changed q3days. Per ID, will need Doxy/Merrem IV total of 10-14 days (on day 7). Discussed w/ PMD, will plan for possible dc to [facility] in AM.
[2018-05-24 15:01] VITALS: O2SAT 100
--- NOTE | 2018-05-24 16:35 | CP.PCM.PN ---
Subjective - Date & Time of Evaluation Date of Evaluation: 05/24/18 Time of Evaluation: 09:25 - Subjective Subjective: Afebrile, comfortable. Objective - Vital Signs/Intake and Output Vital Signs (last 24 hours): Temp Pulse Resp BP Pulse Ox 97.9 F 59 L 18 112/75 100 05/24/18 14:00 05/24/18 14:00 05/24/18 14:00 05/24/18 14:00 05/24/18 14:00 - Medications Medications: Current Medications Acetaminophen (Tylenol 325mg Tab) 650 mg PO Q4 PRN PRN Reason: Pain, moderate (4-7) Last Admin: 05/11/18 11:33 Dose: 650 mg Atorvastatin Calcium (Lipitor) 10 mg PO DAILY [facility] Last Admin: 05/24/18 10:11 Dose: 10 mg Calcium Acetate (Phoslo) 667 mg PO WM [facility] Last Admin: 05/24/18 13:21 Dose: 667 mg Hydrochlorothiazide (Hydrodiuril) 25 mg PO DAILY [facility] Last Admin: 05/22/18 09:19 Dose: 25 mg Sodium Chloride (Sodium Chloride 0.45%) 1,000 mls @ 60 mls/hr IV .[id number] [facility] Last Admin: 05/20/18 21:33 Dose: 60 mls/hr Meropenem 250 mg/ Sodium (Chloride) 100 mls @ 100 mls/hr IVPB Q12H [facility]; Protocol Stop: 05/27/18 16:31 Last Admin: 05/24/18 05:20 Dose: 100 mls/hr Doxycycline Hyclate 100 mg/ (Sodium Chloride) 100 mls @ 100 mls/hr IVPB Q12 [facility]; Protocol Last Admin: 05/23/18 22:36 Dose: 100 mls/hr Losartan Potassium (Cozaar) 100 mg PO DAILY [facility] Last Admin: 05/22/18 09:19 Dose: 100 mg Magnesium Oxide (Mag-Ox) 400 mg PO DAILY [facility] Last Admin: 05/24/18 10:10 Dose: 400 mg Metoprolol Tartrate (Lopressor) 12.5 mg PO DAILY [facility] Last Admin: 05/24/18 10:11 Dose: 12.5 mg Ondansetron HCl (Zofran Inj) 4 mg IVP Q6H PRN PRN Reason: Nausea/Vomiting Last Admin: 05/22/18 18:28 Dose: 4 mg Polysaccharide Iron Complex (Ferrex-150) 150 mg PO DAILY [facility] Last Admin: 05/24/18 10:11 Dose: 150 mg Sodium Bicarbonate (Sodium Bicarbonate Tab) 650 mg PO BID [facility] Last Admin: 05/24/18 10:11 Dose: 650 mg Sodium Hypochlorite (Dakins Solution 0.25%) 0 ml TOP DAILY [facility] Last Admin: 05/24/18 10:11 Dose: Not Given Warfarin Sodium (Coumadin) 2 mg PO 1800 [facility]; Protocol Last Admin: 05/23/18 17:04 Dose: 2 mg - Labs Labs: 05/24/18 06:35 05/23/18 06:30 PT 22.3 SECONDS (9.4-12.5) H 05/23/18 06:30 INR 1.91 05/23/18 06:30 APTT 36.3 Seconds (25.1-36.5) 05/20/18 07:00 - Constitutional Appears: Chronically Ill - Head Exam Head Exam: NORMAL INSPECTION - Respiratory Exam Respiratory Exam: Decreased Breath Sounds - Cardiovascular Exam Cardiovascular Exam: +S1, +S2 - GI/Abdominal Exam GI & Abdominal Exam: Soft. absent: Tenderness Assessment and Plan - Assessment and Plan (Free Text) Plan: Assessment Sepsis due to HCAP and infected sacral ulcer S/P debridement HTN, HLD, DVT on Warfarin, Colon canc er s/p colectomy and end colostomy Plan continue Doxycycline and Merrem day 7 to complete total 10-14 days of therapy
[2018-05-24] MEDS: Lidocaine 2% Jelly (30 ml) TOP ONE ×2 (17:00→17:31)
[2018-05-24 18:25] LABS: HEMOGLOBIN 8.5 g/dL (12.0-16.0)
[2018-05-24] MEDS: Sodium Chloride 0.45% 1,000 ML IV SCH (21:21)
--- NOTE | 2018-05-24 21:56 | PN ---
DATE: 05/24/2018 SUBJECTIVE: The patient is seen lying in bed. She reports she is not feeling well today. She complains of pain all over her body. She complains of nausea. PHYSICAL EXAMINATION: GENERAL: Elderly lady lying in bed. VITAL SIGNS: Blood pressure 112/75, heart rate 59, respiratory rate 18, temperature 97.9. HEENT: Normocephalic, atraumatic, positive pallor. NECK: Supple. No JVD. CARDIOPULMONARY: S1, S2, regular rate and rhythm. No murmur. No rub. LUNGS: Bilateral equal entry, bilateral equal expansion. ABDOMEN: Obese, distended, positive colostomy, bowel sounds present. EXTREMITIES: Trace lower extremity edema. INTAKE AND OUTPUT: 120/500. LABORATORY DATA: WBC 11.8, hemoglobin 7.9, hematocrit 25, platelets 241. Sodium 136 . No chemistry today. CURRENT MEDICATIONS: Coumadin, losartan 100, doxycycline, Ferrex, HydroDIURIL, Lipitor, Lopressor 12.5, mag oxide, meropenem 250 every 12, PhosLo, sodium bicarbonate, half-normal saline, Tylenol, Zofran. ASSESSMENT AND PLAN: 1. Acute kidney injury superimposed on chronic kidney disease stage III, obstructive uropathy, right ureteral stent, left percutaneous nephrostomy. 2. History of colon cancer. 3. Colostomy. 4. Anemia of chronic disease. 5. Sacral decubitus, which is infected. PLAN: 1. Renal parameters are slowly improving. 2. No plans for renal replacement therapy. 3. Electrolytes within normal limits. 4. Continue antibiotics as per ID recommendations. 5. Continue wound care. 6. Avoid nephrotoxins. Corrie Yee MD
[2018-05-25 07:56] LABS: HEMOGLOBIN 8.2 g/dL (12.0-16.0); MEAN CELL VOLUME 82.8 fl (80.0-105.0); MEAN CORPUSCULAR HEMOGLOBIN 27.1 pg (25.0-35.0); MEAN CORPUSCULAR HGB CONC 32.7 g/dl (31.0-37.0); MEAN PLATELET VOLUME 10.1 fl (7.0-11.0); RBC 3.03 10^6/uL (3.5-6.1); RED CELL DISTRIBUTION WIDTH 16.1 % (11.5-14.5); WHITE BLOOD COUNT 11.4 10^3/uL (4.5-11.0)
[2018-05-25 08:00] LABS: INR 2.7; PROTHROMBIN TIME 31.7 SECONDS (9.4-12.5)
[2018-05-25] MEDS: Magnesium Oxide 400 mg Tab UD PO SCH (10:53)
[2018-05-25] MEDS: Iron Complex Polysacch 150mg Cap PO SCH (10:53)
[2018-05-25] MEDS: Dakin's Topical 0.25%-Half Strength (480 ml) TOP SCH (10:54)
[2018-05-25] MEDS: Oxycodone/Acetaminophen 5/325 mg Tab PO PRN (14:37)
--- NOTE | 2018-05-25 14:37 | CP.PCM.PCO ---
Physician Communication Note - Physician Communication Note Physician Communication Note: D/W Dr. Ninoska Guadalupe, will call pt's son for dc plan
--- NOTE | 2018-05-25 16:45 | CP.PCM.PN ---
Subjective - Date & Time of Evaluation Date of Evaluation: 05/25/18 Time of Evaluation: 09:35 - Subjective Subjective: Afebrile, non-toxic. Objective - Vital Signs/Intake and Output Vital Signs (last 24 hours): Temp Pulse Resp BP Pulse Ox 97.9 F 59 L 18 112/75 100 05/24/18 14:00 05/24/18 14:00 05/24/18 14:00 05/24/18 14:00 05/24/18 14:00 - Medications Medications: Current Medications Acetaminophen (Tylenol 325mg Tab) 650 mg PO Q4 PRN PRN Reason: Pain, moderate (4-7) Last Admin: 05/11/18 11:33 Dose: 650 mg Atorvastatin Calcium (Lipitor) 10 mg PO DAILY [facility] Last Admin: 05/24/18 10:11 Dose: 10 mg Calcium Acetate (Phoslo) 667 mg PO WM [facility] Last Admin: 05/24/18 13:21 Dose: 667 mg Hydrochlorothiazide (Hydrodiuril) 25 mg PO DAILY [facility] Last Admin: 05/22/18 09:19 Dose: 25 mg Sodium Chloride (Sodium Chloride 0.45%) 1,000 mls @ 60 mls/hr IV .[id number] [facility] Last Admin: 05/20/18 21:33 Dose: 60 mls/hr Meropenem 250 mg/ Sodium (Chloride) 100 mls @ 100 mls/hr IVPB Q12H [facility]; Protocol Stop: 05/27/18 16:31 Last Admin: 05/24/18 05:20 Dose: 100 mls/hr Doxycycline Hyclate 100 mg/ (Sodium Chloride) 100 mls @ 100 mls/hr IVPB Q12 [facility]; Protocol Last Admin: 05/23/18 22:36 Dose: 100 mls/hr Losartan Potassium (Cozaar) 100 mg PO DAILY [facility] Last Admin: 05/22/18 09:19 Dose: 100 mg Magnesium Oxide (Mag-Ox) 400 mg PO DAILY [facility] Last Admin: 05/24/18 10:10 Dose: 400 mg Metoprolol Tartrate (Lopressor) 12.5 mg PO DAILY [facility] Last Admin: 05/24/18 10:11 Dose: 12.5 mg Ondansetron HCl (Zofran Inj) 4 mg IVP Q6H PRN PRN Reason: Nausea/Vomiting Last Admin: 05/22/18 18:28 Dose: 4 mg Polysaccharide Iron Complex (Ferrex-150) 150 mg PO DAILY [facility] Last Admin: 05/24/18 10:11 Dose: 150 mg Sodium Bicarbonate (Sodium Bicarbonate Tab) 650 mg PO BID [facility] Last Admin: 05/24/18 10:11 Dose: 650 mg Sodium Hypochlorite (Dakins Solution 0.25%) 0 ml TOP DAILY [facility] Last Admin: 05/24/18 10:11 Dose: Not Given Warfarin Sodium (Coumadin) 2 mg PO 1800 [facility]; Protocol Last Admin: 05/23/18 17:04 Dose: 2 mg - Labs Labs: 05/24/18 06:35 05/23/18 06:30 PT 22.3 SECONDS (9.4-12.5) H 05/23/18 06:30 INR 1.91 05/23/18 06:30 APTT 36.3 Seconds (25.1-36.5) 05/20/18 07:00 - Constitutional Appears: Chronically Ill - Head Exam Head Exam: NORMAL INSPECTION - ENT Exam ENT Exam: Mucous Membranes Moist - Neck Exam Neck Exam: absent: Meningismus - Respiratory Exam Respiratory Exam: Decreased Breath Sounds - Cardiovascular Exam Cardiovascular Exam: +S1, +S2 - GI/Abdominal Exam GI & Abdominal Exam: Soft. absent: Tenderness Assessment and Plan - Assessment and Plan (Free Text) Plan: Assessment Sepsis due to HCAP and infected sacral ulcer S/P debridement HTN, HLD, DVT on Warfarin, Colon canc er s/p colectomy and end colostomy Plan continue Doxycycline and Merrem day 8 to complete total 10-14 days of therapy
[2018-05-25] MEDS: Sodium Chloride 0.45% 1,000 ML IV SCH ×2 (17:13→21:07)
--- NOTE | 2018-05-25 19:48 | PN ---
DATE: 05/25/2018 SUBJECTIVE: The patient is currently seen sleeping in bed. Her son is in the room. Lengthy discussion with her son. They are prepared to take her home over the weekend with a visiting nurse assistance. She will likely go home with a wound vac plus the nephrostomy tube on the left side plus the Duke catheter. Her creatinine has drifted downward, it is now 3.1. MEDICATIONS: Medication list reviewed. The patient is currently on Coumadin, Cozaar, is on hold, Dakin solution, doxycycline, Ferrex, hydrochlorothiazide is on hold, Lipitor, Lopressor, mag oxide, meropenem, Percocet, sodium bicarbonate supplements, half-normal saline 60 mL an hour, Tylenol p.r.n. and Zofran p.r.n. OBJECTIVE: INTAKE/OUTPUT: Intake is charted at 120 mL which is likely inaccurate. Output is charted at 900 mL, none of which is recorded from the left percutaneous nephrostomy tube. VITAL SIGNS: Blood pressure 141/78, temperature is 99.8. Respiratory rate is 20 with a pulse of 72. HEENT: Exam shows her to be normocephalic, atraumatic. Eyes are closed. NECK: Supple. No neck vein distention. CHEST: Clear to auscultation and percussion. No rales, rhonchi or wheezing. CARDIOVASCULAR: Shows a regular rate and rhythm without audible murmurs, rubs or gallops. ABDOMEN: Soft. Bowel sounds normal. Positive colostomy. No rebound or guarding or masses. BACK: The patient has a VAC apparatus over her sacral decubitus with drainage. Positive left percutaneous nephrostomy. EXTREMITIES: Show no cyanosis or clubbing. She has trace lower extremity edema. LABORATORY DATA AND IMAGING: CBC, white blood cell count today 11.4 stable, hemoglobin stable but slightly lower at 8.2. Platelet count is 267,000. Coags, PT of 31.7 with an INR of 2.7. Chemistries, sodium 137, potassium 4.6, chloride 110 with a CO2 of 22, BUN is 54, slightly low with a creatinine of 3.1. Continues to improve. Glucose is 81. Calcium was 8 with an albumin level of 2.4, corrects to normal. Last phosphorus level was 4.8 with a magnesium level of 1.7. Microbiology initial wound cultures of the sacrum and buttock were positive for Citrobacter, Pseudomonas, Enterococcus and Klebsiella. The most recent sacral wound culture was positive for E-coli. ASSESSMENT: 1. Acute renal failure in the setting of bilateral obstructive uropathy. The patient has a right ureteral stent and a left percutaneous nephrostomy tube. She is making urine through the Duke catheter. The percutaneous drainage appears to be less of an elisha-colored urine. There are no accurate inputs and outputs. It is nice to see that her creatinine is drifting downward. Her last creatinine was recorded at 3.1. This takes her out of consideration for needing any possible dialysis which family had refused any way. 2. History of hypertension. Blood pressure remains acceptable off medication. She should not be discharged home on an angiotensin receptor florencio or hydrochlorothiazide. 3. History of paroxysmal atrial fibrillation on chronic anticoagulation. The patient also remains on low-dose beta-florencio therapy. 4. History of colon cancer, stable. 5. History of multiple bowel surgeries secondary to obstruction with abdominal wall infections status post colostomy. This appears to be stable. 6. 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 Rhythm appears to be stable today. She remains on chronic anticoagulation and beta-florencio therapy as noted above. 7. 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 The patient remains on chronic anticoagulation. Doppler study done on admission showed a subacute thrombus of the right middle and distal femoral vein. 8. History of anemia. The patient's hemoglobin is drifting downward at 8.2. She had received a total of 2 units of packed red blood cells. One might consider transfusing her prior to potential discharge over the weekend. 9. History of sacral decubitus and buttock wound. The patient currently has a vacuum, patient remains on antibiotic therapy. 10. Status post mild hypomagnesemia. The patient remains on magnesium supplements. Last magnesium level was 1.7. 11. History of secondary hyperparathyroidism secondary to kidney failure. Her last phosphorus level was 4.8. The patient's oral intake is very poor. If she starts eating adequate amounts of food she can be placed on binder therapy. She had been placed on calcium acetate during the early part of the hospitalization. PLAN: 1. Lengthy discussion with son. He will take the patient home with assistance. She will likely go home off IV fluid hydration with a left percutaneous nephrostomy tube with the VAC apparatus and a Duke catheter. 2. Will continue to monitor her laboratory work during the remainder of the hospitalization. 3. The patient may continue Aranesp for her anemia along with oral iron. 4. No plans for dialysis as her creatinine has improved and the patient was felt not to be a candidate for chronic dialysis. Nikunj Soliman MD
--- NOTE | 2018-05-25 22:20 | PN ---
DATE: 05/25/2018 DAILY PROGRESS NOTE SUBJECTIVE: The patient was seen this Thursday morning in room 571, bed 2. She is more awake, alert, and clear, doing rather well. She continues to take p.o. rather well. IV antibiotics continued as well as surgical followup of her sacral decubitus. Later in the day, I spoke with case finisher regarding discharge plans, they are working on [facility] or other facilities. The patient's son requested [facility]; however, apparently there was a change of insurance as of the first of year and this may create a problem, we are finding an acceptable subacute rehab. I am told the alternative would be that the patient goes home, but the patient's son is not ready to take her for another day or two. We will be in touch with the son and case management to work with them as well. Guy Guadalupe MD
[2018-05-26 05:44] LABS: HEMOGLOBIN 8.8 g/dL (12.0-16.0); MEAN CELL VOLUME 83.6 fl (80.0-105.0); MEAN CORPUSCULAR HEMOGLOBIN 27.2 pg (25.0-35.0); MEAN CORPUSCULAR HGB CONC 32.6 g/dl (31.0-37.0); MEAN PLATELET VOLUME 10.3 fl (7.0-11.0); RBC 3.23 10^6/uL (3.5-6.1); WHITE BLOOD COUNT 11.2 10^3/uL (4.5-11.0)
[2018-05-26 07:05] LABS: ALB/GLOB RATIO 0.6 (1.1-1.8); ALBUMIN 2.2 g/dL (3.0-4.8); CALCIUM 8.2 mg/dL (8.4-10.5)
[2018-05-26] MEDS ORDERED: Darbepoetin Alfa 60 mcg/ml Inj SC ONE (10:00)
[2018-05-26] MEDS: Magnesium Oxide 400 mg Tab UD PO SCH (11:18)
[2018-05-26] MEDS: Iron Complex Polysacch 150mg Cap PO SCH (11:18)
[2018-05-26] MEDS: Dakin's Topical 0.25%-Half Strength (480 ml) TOP SCH (11:20)
[2018-05-26 14:48] VITALS: BP 127/68; PULSE 68; RESP 16; TEMP 97.9
--- NOTE | 2018-05-26 17:45 | CP.PCM.PN ---
Subjective - Date & Time of Evaluation Date of Evaluation: 05/26/18 Time of Evaluation: 17:39 - Subjective Subjective: Surgery Progress note- Dr. Mcmahan Patient seen and examined at bedside. Patient expected to be leaving home tonight with VNS. Removed KCI wound vac and replaced with portable wound vac and green foam. Patient tolerated wound vac change well. wound is clean with good granulation tissue. A/P Cleared for discharge home from surgical stand point Wound vac change q3 days w/ VNS services d/w Dr. Mcmahan surgical attending Objective - Vital Signs/Intake and Output Vital Signs (last 24 hours): Temp Pulse Resp BP Pulse Ox 97.9 F 68 16 127/68 100 05/26/18 14:00 05/26/18 14:00 05/26/18 14:00 05/26/18 14:00 05/26/18 14:00 Intake and Output: 05/26/18 05/26/18 06:59 18:59 Intake Total 120 Output Total 160 Balance -40 - Medications Medications: Current Medications Acetaminophen (Tylenol 325mg Tab) 650 mg PO Q4 PRN PRN Reason: Pain, moderate (4-7) Last Admin: 05/11/18 11:33 Dose: 650 mg Atorvastatin Calcium (Lipitor) 10 mg PO DAILY [facility] Last Admin: 05/26/18 11:18 Dose: 10 mg Hydrochlorothiazide (Hydrodiuril) 25 mg PO DAILY [facility] Last Admin: 05/22/18 09:19 Dose: 25 mg Sodium Chloride (Sodium Chloride 0.45%) 1,000 mls @ 60 mls/hr IV .[id number] [facility] Last Admin: 05/25/18 21:07 Dose: 60 mls/hr Meropenem 250 mg/ Sodium (Chloride) 100 mls @ 100 mls/hr IVPB Q12H [facility]; Protocol Stop: 05/27/18 16:31 Last Admin: 05/26/18 05:19 Dose: 100 mls/hr Doxycycline Hyclate 100 mg/ (Sodium Chloride) 100 mls @ 100 mls/hr IVPB Q12 [facility]; Protocol Last Admin: 05/26/18 11:19 Dose: 100 mls/hr Losartan Potassium (Cozaar) 100 mg PO DAILY [facility] Last Admin: 05/22/18 09:19 Dose: 100 mg Magnesium Oxide (Mag-Ox) 400 mg PO DAILY [facility] Last Admin: 05/26/18 11:18 Dose: 400 mg Ondansetron HCl (Zofran Inj) 4 mg IVP Q6H PRN PRN Reason: Nausea/Vomiting Last Admin: 05/22/18 18:28 Dose: 4 mg Oxycodone/Acetaminophen (Percocet 5/325 Mg Tab) 1 tab PO Q4H PRN PRN Reason: Pain, severe (8-10) Stop: 05/28/18 10:07 Last Admin: 05/25/18 14:37 Dose: 1 tab Polysaccharide Iron Complex (Ferrex-150) 150 mg PO DAILY [facility] Last Admin: 05/26/18 11:18 Dose: 150 mg Sodium Bicarbonate (Sodium Bicarbonate Tab) 650 mg PO BID [facility] Last Admin: 05/26/18 11:18 Dose: 650 mg Sodium Hypochlorite (Dakins Solution 0.25%) 0 ml TOP DAILY [facility] Last Admin: 05/26/18 11:20 Dose: Not Given Warfarin Sodium (Coumadin) 1 mg PO 1800 [facility]; Protocol Last Admin: 05/26/18 11:20 Dose: Not Given - Labs Labs: 05/26/18 05:25 05/26/18 05:25 PT 31.7 SECONDS (9.4-12.5) H 05/25/18 07:00 INR 2.70 05/25/18 07:00 APTT 36.3 Seconds (25.1-36.5) 05/20/18 07:00
[2018-05-26] MEDS: Oxycodone/Acetaminophen 5/325 mg Tab PO PRN (17:51)
--- NOTE | 2018-05-26 19:23 | CP.PCM.PN ---
Subjective - Date & Time of Evaluation Date of Evaluation: 05/26/18 Time of Evaluation: 08:55 - Subjective Subjective: Afebrile, comfortable. Objective - Vital Signs/Intake and Output Vital Signs (last 24 hours): Temp Pulse Resp BP Pulse Ox 97.9 F 68 16 127/68 100 05/26/18 14:00 05/26/18 14:00 05/26/18 14:00 05/26/18 14:00 05/26/18 14:00 - Medications Medications: Current Medications Acetaminophen (Tylenol 325mg Tab) 650 mg PO Q4 PRN PRN Reason: Pain, moderate (4-7) Last Admin: 05/11/18 11:33 Dose: 650 mg Atorvastatin Calcium (Lipitor) 10 mg PO DAILY [facility] Last Admin: 05/26/18 11:18 Dose: 10 mg Hydrochlorothiazide (Hydrodiuril) 25 mg PO DAILY [facility] Last Admin: 05/22/18 09:19 Dose: 25 mg Sodium Chloride (Sodium Chloride 0.45%) 1,000 mls @ 60 mls/hr IV .[id number] [facility] Last Admin: 05/25/18 21:07 Dose: 60 mls/hr Meropenem 250 mg/ Sodium (Chloride) 100 mls @ 100 mls/hr IVPB Q12H [facility]; Protocol Stop: 05/27/18 16:31 Last Admin: 05/26/18 18:02 Dose: 100 mls/hr Doxycycline Hyclate 100 mg/ (Sodium Chloride) 100 mls @ 100 mls/hr IVPB Q12 [facility]; Protocol Last Admin: 05/26/18 11:19 Dose: 100 mls/hr Losartan Potassium (Cozaar) 100 mg PO DAILY [facility] Last Admin: 05/22/18 09:19 Dose: 100 mg Magnesium Oxide (Mag-Ox) 400 mg PO DAILY [facility] Last Admin: 05/26/18 11:18 Dose: 400 mg Ondansetron HCl (Zofran Inj) 4 mg IVP Q6H PRN PRN Reason: Nausea/Vomiting Last Admin: 05/22/18 18:28 Dose: 4 mg Oxycodone/Acetaminophen (Percocet 5/325 Mg Tab) 1 tab PO Q4H PRN PRN Reason: Pain, severe (8-10) Stop: 05/28/18 10:07 Last Admin: 05/26/18 17:51 Dose: 1 tab Polysaccharide Iron Complex (Ferrex-150) 150 mg PO DAILY [facility] Last Admin: 05/26/18 11:18 Dose: 150 mg Sodium Hypochlorite (Dakins Solution 0.25%) 0 ml TOP DAILY [facility] Last Admin: 05/26/18 11:20 Dose: Not Given Warfarin Sodium (Coumadin) 1 mg PO 1800 [facility]; Protocol Last Admin: 05/26/18 17:51 Dose: 1 mg - Labs Labs: 05/26/18 05:25 05/26/18 05:25 PT 31.7 SECONDS (9.4-12.5) H 05/25/18 07:00 INR 2.70 05/25/18 07:00 APTT 36.3 Seconds (25.1-36.5) 05/20/18 07:00 - Constitutional Appears: Chronically Ill - Head Exam Head Exam: NORMAL INSPECTION - Respiratory Exam Respiratory Exam: Decreased Breath Sounds - Cardiovascular Exam Cardiovascular Exam: +S1, +S2 - GI/Abdominal Exam GI & Abdominal Exam: Soft. absent: Tenderness Assessment and Plan - Assessment and Plan (Free Text) Plan: Assessment Sepsis due to HCAP and infected sacral ulcer S/P debridement HTN, HLD, DVT on Warfarin, Colon canc er s/p colectomy and end colostomy Plan continue Doxycycline and Merrem day 9 to complete total 10-14 days of therapy discussed with Dr. Guadalupe previously
[2018-05-26] MEDS: Magnesium Sulfate 1 gm in D5W 1 GM/100 ML BAG IVPB ONE ×2 (20:42→20:43)
--- NOTE | 2018-05-26 21:53 | PN ---
DATE: 05/26/2018 SUBJECTIVE: The patient is seen lying in bed. She is comfortable. PHYSICAL EXAMINATION: GENERAL: Elderly lady lying in bed. VITAL SIGNS: Blood pressure 127/68, heart rate 68, respiratory rate 16, temperature 97.9. T max is 99.8. HEENT: Normocephalic, atraumatic, positive pallor. NECK: Supple. No JVD. CARDIAC: S1 and S2, regular rate and rhythm. No murmur. No rub. LUNGS: Bilateral equal entry, bilateral equal expansion. ABDOMEN: Soft, nondistended, nontender, positive colostomy, bowel sounds present. EXTREMITIES: No lower extremity edema. LABORATORY DATA: WBC 11, hemoglobin 8.8, hematocrit 27, platelets 295. Sodium 137, potassium 4.7, chloride 110, CO2 22, BUN 52, creatinine 2.9, glucose 78, calcium 8.2, phosphorus 4.2, magnesium 1.4, albumin 2.2, corrected calcium is 9.5. CURRENT MEDICATIONS: Coumadin, doxycycline 100 every 12, iron 150, Lipitor 10, mag oxide 400, meropenem 250 every 12, half normal saline at 60, Tylenol, Zofran, Aranesp 60 given yesterday, sodium bicarbonate 650 b.i.d. discontinued. ASSESSMENT: 1. Acute kidney injury superimposed on chronic kidney disease stage III/IV, resolving nicely. 2. Obstructive uropathy, bilateral obstruction, right ureteral stent, left . 3. History of colon cancer. 4. Colostomy. 5. Hypomagnesemia. 6. Severe anemia. 7. Infected sacral decubitus. PLAN: 1. Continue hypotonic fluids. 2. Replace magnesium. 3. Continue antibiotics as per ID recommendations. 4. Continue wound care. Corrie Yee MD
[2018-05-27] MEDS ORDERED: Magnesium Oxide 400 mg Tab UD PO ONE (20:48)
== END 2018-05-26 23:09 | disposition home health service (06) | DRG 264 ==
LOC: ED 14:48 → ERH 17:26 → 5RSO 20:46
PROVIDERS: ADMIT Internal Medicine; ATTEND Internal Medicine
PROC: 30233N1 Transfusion of Nonautologous Red Blood Cells into Peripheral Vein, Percutaneous Approach (ICD-10-PCS; 2018-05-10)
PROC: BT141ZZ Fluoroscopy of Kidneys, Ureters and Bladder using Low Osmolar Contrast (ICD-10-PCS; 2018-05-12)
PROC: 0T9B70Z Drainage of Bladder with Drainage Device, Via Natural or Artificial Opening (ICD-10-PCS; 2018-05-12)
PROC: 0T788DZ Dilation of Bilateral Ureters with Intraluminal Device, Via Natural or Artificial Opening Endoscopic (ICD-10-PCS; principal; 2018-05-12 07:30)
PROC: 0T7D7ZZ Dilation of Urethra, Via Natural or Artificial Opening (ICD-10-PCS; 2018-05-13)
PROC: 0T9B70Z Drainage of Bladder with Drainage Device, Via Natural or Artificial Opening (ICD-10-PCS; 2018-05-13)
PROC: 0T9430Z Drainage of Left Kidney Pelvis with Drainage Device, Percutaneous Approach (ICD-10-PCS; 2018-05-14)
PROC: 0JB70ZZ Excision of Back Subcutaneous Tissue and Fascia, Open Approach (ICD-10-PCS; 2018-05-20)
DX: I82.4Z1 Acute embolism and thrombosis of unspecified deep veins of right distal lower extremity (principal); A41.9 Sepsis, unspecified organism; L89.154 Pressure ulcer of sacral region, stage 4; J18.9 Pneumonia, unspecified organism; N17.9 Acute kidney failure, unspecified; E87.2 Acidosis; N13.30 Unspecified hydronephrosis; N25.81 Secondary hyperparathyroidism of renal origin; R64 Cachexia; N13.8 Other obstructive and reflux uropathy; L03.90 Cellulitis, unspecified; Z68.1 Body mass index [BMI] 19.9 or less, adult; D41.4 Neoplasm of uncertain behavior of bladder; E86.0 Dehydration; M79.89 Other specified soft tissue disorders; R31.0 Gross hematuria; D63.1 Anemia in chronic kidney disease; N35.92 Unspecified urethral stricture, female; I48.0 Paroxysmal atrial fibrillation; I25.10 Atherosclerotic heart disease of native coronary artery without angina pectoris; E87.5 Hyperkalemia; G62.9 Polyneuropathy, unspecified; E78.5 Hyperlipidemia, unspecified; E83.42 Hypomagnesemia; M81.0 Age-related osteoporosis without current pathological fracture; I73.9 Peripheral vascular disease, unspecified; I12.9 Hypertensive chronic kidney disease with stage 1 through stage 4 chronic kidney disease, or unspecified chronic kidney disease; N18.3 Chronic kidney disease, stage 3 (moderate); L89.309 Pressure ulcer of unspecified buttock, unspecified stage; B96.5 Pseudomonas (aeruginosa) (mallei) (pseudomallei) as the cause of diseases classified elsewhere; B95.2 Enterococcus as the cause of diseases classified elsewhere; B96.1 Klebsiella pneumoniae [K. pneumoniae] as the cause of diseases classified elsewhere; Y95 Nosocomial condition; Z79.01 Long term (current) use of anticoagulants; Z85.048 Personal history of other malignant neoplasm of rectum, rectosigmoid junction, and anus; Z93.3 Colostomy status; Z74.01 Bed confinement status; Z91.040 Latex allergy status

== ENCOUNTER 2018-06-10 13:57 | Inpatient (IN) | payer BC, MEDICARE ==
--- NOTE | 2018-06-10 15:41 | ED PDOC ---
Arrival/HPI - General Chief Complaint: Abnormal Skin Integrity Time Seen by Provider: 06/10/18 14:36 Historian: Patient - History of Present Illness Narrative History of Present Illness (Text): 06/10/18 14:49 Patient is an 82 year old female, with past medical history of anemia and DVT, was referred to the ED for evaluation of decubitus ulcer on her right buttocks today. Patient states she has a visiting nurse with wound vacs at home and was informed by her visiting nurse yesterday of possible infection to the area. Patient states the visiting changed her dressing from wet to dry dressing and contacted Dr. Mcmahan, who subsequently referred patient to the ED for medical evaluation. Patient currently denies any somatic complaints. Patient denies any fever, chills, nausea, vomiting, diarrhea, abdominal pain, chest pain, SOB, cough, headache, dizziness, or any other complaints. Time/Duration: 24 hours Symptom Onset: Gradual Symptom Course: Unchanged Activities at Onset: Light Context: Home Past Medical History - Provider Review Nursing Documentation Reviewed: Yes - Past History Past History: No Previous - Infectious Disease Hx of Infectious Diseases: None - Cardiac Hx Cardiac Disorders: Yes Hx Hypertension: Yes - Pulmonary Hx Respiratory Disorders: Yes Hx Asthma: Yes - Neurological Hx Neurological Disorder: No - HEENT Hx HEENT Disorder: No - Renal Hx Renal Disorder: Yes Other/Comment: b/l hydroneprhosis, right kidney stent, nephrostomy tube - Endocrine/Metabolic Hx Endocrine Disorders: No - Hematological/Oncological Hx Blood Transfusions: Yes Hx Blood Transfusion Reaction: No - Integumentary Hx Dermatological Disorder: Yes Other/Comment: right buttock wound with wound vac - Musculoskeletal/Rheumatological Hx Musculoskeletal Disorders: Yes - Gastrointestinal Other/Comment: Colon CA. H/O Colon resection - Genitourinary/Gynecological Hx Genitourinary Disorders: No - Psychiatric Hx Emotional Abuse: No Hx Physical Abuse: No Hx Substance Use: No - Surgical History Other/Comment: colon resection. ileostomy. ureteral stent - Anesthesia Hx Anesthesia Reactions: No Hx Malignant Hyperthermia: No - Suicidal Assessment Feels Threatened In Home Enviroment: No Family/Social History - Physician Review Nursing Documentation Reviewed: Yes Family/Social History: No Known Family HX Smoking Status: Never Smoked Hx Alcohol Use: No Hx Substance Use: No Hx Substance Use Treatment: No Allergies/Home Meds Allergies/Adverse Reactions: Allergies latex Allergy (Verified 06/10/18 14:42) skin breakdown Review of Systems - Review of Systems Constitutional: absent: Fevers Eyes: absent: Vision Changes Respiratory: absent: SOB, Cough Cardiovascular: absent: Chest Pain Gastrointestinal: absent: Abdominal Pain, Diarrhea, Nausea, Vomiting Genitourinary Female: absent: Dysuria, Urine Output Changes Musculoskeletal: absent: Back Pain, Neck Pain Skin: Ulcer (Decub ulcer to right buttocks). absent: Rash Neurological: absent: Headache, Dizziness Endocrine: absent: Diaphoresis Psychiatric: absent: Anxiety Physical Exam Vital Signs Reviewed: Yes Vital Signs Temp Resp BP 06/10/18 14:35 98.0 F 16 118/88 Temperature: Afebrile Blood Pressure: Normal Respiratory Rate: Normal Appearance: Positive for: Non-Toxic, Comfortable, Cachectic Pain Distress: None Mental Status: Positive for: Alert and Oriented X 3 - Systems Exam Head: Present: Atraumatic, Normocephalic Pupils: Present: PERRL Extroacular Muscles: Present: EOMI Conjunctiva: Present: Normal Respiratory/Chest: Present: Clear to Auscultation, Good Air Exchange, Other (Mediport noted to right chest wall.). No: Respiratory Distress, Accessory Muscle Use Cardiovascular: Present: Regular Rate and Rhythm, Normal S1, S2. No: Murmurs Abdomen: No: Tenderness, Distention, Peritoneal Signs Genitourinary/Pelvic Exam: Present: Other (Mo catheter in place. Left sided nephrostomoy tube.) Upper Extremity: Present: Normal Inspection. No: Cyanosis, Edema Lower Extremity: Present: Normal Inspection. No: Edema Neurological: Present: GCS=15, CN II-XII Intact, Speech Normal Skin: Present: Warm, Dry, Normal Color, Other (large unstageable decubitus ulcer to right buttocks.). No: Rashes Psychiatric: Present: Alert, Oriented x 3, Normal Insight, Normal Concentration Medical Decision Making ED Course and Treatment: 06/10/18 14:50 Impression: 82 year old female presents to the Emergency department for evaluation of right buttocks decubitus ulcer. Plan: -- Labs -- Blood Culture -- Reassess and disposition Prior Visits: Notes and results from previous visits were reviewed. Progress Notes: 06/10/18 14:50 vice president of customer service evaluated patient at bedside and changed dressing. Surgery resident recommends observation overnight for dressing changes. Patient will be admitted to Dr. Dickens 06/10/18 18:25 - Piperibe Statement The provider has reviewed the documentation as recorded by the Piperibe Michela Naylor. All medical record entries made by the Piperibmikaela were at my direction and personally dictated by me. I have reviewed the chart and agree that the record accurately reflects my personal performance of the history, physical exam, medical decision making, and the department course for this patient. I have also personally directed, reviewed, and agree with the discharge instructions and disposition. Disposition/Present on Arrival - Present on Arrival Any Indicators Present on Arrival: No History of DVT/PE: Yes History of Uncontrolled Diabetes: No Urinary Catheter: Yes (mo draining blood) History of Decub. Ulcer: Yes (Right buttock) History Surgical Site Infection Following: None - Disposition Have Diagnosis and Disposition been Completed?: Yes Diagnosis: Failure to thrive, Decubitus ulcer, Anemia, CKD (chronic kidney disease), Renal insufficiency Disposition: HOSPITALIZED Disposition Time: 16:21 Patient Plan: Observation Patient Problems: Current Active Problems Problem Status Onset Failure to thrive Acute Anemia Acute Renal insufficiency Acute Decubitus ulcer Acute CKD (chronic kidney disease) Acute Condition: FAIR
[2018-06-10] MEDS ORDERED: Lidocaine/Prilocaine 2.5%-2.5% Cream(30 gm) TOP ONE (16:02)
--- NOTE | 2018-06-10 16:55 | CP.PCM.CON ---
History of Present Illness - History of Present Illness History of Present Illness: Resident Consult Note for Surgery: Dr. Mcmahan Patient is an 82 year old female with past medical history colon cancer s/p resection x2 with end colostomy, DVT on warfarin, neuropathy, HTN, HLD presenting with sacral decubitus ulcer. Patient has a visiting nurse with wound vacs at home and due to concern for infection patient was brought to the ED. Patient had a debridement of necrotic stage 4 sacral decubitus ulcer two weeks prior. Patient denies any complaints at this time. Denies fevers, chills, nausea, vomiting, chest pain, shortness of breath, abdominal pain. PMH: colon cancer s/p resection x2 with end colostomy (2010), chemo and radiation, DVT on warfarin, neuropathy, HTN, HLD PSH: colectomy with end colostomy, IVC filter, port placement, nephrostomy tube placement SHx: denies alcohol, tobacco, illicit drug use Allergies: latex Review of Systems - Review of Systems All systems: reviewed and no additional remarkable complaints except (as stated in HPI) Past Patient History - Infectious Disease Hx of Infectious Diseases: None - Past Medical History & Family History Past Medical History?: Yes - Past Social History Smoking Status: Never Smoked - CARDIAC Hx Cardiac Disorders: Yes Hx Hypertension: Yes - PULMONARY Hx Respiratory Disorders: Yes Hx Asthma: Yes - NEUROLOGICAL Hx Neurological Disorder: No - HEENT Hx HEENT Problems: No - RENAL Hx Chronic Kidney Disease: Yes Other/Comment: b/l hydroneprhosis, right kidney stent, nephrostomy tube - ENDOCRINE/METABOLIC Hx Endocrine Disorders: No - HEMATOLOGICAL/ONCOLOGICAL Hx Blood Transfusions: Yes Hx Blood Transfusion Reaction: No - INTEGUMENTARY Hx Dermatological Problems: Yes Other/Comment: right buttock wound with wound vac - MUSCULOSKELETAL/RHEUMATOLOGICAL Hx Musculoskeletal Disorders: Yes - GASTROINTESTINAL Other/Comment: Colon CA. H/O Colon resection - GENITOURINARY/GYNECOLOGICAL Hx Genitourinary Disorders: No - PSYCHIATRIC Hx Emotional Abuse: No Hx Physical Abuse: No Hx Substance Use: No - SURGICAL HISTORY Other/Comment: colon resection. ileostomy. ureteral stent - ANESTHESIA Hx Anesthesia Reactions: No Hx Malignant Hyperthermia: No Meds Allergies/Adverse Reactions: Allergies Allergy/AdvReac Type Severity Reaction Status Date / Time latex Allergy skin Verified 06/10/18 14:42 breakdown Physical Exam - Additional Findings Additional findings: - Constitutional Appears: No Acute Distress - Head Exam Head Exam: ATRAUMATIC, NORMOCEPHALIC - Eye Exam Eye Exam: EOMI, Normal appearance - ENT Exam ENT Exam: Mucous Membranes Moist - Respiratory Exam Respiratory Exam: NORMAL BREATHING PATTERN. absent: Accessory Muscle Use, Respiratory Distress - Cardiovascular Exam Cardiovascular Exam: REGULAR RHYTHM, + S1, S2 - GI/Abdominal Exam GI & Abdominal Exam: Soft. absent: Tenderness, Rigid, Distended - Extremities Exam Extremities Exam: Normal Inspection - Back Exam Additional comments: [id number] sacral wound - Neurological Exam Neurological Exam: Alert, Awake, Oriented x3 - Psychiatric Exam Psychiatric exam: Normal Affect, Normal Mood - Skin Skin Exam: Erythema, Warm. absent: Intact Results - Vital Signs Recent Vital Signs: Last Vital Signs Temp 98.0 F 06/10/18 14:35 Pulse 78 06/10/18 15:59 Resp 18 06/10/18 15:59 BP 119/74 06/10/18 15:59 Pulse Ox 97 06/10/18 15:59 Assessment & Plan - Assessment and Plan (Free Text) Assessment: Patient is an 82 year old female with past medical history colon cancer s/p resection x2 with end colostomy, DVT on warfarin, neuropathy, HTN, HLD presenting with sacral decubitus ulcer. Plan: - dressing changed - pain control PRN - diet as tolerated - turn and reposition Q2H - air mattress - further management per primary - further recommendations per Dr. Martir Godinez PGY-1 - Date & Time Date: 06/10/18 Time: 16:56
[2018-06-10 17:18] LABS: EOS # 0.1 (0.0-0.7); EOS % 0.9 % (1.5-5.0); HEMOGLOBIN 8.9 g/dL (12.0-16.0); LYMPH # 0.6 (1.2-3.4); LYMPH % 5.8 % (22.0-35.0); MEAN CELL VOLUME 82.5 fl (80.0-105.0); MEAN CORPUSCULAR HEMOGLOBIN 26.3 pg (25.0-35.0); MEAN CORPUSCULAR HGB CONC 31.9 g/dl (31.0-37.0); MEAN PLATELET VOLUME 10.8 fl (7.0-11.0); MONO # 0.6 (0.1-0.6); MONO % 5.6 % (1.0-6.0); RBC 3.38 10^6/uL (3.5-6.1); RED CELL DISTRIBUTION WIDTH 16.7 % (11.5-14.5)
[2018-06-10 17:32] LABS: ALB/GLOB RATIO 0.6 (1.1-1.8); ALBUMIN 2.4 g/dL (3.0-4.8); CALCIUM 7.9 mg/dL (8.4-10.5)
[2018-06-10 17:36] LABS: PARTIAL THROMBOPLASTIN TIME 43.5 Seconds (26.9-38.3)
[2018-06-10] MEDS ORDERED: Sodium Chloride 0.9% 1,000 ML IV SCH (17:45)
[2018-06-10 18:30] LABS: PROTHROMBIN TIME 41.2 SECONDS (9.4-12.5)
[2018-06-10 18:31] LABS: INR 3.71
[2018-06-10] MEDS ORDERED: Oxycodone/Acetaminophen 5/325 mg Tab PO STA (18:50)
[2018-06-10 21:01] VITALS: BMI 18.9
[2018-06-10] MEDS ORDERED: Pneumococcal 23-Valent Vaccine IM ONE (21:02)
[2018-06-10] MEDS ORDERED: Influenza Vaccine 60 mcg/0.5 mL SYR (4YR UP) IM ONE (21:02)
--- NOTE | 2018-06-11 07:50 | CP.PCM.PN ---
Subjective - Date & Time of Evaluation Date of Evaluation: 06/11/18 Time of Evaluation: 07:50 - Subjective Subjective: Resident Consult Note for Surgery: Dr. Mcmahan Patient examined at bedside. No acute events overnight. Plan for wound vac placement today. Objective - Vital Signs/Intake and Output Vital Signs (last 24 hours): Temp Pulse Resp BP Pulse Ox 97.1 F L 76 16 125/83 99 06/10/18 23:02 06/10/18 23:02 06/10/18 23:02 06/10/18 23:02 06/10/18 20:29 Intake and Output: 06/11/18 06/11/18 06:59 18:59 Output Total 400 100 Balance -400 -100 - Medications Medications: Current Medications Atorvastatin Calcium (Lipitor) 10 mg PO DIN ADELINE Hydrochlorothiazide (Hydrodiuril) 25 mg PO DAILY ADELINE Losartan Potassium (Cozaar) 100 mg PO DAILY ADELINE Metoprolol Succinate (Toprol Xl) 25 mg PO BRK ADELINE Oxycodone/Acetaminophen (Percocet 5/325 Mg Tab) 1 tab PO Q4H PRN PRN Reason: Moderate Pain Stop: 06/13/18 23:53 - Labs Labs: 06/10/18 17:10 06/10/18 17:10 PT 41.2 SECONDS (9.4-12.5) H 06/10/18 17:10 INR 3.71 H* 06/10/18 17:10 APTT 43.5 Seconds (26.9-38.3) H 06/10/18 17:10 - Additional Findings Additional findings: - Constitutional Appears: No Acute Distress - Head Exam Head Exam: ATRAUMATIC, NORMOCEPHALIC - Eye Exam Eye Exam: EOMI, Normal appearance - ENT Exam ENT Exam: Mucous Membranes Moist - Respiratory Exam Respiratory Exam: NORMAL BREATHING PATTERN. absent: Accessory Muscle Use, Respiratory Distress - Cardiovascular Exam Cardiovascular Exam: REGULAR RHYTHM, + S1, S2 - GI/Abdominal Exam GI & Abdominal Exam: Soft. absent: Tenderness, Rigid, Distended - Extremities Exam Extremities Exam: Normal Inspection - Back Exam Additional comments: [id number] sacral wound - Neurological Exam Neurological Exam: Alert, Awake, Oriented x3 - Skin Skin Exam: Dry, Warm. absent: Intact Assessment and Plan - Assessment and Plan (Free Text) Assessment: Patient is an 82 year old female with past medical history colon cancer s/p resection x2 with end colostomy, DVT on warfarin, neuropathy, HTN, HLD presenting with sacral decubitus ulcer. Plan: - pain control PRN - diet as tolerated - turn and reposition Q2H - air mattress - no acute surgical intervention indicated at this time - further management per primary - further recommendations per Dr. Martir Godinez PGY-1
[2018-06-11] MEDS ORDERED: Oxycodone/Acetaminophen 5/325 mg Tab PO PRN (07:54)
[2018-06-11] MEDS ORDERED: Dakin's Topical 0.25%-Half Strength (480 ml) TOP SCH ×2 (10:00)
[2018-06-11] MEDS: Metoprolol Succinate 25 mg XL Tab PO SCH (11:13)
[2018-06-11] MEDS: Dextrose 5%/0.45% NS 1,000 ML IV SCH (17:07)
[2018-06-11] MEDS ORDERED: Collagenase 250 Units/gm Ointment(30 gm) TOP SCH (17:30)
[2018-06-11] MEDS: Collagenase 250 Units/gm Ointment(30 gm) TOP SCH (17:52)
[2018-06-11] MEDS: Oxycodone/Acetaminophen 5/325 mg Tab PO PRN (19:12)
[2018-06-12] MEDS: Dextrose 5%/0.45% NS 1,000 ML IV SCH ×2 (05:54→18:05)
--- NOTE | 2018-06-12 13:07 | HP ---
DATE OF EXAM: 06/12/2018 HISTORY OF PRESENT ILLNESS: The patient is an 82-year-old female who was brought to the emergency room because of a worsening decubitus ulcer. The patient was recently hospitalized with a DVT. The decubitus ulcer was evaluated by the surgical team Dr. Mcmahan, and was treated at that time, some debridement was done, wound VAC was placed; however, while at home, visiting nurse thought that the wound was becoming more purulent, therefore, suggested hospitalization and reevaluation by the surgical team. The patient is known to have a history of deep vein thrombosis for which she was hospitalized within the past month. She also has a history of DVT in the more distant past, hypertension, colon carcinoma. She had ureteral stents placed in the last hospitalization because of hydronephrosis. She has chronic renal failure, status post ileostomy placement for her colon carcinoma. SOCIAL HISTORY: The patient is a nonsmoker, nonalcoholic drinker. ALLERGIES: SHE IS KNOWN TO BE ALLERGIC TO LATEX. MEDICATIONS: At the time of admission, the patient was taking warfarin, Pravachol, Percocet, metoprolol, losartan, hydrochlorothiazide, Duragesic patches. REVIEW OF SYSTEMS: On review of systems the patient is rather despondent. The son at bedside feels the patient is realizing that her overall medical condition is rather end-stage and she is becoming more and more depressed. PHYSICAL EXAMINATION: VITAL SIGNS: The blood pressure is 118/88, heart rate is 98 and she is afebrile. HEAD, EYES, EARS, NOSE AND THROAT: Unremarkable. NECK: Supple with no lymphadenopathy. No goiter. LUNGS: Clear to auscultation and percussion. HEART: Regular with a normal S1 and S2. No murmurs are appreciated. ABDOMEN: Slightly distended. Bowel sounds are normal. No organomegaly is noted. There is a left-sided nephrostomy tube in place. Duke catheter is also in place. EXTREMITIES: Reveal no cyanosis, clubbing or edema. NEUROLOGIC: The patient is awake, alert and oriented with no focal neurological signs. SKIN: There is a large decubitus ulcer over the sacrum to the right buttock, wound VAC is in place. LABORATORY DATA: Show the white blood cell count to be 10.0, hemoglobin and hematocrit are 8.9 and 27.9 respectively, platelet count is 169. Sodium is 143, potassium 4.3, blood urea nitrogen is 64, creatinine is 4.4, glucose is 126. PT/INR is 3.71. ASSESSMENT AND PLAN: So, the patient is to be admitted. Sacral wound is to be reevaluated for surgery and we will see if further debridement is necessary. Saurav Guadalupe MD cc: MD Ori (Delete if not dictated.)
[2018-06-12] MEDS: Metoprolol Succinate 25 mg XL Tab PO SCH (13:43)
[2018-06-12] MEDS: Oxycodone/Acetaminophen 5/325 mg Tab PO PRN (19:06)
[2018-06-13] MEDS: Dextrose 5%/0.45% NS 1,000 ML IV SCH ×2 (05:30→17:18)
[2018-06-13] MEDS: Metoprolol Succinate 25 mg XL Tab PO SCH (08:00)
[2018-06-13] MEDS: Collagenase 250 Units/gm Ointment(30 gm) TOP SCH (16:56)
[2018-06-14] MEDS: Dextrose 5%/0.45% NS 1,000 ML IV SCH ×2 (06:54→19:47)
[2018-06-14] MEDS: Metoprolol Succinate 25 mg XL Tab PO SCH (10:34)
[2018-06-14] MEDS: Collagenase 250 Units/gm Ointment(30 gm) TOP SCH (10:35)
--- NOTE | 2018-06-14 10:57 | PN ---
DATE: 06/12/2018 SUBJECTIVE: The patient is an 82-year-old female with a history of hypertension, status post ileostomy placement after resection of colon carcinoma. She has bilateral hydronephrosis, status post bilateral ureteral stent placement. She has a Duke catheter inserted with a nephrostomy tube on the left. She has a history of deep vein thrombosis, for which she was hospitalized within the past month, who developed a decubitus ulcer that was evaluated by Surgery in her last hospitalization within the past month and debridement was done and wound VAC was placed. The patient is admitted now because of possible further breakdown of her sacral right buttock decubitus ulcer. She is to be reevaluated by Surgery. When seen today, the patient is resting comfortably, voices no complaints. She does appear rather despondent as per conversation with the patient's son at bedside yesterday, the patient is indeed despondent, not wanting to eat. As per nursing staff, the patient is refusing her medications today. OBJECTIVE: VITAL SIGNS: Her blood pressure is 103/66, temperature is 98.2 degrees Fahrenheit and heart rate is 75. ASSESSMENT AND PLAN: We will be encouraging her medications. Case to be discussed with Surgery. They evaluated the wound, I do not believe any further surgical intervention is planned. The patient will be reevaluated in the morning. Planning on discharge to home on 06/14/2018. Saurav Guadalupe MD
--- NOTE | 2018-06-14 10:58 | PN ---
DATE: 06/13/2018 DAILY PROGRESS NOTE SUBJECTIVE: The patient is an 82-year-old female with a history of deep vein thrombosis x2 one in the more recent past. She has a history of hypertension, colon carcinoma, chronic obstructive renal failure, ureteral stents were placed during the last hospitalization because of hydronephrosis. She is status post ileostomy placement for colon carcinoma. She was brought to the emergency room as the visiting nurse suspected worsening of a sacral/right buttock decubitus ulcer. This was seen and evaluated within the last month. During her last hospitalization by surgery. It was debrided and wound VAC was placed. She is admitted for reevaluation now. Surgical consultation was requested of Dr. Mcmahan. It was felt that the wound is healing and no surgical intervention is necessary at this time. The patient is rather despondent, she feels that between the renal failure and colon carcinoma, the patient does not have much time left on this earth, she has been refusing medication, refusing eating, yesterday the son was at bedside when I saw the patient and realized that she was despondent. We are hoping that when the patient is discharged to home in the morning, her spirits will improve. Today the patient was resting comfortably. She denied any pain. When asked if she felt hungry, felt like eating today and would possibly wake up more, she said she would. I explained to her that we would like her to be stronger in preparation of her discharge to home in the morning. The patient will be reevaluated in the morning and hopefully discharged to home. Saurav Guadalupe MD
[2018-06-15 07:43] LABS: EOS # 0.3 (0.0-0.7); EOS % 2.9 % (1.5-5.0); HEMOGLOBIN 7.8 g/dL (12.0-16.0); LYMPH # 1.2 (1.2-3.4); LYMPH % 12.3 % (22.0-35.0); MEAN CELL VOLUME 82.7 fl (80.0-105.0); MEAN CORPUSCULAR HEMOGLOBIN 25.9 pg (25.0-35.0); MEAN CORPUSCULAR HGB CONC 31.3 g/dl (31.0-37.0); MEAN PLATELET VOLUME 11.3 fl (7.0-11.0); MONO # 0.6 (0.1-0.6); MONO % 5.9 % (1.0-6.0); RBC 3.01 10^6/uL (3.5-6.1); RED CELL DISTRIBUTION WIDTH 16.2 % (11.5-14.5)
[2018-06-15 07:50] LABS: INR 3.5; PROTHROMBIN TIME 39.5 SECONDS (9.4-12.5)
[2018-06-15 08:01] VITALS: BP 136/86; PULSE 86; RESP 17; TEMP 98.5; O2SAT 96
[2018-06-15 08:34] LABS: ALB/GLOB RATIO 0.6 (1.1-1.8); ALBUMIN 2.1 g/dL (3.0-4.8); CALCIUM 7.3 mg/dL (8.4-10.5)
[2018-06-15] MEDS: Dextrose 5%/0.45% NS 1,000 ML IV SCH (09:54)
[2018-06-15] MEDS: Metoprolol Succinate 25 mg XL Tab PO SCH (09:55)
--- NOTE | 2018-06-15 15:19 | PN ---
DATE: 06/14/2018 SUBJECTIVE: The patient is an 82-year-old female with a history of deep vein thrombosis x2 and one last of which was in the more recent past. He has a history of hypertension, colon carcinoma, chronic obstructive renal disease, ureteral stents placement when she was last hospitalized secondary to bilateral hydronephrosis. She is status post ileostomy placement for colon carcinoma. She has a sacral/right buttock decubitus ulcer which was debrided by surgical team and wound VAC was placed on her last hospitalization. When seen by the visiting nurse, the patient was suggesting representation for reevaluation of the wounds. She felt the visiting nurse might need some more cleaning or debridement. So, therefore the patient was once again admitted. She was seen by the surgical team. They did not feel any further surgical intervention is necessary. She continues to be treated with the wound VAC. Wound cultures were negative, however, the patient did show a positive urine culture, it was positive for strep and was sensitive to nitrofurantoin. The patient did have some low-grade temperatures of 99 to 100 during her hospital stay. The patient is overall despondent. She had been refusing medications and food during the hospital stay. When seen, the son is at bedside. We are preparing for discharge to home in the morning. Today, the patient was more awake and responsive and overall in better spirits. So, we are arranging discharge in the morning and the patient will continue to be followed up by visiting nurses post discharge. Wound VAC is to stay in place over the decubitus ulcer. Prescription for nitrofurantoin 100 mg to be taken twice a day was started, this is to be continued post discharge as well. Of note, her Duke catheter had been indwelling for greater than a month. Her regular urologists were unable to come to replace it. However, Dr. Mckeon was asked and he replaced the Duke catheter earlier today. So, the patient is to be discharged in the morning. Saurav Guadalupe MD [facility]
--- NOTE | 2018-06-15 18:20 | CON ---
DATE: 06/14/2018 UROLOGY CONSULTATION AND PROCEDURE NOTE CHIEF COMPLAINT: Weakness. HISTORY OF PRESENT ILLNESS: This is an 82-year-old female who is brought to the emergency room because of progressive weakness and worsening decubital ulcers. The patient has a history of metastatic colon cancer. She has been having wound debridements at home. Visiting nurse saw her at home and felt that the wounds were becoming more purulent. She has a history of DVT as well as the colon cancer and was transferred to the hospital for admission and treatment. 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 A consultation was now requested for Duke change as the catheter in place has been in place for over one month. PAST MEDICAL HISTORY: Significant for colon cancer, decubital ulcers, left hydronephrosis, DVT, hypertension. MEDICATIONS AT THE TIME OF ADMISSION: Included Coumadin, Pravachol, Percocet, metoprolol, losartan, hydrochlorothiazide and Duragesic patches. ALLERGIES: ALLERGIC TO LATEX. FAMILY HISTORY: Noncontributory for this admission. SOCIAL HISTORY: No history of smoking or EtOH use. REVIEW OF SYSTEMS: This could not be obtained from the patient as she is currently obtunded and not able to provide any history from the chart. Review of systems is as per the history of present illness. The patient had no acute complaints other than the generalized weakness and worsening decubital ulcers. PHYSICAL EXAMINATION: GENERAL: The patient is awake and responsive to stimuli but not answering any questions. She is afebrile. VITAL SIGNS: Temperature of 99, pulse 82, BP 90/60, respirations 18. NECK: Supple. There is no adenopathy noted. CHEST: Exam of the chest revealed slightly decreased inspiratory effort. CARDIAC: Exam shows positive S1, S2. There is some mild peripheral edema noted. ABDOMEN: The abdomen is soft. There is no apparent rebound or guarding. There is no noted tenderness. There is no CVA tenderness noted. There is an ostomy in place which is viable and functioning. UROLOGIC: The patient has a Duke catheter in place which is draining lightly blood-tinged urine. EXTREMITIES: There is no cyanosis. There is mild edema. LABORATORY EXAM: The patient's creatinine was noted to be elevated on admission with a GFR of 12. RADIOLOGIC EXAM: No pertinent recent urologic studies were done during this admission. Blood cultures were negative on admission. Urine was positive for Staph species. IMPRESSION, PLAN AND PROCEDURE NOTE: This is an 82-year-old female who is currently do not resuscitate/do not intubate with metastatic colon cancer. The patient's nephrostomy tube is in place and draining. She has an indwelling Duke catheter which I needed to change as it has been in place for over one month. On exam, the patient has a recessed urethra as well as contractions of her extremities. I was able to remove the current Duke catheter and place a new 18-[place] Silastic Duke. Given the patient's anatomy, this needed to be done by placing a guide in the patient's vagina and placing the Duke catheter over the finger as a guide and blindly into the urethra. However, I was able to successfully place the catheter. It is currently draining well, lightly blood-tinged urine as before. Urologically, other than changing the Duke catheter, not much to add at this point as the patient is do not resuscitate and appears to be having a poor prognosis at this point. My recommendation would be to continue the nephrostomy tube and monthly Duke changes. I will need to discuss her further care with her medical attending and the director of casework. The patient had a stent placed and was seeing a different urologist; however, she can continue care with him or me, whichever the family wants to follow up with her. Romeo Mckeon MD
--- NOTE | 2018-06-16 00:38 | DS ---
HISTORY OF PRESENT ILLNESS: This is a delightful 82-year-old , I have known for sometime, who is cared for by devoted son. She is on Coumadin. Recently diagnosed with DVT in the right leg. She was home and seen in a house call only a few days prior to this admission, when the visiting nurse came, there was problems with the wound VAC. She thought it best that the patient come to the emergency room. In the ER, surgical team asked she be admitted for overnight observation, so they can re-instruct the family and care with wound VAC and so the patient was admitted. Her labs were essentially unremarkable. She was a bit more lethargic and groggy than her usual state. She was treated with some IV fluids, hydration and eventually some antibiotics. Surgery saw her, but felt that son needed a little bit more involvement in teaching and managing the wound VAC. Also the patient began to have issues with her indwelling Duke. 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 The patient continued her medical follow up with multiple subspecialist and was finally ready for discharge to home after significant amount of decubitus care and urological intervention. She will be seen in a house call approximately 1 week because of her Coumadin coagulopathy and elevated INR. Her Coumadin was held during the course of her hospital stay and will remain on hold until she is seen at home in some 3 days. FINAL DISCHARGE DIAGNOSES: 1. Decubitus ulcer with surrounding cellulitis. 2. Urinary tract infection. 3. Bed confined. 4. Congenital anomalus urethra. 5. Deep venosus thrombosis, right leg. Guy Guadalupe MD
== END 2018-06-15 17:56 | disposition home health service (06) | DRG 593 ==
LOC: ED 13:57 → ERH 16:18 → 5RNO 20:39 → OBSVTOIN 06-12 09:00 → 5RNO 06-14 20:31
PROVIDERS: ADMIT Internal Medicine; ATTEND Internal Medicine
DX: L89.310 Pressure ulcer of right buttock, unstageable (principal); L03.319 Cellulitis of trunk, unspecified; C18.9 Malignant neoplasm of colon, unspecified; N13.6 Pyonephrosis; Q89.8 Other specified congenital malformations; L89.154 Pressure ulcer of sacral region, stage 4; I12.9 Hypertensive chronic kidney disease with stage 1 through stage 4 chronic kidney disease, or unspecified chronic kidney disease; N18.9 Chronic kidney disease, unspecified; D64.9 Anemia, unspecified; E78.5 Hyperlipidemia, unspecified; G62.9 Polyneuropathy, unspecified; J45.909 Unspecified asthma, uncomplicated; R62.7 Adult failure to thrive; Z74.01 Bed confinement status; Z79.01 Long term (current) use of anticoagulants; Z86.718 Personal history of other venous thrombosis and embolism; Z93.2 Ileostomy status; Z93.3 Colostomy status; Z90.49 Acquired absence of other specified parts of digestive tract; Z91.040 Latex allergy status; Z66 Do not resuscitate